=== PATIENT | female | born 1950 | race American Indian/Alaskan Native ===

== ENCOUNTER 2020-09-13 09:57 | Outpatient (REF) | payer MEDICARE, SELFPAY ==
[2020-09-13 10:50] LABS: MANUAL DIFF FLAG NO
[2020-09-13 10:55] LABS: Basophils Percent Auto 0.6 % (0-2); Eosinophils Absolute Auto 0.1 X10*3/uL (0.0-0.4); Eosinophils Percent Auto 1.5 % (0-4); Hematocrit 48.1 % (37-47); Hemoglobin 15.1 g/dl (12.0-16.0); Imm Gran Abs Auto 0.03 X10*3/uL (0.00-0.03); Imm Gran Pct Auto 0.4 % (0.0-0.4); Lymphocytes Absolute Auto 1.7 X10*3/uL (1.2-4.9); Lymphocytes Percent Auto 24.1 % (20-40); Mean Corpuscular HGB Conc 31.4 g/dl (31.0-35.0); Mean Corpuscular Hemoglobin 29.7 pg (27.0-33.0); Mean Corpuscular Volume 94.5 fL (80-98); Mean Platelet Volume 11.1 fL (9.4-12.3); Monocytes Absolute Auto 0.8 X10*3/uL (0.1-1.2); Monocytes Percent Auto 10.8 % (2-11); Neutrophils Absolute Auto 4.5 X10*3/uL (2.0-8.3); Neutrophils Percent Auto 62.6 % (45-73); Platelet Count 160 X10*3/uL (160-400); Red Blood Count 5.09 X10*6/uL (4.20-5.50); White Blood Count 7.2 X10*3/uL (4.8-10.8)
[2020-09-13 11:31] LABS: Anion Gap 12 (12-20); Blood Urea Nitrogen 17 mg/dL (9-16); Calcium 8.7 mg/dL (8.4-10.2); Carbon Dioxide 33 mmol/L (22-29); Chloride 102 mmol/L (96-108); Cholesterol 179 mg/dL; Estimated Glomerular Filt Rate > 60; Glucose Fasting 91 mg/dL (60-99); HDL Cholesterol 79 mg/dL; LDL Cholesterol Calculated 78 mg/dl; Potassium 4.2 mmol/l (3.3-5.1); Sodium 143 mmol/L (135-145); Triglycerides 111 mg/dL
== END 2020-09-13 09:58 | disposition home or self-care (01) ==
LOC: HO.LAB 09:57
PROVIDERS: PCP Internal Medicine; Visit Provider Nurse Practitioner Family
DX: E78.00 Pure hypercholesterolemia, unspecified (principal); F41.9 Anxiety disorder, unspecified; I10 Essential (primary) hypertension
CPT/HCPCS: 36415; 80048; 80061; 85025

== ENCOUNTER 2020-12-11 10:06 | Outpatient (REF) | payer MEDICARE, SELFPAY ==
[2020-12-11 11:28] LABS: Alanine Aminotransferase 37 U/L (0-31); Albumin Level 4.1 g/dL (3.5-5.0); Alkaline Phosphatase 126 U/L (39-117); Anion Gap 11 (12-20); Aspartate Amino Transferase 37 U/L (5-31); Bilirubin Total 0.9 mg/dL (0.0-1.0); Blood Urea Nitrogen 32 mg/dL (9-16); Calcium 9.3 mg/dL (8.4-10.2); Carbon Dioxide 29 mmol/L (22-29); Chloride 108 mmol/L (96-108); Cholesterol 209 mg/dL; Estimated Glomerular Filt Rate 51; Glucose Fasting 109 mg/dL (60-99); HDL Cholesterol 80 mg/dL; LDL Cholesterol Calculated 106 mg/dl; Potassium 4.4 mmol/L (3.3-5.1); Sodium 144 mmol/L (135-145); Total Protein 6.9 g/dL (6.5-8.0); Triglycerides 119 mg/dL
[2020-12-15 12:52] LABS: Vitamin D 25-OH, D2 55 ng/mL; Vitamin D 25-OH, D3 10 ng/mL; Vitamin D 25-OH, Total 65 ng/mL (30-100)
== END 2020-12-11 10:07 | disposition home or self-care (01) ==
LOC: HO.LAB 10:06
PROVIDERS: PCP Internal Medicine; Referring Provider Nurse Practitioner Family; Visit Provider Internal Medicine
DX: I10 Essential (primary) hypertension (principal); E55.9 Vitamin D deficiency, unspecified
CPT/HCPCS: 36415; 80053; 80061; 82306

== ENCOUNTER → 2020-12-28 13:28 | Outpatient (BNVA) | payer MEDICARE, SELFPAY | PROVIDERS: PCP Internal Medicine; Visit Provider Surgery | DX: K64.9 Unspecified hemorrhoids (principal); Z79.01 Long term (current) use of anticoagulants | CPT/HCPCS: 46600; 99202 ==

== ENCOUNTER → 2021-01-10 15:07 | Outpatient (BNVA) | payer MEDICARE, SELFPAY | PROVIDERS: PCP Internal Medicine; Visit Provider Urology | DX: N39.46 Mixed incontinence (principal) | CPT/HCPCS: 81002; 99202 ==

== ENCOUNTER → 2021-05-09 13:11 | Outpatient (REF) | payer MEDICARE, SELFPAY ==
--- NOTE | 2021-05-09 13:00 | CA_ITS ---
Transthoracic Echocardiogram Patient (Last, First, Middle): Alexx Monahan, Gender: Female Date of : 1950 Age: 71 Procedure Date: 05/09/2021 Procedure Type: Transthoracic Echocardiogram Location: OP Height: 149.86 cm Weight: 54.43 kg BSA: 1.48 m2 Heart Rate: bpm BP: 118 / 72 mmHg Cat Operator: IZABEL Referring MD: Estevan Gonzales MD It Trainer: Ryan Griffith MD Symptoms: I42.9 CMP Study Quality: Good ECG Rhythm: Sinus Conclusions: - 1. Moderate LV systolic dysfunction with regional wall motion abnormality in LAD territory consistent with prior infarction with impaired relaxation filling pattern 2. Normal cardiac valvular Doppler 3. Normal RV systolic pressure 4. No pericardial effusion Findings Procedure Information Contrast agent, definity, is being given per protocol without apparent complications. Left Ventricle Normal left ventricular cavity size. There is normal left ventricular wall thickness. The left ventricular systolic function is moderate to severely decreased. The visually estimated ejection fraction is between 35-40%. There is evidence of regional wall motion abnormalities. Spectral Doppler is indicative of an impaired relaxation filling pattern. E/E prime ratio is between 8 and 15 consistent with indeterminate filling pressures. Wall Motion Rest Echo Findings The apical anterior and apical inferior segments are hypokinetic. The inferoseptal wall, the apical lateral, apical septum, and mid anteroseptal segments are akinetic. The apex segment is dyskinetic. All other scored wall segments showed normal motion. Right Ventricle Normal right ventricular cavity size and systolic function. There is an ICD wire seen in the right ventricle. Atria Both atria are normal in size. There is no evidence of interatrial shunt. Aortic Valve Normal aortic valve structure and function. There is no aortic valve stenosis. There is no aortic valve regurgitation. Mitral Valve Normal mitral valve structure and function. There is trace mitral valve regurgitation. There is no mitral valve stenosis. Pulmonic Valve The pulmonic valve was not well visualized. Tricuspid Valve Likely normal tricuspid valve structure and function. There is mild tricuspid valve regurgitation. The right ventricular systolic pressure is normal. The right ventricular systolic pressure is 27 mmHg. Normal right atrial pressure. There is no evidence of pulmonary hypertension. Great Vessels All visible segments of the aorta are normal in size. The pulmonary artery was not well visualized. Venous The inferior vena cava is normal in size and collapses greater than 50% with inspiration. Pericardium/Pleural There is no evidence of pericardial effusion. Prior Study Comparison Changes noted compared to prior study dated: 10/12/2019. RV systolic pressure measured on this study is within normal limits Measurements 2D Linear Measurements IVSd: 0.84 0.6-0.9/0.6-1.0 cm LVIDd: 5.23 3.9-5.3/4.2-5.9 cm LVIDd Index: 3.53 2.4-3.2/2.2-3.1 cm/m2 LVIDs: 4.45 2.0-3.6 cm LVPWd: 0.84 0.7-1.1 cm LA Diam: 3.30 2.7-3.8/3.0-4.0 cm LAIDs Index: 2.23 1.5-2.3 cm/m2 LV Mass: 193.61 67-162/88-224 g LV Mass Index: 130.82 43-95/49-115 g/m2 LVOT Diam: 1.70 3.0+(-)1.3 cm 2D Systolic Function EF 4C: 35.00 >55% EF 2C: 34.80 >55% Mitral Valve MV Pk E: 0.69 MV PK A: 1.16 MV Decel Time: 237.00 E/A: 0.60 E'Lateral: 4.03 E'Medial: 4.79 E/E' Med: 14.40 E/E' Lat: 17.20 PHT: 70.00 MVA PHT: 3.14 Decel Sutter: 2.91 Aortic Valve AoV Pk Kb: 1.64 AoV Pk Grad: 11.00 LVOT LVOT Pk Kb: 1.06 LVOT Mn Kb: 0.70 LVOT VTI: 0.22 LVOT Pk Grad: 4.00 LVOT Mn Grad: 2.00 LVOT Diam: 1.70 LVOT Area: 2.27 Diastolic Function MV Pk E: 0.69 MV Pk A: 1.16 E/A: 0.60 E'Medial: 4.79 E/E' Med: 14.40 E' Laterial: 4.03 E/E' Lat: 17.20 Right Ventricle TAPSE (mm): 1.95 Tricuspid Valve TR Pk Kb: 2.47 TR Pk Grad: 24.00 RVSP: 27.00 Great Vessels Aorta Ao Asc: 3.20 2.1-3.4 cm Updated in Other Vendor System with Status of Final Ryan Griffith MD electronically signed on 05/10/2021 9:08:43 AM with status of Final
== END ==
LOC: HO.CARD 13:11
PROVIDERS: Visit Provider Internal Medicine
DX: I42.9 Cardiomyopathy, unspecified (principal)
CPT/HCPCS: 93306; Q9957

== ENCOUNTER → 2021-06-04 13:47 | Outpatient (BNVA) | payer MEDICARE, SELFPAY | PROVIDERS: PCP Internal Medicine; Referring Provider Internal Medicine; Visit Provider Internal Medicine | DX: Z45.02 Encounter for adjustment and management of automatic implantable cardiac defibrillator (principal); I25.10 Atherosclerotic heart disease of native coronary artery without angina pectoris; I48.0 Paroxysmal atrial fibrillation; I25.5 Ischemic cardiomyopathy | CPT/HCPCS: 93005; 99212 ==

== ENCOUNTER → 2021-07-26 14:46 | Outpatient (BNVA) | payer MEDICARE, SELFPAY | PROVIDERS: PCP Internal Medicine | DX: R32 Unspecified urinary incontinence (principal) | CPT/HCPCS: 51798; 99212 ==

== ENCOUNTER 2021-09-05 13:41 | Outpatient (REF) | payer MEDICARE, SELFPAY ==
[2021-09-05 14:49] LABS: Cholesterol 207 mg/dL; HDL Cholesterol 80 mg/dL; LDL Cholesterol Calculated 107 mg/dl; Triglycerides 104 mg/dL
== END 2021-09-05 13:42 | disposition home or self-care (01) ==
LOC: HO.LAB 13:41
PROVIDERS: Nurse Practitioner Family; PCP Internal Medicine; Visit Provider Internal Medicine
DX: E78.00 Pure hypercholesterolemia, unspecified (principal)
CPT/HCPCS: 36415; 80061

== ENCOUNTER 2021-10-01 08:03 | Outpatient (REF) | payer MEDICARE, SELFPAY ==
--- NOTE | 2021-10-01 | PFT_ITS ---
This 71-year-old female tried to do the pulmonary function test, but could not perform any adequate maneuvers. The patient had audible expiratory wheezes on auscultation. If the patient does need to have complete pulmonary function tests, then please educate her and send again after thorough explanation. MD JORDYN Radford/LAILA / [phone]
== END 2021-10-01 08:04 | disposition home or self-care (01) ==
LOC: HO.RESP 08:03
PROVIDERS: PCP Internal Medicine; Visit Provider Nurse Practitioner Family
DX: Z13.89 Encounter for screening for other disorder (principal)

== ENCOUNTER 2021-11-09 13:03 | Outpatient (REF) | payer MEDICARE, SELFPAY ==
[2021-11-09 13:36] LABS: Binax Internal Control QC Valid; Binax Now Covid-19 Ag Negative (Negative)
== END 2021-11-09 13:04 | disposition home or self-care (01) ==
LOC: HO.LAB 13:03
PROVIDERS: Visit Provider Internal Medicine
DX: Z20.822 Contact with and (suspected) exposure to COVID-19 (principal)
CPT/HCPCS: C9803

== ENCOUNTER 2021-11-26 10:24 | Outpatient (REF) | payer MEDICARE, SELFPAY ==
[2021-11-26 11:41] LABS: Alanine Aminotransferase 15 U/L (0-31); Alkaline Phosphatase 99 U/L (39-117); Anion Gap 10 (12-20); Aspartate Amino Transferase 23 U/L (5-31); Bilirubin Total 0.9 mg/dL (0.0-1.0); Blood Urea Nitrogen 15 mg/dL (9-16); Calcium 9.4 mg/dL (8.4-10.2); Carbon Dioxide 32 mmol/L (22-29); Chloride 107 mmol/L (96-108); Cholesterol 188 mg/dL; Estimated Glomerular Filt Rate 55; Glucose Fasting 112 mg/dL (60-99); HDL Cholesterol 76 mg/dL; LDL Cholesterol Calculated 91 mg/dl; Potassium 3.9 mmol/L (3.3-5.1); Sodium 145 mmol/L (135-145); Total Protein 6.7 g/dL (6.5-8.0); Triglycerides 107 mg/dL
[2021-12-01 13:11] LABS: Vitamin D 25-OH, D2 22 ng/mL; Vitamin D 25-OH, D3 22 ng/mL; Vitamin D 25-OH, Total 44 ng/mL (30-100)
== END 2021-11-26 10:25 | disposition home or self-care (01) ==
LOC: HO.LAB 10:24
PROVIDERS: PCP Internal Medicine; Visit Provider Internal Medicine
DX: E78.5 Hyperlipidemia, unspecified (principal); E55.9 Vitamin D deficiency, unspecified; I25.5 Ischemic cardiomyopathy
CPT/HCPCS: 36415; 80053; 80061; 82306

== ENCOUNTER 2021-12-07 14:59 | Outpatient (REF) | payer MEDICARE, SELFPAY ==
[2021-12-07 16:10] LABS: COVID-19 Test Negative (Negative); IDNOW Serial# 16C4AD1C
== END 2021-12-07 15:00 | disposition home or self-care (01) ==
LOC: HO.LAB 14:59
PROVIDERS: PCP Internal Medicine; Visit Provider Internal Medicine
DX: Z20.822 Contact with and (suspected) exposure to COVID-19 (principal)
CPT/HCPCS: 87635; C9803

== ENCOUNTER 2022-03-26 18:56 | Emergency (ER) | payer MEDICARE, SELFPAY ==
--- NOTE | 2022-03-26 | ECG_ITS ---
Test Reason : chest discomfort Blood Pressure : / mmHG Vent. Rate : 075 BPM Atrial Rate : 075 BPM P-R Int : 124 ms QRS Dur : 076 ms QT Int : 372 ms P-R-T Axes : 074 017 078 degrees QTc Int : 415 ms Normal sinus rhythm Possible Left atrial enlargement Low voltage QRS Possible Inferior infarct , age undetermined Cannot rule out Anteroseptal infarct , age undetermined Abnormal ECG No previous ECGs available Referred By: Generic ED Physician Electronically Signed By:ITALIA ROCHA
--- NOTE | ~2022-03-26 | CT_ITS ---
EXAMINATION: CT CHEST WITHOUT CONTRAST CLINICAL INFORMATION: Productive cough with dyspnea COMPARISON: None TECHNIQUE: Multidetector volumetric CT imaging of the chest was done. Axial MIP volume rendering provided. Sagittal and coronal reformatted images were obtained. The study is degraded by marked motion artifact secondary to the patient's inability to follow breathing instructions, especially at the lung bases. This CT examination was performed using dose optimization techniques as appropriate, variously including the following: *Automated exposure control *Adjustment of mA and/or kV according to patient size (this includes techniques or standardized protocols for targeted exams where dose is matched to indication/reason for exam; i.e. extremities or head) *Use of iterative reconstruction technique DLP: 216 mGy-cm FINDINGS: LUNGS: There are some tree-in-bud opacities in the superior segment of the right lower lobe (5:213-233). The lungs are otherwise clear with no evidence of consolidation or worrisome nodules. There is no evidence of CHF. MEDIASTINUM: Heart size is normal. A bipolar left chest wall pacemaker is present. No mediastinal or hilar lymphadenopathy is seen. Coronary artery calcifications are present. PLEURA: There is no pleural effusion. No pleural mass or thickening. AXILLA: No lymphadenopathy. UPPER ABDOMEN: Some mild fullness in the left adrenal gland. The right appears normal. The gallbladder is contracted and contains gallstones. OSSEOUS STRUCTURES: Unremarkable. CT/CT chest wo con IMPRESSION: No acute intrathoracic disease seen. Some minimal tree-in-bud densities seen in the superior segment of the right lower due to inflammation/airway disease. No gross consolidations. Other incidental findings described above. Fleischner guidelines were followed.
--- NOTE | ~2022-03-26 | XR_ITS ---
EXAMINATION: XR CHEST CLINICAL INFORMATION: Dyspnea COMPARISON: None TECHNIQUE: 2 views of the chest were obtained. FINDINGS: Heart size within normal limits. A left chest wall pacemaker is present with one lead in the atria the other in the right ventricle. No acute infiltrates, effusions or lung masses are seen. Pulmonary vasculature is much less prominent on the left than the right . This raises the question of a Westerm[place] sign in the setting of pulmonary emboli. If this is a consideration, CT pulmonary angiography may be useful. Some retrocardiac atelectasis is present. XR/XR chest 2V IMPRESSION: Decreased pulmonary vascularity on the left raising question of compromised flow and a Westermark sign from possible pulmonary emboli. If this is a consideration, CT angiography would be useful.
[2022-03-26 19:11] VITALS: BP 128/95; PULSE 77; RESP 22; TEMP 37.1; O2SAT 96; BMI 23.8
[2022-03-26 19:50] LABS: MANUAL DIFF FLAG NO
[2022-03-26 19:52] LABS: Basophils Percent Auto 0.3 % (0-2); Mean Corpuscular Volume 91.1 fL (80.0-98.0); Mean Platelet Volume 10.6 fL (9.4-12.3); PLT CLUMP 1; SCAN SMEAR FLAG 1
[2022-03-26 19:54] LABS: Eosinophils Absolute Auto 0.1 X10*3/uL (0.0-0.4); Eosinophils Percent Auto 1.7 % (0-4); Hematocrit 41.8 % (37.0-47.0); Hemoglobin 13.6 g/dl (12.0-16.0); Imm Gran Abs Auto 0.01 X10*3/uL (0.00-0.03); Imm Gran Pct Auto 0.1 % (0.0-0.4); Lymphocytes Absolute Auto 1.4 X10*3/uL (1.2-4.9); Lymphocytes Percent Auto 18.6 % (20-40); Mean Corpuscular HGB Conc 32.5 g/dl (31.0-35.0); Mean Corpuscular Hemoglobin 29.6 pg (27.0-33.0); Monocytes Absolute Auto 0.9 X10*3/uL (0.1-1.2); Neutrophils Percent Auto 67.3 % (45-73); Red Blood Count 4.59 X10*6/uL (4.20-5.50); Red Cell Distribution Width 13.3 % (11.0-16.0)
[2022-03-26 19:55] LABS: Platelet Count 117 X10*3/uL (160-400); White Blood Count 7.5 X10*3/uL (4.8-10.8)
[2022-03-26 20:06] LABS: Alanine Aminotransferase 15 U/L (0-31); Albumin Level 3.8 g/dL (3.5-5.0); Alkaline Phosphatase 99 U/L (39-117); Anion Gap 13 (12-20); Aspartate Amino Transferase 24 U/L (5-31); Bilirubin Total 0.9 mg/dL (0.0-1.0); Blood Urea Nitrogen 17 mg/dL (9-16); Calcium 8.8 mg/dL (8.4-10.2); Carbon Dioxide 27 mmol/L (22-29); Chloride 105 mmol/L (96-108); Estimated Glomerular Filt Rate > 60; Glucose Random 126 mg/dL (60-115); Potassium 3.6 mmol/L (3.3-5.1); Sodium 141 mmol/L (135-145); Total Protein 6.5 g/dL (6.5-8.0)
[2022-03-26 20:10] LABS: Troponin-I High Sensitivity 12.8 ng/L (<3.5-17.0)
--- NOTE | 2022-03-26 22:09 | ED_ITS ---
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 Mode of arrival: ambulatory Limitations: no limitations History of Present Illness HPI Narrative: son reports compliant with all medications, no sick contacts, has not missed any of her bel MASSEY elicited complaint: cough (productive sputum, wheezing) Pertinent past history: asthma Onset (ago): day(s) (3) Timing: constant Severity: moderate Exacerbating factors: coughing Relieving factors: rest and bronchodilators Known history of: asthma Associated symptoms: cough, wheezing and sputum production Treatment prior to arrival: bronchodilator Related Data Home Medications Medication Instructions Recorded Confirmed donepezil 10 mg tablet 10 mg PO DAILY 09/04/20 12/05/21 levalbuterol HCl 0.63 mg/3 mL 0.63 mg INHALATION Q8H ml 09/04/20 12/05/21 solution for nebulization (Xopenex) memantine 10 mg tablet 0 mg PO 09/04/20 12/05/21 nitroglycerin 0.3 mg sublingual 0 mg SUBLINGUAL 09/04/20 12/05/21 tablet latanoprost 0.005 % eye drops 1 drp OPHTHALMIC (EYE) BEDTIME 07/26/21 12/05/21 Previous Rx's Medication Instructions Recorded ipratropium bromide 17 2 puff INHALATION TID 30 Days 09/21/20 mcg/actuation HFA aerosol inhaler #12.9 g (Atrovent HFA) sodium chloride 7 % for 4 ml INHALATION BID PRN 30 Days 12/18/20 nebulization #240 ml folic acid 1 mg tablet 1 mg PO DAILY 90 Days #90 tab 08/20/21 diclofenac sodium 1 % topical gel 2 g TOPICAL QID #100 g 09/06/21 (Voltaren Arthritis Pain) cholecalciferol (vitamin D3) 25 25 mcg PO DAILY #30 cap 09/12/21 mcg (1,000 unit) capsule (Vitamin D3) famotidine 20 mg tablet 20 mg PO BID 90 Days #180 tab 09/21/21 losartan 50 mg tablet 50 mg PO DAILY 90 Days #90 tab 09/21/21 apixaban 5 mg tablet 5 mg PO BID 90 Days #180 tab 09/27/21 carvedilol 6.25 mg tablet 6.25 mg PO BID 90 Days #180 tab 09/27/21 paroxetine HCl 20 mg tablet 20 mg PO DAILY 90 Days #90 tab 09/27/21 nebulizer accessories (Adult #1 ea 10/26/21 Aerosol Mask) quetiapine 100 mg tablet 150 mg PO BEDTIME 90 Days #135 tab 12/05/21 atorvastatin 40 mg tablet 40 mg PO BEDTIME 90 Days #90 tab 12/25/21 furosemide 20 mg tablet 20 mg PO BID 90 Days #180 tab 12/25/21 lorazepam 0.5 mg tablet (Ativan) 0.5 mg PO BEDTIME PRN 30 Days #30 12/25/21 tab ipratropium bromide 0.02 % 2.5 ml INHALATION Q6H PRN #150 ml 02/05/22 solution for inhalation alendronate 70 mg tablet 70 mg PO QWEEK 30 Days #5 tab 03/02/22 fluticasone propionate 44 1 puff PO BID #31.8 ea 03/02/22 mcg/actuation HFA aerosol inhaler (Flovent HFA) fluticasone propionate 50 1 spray INTRANASAL DAILY PRN #48 ml 03/02/22 mcg/actuation nasal spray,suspension commode #1 ea 03/26/22 doxycycline hyclate 100 mg capsule 100 mg PO BID 7 Days #14 cap 03/26/22 humidifiers #1 ea 03/26/22 prednisone 20 mg tablet 40 mg PO DAILY 4 Days #8 tab 03/26/22 Allergies Allergy/AdvReac Type Severity Reaction Status Date / Time aspirin Allergy Intermediate rash, Verified 12/05/21 16:15 pruritus penicillin G Allergy Intermediate swelling Verified 12/05/21 16:15 Review of Systems Review of Systems: Constitutional : No Fever, No Chills ENT/Mouth : No sore throat, No Rhinorrhea, No Swallowing Difficulty Eyes: No Eye Pain, No Swelling, No Redness Cardiovascular : No Chest Pain, positive SOB, No Orthopnea, no Edema Respiratory : pos Cough, pos Sputum, pos Wheezing, positive dyspnea Gastrointestinal : No Nausea, No Vomiting, No Diarrhea, No abdominal Pain, No Hematochezia, No Melena Genitourinary : No Dysuria, No Urinary Frequency, No Hematuria Musculoskeletal : No joint pain, No Myalgias Skin : No Skin Lesions, No rash Neuro : No Weakness, No Numbness, No Dizziness, No Headache Psych : No Anxiety/Panic, No Depression Heme/Lymph: No Bruising, No Lymphadenopathy Endocrine : No Polyuria, No Polydipsia All other systems reviewed and are negative [facility] Past Medical History Attestation statement: The following information was validated with the patient. Source: old records reviewed Medical History Anticoagulated Anxiety Asthma Atherosclerotic cardiovascular disease Bleeding hemorrhoids Blurry vision Dementia Depression with anxiety Dyslipidemia GERD (gastroesophageal reflux disease) Hemorrhoids High cholesterol History of MT (myocardial infarction) History of stroke Hypertension Hypovitaminosis D Ischemic cardiomyopathy Osteoporosis PAF (paroxysmal atrial fibrillation) Urinary incontinence Urinary incontinence, mixed Surgical History History of cardiac defibrillator placement History of hysterectomy Family History Family History Father No problems noted. Mother No problems noted. Sister No problems noted. Sister No problems noted. Son No problems noted. Son No problems noted. Daughter No problems noted. Social History Social History Housing: Apartment Alcohol intake: never Patient Tobacco Use Status: Former Tobacco user Tobacco use type: Cigarette e-Cigarette/Vaping Use: Never Used Second Hand Smoke Exposure: No Advance Directives: Yes Advance Directives on File: Yes Advance Directives Date on File: 12/18/20 Current occupational status: retired Physical Exam Vital Signs: Vital Signs: Last Vital Signs Temp 99.5 F 03/26/22 22:47 Pulse 75 03/26/22 22:47 Resp 18 03/26/22 22:47 BP 133/72 03/26/22 22:47 Pulse Ox 94 03/26/22 22:47 BMI result Body Mass Index 23.8 Appearance: Alert. Oriented X3. No acute distress. Eyes: Pupils equal, round and reactive to light. ENT: Pharynx normal. Neck: Normal inspection. Neck supple. CVS: Normal heart rate and rhythm. Pulses normal. Respiratory: No respiratory distress. Breath sounds mild wheezes, minimally coarse cough Abdomen: Soft and non-tender. Skin: Skin warm and dry. Normal skin color. Normal skin turgor. Extremities: No lower extremity edema. No calf ttp Neuro: Oriented X 3 at baseline. No motor deficit. No sensory deficit. Course Course Course Narrative: doubt PE given compliance with eliquis - CT scan for pneumonia ordered. Has no CP. likely bronchitis will place on doxycycline, no hypoxia, feels better, VS stable can be managed at home not toxic, clear lungs no resp distress repeat trop flat, unchanged EKG MDM - SOB/Dyspnea MDM Narrative Medical decision making narrative: 72 yo female hx of ischemic cardiomyopathy, asthma, HLD, GERD, ICD, PAF on eliquis, MT, HTN here with c/o dyspnea, wheezing, productive cough with green sputum - at this time will give neb, PO steroids, obtain COVID and flu swabs, troponin x 2, CXR - compliant with eliquis doubt PE and has no CP. Lab Data Result diagrams: 03/26/22 19:45 03/26/22 19:45 Labs: Lab Results 03/26/22 03/26/22 03/26/22 Range/Units 19:45 19:45 19:45 WBC 7.5 (4.8-10.8) X10*3/uL RBC 4.59 (4.20-5.50) X10*6/uL Hgb 13.6 (12.0-16.0) g/dl Hct 41.8 (37.0-47.0) % MCV 91.1 (80.0-98.0) fL MCH 29.6 (27.0-33.0) pg MCHC 32.5 (31.0-35.0) g/dl RDW 13.3 (11.0-16.0) % Plt Count 117 L (160-400) X10*3/uL MPV 10.6 (9.4-12.3) fL Immature Gran % (Auto) 0.1 (0.0-0.4) % Neut % (Auto) 67.3 (45-73) % Lymph % (Auto) 18.6 L (20-40) % Kinney % (Auto) 12.0 H (2-11) % Eos % (Auto) 1.7 (0-4) % Baso % (Auto) 0.3 (0-2) % Lymph # (Auto) 1.4 (1.2-4.9) X10*3/uL Kinney # (Auto) 0.9 (0.1-1.2) X10*3/uL Eos # (Auto) 0.1 (0.0-0.4) X10*3/uL Baso # (Auto) 0.0 (0.0-0.2) X10*3/uL Abs Immat Gran (auto) 0.01 (0.00-0.03) X10*3/uL Absolute Neuts (auto) 5.0 (2.0-8.3) x10*3/uL Absolute Nucleated RBC 0.000 (0.0-0.012) X10*3/uL Nucleated RBC % (auto) 0.0 (0.0-0.2) /100WBC Sodium 141 (135-145) mmol/L Potassium 3.6 (3.3-5.1) mmol/L Chloride 105 (96-108) mmol/L Carbon Dioxide 27 (22-29) mmol/L Anion Gap 13 (12-20) BUN 17 H (9-16) mg/dL Creatinine 0.89 (0.5-1.4) mg/dL Estim Creat Clear Calc 42.0 Estimated GFR > 60 Random Glucose 126 H (60-115) mg/dL Calcium 8.8 D (8.4-10.2) mg/dL Total Bilirubin 0.9 (0.0-1.0) mg/dL AST 24 (5-31) U/L ALT 15 (0-31) U/L Alkaline Phosphatase 99 (39-117) U/L Troponin I High Sens 12.8 (<3.5-17.0) ng/L Total Protein 6.5 (6.5-8.0) g/dL Albumin 3.8 (3.5-5.0) g/dL COVID-19 ([facility]) (Negative) COVID-19 Clin Com Influenza Type A (KATIE) (Negative) Influenza Type B (KATIE) (Negative) Influenza A & B Note 03/26/22 03/26/22 03/26/22 Range/Units 22:38 22:40 22:40 WBC (4.8-10.8) X10*3/uL RBC (4.20-5.50) X10*6/uL Hgb (12.0-16.0) g/dl Hct (37.0-47.0) % MCV (80.0-98.0) fL MCH (27.0-33.0) pg MCHC (31.0-35.0) g/dl RDW (11.0-16.0) % Plt Count (160-400) X10*3/uL MPV (9.4-12.3) fL Immature Gran % (Auto) (0.0-0.4) % Neut % (Auto) (45-73) % Lymph % (Auto) (20-40) % Kinney % (Auto) (2-11) % Eos % (Auto) (0-4) % Baso % (Auto) (0-2) % Lymph # (Auto) (1.2-4.9) X10*3/uL Kinney # (Auto) (0.1-1.2) X10*3/uL Eos # (Auto) (0.0-0.4) X10*3/uL Baso # (Auto) (0.0-0.2) X10*3/uL Abs Immat Gran (auto) (0.00-0.03) X10*3/uL Absolute Neuts (auto) (2.0-8.3) x10*3/uL Absolute Nucleated RBC (0.0-0.012) X10*3/uL Nucleated RBC % (auto) (0.0-0.2) /100WBC Sodium (135-145) mmol/L Potassium (3.3-5.1) mmol/L Chloride (96-108) mmol/L Carbon Dioxide (22-29) mmol/L Anion Gap (12-20) BUN (9-16) mg/dL Creatinine (0.5-1.4) mg/dL Estim Creat Clear Calc Estimated GFR Random Glucose (60-115) mg/dL Calcium (8.4-10.2) mg/dL Total Bilirubin (0.0-1.0) mg/dL AST (5-31) U/L ALT (0-31) U/L Alkaline Phosphatase (39-117) U/L Troponin I High Sens 13.9 (<3.5-17.0) ng/L Total Protein (6.5-8.0) g/dL Albumin (3.5-5.0) g/dL COVID-19 ([facility]) Negative (Negative) COVID-19 Clin Com See Note Influenza Type A (KATIE) Negative (Negative) Influenza Type B (KATIE) Negative (Negative) Influenza A & B Note See Note ECG Data Attestation: I personally reviewed and interpreted this ECG as follows: ECG interpretation date: 03/26/22 ECG interpretation time: 22:09 Interpretation: Rate: 75 Rhythm: NSR [place]: left Normal P waves. Normal MIKE. Normal QRS complex. ST T wave : no JOYCELYN, inverted aVL, V1-V5 qTC: normal prior studies: t wave inversions old 06/04/2021 The study has been interpreted contemporaneously by me. . Discharge Plan Discharge Clinical Impression: Bronchitis Patient Disposition: Home, Self-Care Instructions: Acute Bronchitis (ED) Additional Instructions: return to ED for any worsening symptoms or concerns continue all medications repeat platelet count in 3 days with your doctor Prescriptions: New doxycycline hyclate 100 mg capsule 100 mg PO BID 7 Days Qty: 14 0RF prednisone 20 mg tablet 40 mg PO DAILY 4 Days Qty: 8 0RF No Action folic acid 1 mg tablet 1 mg PO DAILY 90 Days Qty: 90 3RF cholecalciferol (vitamin D3) [Vitamin D3] 25 mcg (1,000 unit) capsule 25 mcg PO DAILY Qty: 30 11RF famotidine 20 mg tablet 20 mg PO BID 90 Days Qty: 180 3RF losartan 50 mg tablet 50 mg PO DAILY 90 Days Qty: 90 3RF paroxetine HCl 20 mg tablet 20 mg PO DAILY 90 Days Qty: 90 3RF carvedilol 6.25 mg tablet 6.25 mg PO BID 90 Days Qty: 180 3RF apixaban 5 mg tablet 5 mg PO BID 90 Days Qty: 180 3RF (DME) Adult Aerosol Mask Misc See Rx Instructions .Route Qty: 1 0RF Rx Instructions: As directed atorvastatin 40 mg tablet 40 mg PO BEDTIME 90 Days Qty: 90 3RF furosemide 20 mg tablet 20 mg PO BID 90 Days Qty: 180 2RF lorazepam [Ativan] 0.5 mg tablet 0.5 mg PO BEDTIME PRN (Reason: Severe anxiety) 30 Days Qty: 30 0RF ipratropium bromide 0.02 % solution 2.5 ml inhalation Q6H PRN (Reason: shortness of breath or wheezing) Qty: 150 0RF alendronate 70 mg tablet 70 mg PO QWEEK 30 Days Qty: 5 6RF fluticasone propionate 50 mcg/actuation spray,suspension 1 spray intranasal DAILY PRN (Reason: for allergies) Qty: 48 2RF Flovent HFA 44 mcg/actuation HFA aerosol inhaler 1 puff PO BID Qty: 31.8 2RF (DME) humidifiers Misc See Rx Instructions .Route Qty: 1 0RF Rx Instructions: As directed (DME) commode Kit See Rx Instructions .Route Qty: 1 0RF Rx Instructions: As directed Atrovent HFA 17 mcg/actuation HFA aerosol inhaler 2 puff inhalation TID 30 Days Qty: 12.9 6RF memantine 10 mg tablet 0 mg PO 0RF donepezil 10 mg tablet 10 mg PO DAILY 0RF nitroglycerin 0.3 mg tablet, sublingual 0 mg sublingual 0RF levalbuterol HCl [Xopenex] 0.63 mg/3 mL solution for nebulization 0.63 mg inhalation Q8H 0RF sodium chloride 7 % solution for nebulization 4 ml inhalation BID PRN (Reason: bronchospasm) 30 Days Qty: 240 6RF diclofenac sodium [Voltaren Arthritis Pain] 1 % gel 2 g topical QID Qty: 100 0RF Rx Instructions: apply to single elbow, wrist or hand; for hand includes palm/fingers/back of hand quetiapine 100 mg tablet 150 mg PO BEDTIME 90 Days Qty: 135 2RF latanoprost 0.005 % drops 1 drp ophthalmic (eye) BEDTIME 0RF Referrals: Ana Maria Winston MD [Primary Care Provider] - 2 days (if not better) Print Language: Slovak
[2022-03-26] MEDS: Ipratropium Bromide 0.5 MG/2.5 ML SOLUTION 0.25 MG INHALE (22:32)
[2022-03-26 22:39] VITALS: PULSE 77; RESP 18; O2SAT 96
[2022-03-26 22:47] VITALS: BP 133/72; PULSE 75; RESP 18; TEMP 37.5; O2SAT 94
[2022-03-26] MEDS: predniSONE 20 MG TABLET 40 MG PO (22:50)
[2022-03-26 23:02] LABS: IDNOW Serial# 55D5AD1C; Influenza A Negative (Negative); Influenza B2 Negative (Negative)
[2022-03-26 23:14] LABS: Troponin-I High Sensitivity 13.9 ng/L (<3.5-17.0)
[2022-03-26 23:17] LABS: COVID-19 Test Negative (Negative)
[2022-03-26 23:19] VITALS: PULSE 75; RESP 18; O2SAT 94
== END 2022-03-26 23:34 | disposition home or self-care (01) ==
PROVIDERS: Emergency Provider Emergency Medicine; PCP Internal Medicine
DX: J40 Bronchitis, not specified as acute or chronic (principal); Z20.822 Contact with and (suspected) exposure to COVID-19; R06.02 Shortness of breath; E78.5 Hyperlipidemia, unspecified; I10 Essential (primary) hypertension; I48.0 Paroxysmal atrial fibrillation; Z79.01 Long term (current) use of anticoagulants
CPT/HCPCS: 36415; 71046; 71250; 80053; 84484; 85025; 87502; 87635; 93005; 94640; 99284

== ENCOUNTER 2022-04-01 09:16 | Outpatient (REF) | payer OTHER, SELFPAY ==
[2022-04-01 09:37] LABS: MANUAL DIFF FLAG NO
[2022-04-01 10:13] LABS: Basophils Absolute Auto 0.1 X10*3/uL (0.0-0.2); Basophils Percent Auto 0.4 % (0-2); Eosinophils Percent Auto 0.3 % (0-4); Hematocrit 45.7 % (37.0-47.0); Hemoglobin 14.8 g/dl (12.0-16.0); Imm Gran Abs Auto 0.22 X10*3/uL (0.00-0.03); Lymphocytes Percent Auto 17.7 % (20-40); Mean Corpuscular HGB Conc 32.4 g/dl (31.0-35.0); Mean Corpuscular Volume 92.7 fL (80.0-98.0); Monocytes Absolute Auto 0.5 X10*3/uL (0.1-1.2); Monocytes Percent Auto 4.9 % (2-11); NRBC Pct Auto 0.2 /100WBC (0.0-0.2); Neutrophils Absolute Auto 8.3 x10*3/uL (2.0-8.3); Neutrophils Percent Auto 74.7 % (45-73); Platelet Count 184 X10*3/uL (160-400); Red Blood Count 4.93 X10*6/uL (4.20-5.50); White Blood Count 11.1 X10*3/uL (4.8-10.8)
[2022-04-01 10:44] LABS: Alanine Aminotransferase 19 U/L (0-31); Albumin Level 3.8 g/dL (3.5-5.0); Alkaline Phosphatase 98 U/L (39-117); Anion Gap 14 (12-20); Aspartate Amino Transferase 20 U/L (5-31); Bilirubin Total 0.8 mg/dL (0.0-1.0); Blood Urea Nitrogen 21 mg/dL (9-16); Calcium 9.7 mg/dL (8.4-10.2); Carbon Dioxide 26 mmol/L (22-29); Chloride 103 mmol/L (96-108); Estimated Glomerular Filt Rate 58; Glucose Fasting 182 mg/dL (60-99); Potassium 3.3 mmol/L (3.3-5.1); Sodium 140 mmol/L (135-145); Total Protein 6.4 g/dL (6.5-8.0)
== END 2022-04-01 09:17 | disposition home or self-care (01) ==
LOC: HO.LAB 09:16
PROVIDERS: PCP Internal Medicine; Visit Provider Internal Medicine
DX: I48.0 Paroxysmal atrial fibrillation (principal)
CPT/HCPCS: 36415; 80053; 85025

== ENCOUNTER 2022-04-25 12:31 | Outpatient (REF) | payer OTHER, SELFPAY ==
[2022-04-25 12:44] LABS: MANUAL DIFF FLAG NO
[2022-04-25 13:23] LABS: Basophils Percent Auto 0.4 % (0-2); Eosinophils Absolute Auto 0.2 X10*3/uL (0.0-0.4); Eosinophils Percent Auto 2.8 % (0-4); Hemoglobin 14.4 g/dl (12.0-16.0); Imm Gran Abs Auto 0.02 X10*3/uL (0.00-0.03); Imm Gran Pct Auto 0.4 % (0.0-0.4); Lymphocytes Absolute Auto 1.4 X10*3/uL (1.2-4.9); Lymphocytes Percent Auto 25.4 % (20-40); Mean Corpuscular Hemoglobin 29.4 pg (27.0-33.0); Mean Platelet Volume 10.7 fL (9.4-12.3); Monocytes Absolute Auto 0.5 X10*3/uL (0.1-1.2); Monocytes Percent Auto 9.6 % (2-11); Neutrophils Absolute Auto 3.3 x10*3/uL (2.0-8.3); Neutrophils Percent Auto 61.4 % (45-73); Platelet Count 123 X10*3/uL (160-400); Red Blood Count 4.89 X10*6/uL (4.20-5.50); Red Cell Distribution Width 13.8 % (11.0-16.0); White Blood Count 5.4 X10*3/uL (4.8-10.8)
[2022-04-25 13:38] LABS: Cholesterol 205 mg/dL; HDL Cholesterol 80 mg/dL; LDL Cholesterol Calculated 107 mg/dl; Triglycerides 90 mg/dL
== END 2022-04-25 12:32 | disposition home or self-care (01) ==
LOC: HO.LAB 12:31
PROVIDERS: PCP Internal Medicine; Visit Provider Internal Medicine
DX: I48.0 Paroxysmal atrial fibrillation (principal); D64.9 Anemia, unspecified; E78.5 Hyperlipidemia, unspecified
CPT/HCPCS: 36415; 80061; 85025

== ENCOUNTER → 2022-04-29 16:04 | Outpatient (REF) | payer OTHER, SELFPAY ==
--- NOTE | 2022-04-29 16:08 | CA_ITS ---
Transthoracic Echocardiogram Patient (Last, First, Middle): Alexx Monahan, Gender: Female Date of : 1950 Age: 72 Procedure Date: 04/29/2022 Procedure Type: Transthoracic Echocardiogram Location: OP Height: 149.86 cm Weight: 54.43 kg BSA: 1.48 m2 Heart Rate: bpm BP: 100 / 72 mmHg Supervisory Cbp Officer: CP/TO Referring MD: Melvi Escobedo NP-Alpa Surfacer: Ryan Griffith MD Symptoms: I25.5 - Ischemic cardiomyopathy Study Quality: Fair/contrast Conclusions: - 1. Moderate LV systolic dysfunction with LVEF of 35-40% with grade 1 diastolic dysfunction with regional wall motion abnormality in LAD territory consistent with prior infarction and overall findings consistent with ischemic cardiomyopathy 2. Normal cardiac valvular Doppler 3. No gross pericardial effusion Findings Procedure Information Contrast agent, definity, is being given per protocol without apparent complications. Left Ventricle Normal left ventricular cavity size. There is normal left ventricular wall thickness. The left ventricular systolic function is moderately decreased. The visually estimated ejection fraction is between 35-40%. Spectral Doppler is indicative of an impaired relaxation filling pattern. E/E prime ratio is <8, consistent with normal filling pressures. Wall Motion Rest Echo Findings The basal anterior, mid anterior, and basal anteroseptal segments are hypokinetic. The apical anterior, apical inferior, apical lateral, apical septum, mid inferoseptal, and mid anteroseptal segments are akinetic. The apex segment is dyskinetic. All other scored wall segments showed normal motion. Right Ventricle Normal right ventricular cavity size and systolic function. There is an ICD wire seen in the right ventricle. Atria Both atria are normal in size. Interatrial shunt cannot be excluded. Aortic Valve There is mild calcification of the aortic valve. There is no aortic valve stenosis. There is no aortic valve regurgitation. Mitral Valve There is mild anterior and posterior mitral leaflet thickening. There is mild mitral valve regurgitation. There is no mitral valve stenosis. Pulmonic Valve The pulmonic valve was not well visualized. Tricuspid Valve Likely normal tricuspid valve structure and function. There is mild tricuspid valve regurgitation. The right ventricular systolic pressure is normal. The right ventricular systolic pressure is 30 mmHg. Normal right atrial pressure. There is no evidence of pulmonary hypertension. Great Vessels All visible segments of the aorta are normal in size. The pulmonary artery was not well visualized. Venous The inferior vena cava is normal in size and collapses greater than 50% with inspiration. Pericardium/Pleural There is no evidence of pericardial effusion. Prior Study Comparison No significant change compared to prior study dated: 05/09/2021. Measurements 2D Linear Measurements IVSd: 1.39 0.6-0.9/0.6-1.0 cm LVIDd: 4.41 3.9-5.3/4.2-5.9 cm LVIDd Index: 2.98 2.4-3.2/2.2-3.1 cm/m2 LVIDs: 3.22 2.0-3.6 cm LVPWd: 1.06 0.7-1.1 cm LA Diam: 3.20 2.7-3.8/3.0-4.0 cm LAIDs Index: 2.16 1.5-2.3 cm/m2 LV Mass: 246.55 67-162/88-224 g LV Mass Index: 166.58 43-95/49-115 g/m2 LVOT Diam: 2.00 3.0+(-)1.3 cm 2D Systolic Function EF 4C: 51.40 >55% EF 2C: 37.80 >55% Mitral Valve MV Pk E: 0.57 MV PK A: 1.08 MV Decel Time: 240.00 E/A: 0.50 E'Lateral: 3.70 E'Medial: 5.87 E/E' Med: 9.70 E/E' Lat: 15.40 PHT: 70.00 MVA PHT: 3.14 Decel [place]: 2.37 Aortic Valve AoV Pk Kb: 1.54 AoV Mn Kb: 0.98 AoV VTI: 0.32 AoV Pk Grad: 9.00 Aov Mn Grad: 5.00 CLARISSA Cont.VTI: 2.04 LVOT LVOT Pk Kb: 1.04 LVOT Mn Kb: 0.64 LVOT VTI: 0.21 LVOT Pk Grad: 4.00 LVOT Mn Grad: 2.00 LVOT Diam: 2.00 LVOT Area: 3.14 Diastolic Function MV Pk E: 0.57 MV Pk A: 1.08 E/A: 0.50 E'Medial: 5.87 E/E' Med: 9.70 E' Laterial: 3.70 E/E' Lat: 15.40 Right Ventricle TAPSE (mm): 17.70 TVS' Kb: 10.90 Tricuspid Valve TR Pk Kb: 2.58 TR Pk Grad: 27.00 RA Press: 3.00 RVSP: 30.00 Great Vessels Aorta Sinus of Valsalva: 3.66 2.0-3.[address] [place]: 2.72 1.7-3.4 cm Ao Asc: 3.00 2.1-3.4 cm Updated in Other Vendor System with Status of Final Ryan Griffith MD electronically signed on 05/01/2022 9:32:07 AM with status of Final
== END ==
LOC: HO.CARD 16:04
PROVIDERS: Visit Provider Nurse Practitioner Family
DX: I25.5 Ischemic cardiomyopathy (principal); I25.10 Atherosclerotic heart disease of native coronary artery without angina pectoris
CPT/HCPCS: 93306; Q9957

== ENCOUNTER 2022-05-15 14:26 | Outpatient (REF) | payer OTHER, SELFPAY ==
[2022-05-15 15:06] LABS: COVID-19 Test Negative (Negative); IDNOW Serial# 55D5AD1C
== END 2022-05-15 14:27 | disposition home or self-care (01) ==
LOC: HO.LAB 14:26
PROVIDERS: Visit Provider Internal Medicine
DX: Z20.822 Contact with and (suspected) exposure to COVID-19 (principal)
CPT/HCPCS: 87635; C9803

== ENCOUNTER 2022-05-27 15:43 | Outpatient (REF) | payer OTHER, SELFPAY ==
[2022-05-27 17:14] LABS: COVID-19 Test Negative (Negative); IDNOW Serial# 9DB6401D
== END 2022-05-27 15:44 | disposition home or self-care (01) ==
LOC: HO.LAB 15:43
PROVIDERS: Visit Provider Internal Medicine
DX: Z20.822 Contact with and (suspected) exposure to COVID-19 (principal)
CPT/HCPCS: 87635; C9803

== ENCOUNTER → 2022-06-03 12:39 | Outpatient (BNVA) | payer OTHER, SELFPAY | PROVIDERS: PCP Internal Medicine; Referring Provider Internal Medicine; Visit Provider Internal Medicine | DX: I25.5 Ischemic cardiomyopathy (principal); I25.10 Atherosclerotic heart disease of native coronary artery without angina pectoris; I48.0 Paroxysmal atrial fibrillation; I25.2 Old myocardial infarction; Z79.899 Other long term (current) drug therapy; Z79.01 Long term (current) use of anticoagulants | CPT/HCPCS: 99212 ==

== ENCOUNTER 2022-08-27 11:49 | Outpatient (REF) | payer OTHER, SELFPAY ==
[2022-08-27 12:44] LABS: Alanine Aminotransferase 20 U/L (0-31); Albumin Level 4.2 g/dL (3.5-5.0); Alkaline Phosphatase 103 U/L (39-117); Anion Gap 16 (12-20); Aspartate Amino Transferase 30 U/L (5-31); Bilirubin Total 2.5 mg/dL (0.0-1.0); Blood Urea Nitrogen 21 mg/dL (9-16); Calcium 9.3 mg/dL (8.4-10.2); Carbon Dioxide 24 mmol/L (22-29); Chloride 105 mmol/L (96-108); Cholesterol 191 mg/dL; Estimated Glomerular Filt Rate > 60; Glucose Fasting 137 mg/dL (60-99); HDL Cholesterol 78 mg/dL; LDL Cholesterol Calculated 99 mg/dl; Sodium 141 mmol/L (135-145); Total Protein 6.9 g/dL (6.5-8.0); Triglycerides 71 mg/dL
== END 2022-08-27 11:50 | disposition home or self-care (01) ==
LOC: HO.LAB 11:49
PROVIDERS: PCP Internal Medicine; Visit Provider Internal Medicine
DX: E78.5 Hyperlipidemia, unspecified (principal)
CPT/HCPCS: 36415; 80053; 80061

== ENCOUNTER 2022-09-25 15:10 | Outpatient (REF) | payer OTHER, SELFPAY ==
--- NOTE | ~2022-09-25 | XR_ITS ---
EXAMINATION: XR CHEST CLINICAL INFORMATION: Bronchitis. COMPARISON: Chest radiograph 03/26/2022. TECHNIQUE: 2 views of the chest were obtained. FINDINGS: Left-sided pacer/AICD with leads projecting over the right atrium and right ventricle. Stable appearance of the cardiomediastinal silhouette. Atherosclerotic disease of the thoracic aorta. No focal airspace opacities, pleural effusions or pneumothorax. No acute osseous abnormalities. The included portions of the upper abdomen are within normal limits. XR/XR chest 2V IMPRESSION: No acute cardiopulmonary findings.
== END 2022-09-25 15:11 | disposition home or self-care (01) ==
LOC: HO.XRAY 15:10
PROVIDERS: PCP Internal Medicine; Visit Provider Internal Medicine
DX: J40 Bronchitis, not specified as acute or chronic (principal); J45.40 Moderate persistent asthma, uncomplicated; I25.5 Ischemic cardiomyopathy; Z87.891 Personal history of nicotine dependence; Z79.899 Other long term (current) drug therapy; Z95.810 Presence of automatic (implantable) cardiac defibrillator
CPT/HCPCS: 71046; 99202

== ENCOUNTER 2022-09-26 10:59 | Outpatient (REF) | payer OTHER, SELFPAY ==
--- NOTE | ~2022-09-26 | MM_ITS ---
EXAMINATION: MM SCREENING DIGITAL BREAST TOMOSYNTHESIS, BILATERAL CLINICAL INFORMATION: Screening. Asymptomatic. The lifetime risk of breast cancer based on the Tyrer-Cuzick Model is 2%. COMPARISON: Mammography: 09/29/2019. TECHNIQUE: Digital breast tomosynthesis is performed in both the craniocaudal and mediolateral oblique views along with computer-aided detection (CAD). Synthesized 2D images are generated from the tomosynthesis. FINDINGS: The breasts are heterogeneously dense, which may obscure small masses (ACR BI-RADS breast composition Category c). There are multiple new bilateral densities present. Spot compression view of the density about the medial aspect of the breast measuring 6 x 4 mm in size, approximately 6.5 cm from the nipple, which has somewhat irregular margins is recommended. Bilateral breast ultrasound in all quadrants recommended for initial documentation of solid lesions versus cysts. MM/MM tomosynthesis screening BI IMPRESSION: Multiple bilateral densities for further evaluation as described. ASSESSMENT: BI-RADS 0: Incomplete - Need additional imaging evaluation. RECOMMENDATION: 1. Additional views of the bilateral breasts. 2. Targeted ultrasound if warranted after review of the additional views. 3. Radiology department staff will contact the patient for additional imaging. This patient's information was entered into a reminder system with a target due date for their next mammogram.
== END 2022-09-26 11:00 | disposition home or self-care (01) ==
LOC: HO.MAMMO 10:59
PROVIDERS: PCP Internal Medicine; Visit Provider Internal Medicine
DX: Z12.31 Encounter for screening mammogram for malignant neoplasm of breast (principal)
CPT/HCPCS: 77063; 77067

== ENCOUNTER 2022-10-16 14:21 | Outpatient (REF) | payer OTHER, SELFPAY ==
--- NOTE | ~2022-10-16 | MM_ITS ---
EXAMINATION: MM DIAGNOSTIC DIGITAL BREAST TOMOSYNTHESIS, RIGHT UL BREAST LIMITED, BILATERAL CLINICAL INFORMATION: Bilateral breast densities with one about the medial aspect with question irregular margins. COMPARISON: Mammography: 09/26/2022 and studies dating back to 09/29/2019. TECHNIQUE: Digital breast tomosynthesis is performed. 2D images are generated from the tomosynthesis. The following views are obtained: Spot compression mediolateral oblique and craniocaudal views of the right breast. Bilateral breast ultrasound. FINDINGS: The breasts are heterogeneously dense, which may obscure small masses (ACR BI-RADS breast composition Category c). Spot compression views about the medial aspect of the right breast demonstrates a questionable density with irregular margins to apparently represent 2 adjacent circumscribed densities. Bilateral breast ultrasounds demonstrate numerous bilateral scattered simple and mildly complex cysts with no suspicious solid mass identified and no region of abnormal distal sound shadowing being appreciated. Results are discussed with the patient at time of visit. MM/MM tomosynthesis added views R IMPRESSION: Bilateral breast densities correspond to numerous simple and mildly complex cysts. ASSESSMENT: BI-RADS 2: Benign. RECOMMENDATION: Routine annual mammography screening due in 12 months. This patient's information was entered into a reminder system with a target due date for their next mammogram.
== END 2022-10-16 14:22 | disposition home or self-care (01) ==
LOC: HO.MAMMO 14:21
PROVIDERS: PCP Internal Medicine; Visit Provider Internal Medicine
DX: R92.2 Inconclusive mammogram (principal)
CPT/HCPCS: 76642; 77061; 77065

== ENCOUNTER 2022-10-17 14:07 | Outpatient (REF) | payer OTHER, SELFPAY ==
--- NOTE | 2022-10-17 15:14 | PFT_ITS ---
72 years old. The patient was referred for pulmonary function tests. The test is not completed because patient was not able to perform any adequate maneuvers. It should be noted that even previously on 10/01/2021, patient was not able to perform any adequate maneuvers for PFT. Virgilio De Oliveira MD MSB/ANGÉLICAL / [id number]
== END 2022-10-17 14:08 | disposition home or self-care (01) ==
LOC: HO.RESP 14:07
PROVIDERS: PCP Internal Medicine; Visit Provider Internal Medicine
DX: Z13.89 Encounter for screening for other disorder (principal)

== ENCOUNTER → 2022-10-24 15:07 | Outpatient (BNVA) | payer OTHER, SELFPAY | PROVIDERS: PCP Internal Medicine; Visit Provider Urology | DX: R32 Unspecified urinary incontinence (principal); F03.90 Unspecified dementia, unspecified severity, without behavioral disturbance, psychotic disturbance, mood disturbance, and anxiety; I69.354 Hemiplegia and hemiparesis following cerebral infarction affecting left non-dominant side | CPT/HCPCS: 51798; 99212 ==

== ENCOUNTER 2022-10-28 18:55 | Outpatient (REF) | payer OTHER, SELFPAY ==
[2022-10-28 19:44] LABS: Influenza A PCR NEGATIVE (Negative); Influenza B PCR NEGATIVE (Negative); Resp Syncy Virus RNA Qual PCR NEGATIVE (Negative); SARS COV2 PCR INHOUSE NEGATIVE (Negative)
== END 2022-10-28 18:56 | disposition home or self-care (01) ==
LOC: HO.LNP 18:55
PROVIDERS: Visit Provider Internal Medicine
DX: R43.9 Unspecified disturbances of smell and taste (principal); Z20.822 Contact with and (suspected) exposure to COVID-19
CPT/HCPCS: 0241U

== ENCOUNTER → 2022-11-20 15:13 | Outpatient (BNVA) | payer OTHER, SELFPAY | PROVIDERS: PCP Internal Medicine; Visit Provider Internal Medicine | DX: J45.40 Moderate persistent asthma, uncomplicated (principal); Z87.891 Personal history of nicotine dependence | CPT/HCPCS: 99212 ==

== ENCOUNTER → 2022-12-11 14:01 | Outpatient (BNVA) | payer OTHER, SELFPAY | PROVIDERS: PCP Internal Medicine; Referring Provider Internal Medicine; Visit Provider Internal Medicine | DX: I25.5 Ischemic cardiomyopathy (principal); I25.10 Atherosclerotic heart disease of native coronary artery without angina pectoris; I48.0 Paroxysmal atrial fibrillation; I25.2 Old myocardial infarction; Z86.74 Personal history of sudden cardiac arrest; Z79.01 Long term (current) use of anticoagulants | CPT/HCPCS: 99212 ==

== ENCOUNTER → 2023-01-22 14:41 | Outpatient (BNVA) | payer OTHER, SELFPAY | PROVIDERS: PCP Internal Medicine; Visit Provider Internal Medicine | DX: J45.40 Moderate persistent asthma, uncomplicated (principal); Z87.891 Personal history of nicotine dependence | CPT/HCPCS: 99212 ==

== ENCOUNTER → 2023-02-20 15:11 | Outpatient (BNVA) | payer OTHER, SELFPAY | PROVIDERS: PCP Internal Medicine; Visit Provider Urology | DX: R32 Unspecified urinary incontinence (principal); G30.9 Alzheimer's disease, unspecified; F02.80 Dementia in other diseases classified elsewhere, unspecified severity, without behavioral disturbance, psychotic disturbance, mood disturbance, and anxiety | CPT/HCPCS: 51798; 99212 ==

== ENCOUNTER 2023-04-23 11:25 | Outpatient (REF) | payer OTHER, SELFPAY | END 2023-04-23 11:26 | disposition home or self-care (01) | LOC: HO.LAB 11:25 | PROVIDERS: PCP Internal Medicine; Visit Provider Internal Medicine | DX: E53.8 Deficiency of other specified B group vitamins (principal); E55.9 Vitamin D deficiency, unspecified; E78.5 Hyperlipidemia, unspecified; F03.90 Unspecified dementia, unspecified severity, without behavioral disturbance, psychotic disturbance, mood disturbance, and anxiety; E11.40 Type 2 diabetes mellitus with diabetic neuropathy, unspecified; D64.9 Anemia, unspecified | CPT/HCPCS: 36415; 80053; 80061; 82043; 82306; 82607; 82746; 83036; 83540; 85025 ==

== ENCOUNTER 2023-04-28 15:40 | Outpatient (AMB) | payer OTHER, SELFPAY ==
[2023-04-28 15:46] VITALS: BP 114/80; BMI 22.6
--- NOTE | 2023-04-28 15:46 | MHC.PC.OV ---
Vital Signs 04/28/23 15:46 Height 4 ft 11 in Weight 112 lb BMI 22.6 BP 114/80 Blood Pressure Location Lt brachial Position Sitting Intake Visit Reasons: dm Intake Note: Patient here for a follow up DM, physical exam request, c/o trouble eating and taking medications Permit Technician Required: No Accompanied by: Son Allergies aspirin Allergy (Intermediate, Verified 04/28/23 15:57) rash, pruritus penicillin G Allergy (Intermediate, Verified 04/28/23 15:57) swelling Medication List - Last Reconciled 04/28/23 by Ana Maria Sneed MD alendronate 70 mg PO QWEEK 30 days apixaban 5 mg PO BID 90 days atorvastatin 40 mg PO BEDTIME 90 days carvedilol 6.25 mg PO BID 90 days cholecalciferol (vitamin D3) (Vitamin D3) 25 mcg PO DAILY commode As directed diclofenac sodium 1% (Voltaren Arthritis Pain) 2 grams topical QID donepezil 10 mg PO DAILY famotidine 20 mg PO BID 90 days fluticasone propion-salmeterol 115-21 mcg/actuation (Advair HFA) 2 puffs PO Q12H fluticasone propionate 44 mcg/actuation (Flovent HFA) 1 puff PO BID fluticasone propionate 50 mcg/actuation 1 spray intranasal DAILY PRN folic acid 1 mg PO DAILY 90 days furosemide 20 mg PO BID 90 days haloperidol 5 mg PO BID humidifiers As directed ipratropium bromide 2.5 mL inhalation Q6H PRN latanoprost 0.005% 1 drp ophthalmic (eye) BEDTIME levalbuterol HCl (Xopenex) 0.63 mg inhalation Q8H levalbuterol tartrate 45 mcg/actuation 2 puffs inhalation Q4-6H PRN 30 days MDD Patient has h/o cardiac diseas lorazepam 1 mg PO BEDTIME PRN losartan 50 mg PO DAILY 90 days ndnnfsxs-gaz-abnb-FA-lutein 8 mg iron-400 mcg-300 mcg (Multivitamin Women 50 Plus) 1 tab PO DAILY 90 days nebulizer accessories (Adult Aerosol Mask) As directed nitroglycerin 0 mg sublingual paroxetine HCl 20 mg PO DAILY 90 days quetiapine 200 mg PO BEDTIME Shower Chair As directed sodium chloride 7% 4 mL inhalation BID PRN 30 days Tobacco use date assessed: 12/31/22 Fall risk assessment: No Falls in past year Last assessed Fall Risk: 04/28/23 Dental Screening Dental Screen Date: 04/28/23 Did you have a dental visit in the last 12 months?: Yes Did you have a dental problem in the last 6 months where you did not have access to dental care?: No Was dental information given to patient?: Patient has dentist HPI HPI Comments History of Present Illness Details This is a 73-year-old female with diabetes mellitus type 2, dementia and paroxysmal atrial fibrillation that comes accompanied by son which is the substitute bus driver for her physical exam. A1c within goal. She is not oriented to time, person or place. Atrial fibrillation stable. On chronic anticoagulation and denies any active bleeding. Her dementia is progressively worsened and needs assistance in basic activities of daily living such as toileting, bathing, mobility transfer from bed to chair and feeding. No chest pain or shortness of breath. Last mammogram was less than a year old. Had a fit test recently which was negative. [facility] Medical History (Updated 04/28/23 @ 20:21 by Ana Maria Sneed MD) Anticoagulated Anxiety Asthma Atherosclerotic cardiovascular disease Bleeding hemorrhoids Blurry vision Dementia Depression with anxiety Dyslipidemia GERD (gastroesophageal reflux disease) Hemorrhoids High cholesterol History of [place] (myocardial infarction) History of stroke Hypertension Hypovitaminosis D Ischemic cardiomyopathy Osteoporosis PAF (paroxysmal atrial fibrillation) Urinary incontinence Urinary incontinence, mixed Surgical History History of cardiac defibrillator placement History of hysterectomy Family History (Updated 04/28/23 @ 16:07 by Ana Maria Sneed MD) Father No problems noted. Mother Cerebrovascular accident Sister No problems noted. Sister No problems noted. Son No problems noted. Son No problems noted. Daughter No problems noted. Social History Housing: Apartment Alcohol intake: never Patient Tobacco Use Status: Former Tobacco user Tobacco use type: Cigarette e-Cigarette/Vaping Use: Never Used Second Hand Smoke Exposure: No Advance Directives Date on File: 12/18/20 service: No Current occupational status: retired Cognitive needs: No Hearing needs: No Vision needs: No Questionnaire Thrive Questionnaire Date Thrive assessed: 12/31/22 JUAN PABLO-7 AMB Questionnaire JUAN PABLO-7 Date JUAN PABLO - 7 assessed: 12/31/22 Source: Developed by Drs. Anthony Davis, Megan Davis, Flakito Orlando and colleagues, with an educational chris from [employer]. Review of Systems Const All systems reviewed & are unremarkable except as noted in HPI and below Eyes Reports no additional complaints, Denies change in vision and Denies other visual disturbances Card Denies chest pain at rest, Denies chest pain with activity, Denies edema, Denies irregular heart rhythm, Denies claudication, Denies dyspnea, Denies dyspnea on exertion, Denies orthopnea, Denies paroxysmal nocturnal dyspnea and Denies slow heart rate Resp Denies cough, Denies dyspnea and Denies dyspnea on exertion GI Denies abdominal pain, Denies change in bowel habits, Denies excessive flatus, Denies nausea and Denies vomiting Denies urinary incontinence, Denies urinary hesitancy and Denies urinary urgency Musc Denies abnormal gait, Denies atrophy, Denies deformity and Denies limited range of motion Skin/Breast Denies bleeding lesions, Denies changing lesions and Denies rash Neuro Denies abnormal gait and Denies lack of coordination Physical exam (Primary Care) Vital Signs: Last Vital Signs BP 114/80 04/28/23 15:46 BMI result Body Mass Index 22.6 Tobacco/Smoking Status: Tobacco use Status Tobacco use date assessed 12/31/22 04/28/23 15:47 Patient Tobacco Use Status Former Tobacco user 04/28/23 15:47 Tobacco use type Cigarette 04/28/23 15:47 e-Cigarette/Vaping Use Never Used 04/28/23 15:47 Thrive Assessment: Date of Thrive Assessment Date Thrive assessed 12/31/22 04/28/23 15:47 [facility] Head: Yes normal to inspection, Yes normocephalic and Yes atraumatic Ears: external ears normal Eyes General: appearance normal, both eyes and all related structures Eyelids: Yes eyelids normal Conjunctivae: conjunctivae normal Neck Neck: Yes normal visual inspection and Yes supple Resp Effort & Inspection: normal respiratory effort Auscultation: clear to auscultation bilaterally Cardio Jugular venous distension: no JVD Rate: regular rate Rhythm: regular rhythm Heart sounds: S1 normal heart sound present and S2 normal heart sound present GI Inspection: Yes normal to inspection Palpation (GI): Soft to palpation and nontender Auscultation: normal bowel sounds Skin General skin exam: no rashes or lesions noted Neuro General: no focal motor deficits Extrem General: Yes full ROM Assessment and Plan Assessment & Plan (1) Physical exam: Code(s): Z00.00 - Encounter for general adult medical examination without abnormal findings Plan: Repeat in a year (2) Diabetes mellitus: Code(s): E11.9 - Type 2 diabetes mellitus without complications Plan: Continue diet. A1c goal is equal or less than 7%. (3) Dementia: Code(s): F03.90 - Unspecified dementia, unspecified severity, without behavioral disturbance, psychotic disturbance, mood disturbance, and anxiety Plan: Continue donepezil. Follow-up with Neurology. (4) PAF (paroxysmal atrial fibrillation): Code(s): I48.0 - Paroxysmal atrial fibrillation Plan: Continue Eliquis. Orders: Orders XR DEXA axial skeleton Today N95.9 - Unspecified menopausal and perimenopausal disorder Comprehensive [place]. Panel Fast 4 Months E11.9 - Type 2 diabetes mellitus without complications Lipid Panel 4 Months E78.5 - Hyperlipidemia, unspecified Vitamin D 25-OH Total 4 Months E55.9 - Vitamin D deficiency, unspecified Microalbumin, Random (w Creat) 4 Months E11.9 - Type 2 diabetes mellitus without complications T Spot TB Today Z11.1 - Encounter for screening for respiratory tuberculosis Medications: Changed From donepezil 10 mg PO DAILY To donepezil 10 mg PO DAILY 90 days 90 tabs 0RF Refilled ewyacsqc-kzo-otyr-FA-lutein 8 mg iron-400 mcg-300 mcg (Multivitamin Women 50 Plus) 1 tab PO DAILY 90 days 90 tabs 3RF Coding Level of Care Code Est Pt Prev Care >65y(23043) Diagnoses Physical exam Z00.00 Diabetes mellitus E11.9 Dementia F03.90 PAF (paroxysmal atrial fibrillation) I48.0 Time Spent (min) 35
== END 2023-04-28 16:24 | disposition home or self-care (01) ==
PROVIDERS: PCP Internal Medicine; Visit Provider Internal Medicine
DX: Z00.00 Encounter for general adult medical examination without abnormal findings (principal); E11.9 Type 2 diabetes mellitus without complications; F03.90 Unspecified dementia, unspecified severity, without behavioral disturbance, psychotic disturbance, mood disturbance, and anxiety; I48.0 Paroxysmal atrial fibrillation
CPT/HCPCS: 99397

== ENCOUNTER → 2023-05-26 23:59 | Outpatient (BNV) | payer OTHER, SELFPAY ==
--- NOTE | 2023-05-26 15:51 | MHC.OFFVIS ---
Intake Intake Visit Reasons: Remote ICD Check- [employer] Allergies aspirin Allergy (Intermediate, Verified 04/28/23 15:57) rash, pruritus penicillin G Allergy (Intermediate, Verified 04/28/23 15:57) swelling PFSH Medical History Anticoagulated Anxiety Asthma Atherosclerotic cardiovascular disease Bleeding hemorrhoids Blurry vision Dementia Depression with anxiety Dyslipidemia GERD (gastroesophageal reflux disease) Hemorrhoids High cholesterol History of [place] (myocardial infarction) History of stroke Hypertension Hypovitaminosis D Ischemic cardiomyopathy Osteoporosis PAF (paroxysmal atrial fibrillation) Urinary incontinence Urinary incontinence, mixed Surgical History History of cardiac defibrillator placement History of hysterectomy Family History (Updated 04/28/23 @ 16:07 by Ana Maria Sneed MD) Father No problems noted. Mother Cerebrovascular accident Sister No problems noted. Sister No problems noted. Son No problems noted. Son No problems noted. Daughter No problems noted. Social History Housing: Apartment Alcohol intake: never Patient Tobacco Use Status: Former Tobacco user Tobacco use type: Cigarette e-Cigarette/Vaping Use: Never Used Second Hand Smoke Exposure: No Advance Directives Date on File: 12/18/20 service: No Current occupational status: retired Cognitive needs: No Hearing needs: No Vision needs: No Office Procedures Cardiac Device Check Cardiac Device Check Details: Date of service 05/26/2023; Battery life >3 years; normal lead parameters; no treated VT/VF; ; normal ICD function. [id number] Cardiac Interrogation, implant defibrillator w/interim Procedure code (CPT) selection complete Assessment & Plan Assessment & Plan (1) Ischemic cardiomyopathy: Code(s): I25.5 - Ischemic cardiomyopathy Coding Level of Care Code Procedure Only Diagnoses Ischemic cardiomyopathy I25.5 CPT Codes Cardiac Device Check - Cardiac Device 13: [id number] Cardiac Interrogation, implant defibrillator w/interim ([id number])
== END ==
PROVIDERS: PCP Internal Medicine; Visit Provider Internal Medicine
DX: I25.5 Ischemic cardiomyopathy (principal)
CPT/HCPCS: 93295

== ENCOUNTER 2023-05-30 09:46 | Outpatient (REF) | payer OTHER, SELFPAY ==
[2023-05-30 11:08] LABS: Alanine Aminotransferase 40 U/L (0-31); Alkaline Phosphatase 111 U/L (39-117); Anion Gap 13 (12-20); Aspartate Amino Transferase 40 U/L (5-31); Bilirubin Total 0.9 mg/dL (0.0-1.0); Blood Urea Nitrogen 15 mg/dL (9-16); Calcium 9.7 mg/dL (8.4-10.2); Carbon Dioxide 30 mmol/L (22-29); Chloride 105 mmol/L (96-108); Cholesterol 187 mg/dL; Estimated Glomerular Filt Rate 51; Glucose Fasting 130 mg/dL (60-99); HDL Cholesterol 66 mg/dL; LDL Cholesterol Calculated 104 mg/dl; Potassium 3.6 mmol/L (3.3-5.1); Sodium 144 mmol/L (135-145); Total Protein 6.9 g/dL (6.5-8.0); Triglycerides 89 mg/dL
[2023-06-02 16:34] LABS: TS Negative Control Passed; TS Panel A 0; TS Panel B 2; TS Positive Control Passed; TSpotTB Negative (Negative)
== END 2023-05-30 09:47 | disposition home or self-care (01) ==
LOC: HO.LAB 09:46
PROVIDERS: PCP Internal Medicine; Visit Provider Internal Medicine
DX: Z11.1 Encounter for screening for respiratory tuberculosis (principal); R73.02 Impaired glucose tolerance (oral); E78.5 Hyperlipidemia, unspecified
CPT/HCPCS: 36415; 80053; 80061; 86481

== ENCOUNTER 2023-06-11 14:07 | Outpatient (AMB) | payer OTHER, SELFPAY ==
[2023-06-11 14:11] VITALS: BP 126/74; PULSE 75; O2SAT 95; BMI 22.9
--- NOTE | 2023-06-11 14:11 | A.OFFVIS_ITS ---
Intake Vital Signs 06/11/23 14:11 Height 4 ft 11 in Weight 113 lb 8.609 oz BMI 22.9 BP 126/74 Blood Pressure Location Rt brachial Position Sitting Pulse 75 Pulse Source Pulse Oximeter Pulse Oximetry (%) 95 Oxygen Delivery Method Room Air Intake Visit Reasons: asthma Intake Note: Pt reports being diagnosed with diabetes a few days ago, started metformin. They are concerned about her weight because when she came here from [place] she weighed 79 lbs. Allergies aspirin Allergy (Intermediate, Verified 06/11/23 14:20) rash, pruritus penicillin G Allergy (Intermediate, Verified 06/11/23 14:20) swelling Medication List - Last Reconciled 06/11/23 by Virgilio De Oliveira MD alendronate 70 mg PO QWEEK 30 days apixaban 5 mg PO BID 90 days atorvastatin 40 mg PO BEDTIME 90 days carvedilol 6.25 mg PO BID 90 days cholecalciferol (vitamin D3) (Vitamin D3) 25 mcg PO DAILY commode As directed diclofenac sodium 1% (Voltaren Arthritis Pain) 2 grams topical QID donepezil 10 mg PO DAILY 90 days famotidine 20 mg PO BID 90 days fluticasone propion-salmeterol 115-21 mcg/actuation (Advair HFA) 2 puffs PO Q12H fluticasone propionate 44 mcg/actuation (Flovent HFA) 1 puff PO BID fluticasone propionate 50 mcg/actuation 1 spray intranasal DAILY PRN folic acid 1 mg PO DAILY 90 days furosemide 20 mg PO BID 90 days humidifiers As directed ipratropium bromide 2.5 mL inhalation Q6H PRN latanoprost 0.005% 1 drp ophthalmic (eye) BEDTIME levalbuterol HCl (Xopenex) 0.63 mg inhalation Q8H levalbuterol tartrate 45 mcg/actuation 2 puffs inhalation Q4-6H PRN 30 days MDD Patient has h/o cardiac diseas lorazepam 1 mg PO BEDTIME PRN losartan 50 mg PO DAILY 90 days metformin 500 mg PO BID 30 days qcbgquki-igt-qsyv-FA-vit K-lut 8 mg iron-400 mcg-50 mcg (Multivitamin Women 50 Plus) 1 tab PO DAILY 90 days multivitamin 1 tab PO DAILY 90 days nebulizer accessories (Adult Aerosol Mask) As directed nitroglycerin 0 mg sublingual paroxetine HCl 20 mg PO DAILY 90 days quetiapine 200 mg PO BEDTIME Shower Chair As directed sodium chloride 7% 4 mL inhalation BID PRN 30 days Do you need a note to return to daycare/school/sports/work: No HPI asthma HPI Details 73 YEARS OLD FEMALE IS HERE AFTER 4 MONTHS FOR FOLLOW-UP FOR HER BRONCHIAL ASTHMA. HER SON WHO DOES SPEAK [place] IS HER MACHINE PACKAGING TECHNICIAN AND IS HERE WITH HER TODAY. THE PATIENT HAS DEMENTIA AND DOES NEED SUPERVISION FOR THE MEDICATIONS. BREATHING BIRCH HAS REMAINED VERY STABLE WITHOUT ANY ACUTE EXACERBATIONS. TOOK SEVERAL MINUTES WERE US TO CLARIFY THE MEDICL REGIMEN FOR HER BREATHING. HER SON STATES THAT SHE USES ADVAIR HFA 115-14 2 PUFFS B.I.D. REGULARLY. SHE HAS NEBULIZER AT HOME AND USES IPRATROPIUM SOLUTION IN THAT ONLY NEEDED. FOR OUTDOORS SHE HAS PROAIR ON HAND BUT THE SMOKING PIPE DRILLER AND THREADER HAS TOLD HER NOT TO USE ALBUTEROL, SHE NEEDS TO HAVE LEVALBUTEROL HFA ON HAND FOR P.R.N. USE. [facility] Medical History Anticoagulated Anxiety Asthma Atherosclerotic cardiovascular disease Bleeding hemorrhoids Blurry vision Dementia Depression with anxiety Dyslipidemia GERD (gastroesophageal reflux disease) Hemorrhoids High cholesterol History of [place] (myocardial infarction) History of stroke Hypertension Hypovitaminosis D Ischemic cardiomyopathy Osteoporosis PAF (paroxysmal atrial fibrillation) Urinary incontinence Urinary incontinence, mixed Surgical History History of cardiac defibrillator placement History of hysterectomy Family History Father No problems noted. Mother Cerebrovascular accident Sister No problems noted. Sister No problems noted. Son No problems noted. Son No problems noted. Daughter No problems noted. Social History Housing: Apartment Alcohol intake: never Patient Tobacco Use Status: Former Tobacco user Tobacco use type: Cigarette e-Cigarette/Vaping Use: Never Used Second Hand Smoke Exposure: No Advance Directives Date on File: 12/18/20 service: No Current occupational status: retired Cognitive needs: No Hearing needs: No Vision needs: No Review of Systems Const All systems reviewed & are unremarkable except as noted in HPI and below Eyes Reports no additional complaints ENT Reports no additional complaints Card Denies chest pain, Denies irregular heart rhythm and Denies leg edema Resp Reports as per HPI GI Reports no additional complaints Reports no additional complaints Musc Reports no additional complaints Skin/Breast Reports system reviewed and no additional complaints, except as documented Neuro Reports no additional complaints Psych Reports no additional complaints Endo Reports no additional complaints Physical Exam Const General: comfortable, no acute distress, alert and awake Orientation/consciousness: patient oriented x3 HEENT Head: Yes normal to inspection General nose exam: No nasal polyps present and No nasal discharge present Face and sinus: Yes sinuses nontender Mouth: oropharynx normal Throat: Yes posterior oropharynx normal Eyes General: appearance normal, both eyes and all related structures Neck Neck: Yes normal visual inspection, Yes no lymphadenopathy, Yes trachea midline and Yes no JVD Thyroid: Thyroid normal Chest Chest palpation & inspection: normal inspection of the chest, normal palpation of entire chest wall and no tenderness Resp Other: Percussion note is resonant, breath sounds are distant on both sides with prolonged expiratory phase. A FEW EXPIRATORY WHEEZES ARE HEARD OVER THE LOWER PARTS OF THE CHEST. Cardio Palpation: normal PMI and other (Pacemaker and defibrillator in place in left pectoral area) Rate: regular rate Rhythm: regular rhythm Heart sounds: no gallops and no murmurs GI Palpation (GI): Soft to palpation, nontender, No hepatosplenomegaly present and no masses Auscultation: normal bowel sounds Back/Spine/Pelvis Thoracic/Lumbar Spine: thoracic and lumbar spine normal to inspection Skin General skin exam: no rashes or lesions noted Neuro General: patient oriented x3 and no focal motor deficits Cranial nerves: Yes CN's II-XII intact bilaterally Extrem General: Yes normal to inspection, Yes no clubbing, cyanosis or edema and Yes no calf tenderness Psych Appearance: grossly normal and well kempt Speech and movement: Normal speech and movement present Attitude: cooperative Assessment & Plan Assessment & Plan (1) Former smoker: Comment: Patient is a former smoker, about 1 pack a day, quit in 2007 after she had the heart attack. She may have some degree of COPD. * SHE WAS NOT ABLE TO PERFORM ADEQUATE MANEUVERS FOR PULMONARY FUNCTION TEST. Code(s): Z87.891 - Personal history of nicotine dependence (2) Mild persistent asthma: Comment: Currently it is well controlled with the use of : Advair HFA 115-14 2 puffs b.i.d., she does have the spacer device which is helpful. Ipratropium inhalation solution 1 while in the nebulizer Q 6 hours p.r.n.. She is supposed to use. It only sparingly Because of PAF . She is supposed to avoid using albuterol. So she is supposed to use levalbuterol 2 puffs Q 4-6 hours only p.r.n. when outdoors. Code(s): J45.30 - Mild persistent asthma, uncomplicated (3) Dementia: Comment: She is very pleasant but forgetful. Is good that her son takes care of her and looks over the meds administration. Code(s): F03.90 - Unspecified dementia, unspecified severity, without behavioral disturbance, psychotic disturbance, mood disturbance, and anxiety (4) PAF (paroxysmal atrial fibrillation): Comment: Patient does have paroxysmal atrial fibrillation, currently controlled, .patient follows with cardiology service Code(s): I48.0 - Paroxysmal atrial fibrillation Coding Level of Care Code Est Pt Level 3 (88386) Diagnoses Former smoker Z87.891 Mild persistent asthma J45.30 Dementia F03.90 PAF (paroxysmal atrial fibrillation) I48.0
== END 2023-06-11 14:28 | disposition home or self-care (01) ==
PROVIDERS: PCP Internal Medicine; Visit Provider Internal Medicine
DX: Z87.891 Personal history of nicotine dependence (principal); J45.30 Mild persistent asthma, uncomplicated; F03.90 Unspecified dementia, unspecified severity, without behavioral disturbance, psychotic disturbance, mood disturbance, and anxiety; I48.0 Paroxysmal atrial fibrillation
CPT/HCPCS: 99213

== ENCOUNTER → 2023-06-11 14:07 | Outpatient (BNVA) | payer OTHER, SELFPAY | PROVIDERS: Visit Provider Internal Medicine | DX: J45.30 Mild persistent asthma, uncomplicated (principal); I48.0 Paroxysmal atrial fibrillation; F03.90 Unspecified dementia, unspecified severity, without behavioral disturbance, psychotic disturbance, mood disturbance, and anxiety; Z87.891 Personal history of nicotine dependence | CPT/HCPCS: 99212 ==

== ENCOUNTER 2023-06-25 13:49 | Outpatient (AMB) | payer OTHER, SELFPAY ==
--- NOTE | 2023-06-25 13:54 | A.OFFVIS_ITS ---
Intake Vital Signs 06/25/23 13:55 Height 4 ft 11 in Weight 106 lb 4.205 oz BMI 21.5 BP 90/70 Blood Pressure Location Lt brachial Position Sitting Pulse 87 Intake Visit Reasons: 6 mth f/up Intake Note: 6 month follow up Fitting Room Checker Required: Yes Fitting Room Checker Language: Onion Farmer Name: Dulce [id number] Accompanied by: Son Allergies aspirin Allergy (Intermediate, Verified 06/25/23 14:05) rash, pruritus penicillin G Allergy (Intermediate, Verified 06/25/23 14:05) swelling Medication List - Last Reconciled 06/25/23 by Estevan Gonzales MD alendronate 70 mg PO QWEEK apixaban 5 mg PO BID 90 days atorvastatin 40 mg PO BEDTIME 90 days carvedilol 6.25 mg PO BID 90 days cholecalciferol (vitamin D3) (Vitamin D3) 25 mcg PO DAILY commode As directed diclofenac sodium 1% (Voltaren Arthritis Pain) 2 grams topical QID donepezil 10 mg PO DAILY 90 days famotidine 20 mg PO BID 90 days fluticasone propion-salmeterol 115-21 mcg/actuation (Advair HFA) 2 puffs PO Q12H fluticasone propionate 44 mcg/actuation (Flovent HFA) 1 puff PO BID fluticasone propionate 50 mcg/actuation 1 spray intranasal DAILY PRN folic acid 1 mg PO DAILY 90 days furosemide 20 mg PO BID 90 days humidifiers As directed ipratropium bromide 2.5 mL inhalation Q6H PRN latanoprost 0.005% 1 drp ophthalmic (eye) BEDTIME levalbuterol HCl (Xopenex) 0.63 mg inhalation Q8H levalbuterol tartrate 45 mcg/actuation 2 puffs inhalation Q4-6H PRN 30 days MDD Patient has h/o cardiac diseas lorazepam 1 mg PO BEDTIME PRN losartan 50 mg PO DAILY 90 days metformin 500 mg PO BID 30 days suwbhexe-ite-gbtr-FA-vit K-lut 8 mg iron-400 mcg-50 mcg (Multivitamin Women 50 Plus) 1 tab PO DAILY 90 days multivitamin 1 tab PO DAILY 90 days nebulizer accessories (Adult Aerosol Mask) As directed nitroglycerin 0 mg sublingual paroxetine HCl 20 mg PO DAILY 90 days quetiapine 200 mg PO BEDTIME Shower Chair As directed sodium chloride 7% 4 mL inhalation BID PRN 30 days HPI HPI Comments History of Present Illness Details Alexx returns for follow-up. To recall, in 2007, she had a STEMI when she had witnessed cardiac arrest at home. Then resuscitated. Underwent catheterization and found to have single- vessel disease of LAD. She had a completely occluded mid LAD. Other arteries patent. LAD was then stented. Then spent several years in [place]. She had an ICD placed in [place]. Otherwise, she is on reasonable therapy for cardiomyopathy. She is also on Eliquis for atrial fibrillation. Overall, she is doing good. No specific complaints. No angina or shortness of breath or in fact anything cardiac sounding. [facility] Medical History Anticoagulated Anxiety Asthma Atherosclerotic cardiovascular disease Bleeding hemorrhoids Blurry vision Dementia Depression with anxiety Dyslipidemia GERD (gastroesophageal reflux disease) Hemorrhoids High cholesterol History of [place] (myocardial infarction) History of stroke Hypertension Hypovitaminosis D Ischemic cardiomyopathy Osteoporosis PAF (paroxysmal atrial fibrillation) Urinary incontinence Urinary incontinence, mixed Surgical History History of cardiac defibrillator placement History of hysterectomy Family History Father No problems noted. Mother Cerebrovascular accident Sister No problems noted. Sister No problems noted. Son No problems noted. Son No problems noted. Daughter No problems noted. Social History Housing: Apartment Alcohol intake: never Patient Tobacco Use Status: Former Tobacco user Tobacco use type: Cigarette e-Cigarette/Vaping Use: Never Used Second Hand Smoke Exposure: No Advance Directives Date on File: 12/18/20 service: No Current occupational status: retired Cognitive needs: No Hearing needs: No Vision needs: No Review of Systems Const Denies weakness Eyes Reports as per HPI and Reports no additional complaints ENT Denies dizziness Card Denies chest pain, Denies chest pain with activity, Denies syncope, Denies rapid heart rate, Denies pedal edema, Denies edema, Denies leg edema, Denies lightheadedness, Denies palpitations, Denies dyspnea, Denies dyspnea on exertion and Denies orthopnea Resp Denies cough, Denies dyspnea and Denies dyspnea on exertion GI Denies hematochezia and Denies change in stool character Reports no additional complaints and Reports as per HPI Musc Denies abnormal gait, Denies muscle cramps, Denies muscle weakness, Denies numbness, Denies radiating pain into limb and Denies tingling Skin/Breast Reports system reviewed and no additional complaints, except as documented and Reports as per HPI Neuro Denies abnormal gait, Denies dizziness, Denies syncope, Denies numbness, Denies tingling and Denies weakness Psych Reports no additional complaints and Reports as per HPI Endo Denies palpitations Physical Exam Vital Signs: Last Vital Signs Pulse 87 06/25/23 13:55 BP 90/70 06/25/23 13:55 BMI result Body Mass Index 21.5 Const General: comfortable and no acute distress Orientation/consciousness: patient oriented x3 HEENT Other: Unremarkable Head: Yes normal to inspection Neck Neck: Yes normal visual inspection Chest Chest palpation & inspection: normal inspection of the chest Resp Auscultation: clear to auscultation bilaterally Cardio Palpation: normal PMI Heart sounds: S1 normal heart sound present, S2 normal heart sound present, no gallops, no murmurs and no rubs GI Palpation (GI): Soft to palpation Back/Spine/Pelvis Other: unremarkable Skin General skin exam: no rashes or lesions noted Neuro General: patient oriented x3 Extrem General: Yes normal to inspection Psych Mental Status: mental status grossly normal Office Procedures EKG Details: EKG with sinus rhythm at 87/Min; old anteroseptal infarct but otherwise unremarkable. [id number], Complete Assessment & Plan Assessment & Plan (1) Ischemic cardiomyopathy: Code(s): I25.5 - Ischemic cardiomyopathy Plan: Echocardiogram in 2021 with LVEF of 35-40% with LAD territory infarction. Clinically, no heart failure symptoms or signs. Continue current meds including Coreg, losartan Lasix. Stable renal function. (2) Atherosclerotic cardiovascular disease: Code(s): I25.10 - Atherosclerotic heart disease of [place] coronary artery without angina pectoris Plan: Based on last cardiac catheterization in 2007, she had single-vessel disease and LAD with completely occluded mid section; status post stenting. Continue statins but can increase the dose his LDL is still on the higher side. Most recently 104 mg/dL. (3) PAF (paroxysmal atrial fibrillation): Comment: Patient does have paroxysmal atrial fibrillation, currently controlled, .patient follows with cardiology service Code(s): I48.0 - Paroxysmal atrial fibrillation Plan: Continue Eliquis. No recent issues. Plan Discussed with son who came for appointment. Discussed using tester semiconductor packages. Medications: New atorvastatin 80 mg PO QPM 90 tabs 3RF nitroglycerin do not exceed 3 doses per episode 0.4 mg sublingual Q5M PRN 30 tabs 5RF chest pain R07.2 - Precordial pain Changed From alendronate 70 mg PO QWEEK 30 days 5 tabs 6RF M81.0 - Age-related osteoporosis without current pathological fracture To alendronate 70 mg PO QWEEK M81.0 - Age-related osteoporosis without current pathological fracture Discontinued atorvastatin Discontinued Reason: Doctor's Order 40 mg PO BEDTIME 90 days 90 tabs 3RF Coding Level of Care Code Est Pt Level 4 (11489) Diagnoses Ischemic cardiomyopathy I25.5 Atherosclerotic cardiovascular disease I25.10 PAF (paroxysmal atrial fibrillation) I48.0 CPT Codes EKG - CPT: 06730-[id number], Complete ([id number])
[2023-06-25 13:55] VITALS: BP 90/70; PULSE 87; BMI 21.5
== END 2023-06-25 14:18 | disposition home or self-care (01) ==
PROVIDERS: PCP Internal Medicine; Referring Provider Internal Medicine; Visit Provider Internal Medicine
DX: I25.5 Ischemic cardiomyopathy (principal); I25.10 Atherosclerotic heart disease of native coronary artery without angina pectoris; I48.0 Paroxysmal atrial fibrillation
CPT/HCPCS: 93010; 99214

== ENCOUNTER → 2023-06-25 13:49 | Outpatient (BNVA) | payer OTHER, SELFPAY | PROVIDERS: PCP Internal Medicine; Referring Provider Internal Medicine; Visit Provider Internal Medicine | DX: I25.5 Ischemic cardiomyopathy (principal); I25.10 Atherosclerotic heart disease of native coronary artery without angina pectoris; I48.0 Paroxysmal atrial fibrillation | CPT/HCPCS: 93005; 99212 ==

== ENCOUNTER 2023-07-22 16:32 | Emergency (ER) | payer OTHER, SELFPAY ==
--- NOTE | ~2023-07-22 | XR_ITS ---
EXAMINATION: XR CHEST CLINICAL INFORMATION: Cough COMPARISON: Frontal view 09/25/22 TECHNIQUE: Frontal view of the chest was obtained. FINDINGS: Minimal rotation to left. There is a power generator in the left chest with leads projecting in the region of the right atrium and right ventricle. I suspect a left coronary stent. The cardiac size is within normal limits. There is no large hilar mass. There is no edema No focal pneumonia. No pleural fluid or pneumothorax. XR/XR chest 1V IMPRESSION: No focal pneumonia. No edema.
[2023-07-22 17:04] VITALS: BP 120/77; PULSE 98; RESP 16; TEMP 36.8; O2SAT 96; BMI 25.7
--- NOTE | 2023-07-22 17:06 | ED.GENADULT ---
HPI - General Adult General Chief complaint: General Medical Stated complaint: Cough/Not eating Time Seen by Provider: 07/23/23 02:53 Source: family Mode of arrival: ambulatory Limitations: no limitations History of Present Illness HPI narrative: Patient comes to the emergency room accompanied by her son. According to the patient's son, for about 2 weeks, patient has been refusing medication. Refusing to eat, occasionally does accept ensure. Patient have a have any episodes of vomiting. Patient tries to encourage fluids. The patient's son reports that approximately a month ago, patient's medication was changed per Neurology, now on Haldol, and since then, patient has not been herself. Patient. Given her Haldol and now he is giving her Ativan 0.25 mg p.r.n. anxiety and it is working better for the patient. However, family concerned that the patient is refusing to eat. Patient has history of dementia, unable to have a coherent conversation. Patient states she feels well. Related Data Home Medications Medication Instructions Recorded Confirmed levalbuterol HCl 0.63 mg/3 mL 0.63 mg inhalation Q8H 09/04/20 06/25/23 solution for nebulization (Xopenex) latanoprost 0.005 % eye drops 1 drp ophthalmic (eye) BEDTIME 07/26/21 06/25/23 quetiapine 100 mg tablet 200 mg PO BEDTIME 05/01/22 06/25/23 lorazepam 1 mg tablet 1 mg PO BEDTIME PRN 10/24/22 06/25/23 alendronate 70 mg tablet 70 mg PO QWEEK 06/25/23 06/25/23 Previous Rx's Medication Instructions Recorded sodium chloride 7 % for 4 ml inhalation BID PRN 12/18/20 nebulization bronchospasm 30 days #240 mL nebulizer accessories (Adult #1 ea 10/26/21 Aerosol Mask) ipratropium bromide 0.02 % 2.5 ml inhalation Q6H PRN 02/05/22 solution for inhalation shortness of breath or wheezing #150 mL fluticasone propionate 44 1 puff PO BID #31.8 ea 03/02/22 mcg/actuation HFA aerosol inhaler (Flovent HFA) commode #1 ea 03/26/22 humidifiers #1 ea 03/26/22 folic acid 1 mg tablet 1 mg PO DAILY 90 days #90 tabs 08/27/22 Shower Chair #1 ea 09/02/22 cholecalciferol (vitamin D3) 25 25 mcg PO DAILY #30 caps 09/14/22 mcg (1,000 unit) capsule (Vitamin D3) famotidine 20 mg tablet 20 mg PO BID 90 days #180 tabs 09/14/22 levalbuterol tartrate 45 2 puff inhalation Q4-6H PRN 09/25/22 mcg/actuation aerosol inhaler shortness of breath 30 days #15 grams carvedilol 6.25 mg tablet 6.25 mg PO BID 90 days #180 tabs 10/10/22 furosemide 20 mg tablet 20 mg PO BID 90 days #180 tabs 10/10/22 paroxetine HCl 20 mg tablet 20 mg PO DAILY 90 days #90 tabs 10/10/22 apixaban 5 mg tablet 5 mg PO BID 90 days #180 tabs 11/21/22 fluticasone propionate 50 1 spray intranasal DAILY PRN for 03/21/23 mcg/actuation nasal allergies #48 mL spray,suspension fluticasone propionate 115 2 puff PO Q12H #12 ea 04/23/23 mcg-salmeterol 21 mcg/actuation HFA inhaler (Advair HFA) [id number]-[id number]-[id number] 8 mg-folic 400 1 tab PO DAILY 90 days #90 tabs 04/28/23 mcg-K 50 mcg-lutein 300 mcg tablet (Multivitamin Women 50 Plus) multivitamin 1 tab PO DAILY 90 days #90 tabs 05/03/23 donepezil 10 mg tablet 10 mg PO DAILY 90 days #90 tabs 06/04/23 losartan 50 mg tablet 50 mg PO DAILY 90 days #90 tabs 06/04/23 atorvastatin 80 mg tablet 80 mg PO QPM #90 tabs 06/25/23 diclofenac sodium 1 % topical gel 2 g topical QID #100 grams 06/25/23 (Voltaren Arthritis Pain) nitroglycerin 0.4 mg sublingual 0.4 mg sublingual Q5M PRN chest 06/25/23 tablet pain #30 tabs metformin 500 mg tablet 500 mg PO BID 30 days #60 tabs 07/19/23 cefpodoxime 100 mg/5 mL oral 100 mg (5 mL) PO BID 7 days #70 mL 07/23/23 suspension Allergies Allergy/AdvReac Type Severity Reaction Status Date / Time aspirin Allergy Intermediate rash, Verified 07/22/23 17:04 pruritus penicillin G Allergy Intermediate swelling Verified 07/22/23 17:04 Review of Systems Review of Systems: Yes Unobtainable due to mental condition [facility] Past Medical History Medical History GERD (gastroesophageal reflux disease) Dyslipidemia Urinary incontinence PAF (paroxysmal atrial fibrillation) Atherosclerotic cardiovascular disease Depression with anxiety Anticoagulated Bleeding hemorrhoids Blurry vision Hemorrhoids Ischemic cardiomyopathy Urinary incontinence, mixed Osteoporosis Dementia History of stroke History of [place] (myocardial infarction) Hypovitaminosis D Asthma Anxiety High cholesterol Hypertension Surgical History History of cardiac defibrillator placement History of hysterectomy Family History Family History Father No problems noted. Mother Cerebrovascular accident Sister No problems noted. Sister No problems noted. Son No problems noted. Son No problems noted. Daughter No problems noted. Social History Social History Housing: Apartment Alcohol intake: never Patient Tobacco Use Status: Former Tobacco user Tobacco use type: Cigarette e-Cigarette/Vaping Use: Never Used Second Hand Smoke Exposure: No Advance Directives: Yes Advance Directives on File: Yes Advance Directives Date on File: 12/18/20 service: No Current occupational status: retired Cognitive needs: No Hearing needs: No Vision needs: No Physical Exam ED Vital Signs: Vital Signs - 24 hr 07/22/23 17:04 07/22/23 22:31 07/23/23 01:59 Temperature 98.3 F 97.9 F 98.2 F Pulse Rate 98 80 87 Respiratory Rate 16 18 16 Blood Pressure 120/77 118/77 114/69 Pulse Oximetry 96 95 96 Oxygen Delivery Method Room Air Room Air Room Air BMI result Body Mass Index 25.7 Const Other: Appearance: Alert. No acute distress Eyes: Within normal limits, normal pupils ENT: Pharynx normal. Neck: Normal inspection. Neck supple. No lymph nodes noted. No crepitus CVS: Normal heart rate and rhythm. Pulses normal. Normal S1 and S2 Respiratory: No respiratory distress. Breath sounds normal. No Wheezing. No rales Abdomen: Soft and nontender. No rigidity. No distention. Skin: Skin warm and dry. Normal skin color. Normal skin turgor. Extremities: No lower extremity edema. No Lacerations. No Rash Neuro: Oriented X 3. No motor deficit. No sensory deficit. Moving all extremities. No slurred speech. CN 2 through 12 grossly intact Psych: calm, cooperative, normal affect Course Course Course Narrative: This is an RME: Additional HPI, ROS, PE not included below will be deferred to primary provider. 73-year-old female presents with poor p.o. intake x2 weeks, nausea, not taking medications, here with family who has been giving her Ensure. Also associated weakness, fatigue and malaise. No chest pain, shortness of breath, abdominal pain, fevers chills. SOn reports cough X 2 weeks productive. Medications Administered Discontinued Medications Generic Name Dose Route Start Last Admin Trade Name Freq PRN Reason Stop Dose Admin Ceftriaxone Sodium 1 gm/ 0 gm 07/23/23 03:08 07/23/23 03:42 Lidocaine HCl 2.1 ml IM 07/23/23 03:09 1 kit ONCE ONE Administration Medical Decision Making Medical Decision Making [facility] Narrative: Patient has a mild UTI. My interpretation of labs: Normal white blood cell count, no flank pain, normal blood pressure, sepsis not suspected. -patient does not do well with tablets, patient given the 1st dose of IM ceftriaxone in the ED. Differential Diagnosis Differential Diagnoses: The differential diagnosis associated with the presentation includes (UTI, dementia, the condition) Lab Data [facility] Lab Attestation statement: I reviewed the patient's lab results. 07/22/23 19:37 07/22/23 19:37 Labs: Lab Results 07/22/23 07/22/23 07/23/23 Range/Units 19:37 22:39 02:08 WBC 9.9 (4.8-10.8) X10*3/uL RBC 4.67 (4.20-5.50) X10*6/uL Hgb 14.0 (12.0-16.0) g/dl Hct 41.2 (37.0-47.0) % MCV 88.2 (80.0-98.0) fL MCH 30.0 (27.0-33.0) pg MCHC 34.0 (31.0-35.0) g/dl RDW 12.8 (11.0-16.0) % Plt Count 157 L (160-400) X10*3/uL MPV 10.1 (9.4-12.3) fL Immature Gran % (Auto) 0.3 (0.0-0.4) % Neut % (Auto) 72.6 (45-73) % Lymph % (Auto) 15.8 L (20-40) % Leon % (Auto) 10.2 (2-11) % Eos % (Auto) 0.7 (0-4) % Baso % (Auto) 0.4 (0-2) % Lymph # (Auto) 1.6 (1.2-4.9) X10*3/uL Leon # (Auto) 1.0 (0.1-1.2) X10*3/uL Eos # (Auto) 0.1 (0.0-0.4) X10*3/uL Baso # (Auto) 0.0 (0.0-0.2) X10*3/uL Abs Immat Gran (auto) 0.03 (0.00-0.03) X10*3/uL Absolute Neuts (auto) 7.2 (2.0-8.3) x10*3/uL Absolute Nucleated RBC 0.000 (0.0-0.012) X10*3/uL Nucleated RBC % (auto) 0.0 (0.0-0.2) /100WBC Sodium 143 (135-145) mmol/L Potassium 3.2 L (3.3-5.1) mmol/L Chloride 103 (96-108) mmol/L Carbon Dioxide 28 (22-29) mmol/L Anion Gap 15 (12-20) BUN 11 (9-16) mg/dL Creatinine 0.99 (0.5-1.4) mg/dL Estim Creat Clear Calc 37.1 Estimated GFR 55 POC Glucose 112 (60-115) mg/dL Random Glucose 97 (60-115) mg/dL Calcium 10.4 H D (8.4-10.2) mg/dL Magnesium 1.8 (1.6-2.6) mg/dL Total Bilirubin 1.0 (0.0-1.0) mg/dL AST 31 (5-31) U/L ALT 21 (0-31) U/L Alkaline Phosphatase 82 (39-117) U/L Total Protein 6.9 (6.5-8.0) g/dL Albumin 4.1 (3.5-5.0) g/dL Lipase 26 (8-78) U/L Urine Color Yellow Urine Appearance Clear Urine pH 5.5 (5.0-9.0) Ur Specific [place] 1.015 (1.005-1.025) Urine Protein Negative (Neg-Trace) mg/dL Urine Glucose (UA) Negative (Negative) mg/dL Urine Ketones Negative (Negative) mg/dL Urine Blood Negative (Negative) Urine Nitrite Negative (Negative) Ur Leukocyte Esterase Small (1+) H (Negative) Urine RBC 0-2 (0-2) /HPF Urine WBC 0-5 (0-5) /HPF Ur Squamous Epith Cells 0-2 (0-2) /HPF Calcium Oxalate Crystal Present Urine Bacteria Trace (None Seen) Hyaline Casts 3-5 (0-2) /LPF COVID-19 ([facility]) Negative (Negative) COVID-19 Clin Com See Note Discharge Plan Discharge Clinical Impression: Acute UTI Patient Disposition: Home, Self-Care Instructions: Urinary Tract Infection in Older Adults (ED) Additional Instructions: Please follow-up with your primary care physician tomorrow. If you have any worsening or new symptoms, please return to the emergency room or call 911 Prescriptions: New cefpodoxime 100 mg/5 mL suspension for reconstitution 100 mg PO BID 7 Days Qty: 70 0RF No Action (DME) Adult Aerosol Mask Misc See Rx Instructions .Route Qty: 1 0RF Rx Instructions: As directed ipratropium bromide 0.02 % solution 2.5 ml inhalation Q6H PRN (Reason: shortness of breath or wheezing) Qty: 150 0RF Flovent HFA 44 mcg/actuation HFA aerosol inhaler 1 puff PO BID Qty: 31.8 2RF (DME) humidifiers Misc See Rx Instructions .Route Qty: 1 0RF Rx Instructions: As directed (DME) commode Kit See Rx Instructions .Route Qty: 1 0RF Rx Instructions: As directed folic acid 1 mg tablet 1 mg PO DAILY 90 Days Qty: 90 3RF famotidine 20 mg tablet 20 mg PO BID 90 Days Qty: 180 3RF cholecalciferol (vitamin D3) [Vitamin D3] 25 mcg (1,000 unit) capsule 25 mcg PO DAILY Qty: 30 11RF carvedilol 6.25 mg tablet 6.25 mg PO BID 90 Days Qty: 180 3RF paroxetine HCl 20 mg tablet 20 mg PO DAILY 90 Days Qty: 90 3RF furosemide 20 mg tablet 20 mg PO BID 90 Days Qty: 180 2RF apixaban 5 mg tablet 5 mg PO BID 90 Days Qty: 180 3RF fluticasone propionate 50 mcg/actuation spray,suspension 1 spray intranasal DAILY PRN (Reason: for allergies) Qty: 48 2RF Advair HFA 115-21 mcg/actuation HFA aerosol inhaler 2 puff PO Q12H Qty: 12 3RF multivitamin Tablet 1 tab PO DAILY 90 Days Qty: 90 3RF losartan 50 mg tablet 50 mg PO DAILY 90 Days Qty: 90 3RF donepezil 10 mg tablet 10 mg PO DAILY 90 Days Qty: 90 0RF diclofenac sodium [Voltaren Arthritis Pain] 1 % gel 2 g topical QID Qty: 100 0RF Rx Instructions: apply to single elbow, wrist or hand; for hand includes palm/fingers/back of hand metformin 500 mg tablet 500 mg PO BID 30 Days Qty: 60 1RF levalbuterol HCl [Xopenex] 0.63 mg/3 mL solution for nebulization 0.63 mg inhalation Q8H sodium chloride 7 % solution for nebulization 4 ml inhalation BID PRN (Reason: bronchospasm) 30 Days Qty: 240 6RF Multivitamin Women 50 Plus 8 mg iron-400 mcg-300 mcg tablet 1 tab PO DAILY 90 Days Qty: 90 3RF quetiapine 100 mg tablet 200 mg PO BEDTIME (DME) Shower Chair Misc See Rx Instructions .Route Qty: 1 0RF Rx Instructions: As directed latanoprost 0.005 % drops 1 drp ophthalmic (eye) BEDTIME lorazepam 1 mg tablet 1 mg PO BEDTIME PRN levalbuterol tartrate 45 mcg/actuation HFA aerosol inhaler 2 puff inhalation Q4-6H MDD Patient has h/o cardiac diseas PRN (Reason: shortness of breath) 30 Days Qty: 15 2RF alendronate 70 mg tablet 70 mg PO QWEEK atorvastatin 80 mg tablet 80 mg PO QPM Qty: 90 3RF nitroglycerin 0.4 mg tablet, sublingual 0.4 mg sublingual Q5M PRN (Reason: chest pain) Qty: 30 5RF Rx Instructions: do not exceed 3 doses per episode
[2023-07-22 19:42] LABS: MANUAL DIFF FLAG NO
[2023-07-22 19:46] LABS: Basophils Percent Auto 0.4 % (0-2); Eosinophils Absolute Auto 0.1 X10*3/uL (0.0-0.4); Eosinophils Percent Auto 0.7 % (0-4); Hematocrit 41.2 % (37.0-47.0); Imm Gran Abs Auto 0.03 X10*3/uL (0.00-0.03); Imm Gran Pct Auto 0.3 % (0.0-0.4); Lymphocytes Absolute Auto 1.6 X10*3/uL (1.2-4.9); Lymphocytes Percent Auto 15.8 % (20-40); Mean Corpuscular Volume 88.2 fL (80.0-98.0); Mean Platelet Volume 10.1 fL (9.4-12.3); Monocytes Percent Auto 10.2 % (2-11); Neutrophils Absolute Auto 7.2 x10*3/uL (2.0-8.3); Neutrophils Percent Auto 72.6 % (45-73); Platelet Count 157 X10*3/uL (160-400); Red Blood Count 4.67 X10*6/uL (4.20-5.50); Red Cell Distribution Width 12.8 % (11.0-16.0); White Blood Count 9.9 X10*3/uL (4.8-10.8)
[2023-07-22 19:57] LABS: COVID-19 Test Negative (Negative); IDNOW Serial# 08D9AD1C
[2023-07-22 20:03] LABS: Alanine Aminotransferase 21 U/L (0-31); Albumin Level 4.1 g/dL (3.5-5.0); Alkaline Phosphatase 82 U/L (39-117); Anion Gap 15 (12-20); Aspartate Amino Transferase 31 U/L (5-31); Blood Urea Nitrogen 11 mg/dL (9-16); Calcium 10.4 mg/dL (8.4-10.2); Carbon Dioxide 28 mmol/L (22-29); Chloride 103 mmol/L (96-108); Creatinine Clr Calc Pharmacy 37.1; Estimated Glomerular Filt Rate 55; Glucose Random 97 mg/dL (60-115); Lipase 26 U/L (8-78); Magnesium 1.8 mg/dL (1.6-2.6); Potassium 3.2 mmol/L (3.3-5.1); Sodium 143 mmol/L (135-145); Total Protein 6.9 g/dL (6.5-8.0)
[2023-07-22 22:31] VITALS: BP 118/77; PULSE 80; RESP 18; TEMP 36.6; O2SAT 95
[2023-07-22 23:03] LABS: Appearance Urine Clear; Color Urine Yellow; Glucose Urine UA Negative (Negative); Leukocyte Esterase Urine Small (1+) (Negative); Nitrite Urine Negative (Negative); PH 5.5 (5.0-9.0); Specific Gravity - Urine 1.015 (1.005-1.025); UMIC TRIGGER UACC YES; Urine Blood Negative (Negative); Urine Ketones Negative (Negative); Urine Protein Negative (Neg-Trace)
[2023-07-22 23:28] LABS: Bacteria Urine Trace (None Seen); Calcium Oxalate Crystals Urine Present; RBC Urine 0-2 /HPF (0-2); Squamous Epithelial Cell Urine 0-2 /HPF (0-2); UACC Culture Trigger YES; WBC Urine 0-5 /HPF (0-5)
[2023-07-23 01:59] VITALS: BP 114/69; PULSE 87; RESP 16; TEMP 36.8; O2SAT 96
[2023-07-23 02:12] LABS: Glucose, Whole Blood 112 mg/dL (60-115)
[2023-07-23] MEDS: cefTRIAXone sodium 1 GM, Lidocaine HCl 1 % MPF 2.1 ML IM (03:42)
[2023-07-23 04:20] VITALS: BP 115/73; PULSE 83; RESP 16; O2SAT 95
--- NOTE | 2023-07-23 04:48 | PC.NURSE ---
reviewed discharge instructions with pt. pt verbalized understanding, no sign distress. Notified JAC Toledo.
--- NOTE | 2023-07-23 05:48 | PC.NURSE ---
Reviewed discharge instruction with pt. pt verbalized understanding.no sign of distress. Notified JAC Toledo.
== END 2023-07-23 06:02 | disposition home or self-care (01) ==
PROVIDERS: Physician Assistant; Emergency Provider Emergency Medicine; PCP Internal Medicine
DX: N39.0 Urinary tract infection, site not specified (principal); R05.9 Cough, unspecified; R11.2 Nausea with vomiting, unspecified; Z20.822 Contact with and (suspected) exposure to COVID-19; Z20.828 Contact with and (suspected) exposure to other viral communicable diseases; Z79.899 Other long term (current) drug therapy; Z87.891 Personal history of nicotine dependence
CPT/HCPCS: 36415; 71045; 80053; 81001; 81003; 82947; 83690; 83735; 85025; 87086; 87635; 96372; 99283; 99284; J0696

== ENCOUNTER 2023-07-30 14:13 | Outpatient (AMB) | payer OTHER, SELFPAY ==
--- NOTE | 2023-07-30 14:18 | MHC.PC.OV ---
Vital Signs 07/30/23 14:19 Height 4 ft 10.46 in Weight 103 lb 9.876 oz BMI 21.3 BP 126/80 Blood Pressure Location Lt brachial Position Sitting Pulse 87 Pulse Source Pulse Oximeter Pulse Oximetry (%) 97 Oxygen Delivery Method Room Air Intake Visit Reasons[place] [facility] [place]ough/ [place] Eating[place] Interior Design Assistant Required: No Accompanied by: Self / Same As Patient Allergies aspirin Allergy (Intermediate, Verified 07/30/23 14:34) rash, pruritus penicillin G Allergy (Intermediate, Verified 07/30/23 14:34) swelling Medication List - Last Reconciled 07/30/23 by Ana Maria Sneed MD alendronate 70 mg PO QWEEK apixaban 5 mg PO BID 90 days atorvastatin 80 mg PO QPM carvedilol 6.25 mg PO BID 90 days cefpodoxime 100 mg (5 mL) PO BID 7 days cholecalciferol (vitamin D3) (Vitamin D3) 25 mcg PO DAILY commode As directed diclofenac sodium 1% (Voltaren Arthritis Pain) 2 grams topical QID donepezil 10 mg PO DAILY 90 days famotidine 20 mg PO BID 90 days fluticasone propion-salmeterol 115-21 mcg/actuation (Advair HFA) 2 puffs PO Q12H fluticasone propionate 44 mcg/actuation (Flovent HFA) 1 puff PO BID fluticasone propionate 50 mcg/actuation 1 spray intranasal DAILY PRN folic acid 1 mg PO DAILY 90 days furosemide 20 mg PO BID 90 days humidifiers As directed ipratropium bromide 2.5 mL inhalation Q6H PRN latanoprost 0.005% 1 drp ophthalmic (eye) BEDTIME levalbuterol HCl (Xopenex) 0.63 mg inhalation Q8H levalbuterol tartrate 45 mcg/actuation 2 puffs inhalation Q4-6H PRN 30 days MDD Patient has h/o cardiac diseas lorazepam 1 mg PO BEDTIME PRN losartan 50 mg PO DAILY 90 days metformin 500 mg PO BID 30 days [id number] K-lut 8 mg iron-400 mcg-50 mcg (Multivitamin Women 50 Plus) 1 tab PO DAILY 90 days multivitamin 1 tab PO DAILY 90 days nebulizer accessories (Adult Aerosol Mask) As directed nitroglycerin 0.4 mg sublingual Q5M PRN paroxetine HCl 20 mg PO DAILY 90 days quetiapine 200 mg PO BEDTIME Shower Chair As directed sodium chloride 7% 4 mL inhalation BID PRN 30 days Tobacco use date assessed: 12/31/22 HPI HPI Comments History of Present Illness Details This is a 73-year-old female with dementia, paroxysmal atrial fibrillation, dyslipidemia and diabetes mellitus type 2 that comes accompanied today by son which is the banding machine operator for hospital discharge follow-up due to UTI and anorexia. Anorexia started about few weeks ago has been more prominent past few days. She only eats Ensure and has lost 22 lb in less than 2 weeks. No abdominal pain, nausea or vomiting. She is also not taking her pills. At ER she had blood work which was not significant for any abnormality explaining this matter. Had an x-ray which was negative due to her coughing. Urinalysis showed a UTI and she was placed on oral antibiotics. Her dementia has progressed and she is awake and alert but not oriented to time, person or place. On donepezil. On chronic anticoagulation for atrial fibrillation but has declined all her pills for about a week. LDL not on goal. A1c within goal. Distribution Sales Representative was advised to crush the pills and mix it with food. I order TSH to rule out a thyroid issue. [facility] Medical History (Updated 07/30/23 @ 15:47 by Ana Maria Sneed MD) GERD (gastroesophageal reflux disease) Dyslipidemia Urinary incontinence PAF (paroxysmal atrial fibrillation) Atherosclerotic cardiovascular disease Depression with anxiety Anticoagulated Bleeding hemorrhoids Blurry vision Hemorrhoids Ischemic cardiomyopathy Urinary incontinence, mixed Osteoporosis Dementia History of stroke History of [place] (myocardial infarction) Hypovitaminosis D Asthma Anxiety High cholesterol Hypertension Surgical History History of cardiac defibrillator placement History of hysterectomy Family History Father No problems noted. Mother Cerebrovascular accident Sister No problems noted. Sister No problems noted. Son No problems noted. Son No problems noted. Daughter No problems noted. Social History Housing: Apartment Alcohol intake: never Patient Tobacco Use Status: Former Tobacco user Tobacco use type: Cigarette e-Cigarette/Vaping Use: Never Used Second Hand Smoke Exposure: No Advance Directives Date on File: 12/18/20 service: No Current occupational status: retired Cognitive needs: No Hearing needs: No Vision needs: No Questionnaire Thrive Questionnaire Date Thrive assessed: 12/31/22 JUAN PABLO-7 AMB Questionnaire JUAN PABLO-7 Date JUAN PABLO - 7 assessed: 12/31/22 Source: Developed by Drs. Anthony Davis, Megan Davis, Flakito Orlando and colleagues, with an educational chris from [employer]. Review of Systems Const All systems reviewed & are unremarkable except as noted in HPI and below Eyes Reports no additional complaints, Denies change in vision and Denies other visual disturbances Card Denies chest pain at rest, Denies chest pain with activity, Denies edema, Denies irregular heart rhythm, Denies claudication, Denies dyspnea, Denies dyspnea on exertion, Denies orthopnea, Denies paroxysmal nocturnal dyspnea and Denies slow heart rate Resp Denies cough, Denies dyspnea and Denies dyspnea on exertion GI Denies abdominal pain, Denies change in bowel habits, Denies excessive flatus, Denies nausea and Denies vomiting Denies urinary incontinence, Denies urinary hesitancy and Denies urinary urgency Musc Denies abnormal gait, Denies atrophy, Denies deformity and Denies limited range of motion Skin/Breast Denies bleeding lesions, Denies changing lesions and Denies rash Neuro Denies abnormal gait, Denies lack of coordination and Reports memory loss Psych Reports memory loss Physical exam (Primary Care) Vital Signs: Last Vital Signs Pulse 87 07/30/23 14:19 BP 126/80 07/30/23 14:19 Pulse Ox 97 07/30/23 14:19 Oxygen Delivery Method Room Air 07/30/23 14:19 BMI result Body Mass Index 21.3 Tobacco/Smoking Status: Tobacco use Status Tobacco use date assessed 12/31/22 07/30/23 14:25 Patient Tobacco Use Status Former Tobacco user 07/30/23 14:25 Tobacco use type Cigarette 07/30/23 14:25 e-Cigarette/Vaping Use Never Used 07/30/23 14:25 Thrive Assessment: Date of Thrive Assessment Date Thrive assessed 12/31/22 07/30/23 14:25 Eyes General: appearance normal, both eyes and all related structures Eyelids: Yes eyelids normal Conjunctivae: conjunctivae normal Neck Neck: Yes normal visual inspection and Yes supple Resp Effort & Inspection: normal respiratory effort Auscultation: clear to auscultation bilaterally Cardio Jugular venous distension: no JVD Rate: regular rate Rhythm: regular rhythm Heart sounds: S1 normal heart sound present and S2 normal heart sound present Extrem General: Yes full ROM Office Procedures Flu Questionnaire Does the patient have a severe egg allergy?: No Results AMB Hemoglobin A1c AMB Hemoglobin A1c 6.3 % Last Edit by YASH Duff on 07/30/23 14:31 Immunizations flu vacc [id number] 6mos up(PF) 60 mcg(15 mcgx4)/0.5 mL IM syringe Performing Provider: Ana Maria Sneed MD [facility] Documented (not given) by: YASH Duff on 07/30/23 15:10 Reason Not Given: Not Given Results Reviewed Results Reviewed: Laboratory Last Values Hgb A1c (Clinic) 6.3 % (4.0-6.0) H 07/30/23 14:17 Assessment and Plan Assessment & Plan (1) Hospital discharge follow-up: Code(s): Z09 - Encounter for follow-up examination after completed treatment for conditions other than malignant neoplasm Plan: Discharge date 07/23/2023 due to anorexia and was found to have a UTI. Continue antibiotics. Still has anorexia. (2) UTI (urinary tract infection): Code(s): N39.0 - Urinary tract infection, site not specified Plan: Continue antibiotics. (3) Dementia: Comment: She is very pleasant but forgetful. Is good that her son takes care of her and looks over the meds administration. Code(s): F03.90 - Unspecified dementia, unspecified severity, without behavioral disturbance, psychotic disturbance, mood disturbance, and anxiety Plan: Continue donepezil. Follow-up with Neurology. (4) Diabetes mellitus: Code(s): E11.9 - Type 2 diabetes mellitus without complications Plan: Continue metformin. A1c goal is equal or less than 7%. (5) Dyslipidemia: Code(s): E78.5 - Hyperlipidemia, unspecified Plan: Continue statins. LDL goal is less than 70. (6) PAF (paroxysmal atrial fibrillation): Comment: Patient does have paroxysmal atrial fibrillation, currently controlled, .patient follows with cardiology service Code(s): I48.0 - Paroxysmal atrial fibrillation Plan: Continue Eliquis. Follow-up with Cardiology. Orders: Orders AMB Hemoglobin A1c Today E11.9 - Type 2 diabetes mellitus without complications Vitamin B12 and Folate Today E53.8 - Deficiency of other specified B group vitamins Vitamin D 25-OH Total Today E55.9 - Vitamin D deficiency, unspecified Thyroid Stimulating Hormone Today R63.4 - Abnormal weight loss Influenza [id number] Immunization Today Z23 - Encounter for immunization Medications: New blood-glucose meter (FreeStyle Lite Meter kit) As directed 1 ea 0RF E11.9 - Type 2 diabetes mellitus without complications blood sugar diagnostic (FreeStyle Lite Strips) Use 1 test strip once a day 50 ea 3RF E11.9 - Type 2 diabetes mellitus without complications lancets (FreeStyle Lancets) Use 1 lancet once a day 100 ea 1RF E11.9 - Type 2 diabetes mellitus without complications food supplemt, lactose-reduced (Ensure oral liquid) 1 ea PO .three times a day 25 days 5,688 mL 6RF food supplemt, lactose-reduced (Ensure oral liquid) 1 ea PO .three times a day 25 days 5,688 mL 6RF Changed From quetiapine 200 mg PO BEDTIME To quetiapine 200 mg (2 x 100 mg) PO BEDTIME 90 days 180 tabs 1RF Refilled carvedilol 6.25 mg PO BID 90 days 180 tabs 3RF furosemide 20 mg PO BID 90 days 180 tabs 2RF Coding Level of Care Code TCM Mod MDM <= 7 Days Diagnoses Hospital discharge follow-up Z09 UTI (urinary tract infection) N39.0 Dementia F03.90 Diabetes mellitus E11.9 Dyslipidemia E78.5 PAF (paroxysmal atrial fibrillation) I48.0 Time Spent (min) 26
[2023-07-30 14:19] VITALS: BP 126/80; PULSE 87; O2SAT 97; BMI 21.3
== END 2023-07-30 15:04 | disposition home or self-care (01) ==
PROVIDERS: PCP Internal Medicine; Visit Provider Internal Medicine
DX: Z09 Encounter for follow-up examination after completed treatment for conditions other than malignant neoplasm (principal); F03.90 Unspecified dementia, unspecified severity, without behavioral disturbance, psychotic disturbance, mood disturbance, and anxiety; E11.9 Type 2 diabetes mellitus without complications; I48.0 Paroxysmal atrial fibrillation; N39.0 Urinary tract infection, site not specified; E78.5 Hyperlipidemia, unspecified
CPT/HCPCS: 83036; 99214

== ENCOUNTER 2023-08-25 15:25 | Outpatient (REF) | payer OTHER, SELFPAY ==
[2023-08-25 17:34] LABS: Thyroid Stimulating Hormone 1.02 uIU/mL (0.32-4.0)
[2023-08-25 17:47] LABS: Folate > 20.0 ng/mL (> or = 4.0); Vitamin B12 464 pg/mL (200-900)
[2023-08-25 18:09] LABS: Creatinine Urine 258.08 mg/dL; Microalbum/Creatinine Ratio Ur 16.2 ug/mg cr (<30)
== END 2023-08-25 15:26 | disposition home or self-care (01) ==
LOC: HO.LAB 15:25
PROVIDERS: PCP Internal Medicine; Visit Provider Internal Medicine
DX: E11.9 Type 2 diabetes mellitus without complications (principal); R63.4 Abnormal weight loss; E53.8 Deficiency of other specified B group vitamins; E55.9 Vitamin D deficiency, unspecified
CPT/HCPCS: 36415; 82043; 82306; 82570; 82607; 82746; 84443

== ENCOUNTER → 2023-08-25 23:59 | Outpatient (BNV) | payer OTHER, SELFPAY ==
--- NOTE | 2023-08-25 12:26 | MHC.OFFVIS ---
Intake Intake Visit Reasons: Remote ICD Check- Freever Allergies aspirin Allergy (Intermediate, Verified 07/30/23 14:34) rash, pruritus penicillin G Allergy (Intermediate, Verified 07/30/23 14:34) swelling PFSH Medical History GERD (gastroesophageal reflux disease) Dyslipidemia Urinary incontinence PAF (paroxysmal atrial fibrillation) Atherosclerotic cardiovascular disease Depression with anxiety Anticoagulated Bleeding hemorrhoids Blurry vision Hemorrhoids Ischemic cardiomyopathy Urinary incontinence, mixed Osteoporosis Dementia History of stroke History of [place] (myocardial infarction) Hypovitaminosis D Asthma Anxiety High cholesterol Hypertension Surgical History History of cardiac defibrillator placement History of hysterectomy Family History Father No problems noted. Mother Cerebrovascular accident Sister No problems noted. Sister No problems noted. Son No problems noted. Son No problems noted. Daughter No problems noted. Social History Housing: Apartment Alcohol intake: never Patient Tobacco Use Status: Former Tobacco user Tobacco use type: Cigarette e-Cigarette/Vaping Use: Never Used Second Hand Smoke Exposure: No Advance Directives Date on File: 12/18/20 service: No Current occupational status: retired Cognitive needs: No Hearing needs: No Vision needs: No Office Procedures Cardiac Device Check Cardiac Device Check Details: Date of service 08/25/2023; Battery life 3 years; normal lead parameters; no treated VT/VF; ; normal ICD function. [id number] Cardiac Interrogation, implant defibrillator w/interim Procedure code (CPT) selection complete Assessment & Plan Assessment & Plan (1) Ischemic cardiomyopathy: Code(s): I25.5 - Ischemic cardiomyopathy Coding Level of Care Code Procedure Only Diagnoses Ischemic cardiomyopathy I25.5 CPT Codes Cardiac Device Check - Cardiac Device 13: [id number] Cardiac Interrogation, implant defibrillator w/interim ([id number])
== END ==
PROVIDERS: PCP Internal Medicine; Visit Provider Internal Medicine
DX: I25.5 Ischemic cardiomyopathy (principal); Z95.810 Presence of automatic (implantable) cardiac defibrillator
CPT/HCPCS: 93295

== ENCOUNTER 2023-08-26 13:34 | Outpatient (REF) | payer OTHER, SELFPAY ==
--- NOTE | ~2023-08-26 | US_ITS ---
EXAMINATION: US RETROPERITONEAL COMPLETE (RENAL) CLINICAL INFORMATION: Unspecified urinary incontinence. COMPARISON: None available. TECHNIQUE: Real-time imaging of the kidneys and bladder. FINDINGS: RIGHT KIDNEY: 9.1 x 4.1 x 5.3 cm (SAG x AP x TRV). The kidney is normal in size and contour. Echogenic kidney. Renal cortical thickness is normal. No calculi or focal parenchymal lesions. No hydronephrosis. LEFT KIDNEY: 10.3 x 5.3 x 5.3 cm (SAG x AP x TRV). The kidney is normal in size and contour. Echogenic kidney. Renal cortical thickness is normal. No calculi or focal parenchymal lesions. No hydronephrosis. BLADDER: Bladder is decompressed. US/US retroperitoneal comp IMPRESSION: Echogenic kidneys suggesting chronic medical renal disease.
== END 2023-08-26 13:35 | disposition home or self-care (01) ==
LOC: HO.US 13:34
PROVIDERS: PCP Internal Medicine; Visit Provider Urology
DX: R32 Unspecified urinary incontinence (principal)
CPT/HCPCS: 76770

== ENCOUNTER 2023-09-01 14:12 | Outpatient (AMB) | payer OTHER, SELFPAY ==
--- NOTE | 2023-09-01 14:15 | MHC.PC.OV ---
Vital Signs 09/01/23 14:21 Height 4 ft 10.46 in Weight 104 lb BMI 21.4 BP 110/70 Blood Pressure Location Lt brachial Position Sitting Intake Visit Reasons: 4 mon f/u Intake Note: Patient here for a 4 month follow up Nut Grinder Required: No Accompanied by: Son Allergies aspirin Allergy (Intermediate, Verified 09/01/23 15:32) rash, pruritus penicillin G Allergy (Intermediate, Verified 09/01/23 15:32) swelling Medication List - Last Reconciled 09/01/23 by Ana Maria Sneed MD alendronate 70 mg PO QWEEK apixaban 5 mg PO BID 90 days atorvastatin 80 mg PO QPM blood sugar diagnostic ([employer] Ultra Test strips) check once daily blood-glucose meter ([employer] Ultra2 Meter) check once daily carvedilol 6.25 mg PO BID 90 days cefpodoxime 100 mg (5 mL) PO BID 7 days cholecalciferol (vitamin D3) (Vitamin D3) 25 mcg PO DAILY commode As directed diclofenac sodium 1% (Voltaren Arthritis Pain) 2 grams topical QID donepezil 10 mg PO DAILY 90 days famotidine 20 mg PO BID 90 days fluticasone propion-salmeterol 115-21 mcg/actuation (Advair HFA) 2 puffs PO Q12H fluticasone propionate 44 mcg/actuation (Flovent HFA) 1 puff PO BID fluticasone propionate 50 mcg/actuation 1 spray intranasal DAILY PRN folic acid 1 mg PO DAILY 90 days food supplemt, lactose-reduced (Ensure oral liquid) 1 ea PO .three times a day 25 days furosemide 20 mg PO BID 90 days humidifiers As directed ipratropium bromide 2.5 mL inhalation Q6H PRN lancets ([employer] UltraSoft 2 Lancet) check once per day latanoprost 0.005% 1 drp ophthalmic (eye) BEDTIME levalbuterol HCl (Xopenex) 0.63 mg inhalation Q8H levalbuterol tartrate 45 mcg/actuation 2 puffs inhalation Q4-6H PRN 30 days MDD Patient has h/o cardiac diseas lorazepam 1 mg PO BEDTIME PRN losartan 50 mg PO DAILY 90 days metformin 500 mg PO BID 30 days yamrurri-bro-tlam-FA-vit K-lut 8 mg iron-400 mcg-50 mcg (Multivitamin Women 50 Plus) 1 tab PO DAILY 90 days multivitamin 1 tab PO DAILY 90 days nebulizer accessories (Adult Aerosol Mask) As directed nitroglycerin 0.4 mg sublingual Q5M PRN paroxetine HCl 20 mg PO DAILY 90 days quetiapine 200 mg (2 x 100 mg) PO BEDTIME 90 days Shower Chair As directed sodium chloride 7% 4 mL inhalation BID PRN 30 days Tobacco use date assessed: 12/31/22 HPI HPI Comments History of Present Illness Details This is a 73-year-old female with diabetes mellitus type 2, GERD, dementia and paroxysmal atrial fibrillation that comes today accompanied by son which is centrifugal chiller technician for follow-up on her conditions. A1c within goal. GERD is present because she has not been taking her Pepcid. She has dementia and she is beginning to stop taking her medications. Pepcid will be changed to liquid form. On anticoagulation for atrial fibrillation and Eliquis will be changed to Lovenox due to patient having a hard time taking oral medications. Dementia has progressed and she has stop eating and taking some of the meds. No chest pain or shortness of breath. [facility], [facility] Medical History GERD (gastroesophageal reflux disease) Dyslipidemia Urinary incontinence PAF (paroxysmal atrial fibrillation) Atherosclerotic cardiovascular disease Depression with anxiety Anticoagulated Bleeding hemorrhoids Blurry vision Hemorrhoids Ischemic cardiomyopathy Urinary incontinence, mixed Osteoporosis Dementia History of stroke History of [place] (myocardial infarction) Hypovitaminosis D Asthma Anxiety High cholesterol Hypertension Surgical History History of cardiac defibrillator placement History of hysterectomy Family History Father No problems noted. Mother Cerebrovascular accident Sister No problems noted. Sister No problems noted. Son No problems noted. Son No problems noted. Daughter No problems noted. Social History Housing: Apartment Alcohol intake: never Patient Tobacco Use Status: Former Tobacco user Tobacco use type: Cigarette e-Cigarette/Vaping Use: Never Used Second Hand Smoke Exposure: No Advance Directives Date on File: 12/18/20 service: No Current occupational status: retired Cognitive needs: No Hearing needs: No Vision needs: No Questionnaire Thrive Questionnaire Date Thrive assessed: 12/31/22 JUAN PABLO-7 AMB Questionnaire JUAN PABLO-7 Date JUAN PABLO - 7 assessed: 12/31/22 Source: Developed by Drs. Anthony Davis, Megan Davis, Flakito Orlando and colleagues, with an educational chris from [employer]. Review of Systems Const All systems reviewed & are unremarkable except as noted in HPI and below Eyes Reports no additional complaints, Denies change in vision and Denies other visual disturbances Card Denies chest pain at rest, Denies chest pain with activity, Denies edema, Denies irregular heart rhythm, Denies claudication, Denies dyspnea, Denies dyspnea on exertion, Denies orthopnea, Denies paroxysmal nocturnal dyspnea and Denies slow heart rate Resp Denies cough, Denies dyspnea and Denies dyspnea on exertion GI Denies abdominal pain, Denies change in bowel habits, Denies excessive flatus, Denies nausea and Denies vomiting Denies urinary incontinence, Denies urinary hesitancy and Denies urinary urgency Musc Denies abnormal gait, Denies atrophy, Denies deformity and Denies limited range of motion Skin/Breast Denies bleeding lesions, Denies changing lesions and Denies rash Neuro Denies abnormal gait and Denies lack of coordination Physical exam (Primary Care) Vital Signs: Last Vital Signs BP 110/70 09/01/23 14:21 BMI result Body Mass Index 21.4 Tobacco/Smoking Status: Tobacco use Status Tobacco use date assessed 12/31/22 09/01/23 14:15 Patient Tobacco Use Status Former Tobacco user 09/01/23 14:15 Tobacco use type Cigarette 09/01/23 14:15 e-Cigarette/Vaping Use Never Used 09/01/23 14:15 Thrive Assessment: Date of Thrive Assessment Date Thrive assessed 12/31/22 09/01/23 14:15 Eyes General: appearance normal, both eyes and all related structures Eyelids: Yes eyelids normal Conjunctivae: conjunctivae normal Neck Neck: Yes normal visual inspection and Yes supple Resp Effort & Inspection: normal respiratory effort Auscultation: clear to auscultation bilaterally Cardio Jugular venous distension: no JVD Rate: regular rate Rhythm: regular rhythm Heart sounds: S1 normal heart sound present and S2 normal heart sound present Extrem General: Yes full ROM Results AMB Urinalysis, Automated UA Leukoctes 0 William/uL Last Edit by Dahlia Lorenzana on 09/01/23 15:32 UA Nitrite Negative Last Edit by Dahlia Lorenzana on 09/01/23 15:32 UA Urobilinogen 0.2 mg/dL Last Edit by Dahlia Lorenzana on 09/01/23 15:32 UA Protein 15 mg/dL Last Edit by Dahlia Lorenzana on 09/01/23 15:32 UA pH 6.0 Last Edit by Dahlia Lorenzana on 09/01/23 15:32 UA Blood 0 Octaviano/uL Last Edit by Dahlia Lorenzana on 09/01/23 15:32 UA Specific [place] 1.015 Last Edit by aDhlia Lorenzana on 09/01/23 15:32 UA Ketone Negative Last Edit by Dahlia Lorenzana on 09/01/23 15:32 UA Bilirubin 0 mg/dL Last Edit by aDhlia Lorenzana on 09/01/23 15:32 UA Glucose 0 mg/dL Last Edit by Dahlia Lorenzana on 09/01/23 15:32 Assessment and Plan Assessment & Plan (1) Diabetes mellitus: Code(s): E11.9 - Type 2 diabetes mellitus without complications Plan: Continue metformin. A1c goal is equal or less than 7%. (2) Dementia: Comment: She is very pleasant but forgetful. Is good that her son takes care of her and looks over the meds administration. Code(s): F03.90 - Unspecified dementia, unspecified severity, without behavioral disturbance, psychotic disturbance, mood disturbance, and anxiety Plan: Continue donepezil. (3) GERD (gastroesophageal reflux disease): Code(s): K21.9 - Gastro-esophageal reflux disease without esophagitis Plan: Change Pepcid to liquid form. (4) PAF (paroxysmal atrial fibrillation): Comment: Patient does have paroxysmal atrial fibrillation, currently controlled, .patient follows with cardiology service Code(s): I48.0 - Paroxysmal atrial fibrillation Plan: Change Eliquis to Lovenox. Orders: Orders XR DEXA axial skeleton Today N95.9 - Unspecified menopausal and perimenopausal disorder Medications: New enoxaparin (Lovenox) 40 mg (0.4 mL) subcut DAILY 12 mL 1RF 30 days I48.0 - Paroxysmal atrial fibrillation famotidine 20 mg (2.5 mL) PO BEDTIME PRN 50 mL 5RF heartburn 30 days Discontinued cefpodoxime Discontinued Reason: Patient Completed Course 100 mg (5 mL) PO BID 7 days 70 mL 0RF famotidine Discontinued Reason: Patient Completed Course 20 mg PO BID 90 days 180 tabs 3RF Coding Level of Care Code Est Pt Level 4 (38669) Diagnoses Diabetes mellitus E11.9 Dementia F03.90 GERD (gastroesophageal reflux disease) K21.9 PAF (paroxysmal atrial fibrillation) I48.0 Time Spent (min) 23
[2023-09-01 14:21] VITALS: BP 110/70; BMI 21.4
== END 2023-09-01 14:47 | disposition home or self-care (01) ==
PROVIDERS: PCP Internal Medicine; Visit Provider Internal Medicine
DX: E11.9 Type 2 diabetes mellitus without complications (principal); F03.90 Unspecified dementia, unspecified severity, without behavioral disturbance, psychotic disturbance, mood disturbance, and anxiety; K21.9 Gastro-esophageal reflux disease without esophagitis; I48.0 Paroxysmal atrial fibrillation
CPT/HCPCS: 99214

== ENCOUNTER 2023-09-01 14:56 | Outpatient (AMB) | payer OTHER, SELFPAY ==
--- NOTE | 2023-09-01 15:10 | MHC.OFFVIS ---
Intake Intake Visit Reasons: OAB- 6m follow up/US Intake Note: Patient presents for follow up urinary incontinence/ultrasound (imaging 08/26/23) Urology Medications: none Blood thinners: apixaban, lovenox PVR: 5ml's [employer] Certified Internetwork Expert Required: Yes [employer] Certified Internetwork Expert Name: [id number] Accompanied by: Child Allergies aspirin Allergy (Intermediate, Verified 09/01/23 15:59) rash, pruritus penicillin G Allergy (Intermediate, Verified 09/01/23 15:59) swelling Medication List - Last Reconciled 09/01/23 by JENSEN Waddell- apixaban 5 mg PO BID 90 days atorvastatin 80 mg PO QPM blood sugar diagnostic ([employer] Ultra Test strips) check once daily blood-glucose meter ([employer] Ultra2 Meter) check once daily carvedilol 6.25 mg PO BID 90 days cholecalciferol (vitamin D3) (Vitamin D3) 25 mcg PO DAILY commode As directed diclofenac sodium 1% (Voltaren Arthritis Pain) 2 grams topical QID donepezil 10 mg PO DAILY 90 days enoxaparin (Lovenox) 40 mg (0.4 mL) subcut DAILY 30 days famotidine 20 mg (2.5 mL) PO BEDTIME PRN 30 days fluticasone propion-salmeterol 115-21 mcg/actuation (Advair HFA) 2 puffs PO Q12H fluticasone propionate 44 mcg/actuation (Flovent HFA) 1 puff PO BID fluticasone propionate 50 mcg/actuation 1 spray intranasal DAILY PRN folic acid 1 mg PO DAILY 90 days food supplemt, lactose-reduced (Ensure oral liquid) 1 ea PO .three times a day 25 days furosemide 20 mg PO BID 90 days humidifiers As directed ipratropium bromide 2.5 mL inhalation Q6H PRN lancets ([employer] UltraSoft 2 Lancet) check once per day latanoprost 0.005% 1 drp ophthalmic (eye) BEDTIME levalbuterol HCl (Xopenex) 0.63 mg inhalation Q8H levalbuterol tartrate 45 mcg/actuation 2 puffs inhalation Q4-6H PRN 30 days MDD Patient has h/o cardiac diseas lorazepam 1 mg PO BEDTIME PRN losartan 50 mg PO DAILY 90 days metformin 500 mg PO BID 30 days ryxxzqcz-aqh-cvif-FA-vit K-lut 8 mg iron-400 mcg-50 mcg (Multivitamin Women 50 Plus) 1 tab PO DAILY 90 days multivitamin 1 tab PO DAILY 90 days nebulizer accessories (Adult Aerosol Mask) As directed nitroglycerin 0.4 mg sublingual Q5M PRN paroxetine HCl 20 mg PO DAILY 90 days quetiapine 200 mg (2 x 100 mg) PO BEDTIME 90 days Shower Chair As directed sodium chloride 7% 4 mL inhalation BID PRN 30 days HPI HPI Comments History of Present Illness Details Alexx is a pleasantly confused 73-year-old Hebrew-speaking female patient of Dr. Alba who was accompanied by her son/caregiver (Dimitri) at today's office visit. She has a past medical history of advanced dementia, diabetes mellitus type 2, GERD, paroxysmal atrial fibrillation, myocardial infarction with an implanted defibrillator, CVA, osteoporosis, and cardiomyopathy. She presents to the office today for follow-up of her urinary incontinence. Of note, patient was seen by Dr. Maciel approximately 6 months ago at which time recommendations were made for scheduled toileting and retroperitoneal ultrasound for further assessment evaluation. These results reviewed with the patient and her son today. Bilateral kidneys with no calculi, lesions, and or hydronephrosis. The bladder was decompressed. In discussion with the patient's caregiver/son today he reports having follow-up with her PCP Dr. Ayala at which time recommendations were made for medications to be given via liquid and or subcutaneous as patient he has not been wanting to take oral medications. He continues to report noting stress incontinence/mixed incontinence in his mother. Discussed given advanced dementia she is not a good candidate for p.o. medical therapy to correct overactive bladder/incontinence symptoms. Discussed pelvic floor therapy however patient with difficulty focusing and this would not be ideal. In office urinalysis results reviewed with the patient and her son today. PVR 0 mL. PFSH Medical History GERD (gastroesophageal reflux disease) Dyslipidemia Urinary incontinence PAF (paroxysmal atrial fibrillation) Atherosclerotic cardiovascular disease Depression with anxiety Anticoagulated Bleeding hemorrhoids Blurry vision Hemorrhoids Ischemic cardiomyopathy Urinary incontinence, mixed Osteoporosis Dementia History of stroke History of [place] (myocardial infarction) Hypovitaminosis D Asthma Anxiety High cholesterol Hypertension Surgical History History of cardiac defibrillator placement History of hysterectomy Family History Father No problems noted. Mother Cerebrovascular accident Sister No problems noted. Sister No problems noted. Son No problems noted. Son No problems noted. Daughter No problems noted. Social History Housing: Apartment Alcohol intake: never Patient Tobacco Use Status: Former Tobacco user Tobacco use type: Cigarette e-Cigarette/Vaping Use: Never Used Second Hand Smoke Exposure: No Advance Directives Date on File: 12/18/20 service: No Current occupational status: retired Cognitive needs: No Hearing needs: No Vision needs: No Review of Systems Const Reports as per HPI Eyes Reports no additional complaints ENT Reports no additional complaints Card Reports as per HPI Resp Reports no additional complaints GI Reports as per HPI Reports as per HPI Musc Reports as per HPI Neuro Reports as per HPI Psych Reports as per HPI Endo Reports as per HPI Joshua/Lymph Reports as per HPI Aller/Immun Reports no additional complaints Physical Exam Const General: cooperative, healthy appearing, comfortable, no acute distress, well developed, alert and awake Nutritional Appearance: thin Orientation/consciousness: oriented to person Limitations: no limitations HEENT Head: Yes normal to inspection, Yes normocephalic and Yes atraumatic Ears: hearing grossly normal bilaterally Eyes General: appearance normal, both eyes and all related structures Neck Neck: Yes normal visual inspection and Yes trachea midline Chest Chest palpation & inspection: normal inspection of the chest Resp Effort & Inspection: normal respiratory effort and able to speak in complete sentences Cardio Rate: regular rate GI Inspection: Yes normal to inspection General: Yes no CVA tenderness Back/Spine/Pelvis Back: no CVA tenderness Skin General skin exam: no rashes or lesions noted Neuro General: oriented to person Extrem General: Yes normal to inspection Psych Appearance: grossly normal and well kempt Mental Status: other (pleasantly confused) Speech and movement: Normal speech and movement present and Clear speech present Affect: normal affect Attitude: cooperative and Avoids eye contact (attititude/behavior) Thought process: Other thought process findings present (at times answers questions inappropriately ) Insight: Limited insight present (Psych) Judgement: Limited judgement present (Psych) Office Procedures Post Void Residual Post Residual Void Post Void Residual (PVR): 5 [id number] Void Residual by ultrasound Results AMB Urinalysis, Automated UA Leukoctes 0 William/uL Last Edit by Dahlia Lorenzana on 09/01/23 15:32 UA Nitrite Negative Last Edit by Dahlia Lorenzana on 09/01/23 15:32 UA Urobilinogen 0.2 mg/dL Last Edit by Dahlia Lorenzana on 09/01/23 15:32 UA Protein 15 mg/dL Last Edit by Dahlia Lorenzana on 09/01/23 15:32 UA pH 6.0 Last Edit by Dahlia Lorenzana on 09/01/23 15:32 UA Blood 0 Octaviano/uL Last Edit by Dahlia Lorenzana on 09/01/23 15:32 UA Specific [place] 1.015 Last Edit by Dahlia Lorenzana on 09/01/23 15:32 UA Ketone Negative Last Edit by Dahlia Lorenzana on 09/01/23 15:32 UA Bilirubin 0 mg/dL Last Edit by Dahlia Lorenzana on 09/01/23 15:32 UA Glucose 0 mg/dL Last Edit by [employer] Lorenzana on 09/01/23 15:32 Results Reviewed Results Reviewed: Laboratory Last Values Urine pH (Auto) 6.0 09/01/23 15:31 Specific [place] (Auto) 1.015 09/01/23 15:31 Urine Protein (Auto) 15 mg/dL 09/01/23 15:31 Glucose (UA)(Auto) 0 mg/dL 09/01/23 15:31 Urine Ketones (Auto) Negative 09/01/23 15:31 Urine Blood (Auto) 0 Octaviano/uL 09/01/23 15:31 Urine Nitrite (Auto) Negative 09/01/23 15:31 Urine Bilirubin (Auto) 0 mg/dL 09/01/23 15:31 Urine Urobilinogen (Auto) 0.2 mg/dL 09/01/23 15:31 Leukocyte Esterase (Auto) 0 William/uL 09/01/23 15:31 Date of Service: 08/26/23 EXAMINATION: US RETROPERITONEAL COMPLETE (RENAL) FINDINGS: RIGHT KIDNEY: 9.1 x 4.1 x 5.3 cm (SAG x AP x TRV). The kidney is normal in size and contour. Echogenic kidney. Renal cortical thickness is normal. No calculi or focal parenchymal lesions. No hydronephrosis. LEFT KIDNEY: 10.3 x 5.3 x 5.3 cm (SAG x AP x TRV). The kidney is normal in size and contour. Echogenic kidney. Renal cortical thickness is normal. No calculi or focal parenchymal lesions. No hydronephrosis. BLADDER: Bladder is decompressed. IMPRESSION: Echogenic kidneys suggesting chronic medical renal disease. Assessment & Plan Assessment & Plan (1) Urinary incontinence: Code(s): R32 - Unspecified urinary incontinence (2) Urinary incontinence, mixed: Code(s): N39.46 - Mixed incontinence Plan In office urinalysis results reviewed with the patient and her son today; as noted above. PVR 0 mL. Recent retroperitoneal ultrasound results reviewed with the patient today and her son; as noted above Continue with prompt voiding Continue with scheduled toileting Discussed bladder triggers/irritants. Follow-up in 3-6 months with PVR; if not sooner with any issues, concerns, and or questions. Orders: Orders AMB Post Void Residual by ultrasound Today N39.0 - Urinary tract infection, site not specified AMB Urinalysis Automated Today Z13.9 - Encounter for screening, unspecified Medications: Discontinued folic acid Discontinued Reason: Patient no longer taking 1 mg PO DAILY 90 days 90 tabs 3RF paroxetine HCl Discontinued Reason: Patient Refused 20 mg PO DAILY 90 days 90 tabs 3RF losartan Discontinued Reason: Patient Refused 50 mg PO DAILY 90 days 90 tabs 3RF donepezil Discontinued Reason: Patient Refused 10 mg PO DAILY 90 days 90 tabs 0RF cholecalciferol (vitamin D3) (Vitamin D3) Discontinued Reason: Patient Refused 25 mcg PO DAILY 30 caps 11RF multivitamin Discontinued Reason: Patient Refused 1 tab PO DAILY 90 days 90 tabs 3RF metformin Discontinued Reason: Patient Refused 500 mg PO BID 30 days 60 tabs 1RF quetiapine Discontinued Reason: Patient Refused 200 mg (2 x 100 mg) PO BEDTIME 90 days 180 tabs 1RF carvedilol Discontinued Reason: Patient Refused 6.25 mg PO BID 90 days 180 tabs 3RF furosemide Discontinued Reason: Patient Refused 20 mg PO BID 90 days 180 tabs 2RF Patient Instructions: The patient had an opportunity to ask questions regarding the treatment plan. All questions were answered. Physical exam, labs, and imaging were discussed and reviewed in detail. As well as risks, benefits, and discussion of treatment choices. No major barriers to understanding were identified. The patient expressed understanding and agreement with the above treatment plan. The patient was made aware they should contact our office by phone for worsening of their current condition, the appearance of new symptoms, or with any questions or concerns. Compliance is encouraged with any medications and follow up testing that is ordered. It is a privilege to be allowed the opportunity to participate in? your urological care.? Again, if you have any questions or concerns If you have any questions or concerns please do not hesitate to contact me. The office is [phone]. This note is constructed using voice recognition software. While every effort has been made to ensure accuracy watch and clock maker and repairer errors may have been included. Yours sincerely, LUCIA Waddell Coding Level of Care Code Est Pt Level 3 (58763) Diagnoses Urinary incontinence R32 Urinary incontinence, mixed N39.46 CPT Codes Post Residual Void - PVR CPT Code: 80891-[id number] Void Residual by ultrasound ([id number])
== END 2023-09-01 16:00 | disposition home or self-care (01) ==
PROVIDERS: Visit Provider Nurse Practitioner Family
DX: N39.46 Mixed incontinence (principal); Z13.9 Encounter for screening, unspecified
CPT/HCPCS: 99213

== ENCOUNTER → 2023-09-01 14:56 | Outpatient (BNVA) | payer OTHER, SELFPAY | PROVIDERS: Visit Provider Nurse Practitioner Family | DX: N39.46 Mixed incontinence (principal) | CPT/HCPCS: 51798; 81003; 99212 ==

== ENCOUNTER 2023-09-23 15:12 | Outpatient (AMB) | payer OTHER, SELFPAY ==
--- NOTE | 2023-09-23 15:16 | AM.OFFVISNUR ---
Intake Intake Visit Reasons: Flu shot Allergies aspirin Allergy (Intermediate, Verified 09/01/23 15:59) rash, pruritus penicillin G Allergy (Intermediate, Verified 09/01/23 15:59) swelling Office Procedures Flu Questionnaire Does the patient have a severe egg allergy?: No Does the patient have severe life threatening allergies?: No Does the patient have a fever or illness today?: No Has the patient ever had Guillain-Hatton Syndrome?: No Has the patient ever had any past reaction to a flu shot?: No Immunizations flu vacc [id number] 6mos up(PF) 60 mcg(15 mcgx4)/0.5 mL IM syringe Performing Provider: Ana Maria Sneed MD Performing Location: [facility] Administered by: Bonny Tran CMA on 09/23/23 15:16 Dose Route Admin Location Dispensed Lot Number Expiration Date NDC Mail Order Clerk 0.5 mL IM Right Deltoid 0.5 mL [id number] 04/18/24 52001-448-16 [employer] VIS Given Date VIS Provided VIS Publication Date 09/23/23 Single Vaccine 21 Eligibility Eligibility Date Funding Source Not VFC Eligible 09/23/23 Private Coding Assessment & Plan Assessment & Plan Orders: Orders Influenza [id number] Immunization Today Z23 - Encounter for immunization
== END 2023-09-23 15:17 | disposition home or self-care (01) ==
LOC: HO.HMGH 15:12
PROVIDERS: PCP Internal Medicine; Visit Provider Internal Medicine
DX: Z23 Encounter for immunization (principal)
CPT/HCPCS: 90471; 90686

== ENCOUNTER 2023-10-17 12:18 | Outpatient (REF) | payer OTHER, SELFPAY ==
--- NOTE | ~2023-10-17 | MM_ITS ---
EXAMINATION: MM SCREENING DIGITAL BREAST TOMOSYNTHESIS, BILATERAL CLINICAL INFORMATION: Screening. Asymptomatic. COMPARISON: Mammography: 10/16/2022, 09/26/2022 and studies dating back to 09/29/2019. Bilateral ultrasound 10/16/2022. (Multiple cysts bilaterally) TECHNIQUE: Digital breast tomosynthesis is performed in both the craniocaudal and mediolateral oblique views along with computer-aided detection (CAD). Synthesized 2D images are generated from the tomosynthesis. FINDINGS: The breasts are heterogeneously dense, which may obscure small masses (ACR BI-RADS breast composition Category c). Mild limitation of the left breast exposure due to pacemaker device. Once again, there are abundant bilateral dystrophic appearing scattered calcifications throughout both breasts without suspicious or aggressive change. There are several rounded and ovoid masses bilaterally consistent with the known cysts seen on prior ultrasound. Benign biopsy clip noted upper right breast with adjacent dystrophic calcification. Vascular calcifications are evident. Otherwise, no suspicious masses, grouped pleomorphic/suspicious calcifications, or areas of architectural distortion in either breast evident to suggest malignancy. No skin or axillary changes within the confines of pacemaker device. MM/MM tomosynthesis screening BI IMPRESSION: No mammographic evidence of malignancy in either breast. Stable examination without interval change. Benign oval masses bilaterally are consistent with known cysts on ultrasound. These are waxing and waning. Benign scattered dystrophic calcifications without aggressive changes. ASSESSMENT: BI-RADS BI-RADS 2 - Benign Findings RECOMMENDATION: Routine annual mammography screening. 1 year F/U This examination should not preclude the clinical evaluation of a suspicious palpable abnormality. This patient's information was entered into a reminder system with a target due date for their next mammogram.
--- NOTE | ~2023-10-17 | MM_ITS ---
EXAMINATION: BONE DENSITOMETRY CLINICAL INDICATION: Unspecified menopausal and perimenopausal disorder. COMPARISON: This is the patient's baseline examination. TECHNIQUE: Using a [employer] DXA System (software version: 13.1) manufactured by [employer], dual-energy x-ray absorptiometry was performed of the lumbar spine and left hip. The images are of good technical quality. Summary results are attached. FINDINGS: LEFT FEMUR, NECK: BMD 0.767 g/cm2, Z-score 0.4, T-score -1.9, osteopenia. LEFT FEMUR, TOTAL: BMD 0.714 g/cm2, Z-score -0.2, T-score -2.3, osteopenia. AP SPINE L1-L3 (excluding L4): The data of L1-L4 has been changed to exclude the L4 vertebral body, because degenerative sclerosis at this level may cause overestimation of lumbar spine density. BMD 0.852 g/cm2, Z-score -0.3, T-score -2.6, osteoporosis. IDENTIFIED RISK FACTORS: Early menopause, secondary osteoporosis, hysterectomy, bilateral oophorectomy, dementia, history of fracture (adult), low body weight, low calcium intake, thiazide. HISTORY OF FRACTURE: Other. MEDICATIONS: Calcium supplements or multivitamin, vitamin D, bisphosphonate. MM/XR DEXA axial skeleton IMPRESSION: 1. DIAGNOSIS: Osteoporosis based on the lowest T-score value of -2.6 in the lumbar spine applying World Health Organization criteria. 2. 10-YEAR FRACTURE RISK PREDICTION, FRAX: According to the guidelines, FRAX calculation should only be performed on patients in the osteopenia bone density category. Therefore, FRAX was not performed on this patient. 3. Treatment Recommendations: NOF guidelines recommend consideration for treatment in postmenopausal women and men age 50 and older presenting with the following: -A hip or vertebral (clinical or morphometric) fracture. -T-score less than or equal to -2.5 at the femoral neck or spine after appropriate evaluation to exclude secondary causes. -Low bone mass at the hip or spine and a 10-year fracture probability by FRAX of greater than or equal to 3% for hip fracture or greater than or equal to 20% for major osteoporotic fracture based on the [place] adapted WHO algorithm. 4. Other Recommendations: All treatment decisions require clinical judgment and consideration of individual patient factors, including patient preferences, comorbidities, previous drug use, risk factors not captured in the FRAX model (e.g. frailty, falls, vitamin D deficiency, increased bone turnover, interval significant decline in bone density) and possible under or overestimation of fracture risk by FRAX. Additional medical evaluation for secondary cause of low bone mineral density may be appropriate. FUTURE SCAN RECOMMENDATION: People with diagnosed cases of osteoporosis or at high risk for fracture should have regular bone mineral density tests. For patients eligible for Medicare, routine testing is allowed once every 2 years. The testing frequency can be increased to one year for patients who have rapidly progressing disease, those who are receiving or discontinuing medical therapy to restore bone mass, or have additional risk factors.
== END 2023-10-17 12:19 | disposition home or self-care (01) ==
LOC: HO.MAMMO 12:18
PROVIDERS: PCP Internal Medicine; Visit Provider Internal Medicine
DX: Z12.31 Encounter for screening mammogram for malignant neoplasm of breast (principal); Z13.820 Encounter for screening for osteoporosis; Z78.0 Asymptomatic menopausal state
CPT/HCPCS: 77063; 77067; 77080

== ENCOUNTER → 2023-10-17 13:00 | Outpatient (BNV) | payer OTHER, SELFPAY | PROVIDERS: PCP Internal Medicine; Visit Provider Radiology Diagnostic Radiology | DX: Z12.31 Encounter for screening mammogram for malignant neoplasm of breast (principal) | CPT/HCPCS: 77063; 77067 ==

== ENCOUNTER → 2023-11-24 23:59 | Outpatient (BNV) | payer OTHER, SELFPAY ==
--- NOTE | 2023-11-24 19:02 | MHC.OFFVIS ---
Intake Intake Visit Reasons: Remote ICD Check- [employer] Allergies aspirin Allergy (Intermediate, Verified 09/01/23 15:59) rash, pruritus penicillin G Allergy (Intermediate, Verified 09/01/23 15:59) swelling PFSH Medical History GERD (gastroesophageal reflux disease) Dyslipidemia Urinary incontinence PAF (paroxysmal atrial fibrillation) Atherosclerotic cardiovascular disease Depression with anxiety Anticoagulated Bleeding hemorrhoids Blurry vision Hemorrhoids Ischemic cardiomyopathy Urinary incontinence, mixed Osteoporosis Dementia History of stroke History of [place] (myocardial infarction) Hypovitaminosis D Asthma Anxiety High cholesterol Hypertension Surgical History History of cardiac defibrillator placement History of hysterectomy Family History Father No problems noted. Mother Cerebrovascular accident Sister No problems noted. Sister No problems noted. Son No problems noted. Son No problems noted. Daughter No problems noted. Social History Housing: Apartment Alcohol intake: never Patient Tobacco Use Status: Former Tobacco user Tobacco use type: Cigarette e-Cigarette/Vaping Use: Never Used Second Hand Smoke Exposure: No Advance Directives Date on File: 12/18/20 service: No Current occupational status: retired Cognitive needs: No Hearing needs: No Vision needs: No Office Procedures Cardiac Device Check Cardiac Device Check Details: Date of service- 11/24/2023 ; Battery life 3 years; normal lead parameters; AP 26%; FREIGHT BRAKEMAN 0%; brief NSVT episodes. Overall normal device function. [id number] Cardiac Device Interrogation, pacemaker Procedure code (CPT) selection complete Assessment & Plan Assessment & Plan (1) PAF (paroxysmal atrial fibrillation): Comment: Patient does have paroxysmal atrial fibrillation, currently controlled, .patient follows with cardiology service Code(s): I48.0 - Paroxysmal atrial fibrillation Plan x Coding Level of Care Code Procedure Only Diagnoses PAF (paroxysmal atrial fibrillation) I48.0 CPT Codes Cardiac Device Check - Cardiac Device 12: [id number] Cardiac Device Interrogation, pacemaker ([id number])
== END ==
PROVIDERS: PCP Internal Medicine; Visit Provider Internal Medicine
DX: I48.0 Paroxysmal atrial fibrillation (principal); Z95.0 Presence of cardiac pacemaker
CPT/HCPCS: 93294

== ENCOUNTER 2023-12-05 08:56 | Outpatient (AMB) | payer OTHER, SELFPAY ==
[2023-12-05 09:00] VITALS: BP 110/68; PULSE 59; O2SAT 99; BMI 20.2
--- NOTE | 2023-12-05 09:00 | A.OFFPC_ITS ---
Vital Signs 12/05/23 09:00 Height 4 ft 10.46 in Weight 98 lb 2 oz BMI 20.2 BP 110/68 Blood Pressure Location Lt brachial Position Sitting Pulse 59 Pulse Source Pulse Oximeter Pulse Oximetry (%) 99 Oxygen Delivery Method Room Air Intake Visit Reasons: pre-op cataract surgery scheduled on 12/19/23 Manager Physical Required: Yes Emergency Room Nurse: Present Accompanied by: Son Allergies aspirin Allergy (Intermediate, Verified 12/05/23 09:00) rash, pruritus penicillin G Allergy (Intermediate, Verified 12/05/23 09:00) swelling Medication List - Last Reconciled 12/08/23 by Marquez Johnson MD apixaban 5 mg PO BID 90 days atorvastatin 80 mg PO QPM blood sugar diagnostic ([facility] Ultra Test strips) check once daily blood-glucose meter ([facility] Ultra2 Meter) check once daily cholecalciferol (vitamin D3) 50 mcg PO DAILY 90 days commode As directed diclofenac sodium 1% (Voltaren Arthritis Pain) 2 grams topical QID donepezil 10 mg PO BEDTIME 90 days enoxaparin (Lovenox) 40 mg (0.4 mL) subcut DAILY 30 days famotidine 20 mg (2.5 mL) PO BEDTIME PRN 30 days fluticasone propion-salmeterol 115-21 mcg/actuation (Advair HFA) 2 puffs PO Q12H fluticasone propionate 44 mcg/actuation (Flovent HFA) 1 puff PO BID fluticasone propionate 50 mcg/actuation 1 spray intranasal DAILY PRN food supplemt, lactose-reduced (Ensure oral liquid) 1 ea PO .three times a day 25 days humidifiers As directed ipratropium bromide 2.5 mL inhalation Q6H PRN lancets ([facility] UltraSoft 2 Lancet) check once per day latanoprost 0.005% 1 drp ophthalmic (eye) BEDTIME levalbuterol HCl (Xopenex) 0.63 mg inhalation Q8H levalbuterol tartrate 45 mcg/actuation 2 puffs inhalation Q4-6H PRN 30 days MDD Patient has h/o cardiac diseas lorazepam 1 mg PO BEDTIME PRN [id number]-[id number]-FA-vit K-lut 8 mg iron-400 mcg-50 mcg (Multivitamin Women 50 Plus) 1 tab PO DAILY 90 days nebulizer accessories (Adult Aerosol Mask) As directed nitroglycerin 0.4 mg sublingual Q5M PRN Shower Chair As directed sodium chloride 7% 4 mL inhalation BID PRN 30 days Tobacco use date assessed: 12/05/23 Fall risk assessment: No Falls in past year Last assessed Fall Risk: 12/05/23 Dental Screening Dental Screen Date: 12/05/23 Did you have a dental visit in the last 12 months?: Yes Did you have a dental problem in the last 6 months where you did not have access to dental care?: No Was dental information given to patient?: Patient has dentist HPI pre-op cataract surgery scheduled on 12/19/23 HPI Details having bilat cataract repairs; has diet controlled DM atrial fib and hyperlipidemia [facility] Medical History GERD (gastroesophageal reflux disease) Dyslipidemia Urinary incontinence PAF (paroxysmal atrial fibrillation) Atherosclerotic cardiovascular disease Depression with anxiety Anticoagulated Bleeding hemorrhoids Blurry vision Hemorrhoids Ischemic cardiomyopathy Urinary incontinence, mixed Osteoporosis Dementia History of stroke History of [place] (myocardial infarction) Hypovitaminosis D Asthma Anxiety High cholesterol Hypertension Surgical History History of cardiac defibrillator placement History of hysterectomy Family History Father No problems noted. Mother Cerebrovascular accident Sister No problems noted. Sister No problems noted. Son No problems noted. Son No problems noted. Daughter No problems noted. Social History Housing: Apartment Alcohol intake: never Patient Tobacco Use Status: Former Tobacco user Tobacco use type: Cigarette e-Cigarette/Vaping Use: Never Used Second Hand Smoke Exposure: No Advance Directives Date on File: 12/18/20 service: No Current occupational status: retired Cognitive needs: No Hearing needs: No Vision needs: No Questionnaire PHQ-9 Over the last 2 weeks, how often have you been bothered by any of the following problems? 1. Little interest or pleasure in doing things: not at all 2. Feeling down, depressed, or hopeless: not at all 3. Trouble falling or staying asleep, or sleeping too much: not at all 4. Feeling tired or having little energy: not at all 5. Poor appetite or overeating: not at all 6. Feeling bad about yourself - or that you are a failure or have let yourself or your family down: not at all 7. Trouble concentrating on things, such as reading the newspaper or watching television: not at all 8. Moving or speaking so slowly that other people could have noticed. Or the opposite - being so fidgety or restless that you have been moving around a lot more than usual: not at all 9. Thoughts that you would be better off or of hurting yourself in some way: not at all Total score: 0 Depression Screening Interpretation: Negative Depression Screening Done: Yes 14756 - PHQ-9 Billing: Yes Source: Developed by Drs. Anthony Davis, Megan Davis, Flakito Orlando and colleagues, with an educational chris from [employer]. Thrive Questionnaire Date Thrive assessed: 12/05/23 I am a: Patient What is your living situation today?: I have a steady place to live Within the past 12 months, did the food you bought not last and you didn't have the money to get more?: Never true Within the past 12 months, did you worry whether your food would run out before you got money to buy more?: Never true Do you have trouble paying for medicines?: No Do you have trouble getting transportation to medical appointments?: No Do you have trouble paying your heating and electricity bill?: No Do you have trouble taking care of your child, family member or friend?: No Do you have trouble with day-to-day activities such as bathing, preparing meals, shopping, managing finances, etc.?: No Are you currently unemployed and looking for a job?: No Are you interested in more education?: No Please select the resources that you would like help with: None THRIVE Score: 0 AUDIT C Alcohol Use Questionnaire (AUDIT-C) 1. How often do you have a drink containing alcohol?: Never Total Score: 0 JUAN PABLO-7 AMB Questionnaire JUAN PABLO-7 Date JUAN PABLO - 7 assessed: 12/05/23 Feeling nervous, anxious, or on edge: 0 = Not at all Not being able to stop or control worryin = Not at all Worrying too much about different things: 0 = Not at all Trouble relaxin = Not at all Being so restless that it is hard to sit still: 0 = Not at all Becoming easily annoyed or irritable: 0 = Not at all Feeling afraid as if something awful might happen: 0 = Not at all Total JUAN PABLO-7 score (0-4 normal; 5-9 mild; 10-14 moderate; 15-21 severe): 0 Source: Developed by Drs. Anthony Davis, Megan Davis, Flakito Orlando and colleagues, with an educational chris from [employer]. Review of Systems Const Denies chills, Denies fatigue, Denies headache(s) and Denies weight loss Eyes Denies change in vision, Denies diplopia and Denies eye pain ENT Denies vertigo, Denies dizziness, Denies headache(s) and Denies nasal discharge Card Denies chest pain, Denies rapid heart rate and Denies dyspnea on exertion Resp Denies chest congestion, Denies cough, Denies pain with cough and Denies dyspnea on exertion GI Denies abdominal pain, Denies hematochezia and Denies change in bowel habits Musc Denies myalgias, Denies arthralgias and Denies joint swelling Skin/Breast Denies lesions and Denies unusual bruising Neuro Denies vertigo, Denies dizziness, Denies headache(s) and Denies focal weakness Endo Denies fatigue Physical exam (Primary Care) Vital Signs: Last Vital Signs Pulse 59 12/05/23 09:00 BP 110/68 12/05/23 09:00 Pulse Ox 99 12/05/23 09:00 Oxygen Delivery Method Room Air 12/05/23 09:00 BMI result Body Mass Index 20.2 Tobacco/Smoking Status: Tobacco use Status Tobacco use date assessed 12/05/23 12/05/23 09:09 Patient Tobacco Use Status Former Tobacco user 12/05/23 09:09 Tobacco use type Cigarette 12/05/23 09:09 e-Cigarette/Vaping Use Never Used 12/05/23 09:09 PHQ-9: PHQ-9 Score PHQ-9: Total score 0 12/05/23 09:10 Depression Screening Interpretation: Negative Thrive Assessment: Date of Thrive Assessment Date Thrive assessed 12/05/23 12/05/23 09:09 Const General: cooperative, healthy appearing and no acute distress Orientation/consciousness: oriented to person, oriented to place and oriented to time HENMT Head: Yes normal to inspection, Yes normocephalic and Yes atraumatic Mouth: Normal oral and palatal mucosa present and tongue normal Throat: Yes posterior oropharynx normal and Yes uvula midline Eyes General: appearance normal, both eyes and all related structures Neck Neck: Yes normal visual inspection, Yes full ROM and Yes no lymphadenopathy Thyroid: Thyroid normal Carotids: normal carotid upstroke Chest Chest palpation & inspection: normal inspection of the chest Resp Effort & Inspection: normal respiratory effort and able to speak in complete sentences Auscultation: clear to auscultation bilaterally Cardio Jugular venous distension: no JVD Palpation: normal PMI Rate: regular rate Rhythm: regular rhythm Heart sounds: S1 normal heart sound present and S2 normal heart sound present GI Inspection: Yes normal to inspection Palpation (GI): Soft to palpation and No hepatosplenomegaly present Auscultation: normal bowel sounds General: Yes no CVA tenderness Back/Spine/Pelvis Back: no CVA tenderness Skin General skin exam: no rashes or lesions noted Neuro General: oriented to person, oriented to place and oriented to time Extrem General: Yes normal to inspection and Yes full ROM Assessment and Plan Assessment & Plan (1) Preop exam for internal medicine: Code(s): Z01.818 - Encounter for other preprocedural examination Plan: low risk of cardiovascular complications; cleared for surgery; would stop Eliquis 1 week before procedure (2) Diabetes mellitus: Code(s): E11.9 - Type 2 diabetes mellitus without complications Plan: stable off meds (3) Dyslipidemia: Code(s): E78.5 - Hyperlipidemia, unspecified Plan: stable (4) PAF (paroxysmal atrial fibrillation): Code(s): I48.0 - Paroxysmal atrial fibrillation Plan: stable Coding Level of Care Code Tele Est Pt Level 4 (21086) Diagnoses Preop exam for internal medicine Z01.818 Diabetes mellitus E11.9 Dyslipidemia E78.5 PAF (paroxysmal atrial fibrillation) I48.0
== END 2023-12-05 09:19 | disposition home or self-care (01) ==
PROVIDERS: PCP Internal Medicine; Visit Provider Internal Medicine
DX: E11.69 Type 2 diabetes mellitus with other specified complication (principal); I48.0 Paroxysmal atrial fibrillation; E78.5 Hyperlipidemia, unspecified; Z01.818 Encounter for other preprocedural examination
CPT/HCPCS: 99214

== ENCOUNTER 2023-12-17 14:16 | Outpatient (AMB) | payer OTHER, SELFPAY ==
[2023-12-17 14:19] VITALS: BP 102/60; PULSE 70; O2SAT 96; BMI 20.2
--- NOTE | 2023-12-17 14:19 | MHC.OFFVIS ---
Intake Vital Signs 12/17/23 14:19 Height 4 ft 10.46 in Weight 98 lb BMI 20.2 BP 102/60 Blood Pressure Location Lt brachial Position Sitting Pulse 70 Pulse Source Pulse Oximeter Pulse Oximetry (%) 96 Oxygen Delivery Method Room Air Intake Visit Reasons: asthma Intake Note: pt is here for follow up and is with her son and states there is some wheezing occurring. Account Manager Trainee Required: No Allergies aspirin Allergy (Intermediate, Verified 12/17/23 14:40) rash, pruritus penicillin G Allergy (Intermediate, Verified 12/17/23 14:40) swelling Medication List - Last Reconciled 12/17/23 by Virgilio De Oliveira MD apixaban 5 mg PO BID 90 days atorvastatin 80 mg PO QPM blood sugar diagnostic (PacerPro Ultra Test strips) check once daily blood-glucose meter ([employer]uch Ultra2 Meter) check once daily cholecalciferol (vitamin D3) 50 mcg PO DAILY 90 days commode As directed diclofenac sodium 1% (Voltaren Arthritis Pain) 2 grams topical QID donepezil 10 mg PO BEDTIME 90 days enoxaparin (Lovenox) 40 mg (0.4 mL) subcut DAILY 30 days famotidine 20 mg (2.5 mL) PO BEDTIME PRN 30 days fluticasone propion-salmeterol 115-21 mcg/actuation (Advair HFA) 2 puffs PO Q12H fluticasone propionate 50 mcg/actuation 1 spray intranasal DAILY PRN food supplemt, lactose-reduced (Ensure oral liquid) 1 ea PO .three times a day 25 days humidifiers As directed ipratropium bromide 2.5 mL inhalation Q6H PRN lancets ([employer]Touch UltraSoft 2 Lancet) check once per day latanoprost 0.005% 1 drp ophthalmic (eye) BEDTIME levalbuterol HCl (Xopenex) 0.63 mg inhalation Q8H levalbuterol tartrate 45 mcg/actuation 2 puffs inhalation Q4-6H PRN 30 days MDD Patient has h/o cardiac diseas lorazepam 1 mg PO BEDTIME PRN vnshcicn-[id number]-FA-vit K-lut 8 mg iron-400 mcg-50 mcg (Multivitamin Women 50 Plus) 1 tab PO DAILY 90 days nebulizer accessories (Adult Aerosol Mask) As directed nitroglycerin 0.4 mg sublingual Q5M PRN Shower Chair As directed sodium chloride 7% 4 mL inhalation BID PRN 30 days Do you need a note to return to daycare/school/sports/work: No HPI asthma HPI Details 73 YEARS OLD FEMALE, INDONESIAN-SPEAKING, , VERY QUIET, HAS ADVANCED DEMENTIA. SHE IS HERE FOR FOLLOW-UP FOR HER COPD. SHE CLAIMS THAT SHE IS DOING OKAY. HOWEVER ACCORDING TO HER SON SHE DOES HAVE INTERMITTENT COUGH AND SOME WHEEZING. , HE IS THE REMOTE SENSING SPECIALIST AND GIVES HER MEDICATIONS . UNDER SUPERVISION SHE USES ADVAIR HFA 2 PUFFS B.I.D. WITH THE HELP OF HIS SPACER. ALSO HAS BEEN USING IPRATROPIUM SOLUTION IN THE NEBULIZER Q 4-6 HOURS BUT ONLY P.R.N.. SHE HAS HAD NO RESPIRATORY INFECTION OR. EXACERBATION IN THE LAST 6 MONTHS [facility] Medical History GERD (gastroesophageal reflux disease) Dyslipidemia Urinary incontinence PAF (paroxysmal atrial fibrillation) Atherosclerotic cardiovascular disease Depression with anxiety Anticoagulated Bleeding hemorrhoids Blurry vision Hemorrhoids Ischemic cardiomyopathy Urinary incontinence, mixed Osteoporosis Dementia History of stroke History of IA (myocardial infarction) Hypovitaminosis D Asthma Anxiety High cholesterol Hypertension Surgical History History of cardiac defibrillator placement History of hysterectomy Family History Father No problems noted. Mother Cerebrovascular accident Sister No problems noted. Sister No problems noted. Son No problems noted. Son No problems noted. Daughter No problems noted. Social History Housing: Apartment Alcohol intake: never Patient Tobacco Use Status: Former Tobacco user Tobacco use type: Cigarette e-Cigarette/Vaping Use: Never Used Second Hand Smoke Exposure: No Advance Directives Date on File: 12/18/20 service: No Current occupational status: retired Cognitive needs: No Hearing needs: No Vision needs: No Review of Systems Const All systems reviewed & are unremarkable except as noted in HPI and below Eyes Reports no additional complaints ENT Reports no additional complaints Card Denies chest pain, Denies irregular heart rhythm and Denies leg edema Resp Reports as per HPI GI Reports no additional complaints Reports no additional complaints Musc Reports no additional complaints Skin/Breast Reports system reviewed and no additional complaints, except as documented Neuro Reports no additional complaints Psych Reports no additional complaints Endo Reports no additional complaints Physical Exam Vital Signs: Last Vital Signs Pulse 70 12/17/23 14:19 BP 102/60 12/17/23 14:19 Pulse Ox 96 12/17/23 14:19 Oxygen Delivery Method Room Air 12/17/23 14:19 BMI result Body Mass Index 20.2 Const General: comfortable, no acute distress, alert and awake Orientation/consciousness: patient oriented x3 HEENT Head: Yes normal to inspection General nose exam: No nasal polyps present and No nasal discharge present Face and sinus: Yes sinuses nontender Mouth: oropharynx normal Throat: Yes posterior oropharynx normal Eyes General: appearance normal, both eyes and all related structures Neck Neck: Yes normal visual inspection, Yes no lymphadenopathy, Yes trachea midline and Yes no JVD Thyroid: Thyroid normal Chest Chest palpation & inspection: normal inspection of the chest, normal palpation of entire chest wall and no tenderness Resp Other: Percussion note is resonant, breath sounds are distant on both sides with prolonged expiratory phase. NO WHEEZES RHONCHI OR CREPITATIONS ARE HEARD TODAY. Cardio Palpation: normal PMI and other (Pacemaker and defibrillator in place in left pectoral area) Rate: regular rate Rhythm: regular rhythm Heart sounds: no gallops and no murmurs GI Palpation (GI): Soft to palpation, nontender, No hepatosplenomegaly present and no masses Auscultation: normal bowel sounds Back/Spine/Pelvis Thoracic/Lumbar Spine: thoracic and lumbar spine normal to inspection Skin General skin exam: no rashes or lesions noted Neuro General: patient oriented x3 and no focal motor deficits Cranial nerves: Yes CN's II-XII intact bilaterally Extrem General: Yes normal to inspection, Yes no clubbing, cyanosis or edema and Yes no calf tenderness Psych Appearance: grossly normal and well kempt Speech and movement: Normal speech and movement present Attitude: cooperative Assessment & Plan Assessment & Plan (1) Former smoker: Comment: Patient is a former smoker, about 1 pack a day, quit in 2007 after she had the heart attack. She may have some degree of COPD. * SHE WAS NOT ABLE TO PERFORM ADEQUATE MANEUVERS FOR PULMONARY FUNCTION TEST. Code(s): Z87.891 - Personal history of nicotine dependence Plan: SEE UNDER ASTHMA . (2) Mild persistent asthma: Comment: Currently it is well controlled with the use of her meds .administered by her son who is her REMOTE SENSING SPECIALIST : Code(s): J45.30 - Mild persistent asthma, uncomplicated Plan: [place] : Advair HFA 115-14 2 puffs b.i.d., she does have the spacer device which is helpful. Ipratropium inhalation solution 1 while in the nebulizer Q 6 hours p.r.n.. She is supposed to use. It only sparingly Because of PAF . She is supposed to avoid using albuterol. So she is supposed to use levalbuterol 2 puffs Q 4-6 hours only p.r.n. when outdoors. Medications: Changed From fluticasone propion-salmeterol 115-21 mcg/actuation (Advair HFA) 2 puffs PO Q12H 12 ea 3RF To fluticasone propion-salmeterol 115-21 mcg/actuation (Advair HFA) 2 puffs PO Q12H 12 grams 5RF copd 30 days From ipratropium bromide 2.5 mL inhalation Q6H PRN 150 mL 0RF shortness of breath or wheezing J45.40 - Moderate persistent asthma, uncomplicated To ipratropium bromide 2.5 mL inhalation Q6H PRN 150 mL 5RF shortness of breath or wheezing 30 days J45.40 - Moderate persistent asthma, uncomplicated Coding Level of Care Code Est Pt Level 3 (66734) Diagnoses Former smoker Z87.891 Mild persistent asthma J45.30
== END 2023-12-17 14:40 | disposition home or self-care (01) ==
PROVIDERS: PCP Internal Medicine; Visit Provider Internal Medicine
DX: Z87.891 Personal history of nicotine dependence (principal); J45.30 Mild persistent asthma, uncomplicated
CPT/HCPCS: 99213

== ENCOUNTER → 2023-12-17 14:16 | Outpatient (BNVA) | payer OTHER, SELFPAY | PROVIDERS: PCP Internal Medicine; Visit Provider Internal Medicine | DX: R32 Unspecified urinary incontinence (principal); N39.46 Mixed incontinence; J45.30 Mild persistent asthma, uncomplicated; Z87.891 Personal history of nicotine dependence | CPT/HCPCS: 51798; 99212 ==

== ENCOUNTER 2023-12-17 14:51 | Outpatient (AMB) | payer OTHER, SELFPAY ==
--- NOTE | 2023-12-17 15:16 | A.OFFVIS_ITS ---
Intake Intake Visit Reasons: 3m follow up Intake Note: Patient presents today for follow up urinary incontinence Urology Medications: none Blood thinners: Apixaban PVR: 0ml's Radiology Aide Required: Yes Radiology Aide Name: JOSIANE KUO Accompanied by: Unknown Allergies aspirin Allergy (Intermediate, Verified 12/17/23 15:54) rash, pruritus penicillin G Allergy (Intermediate, Verified 12/17/23 15:54) swelling Medication List - Last Reconciled 12/17/23 by LUCIA Waddell apixaban 5 mg PO BID 90 days atorvastatin 80 mg PO QPM blood sugar diagnostic ([employer] Ultra Test strips) check once daily blood-glucose meter (besomebody.uch Ultra2 Meter) check once daily cholecalciferol (vitamin D3) 50 mcg PO DAILY 90 days commode As directed diclofenac sodium 1% (Voltaren Arthritis Pain) 2 grams topical QID donepezil 10 mg PO BEDTIME 90 days enoxaparin (Lovenox) 40 mg (0.4 mL) subcut DAILY 30 days famotidine 20 mg (2.5 mL) PO BEDTIME PRN 30 days fluticasone propion-salmeterol 115-21 mcg/actuation (Advair HFA) 2 puffs PO Q12H 30 days fluticasone propionate 50 mcg/actuation 1 spray intranasal DAILY PRN food supplemt, lactose-reduced (Ensure oral liquid) 1 ea PO .three times a day 25 days humidifiers As directed ipratropium bromide 2.5 mL inhalation Q6H PRN 30 days lancets ([employer]Touch UltraSoft 2 Lancet) check once per day latanoprost 0.005% 1 drp ophthalmic (eye) BEDTIME levalbuterol HCl (Xopenex) 0.63 mg inhalation Q8H levalbuterol tartrate 45 mcg/actuation 2 puffs inhalation Q4-6H PRN 30 days MDD Patient has h/o cardiac diseas lorazepam 1 mg PO BEDTIME PRN qpbcrncx-zpm-kjty-FA-vit K-lut 8 mg iron-400 mcg-50 mcg (Multivitamin Women 50 Plus) 1 tab PO DAILY 90 days nebulizer accessories (Adult Aerosol Mask) As directed nitroglycerin 0.4 mg sublingual Q5M PRN Shower Chair As directed sodium chloride 7% 4 mL inhalation BID PRN 30 days HPI HPI Comments History of Present Illness Details Alexx is a pleasantly confused 73-year-old Somali-speaking female patient of Dr. Ayala who was accompanied by her son/caregiver (Dimitri) at today's office visit. She has a past medical history of advanced dementia, diabetes mellitus type 2, GERD, paroxysmal atrial fibrillation, myocardial infarction with an implanted defibrillator, CVA, osteoporosis, and cardiomyopathy. She presents to the office today for follow-up of her urinary incontinence. In discussion with patient's caregiver today as patient is a poor historian he reports baseline incontinence. He continues with scheduled toileting as recommended. He denies noting any bothersome urinary issues while taking care of the patient. Previous workup has included a retroperitoneal ultrasound noting bilateral kidneys with no calculi, lesions, and or hydronephrosis. The bladder was decompressed. Patient continues with difficulty in compliance with medications. He reports that although many medications have been switched to liquid she continues to refuse medications. Unable to obtain urine analysis today however PVR 0 mL. Discussed given advanced dementia she is not a good candidate for p.o. medical therapy to correct overactive bladder/incontinence symptoms. [facility] Medical History GERD (gastroesophageal reflux disease) Dyslipidemia Urinary incontinence PAF (paroxysmal atrial fibrillation) Atherosclerotic cardiovascular disease Depression with anxiety Anticoagulated Bleeding hemorrhoids Blurry vision Hemorrhoids Ischemic cardiomyopathy Urinary incontinence, mixed Osteoporosis Dementia History of stroke History of [place] (myocardial infarction) Hypovitaminosis D Asthma Anxiety High cholesterol Hypertension Surgical History History of cardiac defibrillator placement History of hysterectomy Family History Father No problems noted. Mother Cerebrovascular accident Sister No problems noted. Sister No problems noted. Son No problems noted. Son No problems noted. Daughter No problems noted. Social History Housing: Apartment Alcohol intake: never Patient Tobacco Use Status: Former Tobacco user Tobacco use type: Cigarette e-Cigarette/Vaping Use: Never Used Second Hand Smoke Exposure: No Advance Directives Date on File: 12/18/20 service: No Current occupational status: retired Cognitive needs: No Hearing needs: No Vision needs: No Review of Systems Const Reports as per [facility] Eyes Reports no additional complaints ENT Reports no additional complaints Card Reports as per [facility] Resp Reports no additional complaints GI Reports as per [facility] Reports as per [facility] Musc Reports as per [facility] Neuro Reports as per [facility] Psych Reports as per [facility] Endo Reports as per [facility] Joshua/Lymph Reports as per [facility] Aller/Immun Reports no additional complaints Physical Exam Const General: cooperative, healthy appearing, comfortable, no acute distress, well developed, alert and awake Nutritional Appearance: thin Orientation/consciousness: oriented to person Limitations: no limitations HEENT Head: Yes normal to inspection, Yes normocephalic and Yes atraumatic Ears: hearing grossly normal bilaterally Eyes General: appearance normal, both eyes and all related structures Neck Neck: Yes normal visual inspection and Yes trachea midline Chest Chest palpation & inspection: normal inspection of the chest Resp Effort & Inspection: normal respiratory effort and able to speak in complete sentences Cardio Rate: regular rate GI Inspection: Yes normal to inspection General: Yes no CVA tenderness Back/Spine/Pelvis Back: no CVA tenderness Skin General skin exam: no rashes or lesions noted Neuro General: oriented to person Extrem General: Yes normal to inspection Psych Appearance: grossly normal and well kempt Mental Status: other (pleasantly confused) Speech and movement: Normal speech and movement present and Clear speech present Affect: normal affect Attitude: cooperative and Avoids eye contact (attititude/behavior) Thought process: Other thought process findings present (at times answers questions inappropriately ) Insight: Limited insight present (Psych) Judgement: Limited judgement present (Psych) Office Procedures Post Void Residual Post Residual Void Post Void Residual (PVR): 0 [id number] Void Residual by ultrasound Assessment & Plan Assessment & Plan (1) Urinary incontinence: Code(s): R32 - Unspecified urinary incontinence (2) Urinary incontinence, mixed: Code(s): N39.46 - Mixed incontinence Plan Unable to obtain urine for urinalysis; however PVR 0 mL. Will continue with scheduled toileting. Continue with prompt voiding Discussed bladder triggers/irritants. Prescription provided for incontinent pads; will send to [facility] as requested. Follow-up in 6 months with PVR; if not sooner with any issues, concerns, and or questions. Orders: Orders AMB Urinalysis Automated Today Z13.9 - Encounter for screening, unspecified AMB Post Void Residual by ultrasound Today N39.0 - Urinary tract infection, site not specified Patient Instructions: The patient had an opportunity to ask questions regarding the treatment plan. All questions were answered. Physical exam, labs, and imaging were discussed and reviewed in detail. As well as risks, benefits, and discussion of treatment choices. No major barriers to understanding were identified. The patient expressed understanding and agreement with the above treatment plan. The patient was made aware they should contact our office by phone for worsening of their current condition, the appearance of new symptoms, or with any questions or concerns. Compliance is encouraged with any medications and follow up testing that is ordered. It is a privilege to be allowed the opportunity to participate in? your urological care.? Again, if you have any questions or concerns If you have any questions or concerns please do not hesitate to contact me. The office is [phone]. This note is constructed using voice recognition software. While every effort has been made to ensure accuracy nba player errors may have been included. Yours sincerely, LUCIA Waddell Coding Level of Care Code Est Pt Level 3 (32557) Diagnoses Urinary incontinence R32 Urinary incontinence, mixed N39.46 CPT Codes Post Residual Void - PVR CPT Code: [id number] Void Residual by ultrasound ([id number])
== END 2023-12-17 15:56 | disposition home or self-care (01) ==
PROVIDERS: PCP Internal Medicine; Visit Provider Nurse Practitioner Family
DX: N39.46 Mixed incontinence (principal)
CPT/HCPCS: 99213

== ENCOUNTER 2023-12-25 10:54 | Outpatient (REF) | payer OTHER, SELFPAY ==
[2023-12-25 12:43] LABS: Alanine Aminotransferase 30 U/L (0-31); Alkaline Phosphatase 91 U/L (39-117); Anion Gap 13 (12-20); Aspartate Amino Transferase 33 U/L (5-31); Bilirubin Total 1.1 mg/dL (0.0-1.0); Blood Urea Nitrogen 18 mg/dL (9-16); Calcium 9.8 mg/dL (8.4-10.2); Carbon Dioxide 33 mmol/L (22-29); Chloride 102 mmol/L (96-108); Cholesterol 226 mg/dL (<200); Estimated Glomerular Filt Rate 42; Glucose Fasting 105 mg/dL (60-99); HDL Cholesterol 74 mg/dL (>40); LDL Cholesterol Calculated 132 mg/dL (<100); Potassium 3.3 mmol/L (3.3-5.1); Sodium 145 mmol/L (135-145); Total Protein 6.7 g/dL (6.5-8.0); Triglycerides 100 mg/dL (<150)
== END 2023-12-25 10:55 | disposition home or self-care (01) ==
LOC: HO.LAB 10:54
PROVIDERS: PCP Internal Medicine; Visit Provider Internal Medicine
DX: E78.5 Hyperlipidemia, unspecified (principal); E11.9 Type 2 diabetes mellitus without complications
CPT/HCPCS: 36415; 80053; 80061

== ENCOUNTER 2023-12-30 13:50 | Outpatient (AMB) | payer OTHER, SELFPAY ==
--- NOTE | 2023-12-30 13:53 | MHC.PC.OV ---
Vital Signs 12/30/23 13:54 Height 4 ft 10.46 in Weight 98 lb BMI 20.2 BP 108/70 Blood Pressure Location Lt brachial Position Sitting Pulse 69 Pulse Source Pulse Oximeter Pulse Oximetry (%) 97 Oxygen Delivery Method Room Air Intake Visit Reasons: dm Filling Winder Required: No Accompanied by: Self / Same As Patient Allergies aspirin Allergy (Intermediate, Verified 12/30/23 14:09) rash, pruritus penicillin G Allergy (Intermediate, Verified 12/30/23 14:09) swelling Medication List - Last Reconciled 12/30/23 by Ana Maria Sneed MD apixaban 5 mg PO BID 90 days atorvastatin 80 mg PO QPM blood sugar diagnostic (Plan A Drink Ultra Test strips) check once daily blood-glucose meter (Plan A Drink Ultra2 Meter) check once daily cholecalciferol (vitamin D3) 50 mcg PO DAILY 90 days commode As directed diaper,brief,adult,disposable (Select Disposable Briefs) As directed diclofenac sodium 1% (Voltaren Arthritis Pain) 2 grams topical QID donepezil 10 mg PO BEDTIME 90 days enoxaparin (Lovenox) 40 mg (0.4 mL) subcut DAILY 30 days famotidine 20 mg (2.5 mL) PO BEDTIME PRN 30 days fluticasone propion-salmeterol 115-21 mcg/actuation (Advair HFA) 2 puffs PO Q12H 30 days fluticasone propionate 50 mcg/actuation 1 spray intranasal DAILY PRN food supplemt, lactose-reduced (Ensure oral liquid) 1 ea PO .three times a day 25 days humidifiers As directed ipratropium bromide 2.5 mL inhalation Q6H PRN 30 days lancets (VMIX Mediauch UltraSoft 2 Lancet) check once per day latanoprost 0.005% 1 drp ophthalmic (eye) BEDTIME levalbuterol HCl (Xopenex) 0.63 mg inhalation Q8H levalbuterol tartrate 45 mcg/actuation 2 puffs inhalation Q4-6H PRN 30 days MDD Patient has h/o cardiac diseas lorazepam 1 mg PO BEDTIME PRN ojnegjow-qxe-iqkn-FA-vit K-lut 8 mg iron-400 mcg-50 mcg (Multivitamin Women 50 Plus) 1 tab PO DAILY 90 days nebulizer accessories (Adult Aerosol Mask) As directed nitroglycerin 0.4 mg sublingual Q5M PRN nut.tx.gluc.intol,lac-free,soy (Glucerna oral liquid) 1 ea PO .three times a day 30 days Shower Chair As directed sodium chloride 7% 4 mL inhalation BID PRN 30 days Tobacco use date assessed: 12/05/23 Fall risk assessment: No Falls in past year Last assessed Fall Risk: 12/30/23 Dental Screening Dental Screen Date: 12/30/23 Did you have a dental visit in the last 12 months?: No Did you have a dental problem in the last 6 months where you did not have access to dental care?: No Was dental information given to patient?: No HPI HPI Comments History of Present Illness Details This is a 73-year-old female with diabetes mellitus type 2, dementia, malnutrition, severe osteoporosis, paroxysmal atrial fibrillation and dyslipidemia that comes accompanied by son Dimitri which is her toll collector supervisor for follow-up on her conditions. Her A1cs within goal. She refused to eat and has lost over 20 lb in a 3 month interval. She is not taking her oral medications. She is not oriented to time, person or place. She looks very unstable when walking like if she is forgetting to walk. She does have a follow-up with neurology regarding her dementia next week. Her BMI is 20 but she looks cachectic. Had bone density 2022 showing severe osteoporosis but alendronate was discontinued because she was not taking her pills. I will refer her to Rheumatology to probably consider either Prolia or zoledronic acid which are not oral medications. On chronic anticoagulation for atrial fibrillation which as we said she does not take her pills on a daily basis. Has follow-up with Cardiology soon. Her cholesterol has Incruse because she has not been taking her statin. She has difficulty walking and complains of right hip pain when touched and has not fall. [facility] Medical History GERD (gastroesophageal reflux disease) Dyslipidemia Urinary incontinence PAF (paroxysmal atrial fibrillation) Atherosclerotic cardiovascular disease Depression with anxiety Anticoagulated Bleeding hemorrhoids Blurry vision Hemorrhoids Ischemic cardiomyopathy Urinary incontinence, mixed Osteoporosis Dementia History of stroke History of NV (myocardial infarction) Hypovitaminosis D Asthma Anxiety High cholesterol Hypertension Surgical History History of cardiac defibrillator placement History of hysterectomy Family History Father No problems noted. Mother Cerebrovascular accident Sister No problems noted. Sister No problems noted. Son No problems noted. Son No problems noted. Daughter No problems noted. Social History Housing: Apartment Alcohol intake: never Patient Tobacco Use Status: Former Tobacco user Tobacco use type: Cigarette e-Cigarette/Vaping Use: Never Used Second Hand Smoke Exposure: No Advance Directives Date on File: 12/18/20 service: No Current occupational status: retired Cognitive needs: No Hearing needs: No Vision needs: No Questionnaire PHQ-9 Over the last 2 weeks, how often have you been bothered by any of the following problems? 1. Little interest or pleasure in doing things: not at all 2. Feeling down, depressed, or hopeless: not at all 3. Trouble falling or staying asleep, or sleeping too much: not at all 4. Feeling tired or having little energy: not at all 5. Poor appetite or overeating: not at all 6. Feeling bad about yourself - or that you are a failure or have let yourself or your family down: not at all 7. Trouble concentrating on things, such as reading the newspaper or watching television: not at all 8. Moving or speaking so slowly that other people could have noticed. Or the opposite - being so fidgety or restless that you have been moving around a lot more than usual: not at all 9. Thoughts that you would be better off or of hurting yourself in some way: not at all Total score: 0 Depression Screening Interpretation: Negative Depression Screening Done: Yes 80226 - PHQ-9 Billing: Yes Source: Developed by Drs. Anthony Davis, Megan Davis, Flakito Orlando and colleagues, with an educational chris from [employer]. Thrive Questionnaire Date Thrive assessed: 12/05/23 AUDIT C Alcohol Use Questionnaire (AUDIT-C) 1. How often do you have a drink containing alcohol?: Never Total Score: 0 JUAN PABLO-7 AMB Questionnaire JUAN PABLO-7 Date JUAN PABLO - 7 assessed: 12/05/23 Source: Developed by Drs. Anthony Dvais, Megan Davis, Flakito Orlando and colleagues, with an educational chris from [employer]. Review of Systems Const All systems reviewed & are unremarkable except as noted in HPI and below Eyes Reports no additional complaints, Denies change in vision and Denies other visual disturbances Card Denies chest pain at rest, Denies chest pain with activity, Denies edema, Denies irregular heart rhythm, Denies claudication, Denies dyspnea, Denies dyspnea on exertion, Denies orthopnea, Denies paroxysmal nocturnal dyspnea and Denies slow heart rate Resp Denies cough, Denies dyspnea and Denies dyspnea on exertion GI Denies abdominal pain, Denies change in bowel habits, Denies excessive flatus, Denies nausea and Denies vomiting Denies urinary incontinence, Denies urinary hesitancy and Denies urinary urgency Musc Denies abnormal gait, Denies atrophy, Denies deformity and Denies limited range of motion Skin/Breast Denies bleeding lesions, Denies changing lesions and Denies rash Neuro Denies abnormal gait and Denies lack of coordination Physical exam (Primary Care) Vital Signs: Last Vital Signs Pulse 69 12/30/23 13:54 BP 108/70 12/30/23 13:54 Pulse Ox 97 12/30/23 13:54 Oxygen Delivery Method Room Air 12/30/23 13:54 BMI result Body Mass Index 20.2 Tobacco/Smoking Status: Tobacco use Status Tobacco use date assessed 12/05/23 12/30/23 13:55 Patient Tobacco Use Status Former Tobacco user 12/30/23 13:55 Tobacco use type Cigarette 12/30/23 13:55 e-Cigarette/Vaping Use Never Used 12/30/23 13:55 PHQ-9: PHQ-9 Score PHQ-9: Total score 0 12/30/23 14:10 Depression Screening Interpretation: Negative Thrive Assessment: Date of Thrive Assessment Date Thrive assessed 12/05/23 12/30/23 13:55 Eyes General: appearance normal, both eyes and all related structures Eyelids: Yes eyelids normal Conjunctivae: conjunctivae normal Neck Neck: Yes normal visual inspection and Yes supple Resp Effort & Inspection: normal respiratory effort Auscultation: clear to auscultation bilaterally Cardio Jugular venous distension: no JVD Rate: regular rate Rhythm: regular rhythm Heart sounds: S1 normal heart sound present and S2 normal heart sound present GI Inspection: Yes normal to inspection Palpation (GI): Soft to palpation and nontender Auscultation: normal bowel sounds Neuro Gait exam (Neuro): Wide-based gait present Results AMB Hemoglobin A1c AMB Hemoglobin A1c 6.0 % Last Edit by JAMES Wong on 12/30/23 14:11 Results Reviewed Results Reviewed: Laboratory Last Values Hgb A1c (Clinic) 6.0 % (4.0-6.0) 12/30/23 13:55 Assessment and Plan Assessment & Plan (1) Dementia: Comment: She is very pleasant but forgetful. Is good that her son takes care of her and looks over the meds administration. Code(s): F03.90 - Unspecified dementia, unspecified severity, without behavioral disturbance, psychotic disturbance, mood disturbance, and anxiety Plan: Follow-up with neurology. (2) Diabetes mellitus: Code(s): E11.9 - Type 2 diabetes mellitus without complications Plan: A1c within goal. (3) Malnutrition: Code(s): E46 - Unspecified protein-calorie malnutrition Plan: Start Glucerna 3 times a day. (4) Dyslipidemia: Code(s): E78.5 - Hyperlipidemia, unspecified Plan: Continue statins. LDL goal should be less than 70. (5) PAF (paroxysmal atrial fibrillation): Code(s): I48.0 - Paroxysmal atrial fibrillation Plan: Continue Eliquis. (6) Osteoporosis: Code(s): M81.0 - Age-related osteoporosis without current pathological fracture Qualifiers: Osteoporosis type: age-related Presence of current pathological fracture: without current pathological fracture Qualified Code(s): M81.0 - Age-related osteoporosis without current pathological fracture Plan: Referred to rheumatology for possible Prolia or zolendronic acid if will benefit her. Orders: Orders AMB Hemoglobin A1c Today Z13.9 - Encounter for screening, unspecified Referrals Rheumatology Referral M81.0 - Age-related osteoporosis without current pathological fracture Medications: New [wheelchair] As directed 1 ea 0RF E46 - Unspecified protein-calorie malnutrition, F03.90 - Unspecified dementia, unspecified severity, without behavioral disturbance, psychotic disturbance, mood disturbance, and anxiety, M81.0 - Age-related osteoporosis without current pathological fracture Refilled enoxaparin (Lovenox) 40 mg (0.4 mL) subcut DAILY 30 days 12 mL 6RF I48.0 - Paroxysmal atrial fibrillation nut.tx.gluc.intol,lac-free,soy (Glucerna oral liquid) 1 ea PO .three times a day 30 days 237 mL 11RF E11.9 - Type 2 diabetes mellitus without complications, E46 - Unspecified protein-calorie malnutrition, F03.90 - Unspecified dementia, unspecified severity, without behavioral disturbance, psychotic disturbance, mood disturbance, and anxiety Discontinued apixaban Discontinued Reason: Patient Completed Course 5 mg PO BID 90 days 180 tabs 3RF Coding Level of Care Code Est Pt Level 4 (38391) Diagnoses Dementia F03.90 Diabetes mellitus E11.9 Malnutrition E46 Dyslipidemia E78.5 PAF (paroxysmal atrial fibrillation) I48.0 Age-related osteoporosis without current pathological fracture M81.0 Osteoporosis type: age-related Presence of current pathological fracture: without current pathological fracture Time Spent (min) 28
[2023-12-30 13:54] VITALS: BP 108/70; PULSE 69; O2SAT 97; BMI 20.2
== END 2023-12-30 14:32 | disposition home or self-care (01) ==
PROVIDERS: PCP Internal Medicine; Visit Provider Internal Medicine
DX: E11.69 Type 2 diabetes mellitus with other specified complication (principal); F03.90 Unspecified dementia, unspecified severity, without behavioral disturbance, psychotic disturbance, mood disturbance, and anxiety; E46 Unspecified protein-calorie malnutrition; I48.0 Paroxysmal atrial fibrillation; E78.5 Hyperlipidemia, unspecified; M81.0 Age-related osteoporosis without current pathological fracture
CPT/HCPCS: 83036; 99214

== ENCOUNTER 2024-01-01 16:15 | Emergency (ER) | payer OTHER, SELFPAY ==
--- NOTE | ~2024-01-01 | XR_ITS ---
EXAMINATION: XR HAND, LEFT CLINICAL INFORMATION: Left hand middle finger pain. COMPARISON: None available. TECHNIQUE: PA, lateral, and oblique views of the left hand. FINDINGS: No fracture or subluxation. Mild multifocal degenerative osteoarthritis. No osseous erosions. No significant soft tissue abnormality. XR/XR hand LT min 3V IMPRESSION: 1. No acute fracture or malalignment. 2. Mild multifocal degenerative osteoarthritis.
[2024-01-01 16:31] VITALS: BP 118/69; PULSE 68; RESP 18; TEMP 36.6; O2SAT 98; BMI 21.0
--- NOTE | 2024-01-01 16:31 | ED.GENADULT ---
HPI - General Adult General Chief complaint: Wound/Laceration Stated complaint: slammed finger in car door Time Seen by Provider: 01/01/24 17:19 Source: patient and family (Son) Mode of arrival: ambulatory Limitations: other (Dementia) History of Present Illness HPI narrative: 73-year-old female history of dementia, hypertension, GERD, AFib, depression and anxiety, ischemic cardiomyopathy, anxiety, presenting with complaints of left middle finger pain status post jamming her finger in a car door. Son reports she has been able to move it it is just bruised. Patient denies numbness and tingling. Patient states she is fine. History and review of systems limited from patient as she does have dementia. No other injuries sustained. Related Data Home Medications Medication Instructions Recorded Confirmed levalbuterol HCl 0.63 mg/3 mL 0.63 mg inhalation Q8H 09/04/20 12/30/23 solution for nebulization (Xopenex) latanoprost 0.005 % eye drops 1 drp ophthalmic (eye) BEDTIME 07/26/21 12/30/23 lorazepam 1 mg tablet 1 mg PO BEDTIME PRN 10/24/22 12/30/23 Previous Rx's Medication Instructions Recorded sodium chloride 7 % for 4 ml inhalation BID PRN 12/18/20 nebulization bronchospasm 30 days #240 mL nebulizer accessories (Adult #1 ea 10/26/21 Aerosol Mask) commode #1 ea 03/26/22 humidifiers #1 ea 03/26/22 Shower Chair #1 ea 09/02/22 levalbuterol tartrate 45 2 puff inhalation Q4-6H PRN 09/25/22 mcg/actuation aerosol inhaler shortness of breath 30 days #15 grams fluticasone propionate 50 1 spray intranasal DAILY PRN for 03/21/23 mcg/actuation nasal allergies #48 mL spray,suspension jqqwkttj-teyu-rvur 8 mg-folic 400 1 tab PO DAILY 90 days #90 tabs 04/28/23 mcg-K 50 mcg-lutein 300 mcg tablet (Multivitamin Women 50 Plus) atorvastatin 80 mg tablet 80 mg PO QPM #90 tabs 06/25/23 nitroglycerin 0.4 mg sublingual 0.4 mg sublingual Q5M PRN chest 06/25/23 tablet pain #30 tabs blood sugar diagnostic (OneTouch #100 ea 08/18/23 Ultra Test strips) blood-glucose meter (OneTouch #1 ea 08/18/23 Ultra2 Meter) lancets 30 gauge (OneTouch #100 ea 08/18/23 UltraSoft 2 Lancet) diclofenac sodium 1 % topical gel 2 g topical QID #100 grams 09/19/23 (Voltaren Arthritis Pain) famotidine 40 mg/5 mL (8 mg/mL) 20 mg (2.5 mL) PO BEDTIME PRN 09/19/23 oral suspension heartburn 30 days #50 mL food supplemt, lactose-reduced 1 ea PO .three times a day 25 days 10/23/23 (Ensure oral liquid) #5,688 mL donepezil 10 mg tablet 10 mg PO BEDTIME 90 days #90 tabs 11/09/23 cholecalciferol (vitamin D3) 50 50 mcg PO DAILY 90 days #90 caps 11/24/23 mcg (2,000 unit) capsule diaper,brief,adult,disposable #100 ea 12/17/23 (Select Disposable Briefs) fluticasone propionate 115 2 puff PO Q12H copd 30 days #12 12/17/23 mcg-salmeterol 21 mcg/actuation grams HFA inhaler (Advair HFA) ipratropium bromide 0.02 % 2.5 ml inhalation Q6H PRN 12/17/23 solution for inhalation shortness of breath or wheezing 30 days #150 mL enoxaparin 40 mg/0.4 mL 40 mg (0.4 mL) subcut DAILY 30 12/30/23 subcutaneous syringe (Lovenox) days #12 mL nut.tx.gluc.intol,lac-free,soy 1 ea PO .three times a day 30 days 12/30/23 (Glucerna oral liquid) #237 mL wheelchair #1 ea 12/30/23 acetaminophen 325 mg capsule 325 mg PO Q4H PRN pain #30 caps 01/01/24 (Tylenol) Allergies Allergy/AdvReac Type Severity Reaction Status Date / Time aspirin Allergy Intermediate rash, Verified 01/01/24 16:35 pruritus penicillin G Allergy Intermediate swelling Verified 01/01/24 16:35 Review of Systems Review of Systems: Yes all other systems are reviewed and are negative PMFSH Past Medical History Attestation statement: The following information was validated with the patient. Source: old records reviewed and nursing notes reviewed Medical History GERD (gastroesophageal reflux disease) Dyslipidemia Urinary incontinence PAF (paroxysmal atrial fibrillation) Atherosclerotic cardiovascular disease Depression with anxiety Anticoagulated Bleeding hemorrhoids Blurry vision Hemorrhoids Ischemic cardiomyopathy Urinary incontinence, mixed Osteoporosis Dementia History of stroke History of GA (myocardial infarction) Hypovitaminosis D Asthma Anxiety High cholesterol Hypertension Surgical History History of cardiac defibrillator placement History of hysterectomy Family History Family History Father No problems noted. Mother Cerebrovascular accident Sister No problems noted. Sister No problems noted. Son No problems noted. Son No problems noted. Daughter No problems noted. Social History Social History Housing: Apartment Alcohol intake: never Patient Tobacco Use Status: Former Tobacco user Tobacco use type: Cigarette e-Cigarette/Vaping Use: Never Used Second Hand Smoke Exposure: No Advance Directives Date on File: 12/18/20 service: No Current occupational status: retired Cognitive needs: No Hearing needs: No Vision needs: No Physical Exam ED Vital Signs: Vital Signs - 24 hr 01/01/24 16:31 Temperature 98 F Pulse Rate 68 Respiratory Rate 18 Blood Pressure 118/69 Pulse Oximetry 98 Oxygen Delivery Method Room Air BMI result Body Mass Index 21.0 vss Appearance: Alert.? Oriented X3.? No acute distress.? Head: Normocephalic, atraumatic, no step-offs or deformities Eyes: Pupils equal, round and reactive to light.? Neck: Normal inspection.? Neck supple.? CVS: Pulses normal.? Respiratory: No respiratory distress. Skin: Skin warm and dry.? Normal skin color.? Normal skin turgor.? Extremities: No lower extremity edema.? No calf ttp. 5/5 strength to bilateral upper and lower extremities Full rom to all fingers L middle finger fat pad w/ ecchymosis. Normal sensation distally. Cap refil < 2 seconds. Neuro: Oriented X 3.? No motor deficit.? No sensory deficit. CN 2-12 intact Course Course Course Narrative: This is an RME: Additional HPI, ROS, PE not included below will be deferred to primary provider. 73 yo f presnets w/ L middle finger pain sp slamming finger in car door at 3:00 pm today. Limited history and pe due to dementia. Here w/ son. Plan xray Reevaluation(s) Reevaluation #1: X-ray no acute fracture or malalignment. Degenerative osteoarthritis. Educated on ibuprofen and Tylenol use. Educated patient on diagnosis and treatment plan, answered all question, patient verbalizes understanding. At this time patient will be discharged home, advised to return with new or worsening symptoms. Educated on worrisome signs and symptoms and when to return. At this time I feel comfortable discharge home. 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 Normal sensation distally. Cap refil < 2 seconds. Hx and pe concerning for fx vs sprain or strain. No signs of NV compromise or threat to limb. Unlikely arterial or venous occlusion Plan- imaging Differential Diagnosis Differential Diagnoses: The differential diagnosis associated with the presentation includes Hx and pe concerning for fx vs sprain or strain. No signs of NV compromise or threat to limb. Unlikely arterial or venous occlusion Admission/Observation Consideration of admission/observation: Escalation of care including admission/observation considered Independent Interpretation I performed an independent interpretation of an: Plain X-Ray (No acute fractures or malalignment.XR/XR hand LT min 3V IMPRESSION: 1. No acute fracture or malalignment. 2. Mild multifocal degenerative osteoarthritis) Radiology Impression Discussion of test interpretation with radiology: I have reviewed the radiologist's reading. External Record Review External record reviewed: Inpatient record, Office record, Outpatient record, Prior outpatient labs, Prior outpatient radiology, Primary care record and Outside ED record Prescription Management I considered prescription management with: Pain Medication (Tylenol) Chronic Conditions Patient?s care impacted by: Other (Dementia, diabetes, GERD, dyslipidemia) Critical Care Time Critical Care Time Critical Care Time: No Discharge Plan Discharge Clinical Impression: Traumatic ecchymosis of finger, Pain of left middle finger Patient Disposition: Home, Self-Care Instructions: Contusion in Adults (ED), Arthralgia (ED) Additional Instructions: Take your medications as prescribed. If you were prescribed antibiotics today, it is important that you take your medication to their entirety, do not skip any doses, do not finish them early. Follow-up with your primary care provider this week. Return to the emergency department with new or worsening symptoms. Such as fevers, chills, chest pain, shortness of breath, nausea, vomiting, dizziness, headache, vision changes, lethargy In case of emergency call 911 Patient can take Tylenol for pain as needed. Prescriptions: New acetaminophen [Tylenol] 325 mg capsule 325 mg PO Q4H PRN (Reason: pain) Qty: 30 0RF No Action (DME) Adult Aerosol Mask Misc See Rx Instructions .Route Qty: 1 0RF Rx Instructions: As directed (DME) humidifiers Misc See Rx Instructions .Route Qty: 1 0RF Rx Instructions: As directed (DME) commode Kit See Rx Instructions .Route Qty: 1 0RF Rx Instructions: As directed fluticasone propionate 50 mcg/actuation spray,suspension 1 spray intranasal DAILY PRN (Reason: for allergies) Qty: 48 2RF (DME) blood-glucose meter [OneTouch Ultra2 Meter] Misc See Rx Instructions .Route Qty: 1 0RF Rx Instructions: check once daily (DME) OneTouch Ultra Test Strip See Rx Instructions .Route Qty: 100 4RF Rx Instructions: check once daily (DME) lancets [OneTouch UltraSoft 2 Lancet] 30 gauge misc See Rx Instructions .Route Qty: 100 4RF Rx Instructions: check once per day diclofenac sodium [Voltaren Arthritis Pain] 1 % gel 2 g topical QID Qty: 100 1RF Rx Instructions: apply to single elbow, wrist or hand; for hand includes palm/fingers/back of hand famotidine 40 mg/5 mL (8 mg/mL) suspension 20 mg PO BEDTIME PRN (Reason: heartburn) 30 Days Qty: 50 5RF Ensure Liquid 1 ea PO .three times a day 25 Days Qty: 5688 6RF donepezil 10 mg tablet 10 mg PO BEDTIME 90 Days Qty: 90 1RF cholecalciferol (vitamin D3) 50 mcg (2,000 unit) capsule 50 mcg PO DAILY 90 Days Qty: 90 1RF (DME) [facility] See Rx Instructions .ROUTE .MEDSUPPLY Qty: 100 5RF Rx Instructions: As directed levalbuterol HCl [Xopenex] 0.63 mg/3 mL solution for nebulization 0.63 mg inhalation Q8H sodium chloride 7 % solution for nebulization 4 ml inhalation BID PRN (Reason: bronchospasm) 30 Days Qty: 240 6RF Multivitamin Women 50 Plus 8 mg iron-400 mcg-300 mcg tablet 1 tab PO DAILY 90 Days Qty: 90 3RF enoxaparin [Lovenox] 40 mg/0.4 mL syringe 40 mg subcut DAILY 30 Days Qty: 12 6RF Glucerna Liquid 1 ea PO .three times a day 30 Days Qty: 237 11RF (DME) wheelchair See Rx Instructions .Route .MEDSUPPLY Qty: 1 0RF Rx Instructions: As directed (DME) [place] [facility] [place]ructions .Route Qty: 1 0RF Rx Instructions: As directed latanoprost 0.005 % drops 1 drp ophthalmic (eye) BEDTIME lorazepam 1 mg tablet 1 mg PO BEDTIME PRN levalbuterol tartrate 45 mcg/actuation HFA aerosol inhaler 2 puff inhalation Q4-6H MDD Patient has h/o cardiac diseas PRN (Reason: shortness of breath) 30 Days Qty: 15 2RF atorvastatin 80 mg tablet 80 mg PO QPM Qty: 90 3RF nitroglycerin 0.4 mg tablet, sublingual 0.4 mg sublingual Q5M PRN (Reason: chest pain) Qty: 30 5RF Rx Instructions: do not exceed 3 doses per episode fluticasone propion-salmeterol [Advair HFA] 115-21 mcg/actuation HFA aerosol inhaler 2 puff PO Q12H 30 Days Qty: 12 5RF ipratropium bromide 0.02 % solution 2.5 ml inhalation Q6H PRN (Reason: shortness of breath or wheezing) 30 Days Qty: 150 5RF Referrals: Ana Maria Winston MD [Primary Care Provider] - 2 days
[2024-01-01 17:25] VITALS: BP 115/86; PULSE 85; RESP 20; TEMP 35.9; O2SAT 98
== END 2024-01-01 17:26 | disposition home or self-care (01) ==
LOC: HO.ED 17:22
PROVIDERS: Emergency Provider Emergency Medicine; PCP Internal Medicine
DX: S61.213A Laceration without foreign body of left middle finger without damage to nail, initial encounter (principal); S60.00XA Contusion of unspecified finger without damage to nail, initial encounter; M79.642 Pain in left hand; Y29.XXXA Contact with blunt object, undetermined intent, initial encounter; Y93.9 Activity, unspecified; Y92.9 Unspecified place or not applicable; Y99.8 Other external cause status; Z79.899 Other long term (current) drug therapy
CPT/HCPCS: 73130; 99282; 99283

== ENCOUNTER 2024-01-05 12:04 | Outpatient (AMB) | payer OTHER, SELFPAY ==
[2024-01-05 13:21] VITALS: BP 120/78; PULSE 64; BMI 18.3
--- NOTE | 2024-01-05 13:21 | MHC.OFFVIS ---
Intake Vital Signs 01/05/24 13:21 Height 5 ft 2 in Weight 99 lb 13.91 oz BMI 18.3 BP 120/78 Blood Pressure Location Lt brachial Position Sitting Pulse 64 Intake Visit Reasons: 6M w/[employer] Intake Note: 6 month follow up Statistical Financial Analyst Required: Yes Statistical Financial Analyst Language: Assignment Editor Name: [id number] Zachery Accompanied by: Son Allergies aspirin Allergy (Intermediate, Verified 01/05/24 13:22) rash, pruritus penicillin G Allergy (Intermediate, Verified 01/05/24 13:22) swelling Medication List - Last Reconciled 01/05/24 by Estevan Gonzales MD acetaminophen (Tylenol) 325 mg PO Q4H PRN apixaban (Eliquis) 5 mg PO BID atorvastatin 80 mg PO QPM blood sugar diagnostic ([employer] Ultra Test strips) check once daily blood-glucose meter ([employer] Ultra2 Meter) check once daily carvedilol 6.25 mg PO BID cholecalciferol (vitamin D3) 50 mcg PO DAILY 90 days commode As directed diaper,brief,adult,disposable (Select Disposable Briefs) As directed diclofenac sodium 1% (Voltaren Arthritis Pain) 2 grams topical QID donepezil 10 mg PO BEDTIME 90 days enoxaparin (Lovenox) 40 mg (0.4 mL) subcut DAILY 30 days famotidine 20 mg (2.5 mL) PO BEDTIME PRN 30 days fluticasone propion-salmeterol 115-21 mcg/actuation (Advair HFA) 2 puffs PO Q12H 30 days fluticasone propionate 50 mcg/actuation 1 spray intranasal DAILY PRN food supplemt, lactose-reduced (Ensure oral liquid) 1 ea PO .three times a day 25 days humidifiers As directed ipratropium bromide 2.5 mL inhalation Q6H PRN 30 days lancets ([employer] UltraSoft 2 Lancet) check once per day latanoprost 0.005% 1 drp ophthalmic (eye) BEDTIME levalbuterol HCl (Xopenex) 0.63 mg inhalation Q8H levalbuterol tartrate 45 mcg/actuation 2 puffs inhalation Q4-6H PRN 30 days MDD Patient has h/o cardiac diseas lorazepam 1 mg PO BEDTIME PRN [id number]-FA-vit K-lut 8 mg iron-400 mcg-50 mcg (Multivitamin Women 50 Plus) 1 tab PO DAILY 90 days nebulizer accessories (Adult Aerosol Mask) As directed nitroglycerin 0.4 mg sublingual Q5M PRN nut.tx.gluc.intol,lac-free,soy (Glucerna oral liquid) 1 ea PO .three times a day 30 days Shower Chair As directed sodium chloride 7% 4 mL inhalation BID PRN 30 days [wheelchair As directed] HPI HPI Comments History of Present Illness Details Alexx returns for follow-up. To recall, in 2007, she had a STEMI when she had witnessed cardiac arrest at home. Then resuscitated. Underwent catheterization and found to have single-vessel disease of LAD. She had a completely occluded mid LAD. Other arteries patent. LAD was then stented. Then spent several years in [place]. She had an ICD placed in [place]. Otherwise, she is on reasonable therapy for cardiomyopathy. She is also on Eliquis for atrial fibrillation. Son is here for the appointment. He states that his mother has dementia issues/memory problems. Medications or issue and sometimes she does not take him. Specifically statins. [facility] Medical History GERD (gastroesophageal reflux disease) Dyslipidemia Urinary incontinence PAF (paroxysmal atrial fibrillation) Atherosclerotic cardiovascular disease Depression with anxiety Anticoagulated Bleeding hemorrhoids Blurry vision Hemorrhoids Ischemic cardiomyopathy Urinary incontinence, mixed Osteoporosis Dementia History of stroke History of [place] (myocardial infarction) Hypovitaminosis D Asthma Anxiety High cholesterol Hypertension Surgical History History of cardiac defibrillator placement History of hysterectomy Family History Father No problems noted. Mother Cerebrovascular accident Sister No problems noted. Sister No problems noted. Son No problems noted. Son No problems noted. Daughter No problems noted. Social History Housing: Apartment Alcohol intake: never Patient Tobacco Use Status: Former Tobacco user Tobacco use type: Cigarette e-Cigarette/Vaping Use: Never Used Second Hand Smoke Exposure: No Advance Directives Date on File: 12/18/20 service: No Current occupational status: retired Cognitive needs: No Hearing needs: No Vision needs: No Review of Systems Const Denies weakness ENT Denies dizziness Card Denies chest pain, Denies chest pain with activity, Denies syncope, Denies rapid heart rate, Denies pedal edema, Denies edema, Denies leg edema, Denies lightheadedness, Denies palpitations and Denies orthopnea Resp Denies cough GI Denies hematochezia and Denies change in stool character Musc Denies abnormal gait, Denies muscle cramps, Denies muscle weakness, Denies numbness, Denies radiating pain into limb and Denies tingling Neuro Denies abnormal gait, Denies dizziness, Denies syncope, Denies numbness, Denies tingling and Denies weakness Endo Denies palpitations Physical Exam Vital Signs: Last Vital Signs Pulse 64 01/05/24 13:21 BP 120/78 01/05/24 13:21 BMI result Body Mass Index 18.3 Office Procedures Cardiac Device Check Cardiac Device Check Details: ICD interrogated today. Dual-chamber device, programmed DDDR mode. Battery status 2.5 years. Normal lead parameters. Atrial pacing 26%. Ventricular pacing less own%. Non-sustained ventricular episodes. Some of these could also be atrial tachycardia. [id number] Cardiac Device Check, dual lead implantable defibrillator Procedure code (CPT) selection complete Assessment & Plan Assessment & Plan (1) Ischemic cardiomyopathy: Code(s): I25.5 - Ischemic cardiomyopathy Plan: Echocardiogram in 2021 with LVEF of 35-40% with LAD territory infarction. Clinically, no heart failure symptoms or signs. On carvedilol. Was on losartan in the past but not in her list anymore. Due to questionable compliance, not making any medication changes as son says she does not take even the current ones regularly. (2) Atherosclerotic cardiovascular disease: Code(s): I25.10 - Atherosclerotic heart disease of [place] coronary artery without angina pectoris Plan: Based on last cardiac catheterization in 2007, she had single-vessel disease and LAD with completely occluded mid section; status post stenting. She does not take the statins as they are too big. Son states she can not swallow them. If available, can try the liquid version of statins. (3) PAF (paroxysmal atrial fibrillation): Code(s): I48.0 - Paroxysmal atrial fibrillation Plan: Continue Eliquis. No recent issues. Plan Discussed with son who came for appointment. Discussed using programmer developer. Medications: Discontinued atorvastatin Discontinued Reason: Doctor's Order 80 mg PO QPM 90 tabs 3RF Coding Level of Care Code Est Pt Level 4 (89502) Diagnoses Ischemic cardiomyopathy I25.5 Atherosclerotic cardiovascular disease I25.10 PAF (paroxysmal atrial fibrillation) I48.0 CPT Codes Cardiac Device Check - Cardiac Device 5: [id number] Cardiac Device Check, dual lead implantable defibrillator ([id number])
== END 2024-01-05 13:47 | disposition home or self-care (01) ==
PROVIDERS: PCP Internal Medicine; Visit Provider Internal Medicine
DX: I25.5 Ischemic cardiomyopathy (principal); I25.10 Atherosclerotic heart disease of native coronary artery without angina pectoris; I48.0 Paroxysmal atrial fibrillation; Z95.810 Presence of automatic (implantable) cardiac defibrillator
CPT/HCPCS: 93283; 99214

== ENCOUNTER → 2024-01-05 12:05 | Outpatient (BNVA) | payer OTHER, SELFPAY | PROVIDERS: PCP Internal Medicine; Visit Provider Internal Medicine | DX: I25.5 Ischemic cardiomyopathy (principal); I25.10 Atherosclerotic heart disease of native coronary artery without angina pectoris; I48.0 Paroxysmal atrial fibrillation; Z79.01 Long term (current) use of anticoagulants | CPT/HCPCS: 99212 ==

== ENCOUNTER 2024-02-09 15:00 | Outpatient (AMB) | payer OTHER, SELFPAY ==
[2024-02-09 15:11] VITALS: BP 102/64; PULSE 86; O2SAT 97; BMI 17.5
--- NOTE | 2024-02-09 15:11 | A.OFFVIS_ITS ---
Vital Signs 02/09/24 15:11 Height 5 ft 2 in Weight 95 lb 10.89 oz BMI 17.5 BP 102/64 Blood Pressure Location Rt brachial Position Sitting Pulse 86 Pulse Source Pulse Oximeter Pulse Oximetry (%) 97 Oxygen Delivery Method Room Air Intake Visit Reasons: Osteoporosis Intake Note: New pt presents today for Osteoporosis consult, internally referred by pcp Dr Ayala. Patient has dementia and can not take pills. Patient is woth son who states pain in R leg, bl hips and low back. Reports seen ED in [facility] and [facility] [place] Bookmobile Librarian Required: Yes Bookmobile Librarian Language: Ophthalmologist Retina Specialist Name: Chen [id number] Information Interpreted: clinical only Accompanied by: Eulogio Mosley Allergies aspirin Allergy (Intermediate, Verified 02/09/24 15:15) rash, pruritus penicillin G Allergy (Intermediate, Verified 02/09/24 15:15) swelling Medication List - Last Reconciled 02/09/24 by Ty Martínez MD acetaminophen (Tylenol) 325 mg PO Q4H PRN apixaban (Eliquis) 5 mg PO BID atorvastatin 80 mg (2 x 40 mg) PO DAILY 60 days blood sugar diagnostic ([employer] Ultra Test strips) check once daily blood-glucose meter ([employer] Ultra2 Meter) check once daily carvedilol 6.25 mg PO BID cholecalciferol (vitamin D3) 50 mcg PO DAILY 90 days commode As directed diaper,brief,adult,disposable (Select Disposable Briefs) As directed diclofenac sodium 1% (Voltaren Arthritis Pain) 2 grams topical QID donepezil 10 mg PO BEDTIME 90 days enoxaparin (Lovenox) 40 mg (0.4 mL) subcut DAILY 30 days famotidine 20 mg (2.5 mL) PO BEDTIME PRN 30 days fluticasone propion-salmeterol 115-21 mcg/actuation (Advair HFA) 2 puffs PO Q12H 30 days fluticasone propionate 50 mcg/actuation 1 spray intranasal DAILY PRN food supplemt, lactose-reduced (Ensure oral liquid) 1 ea PO .three times a day 25 days humidifiers As directed ipratropium bromide 2.5 mL inhalation Q6H PRN 30 days lancets ([employer] UltraSoft 2 Lancet) check once per day latanoprost 0.005% 1 drp ophthalmic (eye) BEDTIME levalbuterol HCl (Xopenex) 0.63 mg inhalation Q8H levalbuterol tartrate 45 mcg/actuation 2 puffs inhalation Q4-6H PRN 30 days MDD Patient has h/o cardiac diseas lorazepam 1 mg PO BEDTIME PRN losartan 50 mg PO DAILY gajxmjpk-piq-bnyf-FA-vit K-lut 8 mg iron-400 mcg-50 mcg (Multivitamin Women 50 Plus) 1 tab PO DAILY 90 days nebulizer accessories (Adult Aerosol Mask) As directed nitroglycerin 0.4 mg sublingual Q5M PRN nut.tx.gluc.intol,lac-free,soy (Glucerna oral liquid) 1 ea PO .three times a day 30 days quetiapine 200 mg PO BEDTIME 90 days Shower Chair As directed sodium chloride 7% 4 mL inhalation BID PRN 30 days [wheelchair As directed] HPI Comments Details: This is a 73-year-old female who presents for evaluation of osteoporosis. She was diagnosed with osteoporosis last year and started on alendronate by her PCP, patient has significant dementia and does not take pills. Was not taking her alendronate. Her PCP referred her to be evaluated for a parenteral route for osteoporosis medication. Even her Eliquis was recently switched to enoxaparin. Her son accompanies her. Patient does not participate in the interview. He also states that patient does not eat well at all she has lost significant weight over the last 2 years. States that recently she has been having pain in her lower back then her legs. He does not recall any recent falls. States that she had multiple near falls but he is able to catch her. She was found to have old rib fractures on x-rays done in 2007. No other known fractures [facility] Medical History (Updated 02/09/24 @ 15:52 by Ty Martínez MD) GERD (gastroesophageal reflux disease) Dyslipidemia Urinary incontinence PAF (paroxysmal atrial fibrillation) Atherosclerotic cardiovascular disease Depression with anxiety Anticoagulated Bleeding hemorrhoids Blurry vision Hemorrhoids Ischemic cardiomyopathy Urinary incontinence, mixed Osteoporosis Dementia History of stroke History of [place] (myocardial infarction) Hypovitaminosis D Asthma Anxiety High cholesterol Hypertension Surgical History History of cardiac defibrillator placement History of hysterectomy Family History Father No problems noted. Mother Cerebrovascular accident Sister No problems noted. Sister No problems noted. Son No problems noted. Son No problems noted. Daughter No problems noted. Social History Housing: Apartment Alcohol intake: never Patient Tobacco Use Status: Former Tobacco user Tobacco use type: Cigarette e-Cigarette/Vaping Use: Never Used Second Hand Smoke Exposure: No Advance Directives Date on File: 12/18/20 service: No Current occupational status: retired Cognitive needs: No Hearing needs: No Vision needs: No Review of Systems Const Reports fatigue, Reports weakness and Reports weight loss Eyes Reports blurry vision and Reports eye pain Card Reports irregular heart rhythm Resp Reports cough GI Reports heartburn Musc Reports back pain and Reports arthralgias Neuro Reports weakness Psych Reports anxiety and Reports depression Endo Reports fatigue and Reports polydipsia Physical Exam Vital Signs: Last Vital Signs Pulse 86 02/09/24 15:11 BP 102/64 02/09/24 15:11 Pulse Ox 97 02/09/24 15:11 Oxygen Delivery Method Room Air 02/09/24 15:11 BMI result Body Mass Index 17.5 Const General: cooperative, healthy appearing and comfortable Nutritional Appearance: thin Limitations: ambulation with cane Resp Effort & Inspection: normal respiratory effort Skin General skin exam: no rashes or lesions noted Extrem Other: Osteoarthritic changes of both hands right buttock tenderness to palpation Negative straight leg raise test bilaterally Assessment & Plan Assessment & Plan (1) Osteoporosis: Code(s): M81.0 - Age-related osteoporosis without current pathological fracture Category: Medical Qualifiers: Osteoporosis type: age-related Presence of current pathological fracture: without current pathological fracture Qualified Code(s): M81.0 - Age- related osteoporosis without current pathological fracture Plan: This is a 73-year-old female with dementia who presents for evaluation of osteoporosis. She was diagnosed with osteoporosis last year and started on alendronate. Patient has not been taking it as she no longer takes her oral meds due to significant dementia. Even her Eliquis was switched to Lovenox. There is no documented history of osteoporotic fractures. It does not look like there are any plans for a PEG tube. Discussed Reclast infusions versus Prolia. Per son he believes that patient will be able to tolerate an intravenous infusion. Will start prior authorization for Reclast Follow-up in 6 months (2) Chronic lower back pain: Code(s): M54.50 - Low back pain, unspecified; G89.29 - Other chronic pain Category: Medical Qualifiers: Back pain laterality: right Sciatica presence: without sciatica Qualified Code(s): M54.50 - Low back pain, unspecified; G89.29 - Other chronic pain Plan: Try [id number] Salonpas patch Plan I spent 30 minutes reviewing patient's chart, evaluating patient, counseling patient and her son and documenting in the chart
== END 2024-02-09 15:46 | disposition home or self-care (01) ==
LOC: HO.RHE 15:06
PROVIDERS: PCP Internal Medicine; Visit Provider Student in an Organized Health Care Education/Training Program
DX: M81.0 Age-related osteoporosis without current pathological fracture (principal); M54.50 Low back pain, unspecified; G89.29 Other chronic pain
CPT/HCPCS: 99203

== ENCOUNTER → 2024-02-09 15:06 | Outpatient (BNVA) | payer OTHER, SELFPAY | PROVIDERS: PCP Internal Medicine; Visit Provider Student in an Organized Health Care Education/Training Program | DX: M81.0 Age-related osteoporosis without current pathological fracture (principal); M54.50 Low back pain, unspecified | CPT/HCPCS: 99202 ==

== ENCOUNTER 2024-02-17 10:04 | Outpatient (RCR) | payer OTHER, SELFPAY ==
[2024-02-17 10:16] VITALS: BP 104/62; PULSE 78; RESP 20; TEMP 36.6; O2SAT 97
[2024-02-17 10:18] VITALS: BMI 19.0
--- NOTE | 2024-02-17 11:06 | HO.INF ---
11;05AM returned call- bmp ordered- lab called.
--- NOTE | 2024-02-17 11:17 | HO.INF ---
11:18AM- LAB IN BLOOD DRAWN
[2024-02-17 11:45] LABS: Anion Gap 15 (12-20); Blood Urea Nitrogen 18 mg/dL (9-16); Calcium 9.7 mg/dL (8.4-10.2); Carbon Dioxide 26 mmol/L (22-29); Chloride 107 mmol/L (96-108); Creatinine Clr Calc Pharmacy 32.8; Estimated Glomerular Filt Rate 54; Glucose Random 142 mg/dL (60-115); Potassium 3.2 mmol/L (3.3-5.1); Sodium 145 mmol/L (135-145)
[2024-02-17] MEDS: Zoledronic Acid/Mannitol-Water 5 MG/100 ML PGGYBK.BTL IV (11:57)
[2024-02-17] MEDS: 0.9 % Sodium Chloride Flush 10 ML SYRINGE 5 ML IVFLUSH (11:57)
== END 2024-02-17 13:56 | disposition home or self-care (01) ==
LOC: HO.INF 10:04
PROVIDERS: Visit Provider Student in an Organized Health Care Education/Training Program
DX: M81.0 Age-related osteoporosis without current pathological fracture (principal)
CPT/HCPCS: 36415; 80048; 96374; J3489

== ENCOUNTER 2024-04-01 09:41 | Outpatient (AMB) | payer OTHER, SELFPAY ==
[2024-04-01 09:50] VITALS: BP 110/72; BMI 18.6
--- NOTE | 2024-04-01 09:50 | A.OFFPC_ITS ---
Vital Signs 04/01/24 09:50 Height 4 ft 11 in Weight 92 lb 2 oz BMI 18.6 BP 110/72 Blood Pressure Location Lt brachial Position Sitting Intake Visit Reasons: [facility] 02/28 diarrhea, dehyd, low electrolytes Production Grader Required: No Accompanied by: Son Allergies aspirin Allergy (Intermediate, Verified 04/01/24 09:59) rash, pruritus penicillin G Allergy (Intermediate, Verified 04/01/24 09:59) swelling Medication List - Last Reconciled 04/01/24 by Ana Maria Sneed MD acetaminophen (Tylenol) 325 mg PO Q4H PRN apixaban (Eliquis) 5 mg PO BID atorvastatin 80 mg (2 x 40 mg) PO DAILY 60 days blood sugar diagnostic (TRELYS Ultra Test strips) check once daily blood-glucose meter (TRELYS Ultra2 Meter) check once daily carvedilol 6.25 mg PO BID cholecalciferol (vitamin D3) 50 mcg PO DAILY 90 days commode As directed diaper,brief,adult,disposable (Select Disposable Briefs) As directed diclofenac sodium 1% (Voltaren Arthritis Pain) 2 grams topical QID donepezil 10 mg PO BEDTIME 90 days enoxaparin (Lovenox) 40 mg (0.4 mL) subcut DAILY 30 days famotidine 20 mg (2.5 mL) PO BEDTIME PRN 30 days fluticasone propion-salmeterol 115-21 mcg/actuation (Advair HFA) 2 puffs PO Q12H 30 days fluticasone propionate 50 mcg/actuation 1 spray intranasal DAILY PRN food supplemt, lactose-reduced (Ensure oral liquid) 1 ea PO .three times a day 25 days humidifiers As directed ipratropium bromide 2.5 mL inhalation Q6H PRN 30 days lancets (5 Million Shoppersuch UltraSoft 2 Lancet) check once per day latanoprost 0.005% 1 drp ophthalmic (eye) BEDTIME levalbuterol HCl (Xopenex) 0.63 mg inhalation Q8H levalbuterol tartrate 45 mcg/actuation 2 puffs inhalation Q4-6H PRN 30 days MDD Patient has h/o cardiac diseas lorazepam 1 mg PO BEDTIME PRN 30 days losartan 50 mg PO DAILY metformin 500 mg PO BID 90 days kntjmtkb-whf-hhny-FA-vit K-lut 8 mg iron-400 mcg-50 mcg (Multivitamin Women 50 Plus) 1 tab PO DAILY 90 days nebulizer accessories (Adult Aerosol Mask) As directed nitroglycerin 0.4 mg sublingual Q5M PRN nut.tx.gluc.intol,lac-free,soy (Glucerna oral liquid) 1 ea PO .three times a day 30 days quetiapine 200 mg PO BEDTIME 90 days Shower Chair As directed sodium chloride 7% 4 mL inhalation BID PRN 30 days [wheelchair As directed] Tobacco use date assessed: 12/05/23 Fall risk assessment: No Falls in past year Last assessed Fall Risk: 04/01/24 Dental Screening Dental Screen Date: 12/30/23 HPI HPI Comments History of Present Illness Details This is a 74-year-old female with paroxysmal atrial fibrillation, dementia, diabetes mellitus type 2 and malnutrition that comes today accompanied by son Dimitri which is the technical business systems analyst for hospital discharge follow-up with kamille wagoner date 02/27/2024 due to diarrhea. She was hospitalized at [facility] and diarrhea resolved after having lactose-free diet. Electrolytes were abnormal and this will be repeated. Last potassium was 4.7 02/27/2024. She is not eating and this is why I refer her to surgery for evaluation for gastrostomy tube. This is why she has not taking Eliquis and instead I sent Lovenox. Her dementia has progressively worsened and is not oriented to time, person or place. Last A1c was within goal. She will highly benefit from having Glucerna due to her malnutrition and BMI of 18.6. No chest pain or shortness on breath. [facility] Medical History (Updated 04/01/24 @ 10:51 by Ana Maria Sneed MD) GERD (gastroesophageal reflux disease) Dyslipidemia Urinary incontinence PAF (paroxysmal atrial fibrillation) Atherosclerotic cardiovascular disease Depression with anxiety Anticoagulated Bleeding hemorrhoids Blurry vision Hemorrhoids Ischemic cardiomyopathy Urinary incontinence, mixed Osteoporosis Dementia History of stroke History of HI (myocardial infarction) Hypovitaminosis D Asthma Anxiety High cholesterol Hypertension Surgical History History of cardiac defibrillator placement History of hysterectomy Family History Father No problems noted. Mother Cerebrovascular accident Sister No problems noted. Sister No problems noted. Son No problems noted. Son No problems noted. Daughter No problems noted. Social History Housing: Apartment Alcohol intake: never Patient Tobacco Use Status: Former Tobacco user Tobacco use type: Cigarette e-Cigarette/Vaping Use: Never Used Second Hand Smoke Exposure: No Advance Directives Date on File: 12/18/20 service: No Current occupational status: retired Cognitive needs: No Hearing needs: No Vision needs: No Questionnaire Thrive Questionnaire Date Thrive assessed: 12/05/23 Currently or been in a relationship where the following occur: no concerns repo rted THRIVE Score: 0 JUAN PABLO-7 AMB Questionnaire JUAN PABLO-7 Date JUAN PABLO - 7 assessed: 12/05/23 Source: Developed by Drs. Anthony Davis, Megan Davis, Flakito Orlando and colleagues, with an educational chris from [employer]. Review of Systems Const All systems reviewed & are unremarkable except as noted in HPI and below Eyes Reports no additional complaints, Denies change in vision and Denies other vi sual disturbances Card Denies chest pain at rest, Denies chest pain with activity, Denies edema, Denies irregular heart rhythm, Denies claudication, Denies dyspnea, Denies dyspnea on exertion, Denies orthopnea, Denies paroxysmal nocturnal dyspnea and Denies slow heart rate Resp Denies cough, Denies dyspnea and Denies dyspnea on exertion Neuro Reports confusion and Reports memory loss Psych Reports confusion and Reports memory loss Physical exam (Primary Care) Vital Signs: Last Vital Signs BP 110/72 04/01/24 09:50 BMI result Body Mass Index 18.6 BMI Assessment/Plan discussion: Low BMI Low, Plan discussed: lifestyle, increase calorie intake and dietary Tobacco/Smoking Status: Tobacco use Status Tobacco use date assessed 12/05/23 04/01/24 09:54 Patient Tobacco Use Status Former Tobacco user 04/01/24 09:54 Tobacco use type Cigarette 04/01/24 09:54 e-Cigarette/Vaping Use Never Used 04/01/24 09:54 Thrive Assessment: Date of Thrive Assessment Date Thrive assessed 12/05/23 04/01/24 09:54 Currently or been in a relationship where the following occur: no concerns reported Const General: confusion Nutritional Appearance: cachectic and malnourished Orientation/consciousness: confusion Resp Effort & Inspection: normal respiratory effort Auscultation: clear to auscultation bilaterally Cardio Jugular venous distension: no JVD Rate: regular rate Rhythm: regular rhythm Heart sounds: S1 normal heart sound present and S2 normal heart sound present Neuro General: confusion Extrem General: Yes full ROM Assessment and Plan Assessment & Plan (1) Diabetes mellitus: Code(s): E11.9 - Type 2 diabetes mellitus without complications Qualifiers: Diabetes mellitus type: type 2 Diabetes mellitus senior living insulin use: without termite exterminator use Diabetes mellitus complication status: without c omplication Qualified Code(s): E11.9 - Type 2 diabetes mellitus without complications Plan: Continue metformin. A1c goal is equal or less than 7%. (2) Dementia: Comment: She is very pleasant but forgetful. Is good that her son takes care of her and looks over the meds administration. Code(s): F03.90 - Unspecified dementia, unspecified severity, without behavioral disturbance, psychotic disturbance, mood disturbance, and anxiety Qualifiers: Dementia type: Alzheimer's Alzheimer's disease onset: early onset Dementia severity: severe Dementia behavioral or psychological symptom: with mood disturbance Qualified Code(s): G30.0 - Alzheimer's disease with early onset; F02.C3 - Dementia in other diseases classified elsewhere, severe, with mood disturbance Plan: Continue family support. (3) Malnutrition: Code(s): E46 - Unspecified protein-calorie malnutrition Qualifiers: Malnutrition type: protein-calorie malnutrition Protein-calorie malnutrition severity: moderate Qualified Code(s): E44.0 - Moderate protein- calorie malnutrition Plan: Continue Glucerna. Referred to surgery for possible gastrostomy. (4) PAF (paroxysmal atrial fibrillation): Code(s): I48.0 - Paroxysmal atrial fibrillation Plan: Continue Lovenox. The goal is heart rate control. Orders: Orders Microalbumin, Random (w Creat) Today E11.9 - Type 2 diabetes mellitus without complications Complete Blood Count Auto Diff Today D64.9 - Anemia, unspecified Comprehensive [place]. Panel Fast Today E11.9 - Type 2 diabetes mellitus without complications IRON PROFILE Today D64.9 - Anemia, unspecified Vitamin D 25-OH Total Today E55.9 - Vitamin D deficiency, unspecified Lipid Panel Today E78.5 - Hyperlipidemia, unspecified Vitamin B12 and Folate Today E53.8 - Deficiency of other specified B group vitamins Phosphorus Today E46 - Unspecified protein-calorie malnutrition Magnesium Today E46 - Unspecified protein-calorie malnutrition Referrals General Surgery Referral E46 - Unspecified protein-calorie malnutrition Medications: New multivitamin with minerals 10 mL PO DAILY 30 days 237 mL 11RF enoxaparin (Lovenox) 40 mg (0.4 mL) subcut DAILY 30 days 12 mL 6RF I48.0 - Paroxysmal atrial fibrillation Refilled nut.tx.gluc.intol,lac-free,soy (Glucerna oral liquid) 1 ea PO .three times a day 30 days 237 mL 11RF E11.9 - Type 2 diabetes mellitus without complications, E46 - Unspecified protein-calorie malnutrition, F03.90 - Unspecified dementia, unspecified severity, without behavioral disturbance, psychotic disturbance, mood disturbance, and anxiety Coding Level of Care Code Est Pt Level 4 (53763) Complex EM visit Add On G2211 Diagnoses Type 2 diabetes mellitus without complication, without long-term current use of insulin E11.9 Diabetes mellitus type: type 2 Diabetes mellitus termite exterminator insulin use: without termite exterminator use Diabetes mellitus complication status: without complication 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 G30.0; F02.C3 Dementia type: Alzheimer's Alzheimer's disease onset: early onset Dementia severity: severe Dementia behavioral or psychological symptom: with mood disturbance Moderate protein-calorie malnutrition E44.0 Malnutrition type: protein-calorie malnutrition Protein-calorie malnutrition severity: moderate PAF (paroxysmal atrial fibrillation) I48.0
== END 2024-04-01 10:17 | disposition home or self-care (01) ==
PROVIDERS: PCP Internal Medicine; Visit Provider Internal Medicine
DX: E11.9 Type 2 diabetes mellitus without complications (principal); G30.0 Alzheimer's disease with early onset; F02.C3 Dementia in other diseases classified elsewhere, severe, with mood disturbance; E44.0 Moderate protein-calorie malnutrition; I48.0 Paroxysmal atrial fibrillation
CPT/HCPCS: 99214; G2211

== ENCOUNTER 2024-04-27 10:33 | Outpatient (REF) | payer OTHER, SELFPAY ==
[2024-04-27 10:51] LABS: MANUAL DIFF FLAG NO
[2024-04-27 11:14] LABS: Basophils Percent Auto 0.6 % (0-2); Eosinophils Percent Auto 0.6 % (0-4); Hematocrit 43.6 % (37.0-47.0); Hemoglobin 14.3 g/dl (12.0-16.0); Imm Gran Abs Auto 0.02 X10*3/uL (0.00-0.03); Imm Gran Pct Auto 0.3 % (0.0-0.4); Lymphocytes Absolute Auto 1.4 X10*3/uL (1.2-4.9); Lymphocytes Percent Auto 19.7 % (20-40); Mean Corpuscular HGB Conc 32.8 g/dl (31.0-35.0); Mean Corpuscular Hemoglobin 30.2 pg (27.0-33.0); Mean Corpuscular Volume 92.2 fL (80.0-98.0); Mean Platelet Volume 9.8 fL (9.4-12.3); Monocytes Absolute Auto 0.5 X10*3/uL (0.1-1.2); Monocytes Percent Auto 7.1 % (2-11); Neutrophils Absolute Auto 5.1 x10*3/uL (2.0-8.3); Neutrophils Percent Auto 71.7 % (45-73); Platelet Count 222 X10*3/uL (160-400); Red Blood Count 4.73 X10*6/uL (4.20-5.50); Red Cell Distribution Width 13.7 % (11.0-16.0); White Blood Count 7.1 X10*3/uL (4.8-10.8)
[2024-04-27 12:14] LABS: Alanine Aminotransferase 29 U/L (0-31); Albumin Level 4.2 g/dL (3.5-5.0); Alkaline Phosphatase 62 U/L (39-117); Anion Gap 12 (12-20); Aspartate Amino Transferase 32 U/L (5-31); Bilirubin Total 0.4 mg/dL (0.0-1.0); Blood Urea Nitrogen 18 mg/dL (9-16); Calcium 10.1 mg/dL (8.4-10.2); Carbon Dioxide 32 mmol/L (22-29); Chloride 103 mmol/L (96-108); Cholesterol 278 mg/dL (<200); Estimated Glomerular Filt Rate 48; Glucose Fasting 114 mg/dL (60-99); HDL Cholesterol 70 mg/dL (>40); Iron 59 mcg/dL (30-160); LDL Cholesterol Calculated 181 mg/dL (<100); Magnesium 2.3 mg/dL (1.6-2.6); Percent Iron Saturation 26 % (15-50); Phosphorus 3.6 mg/dL (2.7-4.5); Potassium 3.7 mmol/L (3.3-5.1); Sodium 143 mmol/L (135-145); Total Iron Binding Capacity 229 mcg/dL (228-428); Total Protein 7.2 g/dL (6.5-8.0); Triglycerides 139 mg/dL (<150); Unsaturated Iron Binding 170 ug/dL; Vitamin D 25-OH Total 55.8 ng/mL (>30)
[2024-04-27 12:23] LABS: Folate 13.5 ng/mL (> or = 4.0); Vitamin B12 482 pg/mL (200-900)
== END 2024-04-27 10:34 | disposition home or self-care (01) ==
LOC: HO.LAB 10:33
PROVIDERS: PCP Internal Medicine; Visit Provider Internal Medicine
DX: D64.9 Anemia, unspecified (principal); E11.9 Type 2 diabetes mellitus without complications; E78.5 Hyperlipidemia, unspecified; E46 Unspecified protein-calorie malnutrition; E53.8 Deficiency of other specified B group vitamins; E55.9 Vitamin D deficiency, unspecified
CPT/HCPCS: 36415; 80053; 80061; 82306; 82607; 82746; 83540; 83735; 84100; 85025

== ENCOUNTER 2024-04-28 14:43 | Outpatient (AMB) | payer OTHER, SELFPAY ==
--- NOTE | 2024-04-28 14:44 | A.OFFVIS_ITS ---
Vital Signs 04/28/24 15:27 Height 4 ft 11 in Weight 92 lb 6 oz BMI 18.7 Intake Visit Reasons: Evaluation for gastrostomy tube Intake Note: This patient presents for an evaluation for PEG-J tube. Patient son Dimitri reports: reports patient has not been tolerating any oral intake, not tolerating any solid foods or medications. Animal Rehabilitator Required: Yes Animal Rehabilitator Language: Music Education Director Services: Animal Rehabilitator Present Animal Rehabilitator Name: Karen Information Interpreted: non-clinical & clinical Accompanied by: Son Allergies aspirin Allergy (Intermediate, Verified 04/28/24 15:29) rash, pruritus penicillin G Allergy (Intermediate, Verified 04/28/24 15:29) swelling HPI HPI Evaluation for gastrostomy tube: Details: [age] year old female referred for PEG tube placement. She has multiple medical problems including cardiomyopathy, dementia, atrial fibrillation on anticoagulation, and history of AZ, and has had some malnutrition. She apparently has had poor oral intake. The family had considered putting in PEG tube for her so she was referred to me. She appears to have had worsening dementia symptoms for the past 6 months or so. She therefore has been refusing to eat and does not want to take any pills. She does continue to answer simple questions. She had no longer recognizes her son nor other family members. She was admitted to [facility] last April 18 to April 22 because of constipation with rectal bleeding. She was noted to have problems with stercoral ulcers and bleeding hemorrhoids. She had manual disimpaction done in [facility] and had improved significantly. She has had no significant bleeding since then. Her son is her primary caregiver and the healthcare proxy. She says that her overall cognitive abilities have significantly worsened the past few months. [facility] Medical History GERD (gastroesophageal reflux disease) Dyslipidemia Urinary incontinence PAF (paroxysmal atrial fibrillation) Atherosclerotic cardiovascular disease Depression with anxiety Anticoagulated Bleeding hemorrhoids Blurry vision Hemorrhoids Ischemic cardiomyopathy Urinary incontinence, mixed Osteoporosis Dementia History of stroke History of AZ (myocardial infarction) Hypovitaminosis D Asthma Anxiety High cholesterol Hypertension Surgical History History of cardiac defibrillator placement History of hysterectomy Family History Father No problems noted. Mother Cerebrovascular accident Sister No problems noted. Sister No problems noted. Son No problems noted. Son No problems noted. Daughter No problems noted. Social History Housing: Apartment Alcohol intake: never Patient Tobacco Use Status: Former Tobacco user Tobacco use type: Cigarette e-Cigarette/Vaping Use: Never Used Second Hand Smoke Exposure: No Advance Directives Date on File: 12/18/20 service: No Current occupational status: retired Cognitive needs: No Hearing needs: No Vision needs: No Review of Systems Const Denies chills and Denies fever(s) Card Denies chest pain, Denies dyspnea and Denies dyspnea on exertion Resp Denies cough, Denies dyspnea and Denies dyspnea on exertion GI Reports hematochezia, Denies change in bowel habits and Reports constipation Denies hematuria Musc Denies back pain and Denies limited range of motion Neuro Details: Worsening dementia Denies focal weakness and Denies convulsions Psych Denies depression and Denies mood swings Physical Exam Const General: comfortable and no acute distress Neck Neck: Yes no lymphadenopathy Resp Auscultation: clear to auscultation bilaterally Cardio Rhythm: regular rhythm GI Palpation (GI): Soft to palpation, nontender and no guarding Neuro Other: Answers some simple questions does not know the name of her son, does not recognize the date or the place Assessment & Plan Assessment & Plan (1) Malnutrition: Code(s): E46 - Unspecified protein-calorie malnutrition Category: Medical Qualifiers: Malnutrition type: protein-calorie malnutrition Protein-calorie malnutrition severity: moderate Qualified Code(s): E44.0 - Moderate protein- calorie malnutrition Plan: She has multiple medical problems as described above including history of CVA, AZ, cardiomyopathy and atrial fibrillation and has had malnutrition due to poor oral intake for a prolonged period of time. I had a long discussion with the son, Dimitri, who is also her healthcare proxy about the technique of PEG tube placement. I explained to him the risks including but not limited to bleeding, infections, injury to other organs including bowel, tube dislodgement, tube leak, as well as the benefits and alternatives. I made him aware that she has significant perioperative risks due to her multiple medical problems as this procedure was done under anesthesia. He says that at this time, he would like to hold off on this procedure. I told him that he can call the office to discuss this down the line. The patient does seem to have advanced dementia. She no longer recognizes her son although she seems to still communicate with short sentences and answers some simple questions. However, her cognitive capability seemed to have worsened significantly the past 6 months. I spent about 45 minutes with the patient for this visit. Coding Level of Care Code New Pt Level 4 (85549) Diagnoses Moderate protein-calorie malnutrition E44.0 Malnutrition type: protein-calorie malnutrition Protein-calorie malnutrition severity: moderate
[2024-04-28 15:27] VITALS: BMI 18.7
== END 2024-04-28 15:32 | disposition home or self-care (01) ==
PROVIDERS: PCP Internal Medicine; Visit Provider Surgery
DX: E44.0 Moderate protein-calorie malnutrition (principal)
CPT/HCPCS: 99204

== ENCOUNTER → 2024-04-28 14:43 | Outpatient (BNVA) | payer OTHER, SELFPAY | PROVIDERS: PCP Internal Medicine; Visit Provider Surgery | DX: E44.0 Moderate protein-calorie malnutrition (principal); Z93.1 Gastrostomy status | CPT/HCPCS: 99202 ==

== ENCOUNTER 2024-04-29 14:44 | Outpatient (AMB) | payer OTHER, SELFPAY ==
--- NOTE | 2024-04-29 14:54 | A.OFFPC_ITS ---
Vital Signs 04/29/24 15:03 Height 4 ft 11 in Weight 92 lb 6 oz BMI 18.7 BP 110/62 Blood Pressure Location Lt brachial Position Sitting Pulse 61 Pulse Source Pulse Oximeter Pulse Oximetry (%) 98 Oxygen Delivery Method Room Air Intake Visit Reasons: Annual Intake Note: Patient is here today for a physical. Hospital Clerk Required: No Accompanied by: Son Allergies aspirin Allergy (Intermediate, Verified 04/29/24 15:06) rash, pruritus penicillin G Allergy (Intermediate, Verified 04/29/24 15:06) swelling Medication List - Last Reconciled 04/29/24 by Ana Maria Sneed MD acetaminophen (Tylenol) 325 mg PO Q4H PRN apixaban (Eliquis) 5 mg PO BID atorvastatin 80 mg (2 x 40 mg) PO DAILY 60 days blood sugar diagnostic ([employer] Ultra Test strips) check once daily blood-glucose meter ([employer] Ultra2 Meter) check once daily carvedilol 6.25 mg PO BID cholecalciferol (vitamin D3) 50 mcg PO DAILY 90 days commode As directed diaper,brief,adult,disposable (Select Disposable Briefs) As directed diclofenac sodium 1% (Voltaren Arthritis Pain) 2 grams topical QID donepezil 10 mg PO BEDTIME 90 days enoxaparin (Lovenox) 40 mg (0.4 mL) subcut DAILY 30 days enoxaparin (Lovenox) 40 mg (0.4 mL) subcut DAILY 30 days famotidine 20 mg (2.5 mL) PO BEDTIME PRN 30 days fluticasone propion-salmeterol 115-21 mcg/actuation (Advair HFA) 2 puffs PO Q12H 30 days fluticasone propionate 50 mcg/actuation 1 spray intranasal DAILY PRN food supplemt, lactose-reduced (Ensure oral liquid) 1 ea PO .three times a day 25 days humidifiers As directed ipratropium bromide 2.5 mL inhalation Q6H PRN 30 days lancets ([employer] UltraSoft 2 Lancet) check once per day latanoprost 0.005% 1 drp ophthalmic (eye) BEDTIME latex gloves (Latex Gloves, Large) As directed levalbuterol HCl (Xopenex) 0.63 mg inhalation Q8H levalbuterol tartrate 45 mcg/actuation 2 puffs inhalation Q4-6H PRN 30 days MDD Patient has h/o cardiac diseas lorazepam 1 mg PO BEDTIME PRN 30 days losartan 50 mg PO DAILY metformin 500 mg PO BID 90 days [id number]-FA-vit K-lut 8 mg iron-400 mcg-50 mcg (Multivitamin Women 50 Plus) 1 tab PO DAILY 90 days multivitamin with minerals 10 mL PO DAILY 30 days nebulizer accessories (Adult Aerosol Mask) As directed nitroglycerin 0.4 mg sublingual Q5M PRN nut.tx.gluc.intol,lac-free,soy (Glucerna oral liquid) 1 ea PO .three times a day 30 days quetiapine 200 mg PO BEDTIME 90 days Shower Chair As directed sodium chloride 7% 4 mL inhalation BID PRN 30 days [wheelchair As directed] [wipes As directed] Tobacco use date assessed: 12/05/23 Fall risk assessment: No Falls in past year Last assessed Fall Risk: 04/29/24 Dental Screening Dental Screen Date: 12/30/23 HPI HPI Comments History of Present Illness Details This is a 74-year-old female with diabetes mellitus type 2, paroxysmal atrial fibrillation, dementia and malnutrition that comes today accompanied by railways assistant which is her son for physical exam. Ingot Header is the main historian due to her dementia and she follows with Neurology. A1c within goal. She is having trouble swallowing pills and I had to change Eliquis to Lovenox. Atrial fibrillation follow by cardiology. Has malnutrition due to not eating well due to her dementia. Last mammogram was September 2023 and was normal. Last DEXA scan was 2022 showing osteoporosis follow by Rheumatology which place her on Reclast. Will have Cologuard. She has not oriented to person, place or time. [facility] Medical History (Updated 04/30/24 @ 08:54 by Ana Maria Sneed MD) GERD (gastroesophageal reflux disease) Dyslipidemia Urinary incontinence PAF (paroxysmal atrial fibrillation) Atherosclerotic cardiovascular disease Depression with anxiety Anticoagulated Bleeding hemorrhoids Blurry vision Hemorrhoids Ischemic cardiomyopathy Urinary incontinence, mixed Osteoporosis Dementia History of stroke History of [place] (myocardial infarction) Hypovitaminosis D Asthma Anxiety High cholesterol Hypertension Surgical History History of cardiac defibrillator placement History of hysterectomy Family History Father No problems noted. Mother Cerebrovascular accident Sister No problems noted. Sister No problems noted. Son No problems noted. Son No problems noted. Daughter No problems noted. Social History Housing: Apartment Alcohol intake: never Patient Tobacco Use Status: Former Tobacco user Tobacco use type: Cigarette e-Cigarette/Vaping Use: Never Used Second Hand Smoke Exposure: No Advance Directives Date on File: 12/18/20 service: No Current occupational status: retired Cognitive needs: No Hearing needs: No Vision needs: No Questionnaire Thrive Questionnaire Date Thrive assessed: 12/05/23 JUAN PABLO-7 AMB Questionnaire JUAN PABLO-7 Date JUAN PABLO - 7 assessed: 12/05/23 Source: Developed by Drs. Anthony Davis, Megan Davis, Flakito Orlando and colleagues, with an educational chris from [employer]. Review of Systems Const All systems reviewed & are unremarkable except as noted in HPI and below Card Denies chest pain at rest, Denies chest pain with activity, Denies edema, Denies irregular heart rhythm, Denies claudication, Denies dyspnea, Denies dyspnea on exertion, Denies orthopnea, Denies paroxysmal nocturnal dyspnea and Denies slow heart rate Resp Denies cough, Denies dyspnea and Denies dyspnea on exertion GI Denies abdominal pain, Denies change in bowel habits, Denies excessive flatus, Denies nausea and Denies vomiting Denies urinary incontinence, Denies urinary hesitancy and Denies urinary urgency Neuro Reports confusion Psych Reports confusion Physical exam (Primary Care) Vital Signs: Last Vital Signs Pulse 61 04/29/24 15:03 BP 110/62 04/29/24 15:03 Pulse Ox 98 04/29/24 15:03 Oxygen Delivery Method Room Air 04/29/24 15:03 BMI result Body Mass Index 18.7 BMI Assessment/Plan discussion: Low BMI Low, Plan discussed: lifestyle and increase calorie intake Tobacco/Smoking Status: Tobacco use Status Tobacco use date assessed 12/05/23 04/29/24 14:56 Patient Tobacco Use Status Former Tobacco user 04/29/24 14:56 Tobacco use type Cigarette 04/29/24 14:56 e-Cigarette/Vaping Use Never Used 04/29/24 14:56 Thrive Assessment: Date of Thrive Assessment Date Thrive assessed 12/05/23 04/29/24 14:56 Const General: confusion Orientation/consciousness: confusion HENMT Head: Yes normal to inspection, Yes normocephalic and Yes atraumatic Ears: external ears normal Eyes General: appearance normal, both eyes and all related structures Eyelids: Yes eyelids normal Conjunctivae: conjunctivae normal Neck Neck: Yes normal visual inspection and Yes supple Resp Effort & Inspection: normal respiratory effort Auscultation: clear to auscultation bilaterally Cardio Jugular venous distension: no JVD Rate: regular rate Rhythm: regular rhythm Heart sounds: S1 normal heart sound present and S2 normal heart sound present GI Inspection: Yes normal to inspection Palpation (GI): Soft to palpation and nontender Auscultation: normal bowel sounds Skin General skin exam: no rashes or lesions noted Neuro General: no focal motor deficits and confusion Gait exam (Neuro): Normal gait present Extrem General: Yes full ROM Psych Appearance: grossly normal Assessment and Plan Assessment & Plan (1) Physical exam: Code(s): Z00.00 - Encounter for general adult medical examination without abnormal fi ndings Plan: Repeat in a year. (2) Malnutrition: Code(s): E46 - Unspecified protein-calorie malnutrition Qualifiers: Malnutrition type: protein-calorie malnutrition Protein-calorie malnutrition severity: moderate Qualified Code(s): E44.0 - Moderate protein- calorie malnutrition Plan: Will benefit from Glucerna. (3) Diabetes mellitus: Code(s): E11.9 - Type 2 diabetes mellitus without complications Qualifiers: Diabetes mellitus type: type 2 Diabetes mellitus long term care phlebotomist insulin use: without long term care phlebotomist use Diabetes mellitus complication status: without complication Qualified Code(s): E11.9 - Type 2 diabetes mellitus without complications Plan: Continue low-carbohydrate diet. A1c goal is equal or less than 7%. (4) Dementia: Comment: She is very pleasant but forgetful. Is good that her son takes care of her and looks over the meds administration. Code(s): F03.90 - Unspecified dementia, unspecified severity, without behavioral disturbance, psychotic disturbance, mood disturbance, and anxiety Qualifiers: Dementia type: Alzheimer's Alzheimer's disease onset: early onset Dementia severity: severe Dementia behavioral or psychological symptom: with mood disturbance Qualified Code(s): G30.0 - Alzheimer's disease with early onset; F02.C3 - Dementia in other diseases classified elsewhere, severe, with mood disturbance Plan: Continue donepezil. Follow-up with Neurology. (5) PAF (paroxysmal atrial fibrillation): Code(s): I48.0 - Paroxysmal atrial fibrillation Plan: Continue chronic anticoagulation. Follow-up with Cardiology. Orders: Orders AMB Hemoglobin A1c 04/29/24 E11.9 - Type 2 diabetes mellitus without complications Referrals Cologuard Test Z12.11 - Encounter for screening for malignant neoplasm of colon, Z12.12 - Encounter for screening for malignant neoplasm of rectum Medications: New evolocumab (Repatha SureClick) 140 mg subcut Q2W 3 mL 6RF 30 days Refilled lorazepam 1 mg PO BEDTIME PRN 30 tabs 0RF agitation 30 days Coding Level of Care Code Est Pt Prev Care >65y(07688) Diagnoses Physical exam Z00.00 Moderate protein-calorie malnutrition E44.0 Malnutrition type: protein-calorie malnutrition Protein-calorie malnutrition severity: moderate Type 2 diabetes mellitus without complication, without long-term current use of insulin E11.9 Diabetes mellitus type: type 2 Diabetes mellitus snf insulin use: without long term care phlebotomist use Diabetes mellitus complication status: without complication 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
[2024-04-29 15:03] VITALS: BP 110/62; PULSE 61; O2SAT 98; BMI 18.7
== END 2024-04-29 15:23 | disposition home or self-care (01) ==
PROVIDERS: PCP Internal Medicine; Visit Provider Internal Medicine
DX: Z00.00 Encounter for general adult medical examination without abnormal findings (principal); E44.0 Moderate protein-calorie malnutrition; E11.9 Type 2 diabetes mellitus without complications; G30.0 Alzheimer's disease with early onset; F02.C3 Dementia in other diseases classified elsewhere, severe, with mood disturbance; I48.0 Paroxysmal atrial fibrillation
CPT/HCPCS: 99397

== ENCOUNTER → 2024-05-24 23:59 | Outpatient (BNV) | payer OTHER, SELFPAY ==
--- NOTE | 2024-06-14 19:08 | MHC.OFFVIS ---
Intake Visit Reasons: Remote ICD check- [employer] Allergies aspirin Allergy (Intermediate, Verified 06/14/24 12:00) rash, pruritus penicillin G Allergy (Intermediate, Verified 06/14/24 12:00) swelling PFSH Medical History GERD (gastroesophageal reflux disease) Dyslipidemia Urinary incontinence PAF (paroxysmal atrial fibrillation) Atherosclerotic cardiovascular disease Depression with anxiety Anticoagulated Bleeding hemorrhoids Blurry vision Hemorrhoids Ischemic cardiomyopathy Osteoporosis Dementia History of stroke History of [place] (myocardial infarction) Hypovitaminosis D Asthma Anxiety High cholesterol Hypertension Surgical History S/P percutaneous endoscopic gastrostomy (PEG) tube placement (~06/01/24) History of cardiac defibrillator placement History of hysterectomy Family History Father No problems noted. Mother Cerebrovascular accident Sister No problems noted. Sister No problems noted. Son No problems noted. Son No problems noted. Daughter No problems noted. Social History Housing: Apartment Alcohol intake: never Patient Tobacco Use Status: Former Tobacco user Tobacco use type: Cigarette e-Cigarette/Vaping Use: Never Used Second Hand Smoke Exposure: No Advance Directives Date on File: 12/18/20 service: No Current occupational status: retired Cognitive needs: No Hearing needs: No Vision needs: No Office Procedures Cardiac Device Check Cardiac Device Check Details: Date of service 05/24/2024; Battery life 2.5 years; normal lead parameters; no treated VT/VF; ; normal ICD function. [id number] Cardiac Interrogation, implant defibrillator w/interim Procedure code (CPT) selection complete Assessment & Plan Assessment & Plan (1) Ischemic cardiomyopathy: Comment: follows with HCS Code(s): I25.5 - Ischemic cardiomyopathy Category: Medical Plan x Coding Level of Care Code Procedure Only Diagnoses Ischemic cardiomyopathy I25.5 CPT Codes Cardiac Device Check - Cardiac Device 13: [id number] Cardiac Interrogation, implant defibrillator w/interim ([id number])
== END ==
PROVIDERS: PCP Internal Medicine; Visit Provider Internal Medicine
DX: I25.5 Ischemic cardiomyopathy (principal); Z95.810 Presence of automatic (implantable) cardiac defibrillator
CPT/HCPCS: 93295

== ENCOUNTER 2024-06-01 08:47 | Day surgery (SDC) | payer OTHER, SELFPAY ==
[2024-05-26 09:55] VITALS: BMI 18.7
--- NOTE | 2024-05-31 09:42 | HO.ANESPROP2 ---
Documented by User: Yu Adler NP 05/31/24 09:48 HPI - Anesthesia Eval Consult details Narrative: 74yo F for PEG Insert Cardiac optimized. [place] [facility] [place]. Last office visit 12/2023. Lovenox for afib (switched from eliquis by PCP bc pt unable to take pills) ICD in situ Dementia [facility] Active Problems Active Problems: All Active Problems Chronic lower back pain (Acute) Dysphagia (Acute) Malnutrition (Acute) Preop exam for internal medicine (Acute) UTI (urinary tract infection) (Acute) Hospital discharge follow-up (Acute) Weight loss (Acute) Physical exam (Acute) Diabetes mellitus (Acute) Dementia (Acute) Gastroenteritis (Acute) Impaired glucose tolerance (Acute) Bronchitis (Acute) Left hand pain (Acute) Mild persistent asthma (Acute) Former smoker (Acute) Shortness of breath (Acute) Encounter for interrogation of cardiac defibrillator (Acute) Urinary incontinence, mixed (Acute) GERD (gastroesophageal reflux disease) (Acute) Dyslipidemia (Acute) Urinary incontinence (Acute) PAF (paroxysmal atrial fibrillation) (Acute) Atherosclerotic cardiovascular disease (Acute) Depression with anxiety (Acute) Anticoagulated (Acute) Bleeding hemorrhoids (Acute) Blurry vision (Acute) Hemorrhoids (Acute) Ischemic cardiomyopathy (Acute) Osteoporosis (Acute) History of stroke (Acute) History of [place] (myocardial infarction) (Acute) Hypovitaminosis D (Acute) Asthma (Acute) Anxiety (Acute) High cholesterol (Acute) Hypertension (Acute) Past Medical History Medical History GERD (gastroesophageal reflux disease) Dyslipidemia Urinary incontinence PAF (paroxysmal atrial fibrillation) Atherosclerotic cardiovascular disease Depression with anxiety Anticoagulated Bleeding hemorrhoids Blurry vision Hemorrhoids Ischemic cardiomyopathy Osteoporosis Dementia History of stroke History of [place] (myocardial infarction) Hypovitaminosis D Asthma Anxiety High cholesterol Hypertension Family History Family History Father No problems noted. Mother Cerebrovascular accident Sister No problems noted. Sister No problems noted. Son No problems noted. Son No problems noted. Daughter No problems noted. Surgical History Surgical History History of cardiac defibrillator placement History of hysterectomy Social History Social History Housing: Apartment Alcohol intake: never Patient Tobacco Use Status: Former Tobacco user Tobacco use type: Cigarette e-Cigarette/Vaping Use: Never Used Second Hand Smoke Exposure: No Use of substances other than those prescribed or required for medical reasons: No Advance Directives: No Advance Directives Information Provided: Yes Advance Directives on File: Yes Advance Directives Date on File: 12/18/20 Nutrition Risks: Surgical patient >75years service: No Current occupational status: retired Cognitive needs: No Hearing needs: No Vision needs: No Meds Allergies Allergy/AdvReac Type Severity Reaction Status Date / Time aspirin Allergy Intermediate rash, Verified 06/01/24 10:05 pruritus penicillin G Allergy Intermediate swelling Verified 06/01/24 10:05 Home Medications ?Medication ?Instructions ?Recorded ?Confirmed ?Last Taken ?Type levalbuterol HCl 0.63 mg/3 mL 0.63 mg inhalation Q8H 09/04/20 05/26/24 Unknown History solution for nebulization (Xopenex) latanoprost 0.005 % eye drops 1 drp ophthalmic (eye) BEDTIME 07/26/21 05/26/24 Unknown History apixaban 5 mg tablet (Eliquis) 5 mg PO BID 01/05/24 05/26/24 Unknown History carvedilol 6.25 mg tablet 6.25 mg PO BID 01/05/24 05/26/24 Unknown History losartan 50 mg tablet 50 mg PO DAILY 02/09/24 05/26/24 Unknown History Exam Height,Weight and Vital Signs: Height 4 ft 11 in Weight 41.901 kg Pertinent Lab Results Pertinent Lab Results: Laboratory Tests 04/27/24 10:47 WBC 7.1 Hgb 14.3 Hct 43.6 Plt Count 222 D Sodium 143 Potassium 3.7 Chloride 103 Carbon Dioxide 32 H BUN 18 H Creatinine 1.11 Narrative Narrative: Cardiac Device Check 2023 Details: ICD interrogated today. Dual-chamber device, programmed DDDR mode. Battery status 2.5 years. Normal lead parameters. Atrial pacing 26%. Ventricular pacing less own%. Non-sustained ventricular episodes. Some of these could also be atrial tachycardia EKG 2022 sinus rhythm at 87/Min; old anteroseptal infarct but otherwise unremarkable ECHO 2021 Conclusions: - 1. Moderate LV systolic dysfunction with LVEF of 35-40% with grade 1 diastolic dysfunction with regional wall motion abnormality in LAD territory consistent with prior infarction and overall findings consistent with ischemic cardiomyopathy 2. Normal cardiac valvular Doppler 3. No gross pericardial effusion Assessment and Plan Assessment Anesthesia Assessment: Chart Reviewed Documented by User: Andreia Dhillon MD 06/01/24 10:30 [facility] Past Medical History Medical History GERD (gastroesophageal reflux disease) Dyslipidemia Urinary incontinence PAF (paroxysmal atrial fibrillation) Atherosclerotic cardiovascular disease Depression with anxiety Anticoagulated Bleeding hemorrhoids Blurry vision Hemorrhoids Ischemic cardiomyopathy Osteoporosis Dementia History of stroke History of [place] (myocardial infarction) Hypovitaminosis D Asthma Anxiety High cholesterol Hypertension Family History Family History Father No problems noted. Mother Cerebrovascular accident Sister No problems noted. Sister No problems noted. Son No problems noted. Son No problems noted. Daughter No problems noted. Family history of problems with anesthesia: No Surgical History Surgical History History of cardiac defibrillator placement History of hysterectomy History of Problems with Anesthesia: No Social History Social History Housing: Apartment Alcohol intake: never Patient Tobacco Use Status: Former Tobacco user Tobacco use type: Cigarette e-Cigarette/Vaping Use: Never Used Second Hand Smoke Exposure: No Use of substances other than those prescribed or required for medical reasons: No Advance Directives: No Advance Directives Information Provided: Yes Advance Directives on File: Yes Advance Directives Date on File: 12/18/20 Nutrition Risks: Surgical patient >75years service: No Current occupational status: retired Cognitive needs: No Hearing needs: No Vision needs: No Meds Allergies Allergy/AdvReac Type Severity Reaction Status Date / Time aspirin Allergy Intermediate rash, Verified 06/01/24 10:05 pruritus penicillin G Allergy Intermediate swelling Verified 06/01/24 10:05 Home Medications ?Medication ?Instructions ?Recorded ?Confirmed ?Last Taken ?Type levalbuterol HCl 0.63 mg/3 mL 0.63 mg inhalation Q8H 09/04/20 05/26/24 Unknown History solution for nebulization (Xopenex) latanoprost 0.005 % eye drops 1 drp ophthalmic (eye) BEDTIME 07/26/21 05/26/24 Unknown History apixaban 5 mg tablet (Eliquis) 5 mg PO BID 01/05/24 05/26/24 Unknown History carvedilol 6.25 mg tablet 6.25 mg PO BID 01/05/24 05/26/24 Unknown History losartan 50 mg tablet 50 mg PO DAILY 02/09/24 05/26/24 Unknown History Exam Height,Weight and Vital Signs: Height 4 ft 11 in Weight 41.901 kg Vital Signs Temp Pulse Resp BP Pulse Ox O2 Del Method 06/01/24 09:45 97.9 F 69 16 130/78 98 Room Air Airway Mallampati Class: Patient Non-Cooperative TM Dist: >3cm Loose/Missing/Broken Teeth: Yes (Many missing teeth) Heart: RRR Lungs: CTAB Assessment and Plan Assessment Anesthesia Assessment: Anesthesia Plan Discussed and Chart Reviewed Final Anesthetic Review Family History of Problems with Anesthesia: No History of Problems with Anesthesia: No NPO: Yes ASA Class: III and Emergency Final Preanesthetic Review: No Changes in Pt Med Stat, Meds/Allgs Chart Reviewed, Consent Obtained/Reviewed and Anes Risks/Benef Reviewed Patient Risk: Intermediate Procedure Risk: Low Assessment/Block/Sedation in SS: Assess/Block/Sedation-SS Anesthetic Plan Anesthetic Plan: GA and TIVA Disposition: Standard PACU
[2024-06-01] VITALS (13 sets, daily range): BP systolic 108–153; BP diastolic 66–96; PULSE 60–69; RESP 14–19; TEMP 36.4–36.9; O2SAT 97–100
[2024-06-01] MEDS: Midazolam HCl/PF 2 MG/2 ML VIAL 0.5 MG IVPUSH (09:50)
[2024-06-01] MEDS: Lactated Ringers 1,000 ML 50 ML IVCONT (10:02)
--- NOTE | 2024-06-01 10:21 | MHC.SHP ---
Pre-Procedural Eval Section A - 24 Hr Update-Section A only Date of Service: 06/01/24 Section B - Complete if H&P > 30 days Chief Complaint: Moderate protein-calorie malnutrition Details of Present Illness: Has longstanding dementia, dysphagia chronic with poor oral intake; son wants to proceed with PEG tube placement Relevant Family History (Specify if Yes): No Relevant Social History: None Present Medications: see Short Stay Collaborative assessment Medical History: Significant History (Advanced dementia, dysphagia, malnutrition, GERD, paroxysmal atrial fibrillation) Allergies: Allergies Allergy/AdvReac Type Severity Reaction Status Date / Time aspirin Allergy Intermediate rash, Verified 06/01/24 10:05 pruritus penicillin G Allergy Intermediate swelling Verified 06/01/24 10:05 Review of Systems Sugical H&P ROS: Negative: Constitution, Cardiovascular, Respiratory, Neurological, Psychiatric, Hem-Onc, Allergic/Immunologic, Gastrointestinal, Genitourinary, Musculoskeletal, Integumentary, Endocrine and Eyes/Ears/Nose/Throat Exam Surgical H&P Exam: Normal: HEENT, Normal: Heart, Normal: Lungs, Normal: Extremities, Normal: Abdomen, Normal: Skin and Normal: Neurological Plan Diagnosis/Plan: Unchanged I have reviewed the history and physical and performed a pertinent physical examination on my patient. No changes have occurred unless specified. Time Spent With Patient Time: Total time managing care of this patient today ____ minutes.
[2024-06-01 10:34] LABS: Glucose, Whole Blood 102 mg/dL (60-115)
--- NOTE | 2024-06-01 11:10 | P.OP_ITS ---
Operative Note Operative Note Date of Service: 06/01/24 Narrative: Preop diagnosis: Advanced dementia, with dysphagia Postop diagnosis: The same Procedure: Peg tube placement Surgeon: Mu Larkin MD graduate assistant athletic trainer: HARMEET Garnica The patient is a 74-year-old female with note of dementia, dysphagia with poor oral intake. The son Dimitri had wanted proceed with a PEG tube placement. He understood the technique of the planned procedure as was the risks, benefits, an d alternatives The patient was brought to the operating room. She was placed in a bit of reclining position under monitored anesthesia care on the stretcher. A surgical time-out was done. The patient received cefazolin 2 g IV preoperatively A bite block was in position. I inserted the scope through the bite block into the oropharynx. The vocal cords were visualized. The esophageal slit was seen posterior to this. The esophageal slit was intubated. The scope was advanced with the entire length of the esophagus into the stomach. The stomach was insufflated. Transillumination was seen in the left upper quadrant. Indentation of the anterior stomach wall was easily seen as well with pressure on the abdominal wall on this area using a finger. This area was prepped and draped. Lidocaine 1% was used for local anesthesia. A short stab incision was made on the skin. A large bore needle was inserted and this was passed all the way into the stomach lumen. This was easily seen with the endoscope. A plastic cannula with the needle was left in place. The guidewire was inserted through the cannula. The guidewire was grasped with a snare. The entire guidewire was pulled out past the oral cavity and was onto the PEG tube. The PEG tube was pulled back into the stomach using the guidewire until inner bolster felt snug on the back wall I reinserted the scope to examine the stomach. There was no bleeding. The inner bolster was seen to be in good position. The scope was then withdrawn completely External bolster was also placed to make this snug on the skin The procedure was then completed The patient tolerated the procedure well. There were no immediate complications. There was no blood loss. The patient was then transferred to the recovery room with stable vital signs.
[2024-06-01] MEDS: fentaNYL citrate/PF 100 MCG/2 ML VIAL 12.5 MCG IVPUSH ×2 (11:44→11:51)
== END 2024-06-01 12:53 | disposition home or self-care (01) ==
PROVIDERS: PCP Internal Medicine; Visit Provider Surgery
PROC: 0DH63UZ Insertion of Feeding Device into Stomach, Percutaneous Approach (ICD-10-PCS; CPT 43246; principal; 2024-06-01 10:30)
DX: E44.0 Moderate protein-calorie malnutrition (principal); Z68.1 Body mass index [BMI] 19.9 or less, adult; F03.90 Unspecified dementia, unspecified severity, without behavioral disturbance, psychotic disturbance, mood disturbance, and anxiety; R13.10 Dysphagia, unspecified; K21.9 Gastro-esophageal reflux disease without esophagitis; I25.5 Ischemic cardiomyopathy; I25.10 Atherosclerotic heart disease of native coronary artery without angina pectoris; I10 Essential (primary) hypertension; M81.0 Age-related osteoporosis without current pathological fracture; E78.00 Pure hypercholesterolemia, unspecified; J45.909 Unspecified asthma, uncomplicated; I25.2 Old myocardial infarction; I48.0 Paroxysmal atrial fibrillation; Z86.73 Personal history of transient ischemic attack (TIA), and cerebral infarction without residual deficits; Z79.01 Long term (current) use of anticoagulants; Z79.51 Long term (current) use of inhaled steroids; Z79.899 Other long term (current) drug therapy; Z88.0 Allergy status to penicillin; Z88.6 Allergy status to analgesic agent; Z87.891 Personal history of nicotine dependence
CPT/HCPCS: 43246; 82947; J0690; J2250; J2704; J3010

== ENCOUNTER → 2024-06-01 08:47 | Outpatient (BNV) | payer OTHER, SELFPAY | PROVIDERS: PCP Internal Medicine; Visit Provider Surgery | DX: E44.0 Moderate protein-calorie malnutrition (principal) | CPT/HCPCS: 43246 ==

== ENCOUNTER 2024-06-14 11:50 | Outpatient (AMB) | payer OTHER, SELFPAY ==
--- NOTE | 2024-06-14 11:59 | MHC.OFFVIS ---
Intake Visit Reasons: S/P PET-tube placement Intake Note: This patient presents for post-op status post PEG-tube placement. Pt's son c/o; reports no complaints. [employer] Sizer [employer] Sorter Required: Yes Diamond Sizer And Sorter Language: Customer Service Operator Services: Diamond Sizer And Sorter Present Diamond Sizer And Sorter Name: Karen Information Interpreted: non-clinical & clinical [employer] Delivery Driver: New [employer] Delivery Driver Present Accompanied by: Son Allergies aspirin Allergy (Intermediate, Verified 06/14/24 12:00) rash, pruritus penicillin G Allergy (Intermediate, Verified 06/14/24 12:00) swelling HPI HPI S/P PET-tube placement: Details: She underwent PEG tube placement last 06/01/2024. According to the son, she is doing well at home. He has been having her meds via the PEG tube and the patient actually seems to have better appetite now. [facility] Medical History GERD (gastroesophageal reflux disease) Dyslipidemia Urinary incontinence PAF (paroxysmal atrial fibrillation) Atherosclerotic cardiovascular disease Depression with anxiety Anticoagulated Bleeding hemorrhoids Blurry vision Hemorrhoids Ischemic cardiomyopathy Osteoporosis Dementia History of stroke History of [place] (myocardial infarction) Hypovitaminosis D Asthma Anxiety High cholesterol Hypertension Surgical History S/P percutaneous endoscopic gastrostomy (PEG) tube placement (~06/01/24) History of cardiac defibrillator placement History of hysterectomy Family History Father No problems noted. Mother Cerebrovascular accident Sister No problems noted. Sister No problems noted. Son No problems noted. Son No problems noted. Daughter No problems noted. Social History Housing: Apartment Alcohol intake: never Patient Tobacco Use Status: Former Tobacco user Tobacco use type: Cigarette e-Cigarette/Vaping Use: Never Used Second Hand Smoke Exposure: No Advance Directives Date on File: 12/18/20 service: No Current occupational status: retired Cognitive needs: No Hearing needs: No Vision needs: No Review of Systems Const Unobtainable due to mental status Denies chills and Denies fever(s) Physical Exam Const Other: Ambulating, has obvious dementia General: comfortable and no acute distress Resp Effort & Inspection: normal respiratory effort GI Other: Peg tube in place, no evidence of any surgical site infection Palpation (GI): Soft to palpation, not firm, nontender and no guarding Assessment & Plan Assessment & Plan (1) Dysphagia: Code(s): R13.10 - Dysphagia, unspecified Category: Medical Plan: Status post PEG placement. She is doing very well. She actually has improved significantly according to the son because he is able to give her her medications now via the PEG tube If she needs nutritional supplementation, the PEG tube can be used already The site appears to be clean. She can follow up on a p.r.n. basis. Coding Level of Care Code Global (87155) Diagnoses Dysphagia R13.10
--- NOTE | 2024-06-14 11:59 | MHC.OFFVIS ---
Intake Visit Reasons: S/P PET-tube placement Allergies aspirin Allergy (Intermediate, Verified 06/14/24 12:00) rash, pruritus penicillin G Allergy (Intermediate, Verified 06/14/24 12:00) swelling HPI HPI S/P PET-tube placement: Details: She underwent PEG tube placement last 06/01/2024. According to the son, she is doing well at home. He has been having her meds via the PEG tube and the patient actually seems to have better appetite now. [facility] Medical History GERD (gastroesophageal reflux disease) Dyslipidemia Urinary incontinence PAF (paroxysmal atrial fibrillation) Atherosclerotic cardiovascular disease Depression with anxiety Anticoagulated Bleeding hemorrhoids Blurry vision Hemorrhoids Ischemic cardiomyopathy Osteoporosis Dementia History of stroke History of [place] (myocardial infarction) Hypovitaminosis D Asthma Anxiety High cholesterol Hypertension Surgical History (Updated 06/10/24 @ 11:47 by Shawnee Juarez Cornelius) S/P percutaneous endoscopic gastrostomy (PEG) tube placement (~06/01/24) History of cardiac defibrillator placement History of hysterectomy Family History Father No problems noted. Mother Cerebrovascular accident Sister No problems noted. Sister No problems noted. Son No problems noted. Son No problems noted. Daughter No problems noted. Social History Housing: Apartment Alcohol intake: never Patient Tobacco Use Status: Former Tobacco user Tobacco use type: Cigarette e-Cigarette/Vaping Use: Never Used Second Hand Smoke Exposure: No Advance Directives Date on File: 12/18/20 service: No Current occupational status: retired Cognitive needs: No Hearing needs: No Vision needs: No Review of Systems Const Unobtainable due to mental status Denies chills and Denies fever(s) Physical Exam Const Other: Ambulating slowly General: comfortable and no acute distress Resp Effort & Inspection: normal respiratory effort GI Other: Peg tube in place, no evidence of infection Palpation (GI): Soft to palpation, not firm, nontender and no guarding Assessment & Plan Assessment & Plan (1) Dysphagia: Code(s): R13.10 - Dysphagia, unspecified Category: Medical Plan: Status post PEG placement. She is doing very well. She actually has improved significantly according to the son because he is able to give her her medications now via the PEG tube If she needs nutritional supplementation, the PEG tube can be used already The site appears to be clean. She can follow up on a p.r.n. basis. Coding Level of Care Code Global (14306) Diagnoses Dysphagia R13.10
== END 2024-06-14 11:59 | disposition home or self-care (01) ==
PROVIDERS: PCP Internal Medicine; Visit Provider Surgery
DX: R13.10 Dysphagia, unspecified (principal)
CPT/HCPCS: 99212

== ENCOUNTER → 2024-06-14 11:50 | Outpatient (BNVA) | payer OTHER, SELFPAY | PROVIDERS: PCP Internal Medicine; Visit Provider Surgery | DX: R13.10 Dysphagia, unspecified (principal); Z93.1 Gastrostomy status | CPT/HCPCS: 99212 ==

== ENCOUNTER 2024-06-16 14:10 | Outpatient (AMB) | payer OTHER, SELFPAY ==
[2024-06-16 14:33] VITALS: BP 102/60; PULSE 69; O2SAT 95; BMI 18.2
--- NOTE | 2024-06-16 14:33 | MHC.OFFVIS ---
Vital Signs 06/16/24 14:33 Height 4 ft 11 in Weight 90 lb BMI 18.2 BP 102/60 Blood Pressure Location Lt brachial Position Sitting Pulse 69 Pulse Source Pulse Oximeter Pulse Oximetry (%) 95 Oxygen Delivery Method Room Air Intake Visit Reasons: asthma Intake Note: pt is here for follow up and states she does a treatment in am, and her son takes care of her due to dementia, and she is well today. Allergies aspirin Allergy (Intermediate, Verified 06/16/24 14:44) rash, pruritus penicillin G Allergy (Intermediate, Verified 06/16/24 14:44) swelling Medication List - Last Reconciled 06/16/24 by Virgilio De Oliveira MD acetaminophen (Tylenol) 325 mg PO Q4H PRN apixaban (Eliquis) 5 mg PO BID atorvastatin 80 mg (2 x 40 mg) PO DAILY 60 days blood sugar diagnostic ([employer] Ultra Test strips) check once daily blood-glucose meter ([employer] Ultra2 Meter) check once daily carvedilol 6.25 mg PO BID cholecalciferol (vitamin D3) 50 mcg PO DAILY 90 days commode As directed diaper,brief,adult,disposable (Select Disposable Briefs) As directed diclofenac sodium 1% (Voltaren Arthritis Pain) 2 grams topical QID donepezil 10 mg PO BEDTIME 90 days enoxaparin (Lovenox) 40 mg (0.4 mL) subcut DAILY 30 days enoxaparin (Lovenox) 40 mg (0.4 mL) subcut DAILY 30 days evolocumab (Repatha SureClick) 140 mg subcut Q2W 30 days famotidine 20 mg (2.5 mL) PO BEDTIME PRN 30 days fluticasone propion-salmeterol 115-21 mcg/actuation (Advair HFA) 2 puffs PO Q12H 30 days fluticasone propionate 50 mcg/actuation 1 spray intranasal DAILY PRN food supplemt, lactose-reduced (Ensure oral liquid) 1 ea PO .three times a day 25 days humidifiers As directed ipratropium bromide 2.5 mL inhalation Q6H PRN 30 days lancets ([employer] UltraSoft 2 Lancet) check once per day latanoprost 0.005% 1 drp ophthalmic (eye) BEDTIME latex gloves (Latex Gloves, Large) As directed levalbuterol HCl (Xopenex) 0.63 mg inhalation Q8H levalbuterol tartrate 45 mcg/actuation 2 puffs inhalation Q4-6H PRN 30 days MDD Patient has h/o cardiac diseas lorazepam 1 mg PO BEDTIME PRN 30 days losartan 50 mg PO DAILY metformin 500 mg PO BID 90 days nebulizer accessories (Adult Aerosol Mask) As directed nitroglycerin 0.4 mg sublingual Q5M PRN nut.tx.gluc.intol,lac-free,soy (Glucerna oral liquid) 1 ea PO .three times a day 30 days quetiapine 200 mg PO BEDTIME 90 days Shower Chair As directed sodium chloride 7% 4 mL inhalation BID PRN 30 days tramadol 50 mg PO Q6H PRN [wheelchair As directed] [wipes As directed] Do you need a note to return to daycare/school/sports/work: No HPI HPI asthma: Details: 73 YEARS OLD FEMALE, CONGOLESE-SPEAKING, , VERY QUIET, HAS ADVANCED DEMENTIA.SHE IS HERE FOR FOLLOW-UP . She is mostly quiet and the information is provided by her son who is her MIDDLE SCHOOL GUIDANCE COUNSELOR. she does not offer any complaints at this time and claims that her breathing. is good she is using levalbuterol solution in the nebulizer twice a day. and also uses levalbuterol inhaler 2 puffs Q 6 hours only p.r.n. she has had no acute respiratory infection or acute exacerbation in the last 6 months. [facility] Medical History GERD (gastroesophageal reflux disease) Dyslipidemia Urinary incontinence PAF (paroxysmal atrial fibrillation) Atherosclerotic cardiovascular disease Depression with anxiety Anticoagulated Bleeding hemorrhoids Blurry vision Hemorrhoids Ischemic cardiomyopathy Osteoporosis Dementia History of stroke History of [place] (myocardial infarction) Hypovitaminosis D Asthma Anxiety High cholesterol Hypertension Surgical History S/P percutaneous endoscopic gastrostomy (PEG) tube placement (~06/01/24) History of cardiac defibrillator placement History of hysterectomy Family History Father No problems noted. Mother Cerebrovascular accident Sister No problems noted. Sister No problems noted. Son No problems noted. Son No problems noted. Daughter No problems noted. Social History Housing: Apartment Alcohol intake: never Patient Tobacco Use Status: Former Tobacco user Tobacco use type: Cigarette e-Cigarette/Vaping Use: Never Used Second Hand Smoke Exposure: No Advance Directives Date on File: 12/18/20 service: No Current occupational status: retired Cognitive needs: No Hearing needs: No Vision needs: No Review of Systems Const All systems reviewed & are unremarkable except as noted in HPI and below Eyes Reports no additional complaints ENT Reports no additional complaints Card Denies chest pain, Denies irregular heart rhythm and Denies leg edema Resp Reports as per HPI GI Reports no additional complaints Reports no additional complaints Musc Reports no additional complaints Skin/Breast Reports system reviewed and no additional complaints, except as documented Neuro Reports no additional complaints Psych Reports no additional complaints Endo Reports no additional complaints Physical Exam Vital Signs: Last Vital Signs Pulse 69 06/16/24 14:33 BP 102/60 06/16/24 14:33 Pulse Ox 95 06/16/24 14:33 Oxygen Delivery Method Room Air 06/16/24 14:33 BMI result Body Mass Index 18.2 Const General: comfortable, no acute distress, alert and awake Orientation/consciousness: patient oriented x3 HEENT Head: Yes normal to inspection General nose exam: No nasal polyps present and No nasal discharge present Face and sinus: Yes sinuses nontender Mouth: oropharynx normal Throat: Yes posterior oropharynx normal Eyes General: appearance normal, both eyes and all related structures Neck Neck: Yes normal visual inspection, Yes no lymphadenopathy, Yes trachea midline and Yes no JVD Thyroid: Thyroid normal Chest Chest palpation & inspection: normal inspection of the chest, normal palpation of entire chest wall and no tenderness Resp Other: Percussion note is resonant, breath sounds are distant on both sides with prolonged expiratory phase. NO WHEEZES RHONCHI OR CREPITATIONS ARE HEARD TODAY. Cardio Palpation: normal PMI and other (Pacemaker and defibrillator in place in left pectoral area) Rate: regular rate Rhythm: regular rhythm Heart sounds: no gallops and no murmurs GI Inspection: Yes other ( gastrostomy tube in place.) Palpation (GI): Soft to palpation, nontender, No hepatosplenomegaly present and no masses Auscultation: normal bowel sounds Back/Spine/Pelvis Thoracic/Lumbar Spine: thoracic and lumbar spine normal to inspection Skin General skin exam: no rashes or lesions noted Neuro General: patient oriented x3 and no focal motor deficits Cranial nerves: Yes CN's II-XII intact bilaterally Extrem General: Yes normal to inspection, Yes no clubbing, cyanosis or edema and Yes no calf tenderness Psych Appearance: grossly normal and well kempt Speech and movement: Normal speech and movement present Attitude: cooperative Assessment & Plan Assessment & Plan (1) Former smoker: Comment: Patient is a former smoker, about 1 pack a day, quit in 2007 after she had the heart attack. She may have some degree of COPD. * SHE WAS NOT ABLE TO PERFORM ADEQUATE MANEUVERS FOR PULMONARY FUNCTION TEST. Code(s): Z87.891 - Personal history of nicotine dependence Category: Social Hx Plan: She is not smoking at this time, no further action needed. (2) Asthma: Comment: Patient does have history of mild intermittent bronchial asthma. She is doing better on her current medication, her son is able to supervise and make sure she can use Advair HFA with a spacing device properly. Code(s): J45.909 - Unspecified asthma, uncomplicated Category: Medical Qualifiers: Asthma severity: moderate Asthma persistence: persistent Asthma complication type: uncomplicated Qualified Code(s): J45.40 - Moderate persistent asthma, uncomplicated Plan: [place] : Stay on Advair Diskus changed to ADVAIR HFA 115-21 2 puffs bid ,, with a spacer ( given from the office ) explained to the patient,s son . Atrovent solution in the Nebulizer q 6 hrs only PRN ., not to exceed 4 times a day . levalbuterol -45 1 or 2 puffs Q 6 hours p.r.n. when outdoors. Coding Level of Care Code Est Pt Level 3 (55095) Diagnoses Former smoker Z87.891 Moderate persistent asthma without complication J45.40 Asthma severity: moderate Asthma persistence: persistent Asthma complication type: uncomplicated
== END 2024-06-16 14:44 | disposition home or self-care (01) ==
PROVIDERS: PCP Internal Medicine; Visit Provider Internal Medicine
DX: Z87.891 Personal history of nicotine dependence (principal); J45.40 Moderate persistent asthma, uncomplicated
CPT/HCPCS: 99213

== ENCOUNTER → 2024-06-16 14:10 | Outpatient (BNVA) | payer OTHER, SELFPAY | PROVIDERS: PCP Internal Medicine; Visit Provider Internal Medicine | DX: N39.46 Mixed incontinence (principal); J45.40 Moderate persistent asthma, uncomplicated; Z87.891 Personal history of nicotine dependence | CPT/HCPCS: 81003; 99212 ==

== ENCOUNTER 2024-06-16 14:50 | Outpatient (AMB) | payer OTHER, SELFPAY ==
--- NOTE | 2024-06-16 14:55 | A.OFFVIS_ITS ---
Intake Visit Reasons: 6m/PVR Intake Note: Patient presents today for follow up urinary incontinence Urology Medications: none Blood thinners: Apixaban PVR: Patient declined Thermal Cutting Machine Operator Required: Yes Thermal Cutting Machine Operator Name: [id number] Accompanied by: Unknown Allergies aspirin Allergy (Intermediate, Verified 06/16/24 15:28) rash, pruritus penicillin G Allergy (Intermediate, Verified 06/16/24 15:28) swelling Medication List - Last Reconciled 06/16/24 by JENSEN Waddell-BERNARD acetaminophen (Tylenol) 325 mg PO Q4H PRN apixaban (Eliquis) 5 mg PO BID atorvastatin 80 mg (2 x 40 mg) PO DAILY 60 days blood sugar diagnostic ([employer] Ultra Test strips) check once daily blood-glucose meter ([employer] Ultra2 Meter) check once daily carvedilol 6.25 mg PO BID cholecalciferol (vitamin D3) 50 mcg PO DAILY 90 days commode As directed diaper,brief,adult,disposable (Select Disposable Briefs) As directed diclofenac sodium 1% (Voltaren Arthritis Pain) 2 grams topical QID donepezil 10 mg PO BEDTIME 90 days enoxaparin (Lovenox) 40 mg (0.4 mL) subcut DAILY 30 days enoxaparin (Lovenox) 40 mg (0.4 mL) subcut DAILY 30 days evolocumab (Repatha SureClick) 140 mg subcut Q2W 30 days famotidine 20 mg (2.5 mL) PO BEDTIME PRN 30 days fluticasone propion-salmeterol 115-21 mcg/actuation (Advair HFA) 2 puffs PO Q12H 30 days fluticasone propionate 50 mcg/actuation 1 spray intranasal DAILY PRN food supplemt, lactose-reduced (Ensure oral liquid) 1 ea PO .three times a day 25 days humidifiers As directed ipratropium bromide 2.5 mL inhalation Q6H PRN 30 days lancets ([employer] UltraSoft 2 Lancet) check once per day latanoprost 0.005% 1 drp ophthalmic (eye) BEDTIME latex gloves (Latex Gloves, Large) As directed levalbuterol HCl (Xopenex) 0.63 mg inhalation Q8H levalbuterol tartrate 45 mcg/actuation 2 puffs inhalation Q4-6H PRN 30 days MDD Patient has h/o cardiac diseas lorazepam 1 mg PO BEDTIME PRN 30 days losartan 50 mg PO DAILY metformin 500 mg PO BID 90 days nebulizer accessories (Adult Aerosol Mask) As directed nitroglycerin 0.4 mg sublingual Q5M PRN nut.tx.gluc.intol,lac-free,soy (Glucerna oral liquid) 1 ea PO .three times a day 30 days quetiapine 200 mg PO BEDTIME 90 days Shower Chair As directed sodium chloride 7% 4 mL inhalation BID PRN 30 days tramadol 50 mg PO Q6H PRN [wheelchair As directed] [wipes As directed] HPI Comments Details: Alexx is a pleasantly confused 74-year-old Persian-speaking female patient of Dr. Ayala who was accompanied by her son/caregiver (Dimitri) at today's office visit. She has a past medical history of advanced dementia, diabetes mellitus type 2, GERD, paroxysmal atrial fibrillation, myocardial infarction with an implanted defibrillator, CVA, osteoporosis, and cardiomyopathy. She presents to the office today for follow-up of her urinary incontinence. In discussion with patient's caregiver today as patient is a poor historian he reports baseline incontinence. He continues with scheduled toileting as recommended. He discusses patient with new G-tube and feels this has been helpful as he has been able to administer medications this way. He feels this has increased her appetite. He reports feeling scheduled/timed voiding has been helpful however she does at times continue with incontinent episodes. Previous workup has included a retroperitoneal ultrasound noting bilateral kidneys with no calculi, lesions, and or hydronephrosis. The bladder was decompressed. In office urinalysis results reviewed with the patient and patient's son today. He denies patient to have hematuria, foul-smelling urine, chills, and or fever. He otherwise offers no other issues or concerns at this time. [facility] Medical History GERD (gastroesophageal reflux disease) Dyslipidemia Urinary incontinence PAF (paroxysmal atrial fibrillation) Atherosclerotic cardiovascular disease Depression with anxiety Anticoagulated Bleeding hemorrhoids Blurry vision Hemorrhoids Ischemic cardiomyopathy Osteoporosis Dementia History of stroke History of AL (myocardial infarction) Hypovitaminosis D Asthma Anxiety High cholesterol Hypertension Surgical History S/P percutaneous endoscopic gastrostomy (PEG) tube placement (~06/01/24) History of cardiac defibrillator placement History of hysterectomy Family History Father No problems noted. Mother Cerebrovascular accident Sister No problems noted. Sister No problems noted. Son No problems noted. Son No problems noted. Daughter No problems noted. Social History Housing: Apartment Alcohol intake: never Patient Tobacco Use Status: Former Tobacco user Tobacco use type: Cigarette e-Cigarette/Vaping Use: Never Used Second Hand Smoke Exposure: No Advance Directives Date on File: 12/18/20 service: No Current occupational status: retired Cognitive needs: No Hearing needs: No Vision needs: No Review of Systems Const Unobtainable due to mental condition Physical Exam Const General: cooperative, healthy appearing, comfortable, no acute distress, well developed, alert and awake Nutritional Appearance: thin Orientation/consciousness: oriented to person Limitations: no limitations HEENT Head: Yes normal to inspection, Yes normocephalic and Yes atraumatic Ears: hearing grossly normal bilaterally Eyes General: appearance normal, both eyes and all related structures Neck Neck: Yes normal visual inspection and Yes trachea midline Chest Chest palpation & inspection: normal inspection of the chest Resp Effort & Inspection: normal respiratory effort and able to speak in complete sentences Cardio Rate: regular rate GI Other: Abdominal binder present Inspection: Yes normal to inspection General: Yes no CVA tenderness Back/Spine/Pelvis Back: no CVA tenderness Skin General skin exam: no rashes or lesions noted Neuro General: oriented to person Extrem General: Yes normal to inspection Psych Appearance: grossly normal and well kempt Mental Status: other (pleasantly confused) Speech and movement: Normal speech and movement present and Clear speech present Affect: normal affect Attitude: cooperative and Avoids eye contact (attititude/behavior) Thought process: Other thought process findings present (at times answers questions inappropriately ) Insight: Limited insight present (Psych) Judgement: Limited judgement present (Psych) Results AMB Urinalysis, Automated UA Leukoctes 0 William/uL Last Edit by Dahlia Lorenzana on 06/16/24 15:44 UA Nitrite Last Edit by Dahlia Lorenzana on 06/16/24 15:44 UA Urobilinogen 0.2 mg/dL Last Edit by Chadwickyce Salomón on 06/16/24 15:44 UA Protein 0 mg/dL Last Edit by Dahlia Lorenzana on 06/16/24 15:44 UA pH 6.0 Last Edit by Dahlia Lorenzana on 06/16/24 15:44 UA Blood 0 Octaviano/uL Last Edit by Chadwickyce Salomón on 06/16/24 15:44 UA Specific [place] 1.015 Last Edit by Jordanae Salomón on 06/16/24 15:44 UA Ketone Last Edit by Dahlia Lorenzana on 06/16/24 15:44 UA Bilirubin 0 mg/dL Last Edit by Jordanae Salomón on 06/16/24 15:44 UA Glucose 0 mg/dL Last Edit by Dahlia Lorenzana on 06/16/24 15:44 Results Reviewed Results Reviewed: Laboratory Last Values Urine pH (Auto) 6.0 06/16/24 15:40 Specific [place] (Auto) 1.015 06/16/24 15:40 Urine Protein (Auto) 0 mg/dL 06/16/24 15:40 Glucose (UA)(Auto) 0 mg/dL 06/16/24 15:40 Urine Blood (Auto) 0 Octaviano/uL 06/16/24 15:40 Urine Bilirubin (Auto) 0 mg/dL 06/16/24 15:40 Urine Urobilinogen (Auto) 0.2 mg/dL 06/16/24 15:40 Leukocyte Esterase (Auto) 0 William/uL 06/16/24 15:40 Assessment & Plan Assessment & Plan (1) Urinary incontinence: Code(s): R32 - Unspecified urinary incontinence Category: Medical (2) Urinary incontinence, mixed: Code(s): N39.46 - Mixed incontinence Category: Medical Plan In office urinalysis results reviewed with the patient and son today; as noted above Will continue with scheduled toileting. Continue with prompt voiding Discussed bladder triggers/irritants. Prescription provided for incontinent pads; will send to [facility] as requested. Follow-up in 1 year with PVR; if not sooner with any issues, concerns, and or questions. Orders: Orders AMB Urinalysis Automated Today Z13.9 - Encounter for screening, unspecified Patient Instructions: The patient had an opportunity to ask questions regarding the treatment plan. All questions were answered. Physical exam, labs, and imaging were discussed and reviewed in detail. As well as risks, benefits, and discussion of treatment choices. No major barriers to understanding were identified. The patient expressed understanding and agreement with the above treatment plan. The patient was made aware they should contact our office by phone for worsening of their current condition, the appearance of new symptoms, or with any questions or concerns. Compliance is encouraged with any medications and follow up testing that is ordered. It is a privilege to be allowed the opportunity to participate in? your urological care.? Again, if you have any questions or concerns If you have any questions or concerns please do not hesitate to contact me. The office is [phone]. This note is constructed using voice recognition software. While every effort has been made to ensure accuracy painter railroad car errors may have been included. Yours sincerely, LUCIA Waddell Coding Level of Care Code Est Pt Level 3 (50437) Complex EM visit Add On G2211 Diagnoses Urinary incontinence R32 Urinary incontinence, mixed N39.46
== END 2024-06-16 15:25 | disposition home or self-care (01) ==
PROVIDERS: PCP Internal Medicine; Visit Provider Nurse Practitioner Family
DX: R32 Unspecified urinary incontinence (principal); N39.46 Mixed incontinence; Z13.9 Encounter for screening, unspecified
CPT/HCPCS: 99213; G2211

== ENCOUNTER 2024-06-21 03:59 | Emergency (ER) | payer OTHER, SELFPAY ==
--- NOTE | ~2024-06-21 | XR_ITS ---
EXAMINATION: XR ABDOMEN KUB CLINICAL INDICATION: G-tube placement. COMPARISON: None available. TECHNIQUE: AP view of the abdomen. FINDINGS: The bowel gas pattern is normal with no evidence of ileus or obstruction. Contrast outlines the stomach and proximal duodenum. No unusual soft tissue calcifications are noted. The bones are unremarkable. XR/XR KUB IMPRESSION: 1. Nonobstructive bowel gas pattern. 2. Contrast outlines the stomach and proximal duodenum indicating adequate G-tube placement. Electronically signed by: Reymundo Berumen MD 06/21/2024 05:29 AM EDT RP
[2024-06-21 04:06] VITALS: BP 100/64; BP 116/74; PULSE 70; PULSE 72; RESP 16; TEMP 36.6; O2SAT 94; O2SAT 99; BMI 19.1
--- NOTE | 2024-06-21 04:45 | ED_ITS ---
HPI - General Adult General Chief complaint: General Medical Stated complaint: GTUBE COMPLICATIONS Time Seen by Provider: 06/21/24 04:45 Source: family Mode of arrival: wheelchair Limitations: no limitations History of Present Illness ED Provider: torsten VALLE narrative: Patient's history of dementia tenderness but G-tube placement 05/25 patient's pull of the G-tube around 03:00 tonight no active bleeding Related Data Home Medications ?Medication ?Instructions ?Recorded ?Confirmed levalbuterol HCl 0.63 mg/3 mL 0.63 mg inhalation Q8H 09/04/20 06/16/24 solution for nebulization (Xopenex) latanoprost 0.005 % eye drops 1 drp ophthalmic (eye) BEDTIME 07/26/21 06/16/24 apixaban 5 mg tablet (Eliquis) 5 mg PO BID 01/05/24 06/16/24 carvedilol 6.25 mg tablet 6.25 mg PO BID 01/05/24 06/16/24 losartan 50 mg tablet 50 mg PO DAILY 02/09/24 06/16/24 Previous Rx's ?Medication ?Instructions ?Recorded sodium chloride 7 % for 4 ml inhalation BID PRN 12/18/20 nebulization bronchospasm 30 days #240 mL nebulizer accessories (Adult #1 ea 10/26/21 Aerosol Mask) commode #1 ea 03/26/22 humidifiers #1 ea 03/26/22 Shower Chair #1 ea 09/02/22 levalbuterol tartrate 45 2 puff inhalation Q4-6H PRN 09/25/22 mcg/actuation aerosol inhaler shortness of breath 30 days #15 grams fluticasone propionate 50 1 spray intranasal DAILY PRN for 03/21/23 mcg/actuation nasal allergies #48 mL spray,suspension nitroglycerin 0.4 mg sublingual 0.4 mg sublingual Q5M PRN chest 06/25/23 tablet pain #30 tabs blood-glucose meter (OneTouch #1 ea 08/18/23 Ultra2 Meter) lancets 30 gauge (OneTouch #100 ea 08/18/23 UltraSoft 2 Lancet) famotidine 40 mg/5 mL (8 mg/mL) 20 mg (2.5 mL) PO BEDTIME PRN 09/19/23 oral suspension heartburn 30 days #50 mL donepezil 10 mg tablet 10 mg PO BEDTIME 90 days #90 tabs 11/09/23 fluticasone propionate 115 2 puff PO Q12H copd 30 days #12 12/17/23 mcg-salmeterol 21 mcg/actuation grams HFA inhaler (Advair HFA) ipratropium bromide 0.02 % 2.5 ml inhalation Q6H PRN 12/17/23 solution for inhalation shortness of breath or wheezing 30 days #150 mL enoxaparin 40 mg/0.4 mL 40 mg (0.4 mL) subcut DAILY 30 12/30/23 subcutaneous syringe (Lovenox) days #12 mL wheelchair #1 ea 12/30/23 acetaminophen 325 mg capsule 325 mg PO Q4H PRN pain #30 caps 01/01/24 (Tylenol) quetiapine 200 mg tablet 200 mg PO BEDTIME 90 days #90 tabs 01/26/24 atorvastatin 40 mg tablet 80 mg (2 x 40 mg) PO DAILY 60 days 03/18/24 #120 tabs cholecalciferol (vitamin D3) 50 50 mcg PO DAILY 90 days #90 caps 03/18/24 mcg (2,000 unit) capsule metformin 500 mg tablet 500 mg PO BID 90 days #180 tabs 03/19/24 enoxaparin 40 mg/0.4 mL 40 mg (0.4 mL) subcut DAILY 30 04/01/24 subcutaneous syringe (Lovenox) days #12 mL nut.tx.gluc.intol,lac-free,soy 1 ea PO .three times a day 30 days 04/01/24 (Glucerna oral liquid) #237 mL diclofenac sodium 1 % topical gel 2 g topical QID #100 grams 04/13/24 (Voltaren Arthritis Pain) diaper,brief,adult,disposable #100 ea 04/26/24 (Select Disposable Briefs) latex gloves (Latex Gloves, Large) #200 ea 04/26/24 wipes #400 ea 04/26/24 evolocumab 140 mg/mL subcutaneous 140 mg subcut Q2W 30 days #3 mL 04/29/24 pen injector (Repatha SureClick) blood sugar diagnostic (OneTouch #100 ea 05/08/24 Ultra Test strips) tramadol 50 mg tablet 50 mg PO Q6H PRN pain #20 tabs 06/01/24 lorazepam 1 mg tablet 1 mg PO BEDTIME PRN agitation 30 06/12/24 days #30 tabs food supplemt, lactose-reduced 1 ea PO .three times a day 25 days 06/14/24 (Ensure oral liquid) #5,688 mL colatrep #4 ea 06/19/24 neomycin-bacitracn Zn-polymyx 3.5 1 appl topical DAILY 30 days #84.9 06/19/24 mg-400 unit-5,000 unit/gram top grams oint (Neosporin ([id number])) Allergies Allergy/AdvReac Type Severity Reaction Status Date / Time aspirin Allergy Intermediate rash, Verified 06/21/24 04:08 pruritus penicillin G Allergy Intermediate swelling Verified 06/21/24 04:08 Review of Systems Review of Systems: Yes all other systems are reviewed and are negative [facility] Past Medical History Medical History GERD (gastroesophageal reflux disease) Dyslipidemia Urinary incontinence PAF (paroxysmal atrial fibrillation) Atherosclerotic cardiovascular disease Depression with anxiety Anticoagulated Bleeding hemorrhoids Blurry vision Hemorrhoids Ischemic cardiomyopathy Osteoporosis Dementia History of stroke History of AR (myocardial infarction) Hypovitaminosis D Asthma Anxiety High cholesterol Hypertension Surgical History S/P percutaneous endoscopic gastrostomy (PEG) tube placement (~06/01/24) History of cardiac defibrillator placement History of hysterectomy Family History Family History Father No problems noted. Mother Cerebrovascular accident Sister No problems noted. Sister No problems noted. Son No problems noted. Son No problems noted. Daughter No problems noted. Social History Social History Housing: Apartment Alcohol intake: former Patient Tobacco Use Status: Former Tobacco user Tobacco use type: Cigarette Smoked in Last 30 Days: No e-Cigarette/Vaping Use: Never Used Second Hand Smoke Exposure: No Use of substances other than those prescribed or required for medical reasons: No Advance Directives: Yes Advance Directives on File: Yes Advance Directives Date on File: 12/18/20 Do you have a plan to hurt others: No Plan service: No Current occupational status: retired Cognitive needs: No Hearing needs: No Vision needs: No Physical Exam ED Vital Signs: Vital Signs - 24 hr 06/21/24 04:06 Temperature 97.9 F Pulse Rate 70 Respiratory Rate 16 Blood Pressure 116/74 Pulse Oximetry 94 Oxygen Delivery Method Room Air BMI result Body Mass Index 19.1 Appearance: Alert. With significant dementia ENT: Pharynx normal. Oral Mucosa moist Neck: Normal inspection. Neck supple. CVS: Normal heart rate and rhythm. Pulses normal. Respiratory: No respiratory distress. Equal air entry bilateral, Abdomen: Soft and nontender. Bowel sounds are present, no mass palpable, G-tube opening still present Skin: Skin warm and dry. Normal skin color. Normal skin turgor. Extremities: No lower extremity edema. No calf tenderness Neuro: Demented moving all 4 extremities Medications Administered Discontinued Medications Generic Name Dose Route Start Last Admin Trade Name Freq PRN Reason Stop Dose Admin Diatrizoate Meglum/Diatrizoate Sod 30 ml 06/21/24 05:20 06/21/24 05:20 Diatrizoate Meglumine, Sodium 30 Ml Solution PO 06/21/24 05:21 30 ml ONCE ONE Administration Procedures Feeding Tube Replacement Type of Tube: gastrostomy Insertion Site Prior to Procedure: clean Tube Used for Reinsertion: Bard and other Austrian Tube Size (F): 22 Balloon size (mL): 10 Verification of Placement: KUB and gastrografin injection Patient Tolerated Procedure: well Medical Decision Making Medical Decision Making MDM Narrative: Feeding tube was replaced by 22 Austrian KUB shows the presence of Gastrografin in interestingly Radiology Impression Discussion of test interpretation with radiology: I have reviewed the radiologist's reading. Radiologist Impression: [address] [address] XRay Report Signed Patient: Alexx Cutler MR#: [id number] : 1950 Acct:[id number] Age/Sex: 74 / F ADM Date: 06/21/24 Loc: HO.ED Attending Dr: Ordering Physician: Tomer Carballo MD Date of Service: 06/21/24 Procedure(s): XR KUB Accession Number(s): [id number] cc: Physician,Unknown ; Tomer Carballo MD~ EXAMINATION: XR ABDOMEN KUB CLINICAL INDICATION: G-tube placement. COMPARISON: None available. TECHNIQUE: AP view of the abdomen. FINDINGS: The bowel gas pattern is normal with no evidence of ileus or obstruction. Contrast outlines the stomach and proximal duodenum. No unusual soft tissue calcifications are noted. The bones are unremarkable. XR/XR KUB IMPRESSION: 1. Nonobstructive bowel gas pattern. 2. Contrast outlines the stomach and proximal duodenum indicating adequate G-tube placement. Discharge Plan Discharge Clinical Impression: Status post insertion of percutaneous endoscopic gastrostomy (PEG) tube Patient Disposition: Home, Self-Care Instructions: How to Use and Care for Your PEG Tube (ED) Additional Instructions: Local care as advised Prescriptions: No Action (DME) Adult Aerosol Mask Misc See Rx Instructions .Route Qty: 1 0RF Rx Instructions: As directed (DME) humidifiers Misc See Rx Instructions .Route Qty: 1 0RF Rx Instructions: As directed (DME) commode Kit See Rx Instructions .Route Qty: 1 0RF Rx Instructions: As directed fluticasone propionate 50 mcg/actuation spray,suspension 1 spray intranasal DAILY PRN (Reason: for allergies) Qty: 48 2RF (DME) blood-glucose meter [OneTouch Ultra2 Meter] Misc See Rx Instructions .Route Qty: 1 0RF Rx Instructions: check once daily (DME) lancets [OneTouch UltraSoft 2 Lancet] 30 gauge misc See Rx Instructions .Route Qty: 100 4RF Rx Instructions: check once per day famotidine 40 mg/5 mL (8 mg/mL) suspension 20 mg PO BEDTIME PRN (Reason: heartburn) 30 Days Qty: 50 5RF donepezil 10 mg tablet 10 mg PO BEDTIME 90 Days Qty: 90 1RF quetiapine 200 mg tablet 200 mg PO BEDTIME 90 Days Qty: 90 1RF atorvastatin 40 mg tablet 80 mg PO DAILY 60 Days Qty: 120 3RF Rx Instructions: Take 2 tabs to equal 80 mg daily. cholecalciferol (vitamin D3) 50 mcg (2,000 unit) capsule 50 mcg PO DAILY 90 Days Qty: 90 3RF metformin 500 mg tablet 500 mg PO BID 90 Days Qty: 180 1RF diclofenac sodium [Voltaren Arthritis Pain] 1 % gel 2 g topical QID Qty: 100 1RF Rx Instructions: apply to single elbow, wrist or hand; for hand includes palm/fingers/back of hand (DME) latex gloves [Latex Gloves, Large] Misc See Rx Instructions .Route Qty: 200 11RF Rx Instructions: As directed (DME) Select Disposable Briefs Misc See Rx Instructions .ROUTE .MEDSUPPLY Qty: 100 5RF Rx Instructions: As directed (DME) wipes See Rx Instructions .Route .MEDSUPPLY Qty: 400 11RF Rx Instructions: As directed (DME) OneTouch Ultra Test Strip See Rx Instructions .Route Qty: 100 4RF Rx Instructions: check once daily lorazepam 1 mg tablet 1 mg PO BEDTIME PRN (Reason: agitation) 30 Days Qty: 30 0RF Ensure Liquid 1 ea PO .three times a day 25 Days Qty: 5688 6RF (DME) colatrep See Rx Instructions .Route .MEDSUPPLY Qty: 4 0RF Rx Instructions: As directed Neosporin ([id number]) 3.5mg-400 unit- 5,000 unit/gram ointment 1 appl topical DAILY 30 Days Qty: 84.9 11RF tramadol 50 mg tablet 50 mg PO Q6H PRN (Reason: pain) Qty: 20 0RF acetaminophen [Tylenol] 325 mg capsule 325 mg PO Q4H PRN (Reason: pain) Qty: 30 0RF levalbuterol HCl [Xopenex] 0.63 mg/3 mL solution for nebulization 0.63 mg inhalation Q8H sodium chloride 7 % solution for nebulization 4 ml inhalation BID PRN (Reason: bronchospasm) 30 Days Qty: 240 6RF Repatha SureClick 140 mg/mL pen injector 140 mg subcut Q2W 30 Days Qty: 3 6RF enoxaparin [Lovenox] 40 mg/0.4 mL syringe 40 mg subcut DAILY 30 Days Qty: 12 6RF (DME) wheelchair See Rx Instructions .Route .MEDSUPPLY Qty: 1 0RF Rx Instructions: As directed (DME) Shower Chair Misc See Rx Instructions .Route Qty: 1 0RF Rx Instructions: As directed enoxaparin [Lovenox] 40 mg/0.4 mL syringe 40 mg subcut DAILY 30 Days Qty: 12 6RF Glucerna Liquid 1 ea PO .three times a day 30 Days Qty: 237 11RF latanoprost 0.005 % drops 1 drp ophthalmic (eye) BEDTIME levalbuterol tartrate 45 mcg/actuation HFA aerosol inhaler 2 puff inhalation Q4-6H MDD Patient has h/o cardiac diseas PRN (Reason: shortness of breath) 30 Days Qty: 15 2RF nitroglycerin 0.4 mg tablet, sublingual 0.4 mg sublingual Q5M PRN (Reason: chest pain) Qty: 30 5RF Rx Instructions: do not exceed 3 doses per episode fluticasone propion-salmeterol [Advair HFA] 115-21 mcg/actuation HFA aerosol inhaler 2 puff PO Q12H 30 Days Qty: 12 5RF ipratropium bromide 0.02 % solution 2.5 ml inhalation Q6H PRN (Reason: shortness of breath or wheezing) 30 Days Qty: 150 5RF carvedilol 6.25 mg tablet 6.25 mg PO BID Eliquis 5 mg tablet 5 mg PO BID losartan 50 mg tablet 50 mg PO DAILY Print Language: Syrian
[2024-06-21] MEDS: Diatrizoate Meglumine, Sodium 30 ML SOLUTION PO (05:20)
[2024-06-21 06:34] VITALS: BP 112/69; PULSE 73; RESP 14; TEMP 36.4; O2SAT 96
== END 2024-06-21 06:35 | disposition home or self-care (01) ==
PROVIDERS: Emergency Provider Internal Medicine
DX: Z43.1 Encounter for attention to gastrostomy (principal); F03.90 Unspecified dementia, unspecified severity, without behavioral disturbance, psychotic disturbance, mood disturbance, and anxiety; K21.9 Gastro-esophageal reflux disease without esophagitis; I10 Essential (primary) hypertension; Z79.899 Other long term (current) drug therapy
CPT/HCPCS: 43762; 74018; 99283; 99284

== ENCOUNTER 2024-07-02 12:23 | Outpatient (AMB) | payer OTHER, SELFPAY ==
[2024-07-02 12:30] VITALS: BP 90/60; PULSE 82; O2SAT 98; BMI 18.6
--- NOTE | 2024-07-02 12:30 | A.OFFPC_ITS ---
Vital Signs 07/02/24 12:30 Height 4 ft 11 in Weight 92 lb BMI 18.6 BP 90/60 Blood Pressure Location Lt brachial Position Sitting Pulse 82 Pulse Source Pulse Oximeter Pulse Oximetry (%) 98 Oxygen Delivery Method Room Air Intake Visit Reasons: [facility] [place] G-[place] complications Director Of Nuclear Medicine Required: Yes Director Of Nuclear Medicine Language: Luxembourgish Accompanied by: Son Allergies aspirin Allergy (Intermediate, Verified 07/02/24 12:38) rash, pruritus penicillin G Allergy (Intermediate, Verified 07/02/24 12:38) swelling Tobacco use date assessed: 12/05/23 Dental Screening Dental Screen Date: 12/30/23 HPI HPI Comments 2 History of Present Illness Details 74 y/o female patient who [facility] for ED follow up. Pt has Dementia and currently accompanied by her Son. Pt was admitted at [facility] on 06/21/24 after she pulled out her G-tube. She was able to have the G-tube replaced in the ED and discharged home the same day. Son reports that patient does endorse some pain around the G-tube. [facility] Medical History GERD (gastroesophageal reflux disease) Dyslipidemia Urinary incontinence PAF (paroxysmal atrial fibrillation) Atherosclerotic cardiovascular disease Depression with anxiety Anticoagulated Bleeding hemorrhoids Blurry vision Hemorrhoids Ischemic cardiomyopathy Osteoporosis Dementia History of stroke History of [place] (myocardial infarction) Hypovitaminosis D Asthma Anxiety High cholesterol Hypertension Surgical History S/P percutaneous endoscopic gastrostomy (PEG) tube placement (~06/01/24) History of cardiac defibrillator placement History of hysterectomy Family History Father No problems noted. Mother Cerebrovascular accident Sister No problems noted. Sister No problems noted. Son No problems noted. Son No problems noted. Daughter No problems noted. Social History Housing: Apartment Alcohol intake: former Patient Tobacco Use Status: Former Tobacco user Tobacco use type: Cigarette e-Cigarette/Vaping Use: Never Used Second Hand Smoke Exposure: No Advance Directives Date on File: 12/18/20 service: No Current occupational status: retired Cognitive needs: No Hearing needs: No Vision needs: No Questionnaire Thrive Questionnaire Date Thrive assessed: 12/05/23 JUAN PABLO-7 AMB Questionnaire JUAN PABLO-7 Date JUAN PABLO - 7 assessed: 12/05/23 Source: Developed by Drs. Anthony Davis, Megan Davis, Flakito Orlando and colleagues, with an educational chris from [employer]. Review of Systems Const All systems reviewed & are unremarkable except as noted in HPI and below Physical exam (Primary Care) Vital Signs: Last Vital Signs Pulse 82 07/02/24 12:30 BP 90/60 07/02/24 12:30 Pulse Ox 98 07/02/24 12:30 Oxygen Delivery Method Room Air 07/02/24 12:30 BMI result Body Mass Index 18.6 Tobacco/Smoking Status: Tobacco use Status Tobacco use date assessed 12/05/23 07/02/24 12:33 Patient Tobacco Use Status Former Tobacco user 07/02/24 12:33 Tobacco use type Cigarette 07/02/24 12:33 e-Cigarette/Vaping Use Never Used 07/02/24 12:33 Thrive Assessment: Date of Thrive Assessment Date Thrive assessed 12/05/23 07/02/24 12:33 Const General: cooperative and no acute distress Cardio Heart sounds: S1 normal heart sound present and S2 normal heart sound present GI Other: Mild tenderness around the G-tube. Area clean and dry no signs of infection. Palpation (GI): Tenderness to palpation present (GI) other and No hepatosplenomegaly present Auscultation: normal bowel sounds Skin General skin exam: no rashes or lesions noted Neuro General: gait normal and moves all extremities Assessment and Plan Assessment & Plan (1) Status post insertion of percutaneous endoscopic gastrostomy (PEG) tube: Code(s): Z93.1 - Gastrostomy status Plan: Acetaminophen for pain relief F/U with PCP PRN or as scheduled. Coding Level of Care Code Est Pt Level 4 (33371) Diagnoses Status post insertion of percutaneous endoscopic gastrostomy (PEG) tube Z93.1 Time Spent (min) 20
== END 2024-07-02 13:01 | disposition home or self-care (01) ==
PROVIDERS: Visit Provider Nurse Practitioner Family
DX: Z93.1 Gastrostomy status (principal)
CPT/HCPCS: 99214

== ENCOUNTER 2024-07-06 13:17 | Outpatient (AMB) | payer OTHER, SELFPAY ==
--- NOTE | 2024-07-06 13:30 | A.OFFVIS_ITS ---
Vital Signs 07/06/24 13:32 Height 4 ft 11 in Weight 92 lb BMI 18.6 BP 100/58 L Blood Pressure Location Lt brachial Position Sitting Pulse 80 Pulse Source Pulse Oximeter Intake Visit Reasons: 6 mth f/up HS Ecdis N Navigation Operator Required: Yes Ecdis N Navigation Operator Name: [id number] Allergies aspirin Allergy (Intermediate, Verified 07/02/24 12:38) rash, pruritus penicillin G Allergy (Intermediate, Verified 07/02/24 12:38) swelling Medication List - Last Reconciled 07/06/24 by Gege Arvizu NP [abdominal pads As directed] acetaminophen (Tylenol) 325 mg PO Q4H PRN apixaban (Eliquis) 5 mg PO BID atorvastatin 80 mg (2 x 40 mg) PO DAILY 60 days blood sugar diagnostic (t-Art Ultra Test strips) check once daily blood-glucose meter (t-Art Ultra2 Meter) check once daily carvedilol 6.25 mg PO BID cholecalciferol (vitamin D3) 50 mcg PO DAILY 90 days [colatrep As directed] commode As directed diaper,brief,adult,disposable (Select Disposable Briefs) As directed diclofenac sodium 1% (Voltaren Arthritis Pain) 2 grams topical QID donepezil 10 mg PO BEDTIME 90 days enoxaparin (Lovenox) 40 mg (0.4 mL) subcut DAILY 30 days evolocumab (Repatha SureClick) 140 mg subcut Q2W 30 days famotidine 20 mg (2.5 mL) PO BEDTIME PRN 30 days fluticasone propion-salmeterol 115-21 mcg/actuation (Advair HFA) 2 puffs PO Q12H 30 days fluticasone propionate 50 mcg/actuation 1 spray intranasal DAILY PRN food supplemt, lactose-reduced (Ensure oral liquid) 1 ea PO .three times a day 25 days humidifiers As directed ipratropium bromide 2.5 mL inhalation Q6H PRN 30 days lancets (t-Art UltraSoft 2 Lancet) check once per day latanoprost 0.005% 1 drp ophthalmic (eye) BEDTIME latex gloves (Latex Gloves, Large) As directed levalbuterol HCl (Xopenex) 0.63 mg inhalation Q8H levalbuterol tartrate 45 mcg/actuation 2 puffs inhalation Q4-6H PRN 30 days MDD Patient has h/o cardiac diseas lorazepam 1 mg PO BEDTIME PRN 30 days losartan 50 mg PO DAILY 90 days metformin 500 mg PO BID 90 days nebulizer accessories (Adult Aerosol Mask) As directed tnnkbagj-jkdodhiydOn-jyeovqnpG 3.5mg-400 unit- 5,000 unit/gram (Neosporin (xuy-qxg-xjuwd)) 1 appl topical DAILY 30 days nitroglycerin 0.4 mg sublingual Q5M PRN nut.tx.gluc.intol,lac-free,soy (Glucerna oral liquid) 1 ea PO .three times a day 30 days [paper taoe 2 inch As directed] quetiapine 200 mg PO BEDTIME 90 days [regular gauze 4x4 As directed] Shower Chair As directed sodium chloride 7% 4 mL inhalation BID PRN 30 days [sterile gauze 4x4 12 boxes As directed] tramadol 50 mg PO Q6H PRN [wheelchair As directed] [wipes As directed] HPI Comments Details: 74-year-old female presents today with her son for a follow-up. Patient has a history of dementia, PAF, CAD, Ichemic Cardiomyopathy, hypertensive, ICD placement, and recent G-Tube placement. She presents with her son who is doing most of the communication. Certfied Interepter used. Patients son reports patient has not reported or showed signs of any chest pains or shortness of breath. She has not had any signs of bleeding. Medication compliance has increased due to medications being given via g-tube. She has not resumed her lip itor but has been using Repatha every 2 weeks. Blood pressures reported mostly low 100s. [facility] Medical History GERD (gastroesophageal reflux disease) Dyslipidemia Urinary incontinence PAF (paroxysmal atrial fibrillation) Atherosclerotic cardiovascular disease Depression with anxiety Anticoagulated Bleeding hemorrhoids Blurry vision Hemorrhoids Ischemic cardiomyopathy Osteoporosis Dementia History of stroke History of [place] (myocardial infarction) Hypovitaminosis D Asthma Anxiety High cholesterol Hypertension Surgical History (Updated 07/07/24 @ 08:20 by Gege Arvizu NP) S/P percutaneous endoscopic gastrostomy (PEG) tube placement (~06/01/24) History of cardiac defibrillator placement History of hysterectomy Family History Father No problems noted. Mother Cerebrovascular accident Sister No problems noted. Sister No problems noted. Son No problems noted. Son No problems noted. Daughter No problems noted. Social History Housing: Apartment Alcohol intake: former Patient Tobacco Use Status: Former Tobacco user Tobacco use type: Cigarette e-Cigarette/Vaping Use: Never Used Second Hand Smoke Exposure: No Advance Directives Date on File: 12/18/20 service: No Current occupational status: retired Cognitive needs: No Hearing needs: No Vision needs: No Review of Systems Const Denies weakness ENT Denies dizziness Card Denies chest pain, Denies chest pain with activity, Denies syncope, Denies rapid heart rate, Denies pedal edema, Denies edema, Denies leg edema, Denies lightheadedness, Denies palpitations, Denies dyspnea, Denies dyspnea on exertion and Denies orthopnea Resp Denies cough, Denies dyspnea and Denies dyspnea on exertion GI Denies hematochezia and Denies change in stool character Musc Denies abnormal gait, Denies muscle cramps, Denies muscle weakness, Denies numbness, Denies radiating pain into limb and Denies tingling Neuro Denies abnormal gait, Denies dizziness, Denies syncope, Denies numbness, Denies tingling and Denies weakness Endo Denies palpitations Physical Exam Vital Signs: Last Vital Signs Pulse 80 07/06/24 13:32 BP 100/58 L 07/06/24 13:32 BMI result Body Mass Index 18.6 Assessment & Plan Assessment & Plan (1) Atherosclerotic cardiovascular disease: Code(s): I25.10 - Atherosclerotic heart disease of [place] coronary artery without angina pectoris Category: Medical (2) High cholesterol: Code(s): E78.00 - Pure hypercholesterolemia, unspecified Category: Medical (3) Ischemic cardiomyopathy: Comment: follows with [facility] Code(s): I25.5 - Ischemic cardiomyopathy Category: Medical (4) History of cardiac defibrillator placement: Comment: 2007 Code(s): Z95.810 - Presence of automatic (implantable) cardiac defibrillator Category: Medical (5) PAF (paroxysmal atrial fibrillation): Code(s): I48.0 - Paroxysmal atrial fibrillation Category: Medical (6) Hypertension: Code(s): I10 - Essential (primary) hypertension Category: Medical Qualifiers: Hypertension type: unspecified Qualified Code(s): I10 - Essential (primary) hypertension Plan Echocardiogram in 2021 with LVEF of 35-40% with LAD territory infarction. Clinically, no heart failure symptoms or signs. No reports of palpitations. On carvedilol, repatha, eliquis. Blood pressures overall controlled at home. Last LDL was 181. Only using repatha. Son asks if patient should use atorvastatin too now that she has the gastic tube. Informed to wait till labs. Blood pressures overall controlled at home. Has ICD without any concerns. On remote montoring. Orders: Orders Lipid Panel 07/06/24 I25.10 - Atherosclerotic heart disease of [place] coronary artery without angina pectoris Basic Metabolic Panel 07/06/24 I25.10 - Atherosclerotic heart disease of [place] coronary artery without angina pectoris Coding Level of Care Code Est Pt Level 4 (61809) Diagnoses Atherosclerotic cardiovascular disease I25.10 High cholesterol E78.00 Ischemic cardiomyopathy I25.5 History of cardiac defibrillator placement Z95.810 PAF (paroxysmal atrial fibrillation) I48.0 Hypertension, unspecified type I10 Hypertension type: unspecified
[2024-07-06 13:32] VITALS: BP 100/58; PULSE 80; BMI 18.6
== END 2024-07-06 14:08 | disposition home or self-care (01) ==
PROVIDERS: PCP Internal Medicine; Visit Provider Nurse Practitioner
DX: I25.10 Atherosclerotic heart disease of native coronary artery without angina pectoris (principal); E78.00 Pure hypercholesterolemia, unspecified; I25.5 Ischemic cardiomyopathy; Z95.810 Presence of automatic (implantable) cardiac defibrillator; I48.0 Paroxysmal atrial fibrillation; I10 Essential (primary) hypertension
CPT/HCPCS: 99214

== ENCOUNTER → 2024-07-06 13:17 | Outpatient (BNVA) | payer OTHER, SELFPAY | PROVIDERS: PCP Internal Medicine; Visit Provider Nurse Practitioner | DX: I48.0 Paroxysmal atrial fibrillation (principal); I25.10 Atherosclerotic heart disease of native coronary artery without angina pectoris; I10 Essential (primary) hypertension; I25.5 Ischemic cardiomyopathy; E78.00 Pure hypercholesterolemia, unspecified; Z95.810 Presence of automatic (implantable) cardiac defibrillator | CPT/HCPCS: 99212 ==

== ENCOUNTER 2024-08-10 13:54 | Outpatient (AMB) | payer OTHER, SELFPAY ==
--- NOTE | 2024-08-10 13:58 | A.OFFVIS_ITS ---
Vital Signs 08/10/24 14:01 Height 4 ft 11 in Weight 95 lb 7.362 oz BMI 19.3 BP 98/60 Blood Pressure Location Lt brachial Position Sitting Pulse 79 Pulse Source Pulse Oximeter Pulse Oximetry (%) 99 Oxygen Delivery Method Room Air Intake Visit Reasons: Osteoporosis Intake Note: Patient presents for Osteoporosis. Sealer Dry Cell Required: Yes Sealer Dry Cell Language: Complaint Evaluation Supervisor Services: Sealer Dry Cell Present Sealer Dry Cell Name: [id number] Information Interpreted: non-clinical & clinical Wastewater Project Manager: Wastewater Project Manager Present Accompanied by: Son Allergies aspirin Allergy (Intermediate, Verified 08/10/24 14:02) rash, pruritus penicillin G Allergy (Intermediate, Verified 08/10/24 14:02) swelling Medication List - Last Reconciled 08/10/24 by Ty Martínez MD [abdominal pads As directed] acetaminophen (Children's Tylenol) 320 mg (10 mL) feeding tube Q6H PRN apixaban (Eliquis) 5 mg PO BID atorvastatin 80 mg (2 x 40 mg) PO DAILY 60 days blood sugar diagnostic (Ban[employer]! Ultra Test strips) check once daily blood-glucose meter (Banter! Ultra2 Meter) check once daily carvedilol 6.25 mg PO BID cholecalciferol (vitamin D3) 50 mcg PO DAILY 90 days [colatrep As directed] commode As directed diaper,brief,adult,disposable (Select Disposable Briefs) As directed diclofenac sodium 1% (Voltaren Arthritis Pain) 2 grams topical QID donepezil 10 mg PO BEDTIME 90 days enoxaparin (Lovenox) 40 mg (0.4 mL) subcut DAILY 30 days evolocumab (Repatha SureClick) 140 mg subcut Q2W 30 days famotidine 20 mg (2.5 mL) PO BEDTIME PRN 30 days fluticasone propion-salmeterol 115-21 mcg/actuation (Advair HFA) 2 puffs PO Q12H 30 days fluticasone propionate 50 mcg/actuation 1 spray intranasal DAILY PRN food supplemt, lactose-reduced (Ensure oral liquid) 1 ea PO .three times a day 25 days humidifiers As directed ipratropium bromide 2.5 mL inhalation Q6H PRN 30 days lancets ([employer] CorporationTouch UltraSoft 2 Lancet) check once per day latanoprost 0.005% 1 drp ophthalmic (eye) BEDTIME latex gloves (Latex Gloves, Large) As directed levalbuterol HCl (Xopenex) 0.63 mg inhalation Q8H levalbuterol tartrate 45 mcg/actuation 2 puffs inhalation Q4-6H PRN 30 days MDD Patient has h/o cardiac diseas lorazepam 1 mg PO BEDTIME PRN 30 days losartan 50 mg PO DAILY 90 days metformin 500 mg PO BID 90 days nebulizer accessories (Adult Aerosol Mask) As directed mudwikjk-dhhlshnzsKw-ryderjxkX 3.5mg-400 unit- 5,000 unit/gram (Neosporin (egw-zah-dskji)) 1 appl topical DAILY 30 days nitroglycerin 0.4 mg sublingual Q5M PRN nut.tx.gluc.intol,lac-free,soy (Glucerna oral liquid) 1 ea PO .three times a day 30 days [paper taoe 2 inch As directed] quetiapine 200 mg PO BEDTIME 90 days [regular gauze 4x4 As directed] Shower Chair As directed sodium chloride 7% 4 mL inhalation BID PRN 30 days [sterile gauze 4x4 As directed] tramadol 50 mg PO Q6H PRN [wheelchair As directed] [wipes As directed] HPI Comments Details: 74-year-old female with severe dementia and osteoporosis returns for follow-up with her son. She received the infusion on 02/17/2024. Infusion was uneventful. Per son after the infusion patient was walking straight. After 3 months she was starting to have more joint pains. He was told that the infusion may be wearing off. Initial history: This is a 73 year-old female who presents for evaluation of osteoporosis. She was diagnosed with osteoporosis last year and started on alendronate by her PCP, patient has significant dementia and does not take pills. Was not taking her alendronate. Her PCP referred her to be evaluated for a parenteral route for osteoporosis medication. Even her Eliquis was recently switched to enoxaparin. Her son accompanies her. Patient does not participate in the interview. He also states that patient does not eat well at all she has lost significant weight over the last 2 years. States that recently she has been having pain in her lower back then her legs. He does not recall any recent falls. States that she had multiple near falls but he is able to catch her. She was found to have old rib fractures on x-rays done in 2007. No other known fractures [facility] Medical History GERD (gastroesophageal reflux disease) Dyslipidemia Urinary incontinence PAF (paroxysmal atrial fibrillation) Atherosclerotic cardiovascular disease Depression with anxiety Anticoagulated Bleeding hemorrhoids Blurry vision Hemorrhoids Ischemic cardiomyopathy Osteoporosis Dementia History of stroke History of [place] (myocardial infarction) Hypovitaminosis D Asthma Anxiety High cholesterol Hypertension Surgical History S/P percutaneous endoscopic gastrostomy (PEG) tube placement (~06/01/24) History of cardiac defibrillator placement History of hysterectomy Family History Father No problems noted. Mother Cerebrovascular accident Sister No problems noted. Sister No problems noted. Son No problems noted. Son No problems noted. Daughter No problems noted. Social History Housing: Apartment Alcohol intake: former Patient Tobacco Use Status: Former Tobacco user Tobacco use type: Cigarette e-Cigarette/Vaping Use: Never Used Second Hand Smoke Exposure: No Advance Directives Date on File: 12/18/20 service: No Current occupational status: retired Cognitive needs: No Hearing needs: No Vision needs: No Review of Systems Musc Reports arthralgias Physical Exam Vital Signs: Last Vital Signs Pulse 79 08/10/24 14:01 BP 98/60 08/10/24 14:01 Pulse Ox 99 08/10/24 14:01 Oxygen Delivery Method Room Air 08/10/24 14:01 BMI result Body Mass Index 19.3 Const General: cooperative, healthy appearing and comfortable Nutritional Appearance: thin Limitations: ambulation with cane Resp Effort & Inspection: normal respiratory effort Skin General skin exam: no rashes or lesions noted Extrem Other: Osteoarthritic changes of both hands No swollen joints Normal gait Assessment & Plan Assessment & Plan (1) Osteoporosis: Code(s): M81.0 - Age-related osteoporosis without current pathological fracture Category: Medical Qualifiers: Osteoporosis type: age-related Presence of current pathological fracture: without current pathological fracture Qualified Code(s): M81.0 - Age- related osteoporosis without current pathological fracture Plan: This is a 74-year-old female with dementia who presents for evaluation of osteoporosis. She was diagnosed with osteoporosis last year and started on alendronate. Patient has not been taking it as she no longer takes her oral meds due to significant dementia. Per last visit, there was no plan to do a PEG tube. We decided on Reclast. Patient received Reclast infusion 02/17/2024. Infusion was uneventful. Discussed with patient's son that Reclast generally does not improve or worsen joint pains. Patient now has a PEG tube. Vitamin-D level is at target. I think we should continue with Reclast infusions. A total of 3 doses. Plan to repeat Reclast infusion 2024 Follow-up in 6 months (2) Chronic lower back pain: Code(s): M54.50 - Low back pain, unspecified; G89.29 - Other chronic pain Category: Medical Qualifiers: Back pain laterality: right Sciatica presence: without sciatica Qualified Code(s): M54.50 - Low back pain, unspecified; G89.29 - Other chronic pain Plan: Patient was on Tylenol capsules q.4 to 6 hours for pain. Patient's son would like to substitute it with liquid form. I prescribed the liquid form of Tylenol. Plan I spent 24 minutes reviewing patient's chart, evaluating patient, counseling patient and her son and documenting in the chart Medications: New acetaminophen (Children's Tylenol) 320 mg (10 mL) feeding tube Q6H PRN 360 mL 1RF fever or pain Discontinued acetaminophen (Tylenol) Discontinued Reason: Doctor's Order 325 mg PO Q4H PRN 30 caps 0RF pain Coding Level of Care Code Est Pt Level 4 (83577) Diagnoses Age-related osteoporosis without current pathological fracture M81.0 Osteoporosis type: age-related Presence of current pathological fracture: without current pathological fracture Chronic right-sided low back pain without sciatica M54.50; G89.29 Back pain laterality: right Sciatica presence: without sciatica
[2024-08-10 14:01] VITALS: BP 98/60; PULSE 79; O2SAT 99; BMI 19.3
== END 2024-08-10 14:24 | disposition home or self-care (01) ==
PROVIDERS: PCP Internal Medicine; Visit Provider Student in an Organized Health Care Education/Training Program
DX: M81.0 Age-related osteoporosis without current pathological fracture (principal); M54.50 Low back pain, unspecified; G89.29 Other chronic pain
CPT/HCPCS: 99214

== ENCOUNTER → 2024-08-10 13:54 | Outpatient (BNVA) | payer OTHER, SELFPAY | PROVIDERS: PCP Internal Medicine; Visit Provider Student in an Organized Health Care Education/Training Program | DX: M81.0 Age-related osteoporosis without current pathological fracture (principal); F03.90 Unspecified dementia, unspecified severity, without behavioral disturbance, psychotic disturbance, mood disturbance, and anxiety; M54.50 Low back pain, unspecified; G89.29 Other chronic pain; Z93.1 Gastrostomy status | CPT/HCPCS: 99212 ==

== ENCOUNTER → 2024-08-23 23:59 | Outpatient (BNV) | payer OTHER, SELFPAY ==
--- NOTE | 2024-08-29 10:02 | MHC.OFFVIS ---
Intake Visit Reasons: Remote ICD check- [employer] Allergies aspirin Allergy (Intermediate, Verified 08/10/24 14:02) rash, pruritus penicillin G Allergy (Intermediate, Verified 08/10/24 14:02) swelling PFSH Medical History GERD (gastroesophageal reflux disease) Dyslipidemia Urinary incontinence PAF (paroxysmal atrial fibrillation) Atherosclerotic cardiovascular disease Depression with anxiety Anticoagulated Bleeding hemorrhoids Blurry vision Hemorrhoids Ischemic cardiomyopathy Osteoporosis Dementia History of stroke History of [place] (myocardial infarction) Hypovitaminosis D Asthma Anxiety High cholesterol Hypertension Surgical History S/P percutaneous endoscopic gastrostomy (PEG) tube placement (~06/01/24) History of cardiac defibrillator placement History of hysterectomy Family History Father No problems noted. Mother Cerebrovascular accident Sister No problems noted. Sister No problems noted. Son No problems noted. Son No problems noted. Daughter No problems noted. Social History Housing: Apartment Alcohol intake: former Patient Tobacco Use Status: Former Tobacco user Tobacco use type: Cigarette e-Cigarette/Vaping Use: Never Used Second Hand Smoke Exposure: No Advance Directives Date on File: 12/18/20 service: No Current occupational status: retired Cognitive needs: No Hearing needs: No Vision needs: No Office Procedures Cardiac Device Check Cardiac Device Check Details: Date of service 08/23/2024; Battery life 2.5years; normal lead parameters; no treated VT/VF; normal ICD function. [id number] Cardiac Interrogation, implant defibrillator w/interim Procedure code (CPT) selection complete Assessment & Plan Assessment & Plan (1) ICD (implantable cardioverter-defibrillator) in place: Code(s): Z95.810 - Presence of automatic (implantable) cardiac defibrillator Category: Medical (2) Ischemic cardiomyopathy: Comment: follows with [facility] Code(s): I25.5 - Ischemic cardiomyopathy Category: Medical Plan x Coding Level of Care Code Procedure Only Diagnoses ICD (implantable cardioverter-defibrillator) in place Z95.810 Ischemic cardiomyopathy I25.5 CPT Codes Cardiac Device Check - Cardiac Device 13: [id number] Cardiac Interrogation, implant defibrillator w/interim ([id number])
== END ==
PROVIDERS: PCP Internal Medicine; Visit Provider Internal Medicine
DX: I25.5 Ischemic cardiomyopathy (principal); Z95.810 Presence of automatic (implantable) cardiac defibrillator
CPT/HCPCS: 93295

== ENCOUNTER 2024-09-06 11:41 | Outpatient (REF) | payer OTHER, SELFPAY ==
[2024-09-06 12:46] LABS: Anion Gap 13 (12-20); Blood Urea Nitrogen 16 mg/dL (9-16); Calcium 9.9 mg/dL (8.4-10.2); Carbon Dioxide 24 mmol/L (22-29); Chloride 108 mmol/L (96-108); Cholesterol 177 mg/dL (<200); Estimated Glomerular Filt Rate 54; Glucose Random 126 mg/dL (60-115); HDL Cholesterol 70 mg/dL (>40); LDL Cholesterol Calculated 83 mg/dL (<100); Potassium 4.1 mmol/L (3.3-5.1); Sodium 141 mmol/L (135-145); Triglycerides 124 mg/dL (<150)
== END 2024-09-06 11:42 | disposition home or self-care (01) ==
LOC: HO.LAB 11:41
PROVIDERS: Nurse Practitioner; PCP Internal Medicine; Visit Provider Internal Medicine
DX: E11.9 Type 2 diabetes mellitus without complications (principal); G30.0 Alzheimer's disease with early onset; F02.C3 Dementia in other diseases classified elsewhere, severe, with mood disturbance; K21.9 Gastro-esophageal reflux disease without esophagitis; I10 Essential (primary) hypertension; E78.00 Pure hypercholesterolemia, unspecified; I25.10 Atherosclerotic heart disease of native coronary artery without angina pectoris; Z79.899 Other long term (current) drug therapy
CPT/HCPCS: 36415; 80048; 80061; 83036; 96127; 99212

== ENCOUNTER 2024-09-06 13:10 | Outpatient (AMB) | payer OTHER, SELFPAY ==
--- NOTE | 2024-09-06 13:40 | A.OFFPC_ITS ---
Vital Signs 09/06/24 13:48 Height 4 ft 11 in Weight 96 lb 12.527 oz BMI 19.5 BP 110/72 Blood Pressure Location Lt brachial Position Sitting Intake Visit Reasons: dm Intake Note: Patient here for a follow DM Departure Clerk Required: No Accompanied by: Son Allergies aspirin Allergy (Intermediate, Verified 09/06/24 14:17) rash, pruritus penicillin G Allergy (Intermediate, Verified 09/06/24 14:17) swelling Medication List - Last Reconciled 09/06/24 by Ana Maria Sneed MD [abdominal pads As directed] acetaminophen (Children's Tylenol) 320 mg (10 mL) feeding tube Q6H PRN apixaban (Eliquis) 5 mg PO BID atorvastatin 80 mg (2 x 40 mg) PO DAILY 60 days blood sugar diagnostic ([employer] Ultra Test strips) check once daily blood-glucose meter ([employer] Ultra2 Meter) check once daily carvedilol 6.25 mg PO BID cholecalciferol (vitamin D3) 50 mcg PO DAILY 90 days [cleansing wipes Use 1 wipe once a day] [colatrep As directed] commode As directed diaper,brief,adult,disposable (Select Disposable Briefs) As directed diclofenac sodium 1% (Voltaren Arthritis Pain) 2 grams topical QID donepezil 10 mg PO BEDTIME 90 days enoxaparin (Lovenox) 40 mg (0.4 mL) subcut DAILY 30 days evolocumab (Repatha SureClick) 140 mg subcut Q2W 30 days famotidine 20 mg (2.5 mL) PO BEDTIME PRN 30 days fluticasone propion-salmeterol 115-21 mcg/actuation (Advair HFA) 2 puffs PO Q12H 30 days fluticasone propionate 50 mcg/actuation 1 spray intranasal DAILY PRN food supplemt, lactose-reduced (Ensure oral liquid) 1 ea PO .three times a day 25 days gauze bandage (Band-Aid Gauze Pads) Use 1 gauze once a day gauze bandage (Band-Aid Gauze Pads) Use 1 gauze once a day humidifiers As directed ipratropium bromide 2.5 mL inhalation Q6H PRN 30 days [irrigation tray As directed] lancets ([employer] UltraSoft 2 Lancet) check once per day latanoprost 0.005% 1 drp ophthalmic (eye) BEDTIME latex gloves (Latex Gloves, Large) As directed levalbuterol HCl (Xopenex) 0.63 mg inhalation Q8H levalbuterol tartrate 45 mcg/actuation 2 puffs inhalation Q4-6H PRN 30 days MDD Patient has h/o cardiac diseas lorazepam 1 mg PO BEDTIME PRN 30 days losartan 50 mg PO DAILY 90 days metformin 500 mg PO BID 90 days nebulizer accessories (Adult Aerosol Mask) As directed tjtoldba-cahczznfvAf-xstxyhpyI 3.5mg-400 unit- 5,000 unit/gram (Neosporin (inn-osv-uibte)) 1 appl topical DAILY 30 days nitroglycerin 0.4 mg sublingual Q5M PRN nut.tx.gluc.intol,lac-free,soy (Glucerna oral liquid) 1 ea PO .three times a day 30 days [paper taoe 2 inch As directed] quetiapine 200 mg PO BEDTIME 90 days [regular gauze 4x4 As directed] Shower Chair As directed sodium chloride 7% 4 mL inhalation BID PRN 30 days [sterile gauze 2x2 As directed] syringe, ENFit, non-sterile (Piston Syringe with ENFit) Use 1 syringe once a day tramadol 50 mg PO Q6H PRN [wheelchair As directed] [wipes As directed] Tobacco use date assessed: 12/05/23 Fall risk assessment: No Falls in past year Last assessed Fall Risk: 09/06/24 Dental Screening Dental Screen Date: 12/30/23 Did you have a dental visit in the last 12 months?: No Did you have a dental problem in the last 6 months where you did not have access to dental care?: No Was dental information given to patient?: Patient has dentist HPI HPI Comments History of Present Illness Details The patient is a 74-year-old female presenting for the evaluation and management of her chronic conditions accompanied by otm consultant which is her son, with particular focus on her current medication regimen. The patient has been previously diagnosed with hyperlipidemia, dementia, and hypertension. She reports allergies to aspirin, which causes a rash, and penicillin, which causes swelling. Currently, she is prescribed atorvastatin 80 mg for cholesterol management, with LDL noted to be 83 mg/dL, targeting a goal of 70 mg/dL. The patient has been on carvedilol for hypertension and donepezil for dementia. She experienced a fall, which was a novel event for her. For gastric issues, she takes famotidine. Recent changes to her regimen include starting an injectable medication for hyperlipidemia but was advised to stop this given the concurrent use of endogenous atorvastatin when her LDL was previously observed. She uses losartan and metformin for hypertension and diabetes management, respectively. Seroquel (quetiapine) is being used, with a current dose of 100 mg; however, it was noted that risperidone had adverse effects leading to discontinuation. The patient's renal function is considered stable, and no current smoking habits were reported. [facility] Medical History GERD (gastroesophageal reflux disease) Dyslipidemia Urinary incontinence PAF (paroxysmal atrial fibrillation) Atherosclerotic cardiovascular disease Depression with anxiety Anticoagulated Bleeding hemorrhoids Blurry vision Hemorrhoids Ischemic cardiomyopathy Osteoporosis Dementia History of stroke History of [place] (myocardial infarction) Hypovitaminosis D Asthma Anxiety High cholesterol Hypertension Surgical History S/P percutaneous endoscopic gastrostomy (PEG) tube placement (~06/01/24) History of cardiac defibrillator placement History of hysterectomy Family History Father No problems noted. Mother Cerebrovascular accident Sister No problems noted. Sister No problems noted. Son No problems noted. Son No problems noted. Daughter No problems noted. Social History Housing: Apartment Alcohol intake: former Patient Tobacco Use Status: Former Tobacco user Tobacco use type: Cigarette e-Cigarette/Vaping Use: Never Used Second Hand Smoke Exposure: No Advance Directives Date on File: 12/18/20 service: No Current occupational status: retired Cognitive needs: No Hearing needs: No Vision needs: No Questionnaire PHQ-9 Over the last 2 weeks, how often have you been bothered by any of the following problems? 1. Little interest or pleasure in doing things: not at all 2. Feeling down, depressed, or hopeless: not at all 3. Trouble falling or staying asleep, or sleeping too much: not at all 4. Feeling tired or having little energy: not at all 5. Poor appetite or overeating: not at all 6. Feeling bad about yourself - or that you are a failure or have let yourself or your family down: not at all 7. Trouble concentrating on things, such as reading the newspaper or watching television: not at all 8. Moving or speaking so slowly that other people could have noticed. Or the opposite - being so fidgety or restless that you have been moving around a lot more than usual: not at all 9. Thoughts that you would be better off or of hurting yourself in some way: not at all Total score: 0 Depression Screening Interpretation: Negative Depression Screening Done: Yes 66924 - PHQ-9 Billing: Yes Source: Developed by Drs. Anthony Davis, Megan Davis, Flakito Orlando and colleagues, with an educational chris from [employer]. Thrive Questionnaire Date Thrive assessed: 09/06/24 I am a: Patient What is your living situation today?: I have a steady place to live Within the past 12 months, did the food you bought not last and you didn't have the money to get more?: Never true Within the past 12 months, did you worry whether your food would run out before you got money to buy more?: Never true Do you have trouble paying for medicines?: No Do you have trouble getting transportation to medical appointments?: No Do you have trouble paying your heating and electricity bill?: No Do you have trouble taking care of your child, family member or friend?: No Do you have trouble with day-to-day activities such as bathing, preparing meals, shopping, managing finances, etc.?: No Are you currently unemployed and looking for a job?: No Are you interested in more education?: No Please select the resources that you would like help with: None Currently or been in a relationship where the following occur: No concerns reported THRIVE Score: 0 AUDIT C Alcohol Use Questionnaire (AUDIT-C) 1. How often do you have a drink containing alcohol?: Never Total Score: 0 Score Reviewed/Action Taken: No JUAN PABLO-7 AMB Questionnaire JUAN PABLO-7 Date JUAN PABLO - 7 assessed: 09/06/24 Feeling nervous, anxious, or on edge: 0 = Not at all Not being able to stop or control worryin = Not at all Worrying too much about different things: 0 = Not at all Trouble relaxin = Not at all Being so restless that it is hard to sit still: 0 = Not at all Becoming easily annoyed or irritable: 0 = Not at all Feeling afraid as if something awful might happen: 0 = Not at all Total JUAN PABLO-7 score (0-4 normal; 5-9 mild; 10-14 moderate; 15-21 severe): 0 Source: Developed by Drs. Anthony Davis, Megan Davis, Flakito Orlando and colleagues, with an educational chris from [employer]. JUAN PABLO-7 Assessment Billing JUAN PABLO-7 Assessment Tool: JUAN PABLO-7 Assessment 39650 Review of Systems Const All systems reviewed & are unremarkable except as noted in HPI and below Card Denies chest pain at rest, Denies chest pain with activity, Denies edema, Denies irregular heart rhythm, Denies claudication, Denies dyspnea, Denies dyspnea on exertion, Denies orthopnea, Denies paroxysmal nocturnal dyspnea and Denies slow heart rate Resp Denies cough, Denies dyspnea and Denies dyspnea on exertion Neuro Reports confusion and Reports memory loss Psych Reports confusion and Reports memory loss Physical exam (Primary Care) Vital Signs: Last Vital Signs BP 110/72 09/06/24 13:48 BMI result Body Mass Index 19.5 BMI Assessment/Plan discussion: Low BMI Low, Plan discussed: lifestyle, increase calorie intake and dietary Tobacco/Smoking Status: Tobacco use Status Tobacco use date assessed 12/05/23 09/06/24 13:44 Patient Tobacco Use Status Former Tobacco user 09/06/24 13:44 Tobacco use type Cigarette 09/06/24 13:44 e-Cigarette/Vaping Use Never Used 09/06/24 13:44 PHQ-9: PHQ-9 Score PHQ-9: Total score 0 09/06/24 16:52 Depression Screening Interpretation: Negative Thrive Assessment: Date of Thrive Assessment Date Thrive assessed 09/06/24 09/06/24 13:44 Currently or been in a relationship where the following occur: No concerns reported Const General: confusion Orientation/consciousness: confusion Resp Effort & Inspection: normal respiratory effort Auscultation: clear to auscultation bilaterally Cardio Jugular venous distension: no JVD Rate: regular rate Rhythm: regular rhythm Heart sounds: S1 normal heart sound present and S2 normal heart sound present Neuro General: confusion Extrem General: Yes full ROM Results AMB Hemoglobin A1c AMB Hemoglobin A1c 5.6 % Last Edit by YASH Duff on 09/06/24 14:1 1 Results Reviewed Results Reviewed: Laboratory Last Values Hgb A1c (Clinic) 5.6 % (4.0-6.0) 09/06/24 13:40 Coding Level of Care Code Est Pt Level 4 (43389) Complex EM visit Add On G2211 Diagnoses Type 2 diabetes mellitus without complication, without long-term current use of insulin E11.9 Diabetes mellitus type: type 2 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: without regional intermodal 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 driver use Diabetes mellitus complication status: without complication 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 G30.0; F02.C3 Dementia type: Alzheimer's Alzheimer's disease onset: early onset Dementia severity: severe Dementia behavioral or psychological symptom: with mood disturbance GERD (gastroesophageal reflux disease) K21.9 Hypertension, unspecified type I10 Hypertension type: unspecified High cholesterol E78.00 Additional Codes JUAN PABLO-7 Assessment Billing - JUAN PABLO-7 Assessment Tool: JUAN PABLO-7 Assessment 24194 ([id number]) PHQ-9 - 48993 - PHQ-9 Billing: Yes ([id number]) Time Spent (min) 23 Assessment & Plan Assessment & Plan (1) Diabetes mellitus: Code(s): E11.9 - Type 2 diabetes mellitus without complications Category: Medical Qualifiers: Diabetes mellitus type: type 2 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 Is good that her son takes care of her and looks over the meds administration. Code(s): F03.90 - Unspecified dementia, unspecified severity, without behavioral disturbance, psychotic disturbance, mood disturbance, and anxiety Category: Medical Qualifiers: Dementia type: Alzheimer's Alzheimer's disease onset: early onset D ementia severity: severe Dementia behavioral or psychological symptom: with mood disturbance Qualified Code(s): G30.0 - Alzheimer's disease with early onset; F02.C3 - Dementia in other diseases classified elsewhere, severe, with mood disturbance (3) GERD (gastroesophageal reflux disease): Code(s): K21.9 - Gastro-esophageal reflux disease without esophagitis Category: Medical (4) Hypertension: Code(s): I10 - Essential (primary) hypertension Category: Medical Qualifiers: Hypertension type: unspecified Qualified Code(s): I10 - Essential (primary) hypertension (5) High cholesterol: Code(s): E78.00 - Pure hypercholesterolemia, unspecified Category: Medical Plan - Allergic reactions to aspirin and penicillin: Avoid these medications, and ensure all healthcare providers are aware of these allergies. - Dementia: Continue with donepezil for cognitive symptoms. Evaluate the need for further psychiatric medication adjustments. - Hyperlipidemia: Continue atorvastatin, reassess injectable hyperlipidemia treatment, and monitor LDL levels. - Hypertension: Continue current medication regimen including losartan and carbidilol. - Stomach acid issues: Continue famotidine and monitor symptoms. Patient was informed and verbally consented to the use of an ambient scribe for clinic note documentation during this visit. I discussed with the patient and her family the current status of her allergies, specifically to aspirin and penicillin, and emphasized avoiding these medications to prevent adverse reactions. The management of her dementia with donepezil was reviewed, and past adverse reactions to risperidone were noted for her psychiatric care. I also reviewed her hyperlipidemia management with atorvastatin and discussed prioritizing oral therapy over injectable treatment until goals are achieved. Hypertension control with her current regimen was considered stable, and I confirmed the ongoing use of losartan and carbidilol. An approach for managing gastrointestinal symptoms was discussed with the continued use of famotidine. I highlighted the importance of monitoring her renal function and overall health given her age and multi-morbidity. Orders: Orders AMB Hemoglobin A1c Today E11.9 - Type 2 diabetes mellitus without complications Medications: New quetiapine 50 mg PO DAILY 30 days 30 tabs 3RF Patient Instructions: - Avoid aspirin and penicillin to prevent allergic reactions. - Continue taking atorvastatin, carbidilol, losartan, and metformin as prescribed. - Monitor blood pressure and blood sugar levels as instructed. - Use famotidine for stomach acid symptoms and report any changes. - Follow new medication guidelines and report any adverse effects or symptoms. - Schedule a follow-up for further assessment and management of her conditions.
[2024-09-06 13:48] VITALS: BP 110/72; BMI 19.5
== END 2024-09-06 14:30 | disposition home or self-care (01) ==
PROVIDERS: PCP Internal Medicine; Visit Provider Internal Medicine
DX: E11.9 Type 2 diabetes mellitus without complications (principal); G30.0 Alzheimer's disease with early onset; F02.C3 Dementia in other diseases classified elsewhere, severe, with mood disturbance; K21.9 Gastro-esophageal reflux disease without esophagitis; I10 Essential (primary) hypertension; E78.00 Pure hypercholesterolemia, unspecified

== ENCOUNTER → 2024-10-19 13:15 | Outpatient (BNV) | payer OTHER, SELFPAY | PROVIDERS: PCP Internal Medicine; Visit Provider Internal Medicine | DX: Z12.31 Encounter for screening mammogram for malignant neoplasm of breast (principal) | CPT/HCPCS: 77063; 77067 ==

== ENCOUNTER 2024-10-19 13:17 | Outpatient (REF) | payer OTHER, SELFPAY | END 2024-10-19 13:18 | disposition home or self-care (01) | LOC: HO.MAMMO 13:17 | PROVIDERS: PCP Internal Medicine; Visit Provider Internal Medicine | DX: Z12.31 Encounter for screening mammogram for malignant neoplasm of breast (principal) | CPT/HCPCS: 77063; 77067 ==

== ENCOUNTER → 2024-11-22 23:59 | Outpatient (BNV) | payer OTHER, SELFPAY ==
--- NOTE | 2024-11-30 15:42 | A.OFFVIS_ITS ---
Intake Visit Reasons: Remote ICD check- [employer] Allergies aspirin Allergy (Intermediate, Verified 09/06/24 14:17) rash, pruritus penicillin G Allergy (Intermediate, Verified 09/06/24 14:17) swelling PFSH Medical History GERD (gastroesophageal reflux disease) Dyslipidemia Urinary incontinence PAF (paroxysmal atrial fibrillation) Atherosclerotic cardiovascular disease Depression with anxiety Anticoagulated Bleeding hemorrhoids Blurry vision Hemorrhoids Ischemic cardiomyopathy Osteoporosis Dementia History of stroke History of [place] (myocardial infarction) Hypovitaminosis D Asthma Anxiety High cholesterol Hypertension Surgical History S/P percutaneous endoscopic gastrostomy (PEG) tube placement (~06/01/24) History of cardiac defibrillator placement History of hysterectomy Family History Father No problems noted. Mother Cerebrovascular accident Sister No problems noted. Sister No problems noted. Son No problems noted. Son No problems noted. Daughter No problems noted. Social History Housing: Apartment Alcohol intake: former Patient Tobacco Use Status: Former Tobacco user Tobacco use type: Cigarette e-Cigarette/Vaping Use: Never Used Second Hand Smoke Exposure: No Advance Directives Date on File: 12/18/20 service: No Current occupational status: retired Cognitive needs: No Hearing needs: No Vision needs: No Office Procedures Cardiac Device Check Cardiac Device Check Details: Date of service 11/22/2024; Battery life 2 years; normal lead parameters; no treated VT/VF; normal ICD function. [id number] Cardiac Interrogation, implant defibrillator w/interim Procedure code (CPT) selection complete Assessment & Plan Assessment & Plan (1) ICD (implantable cardioverter-defibrillator) in place: Code(s): Z95.810 - Presence of automatic (implantable) cardiac defibrillator Category: Medical (2) Ischemic cardiomyopathy: Comment: follows with [facility] Code(s): I25.5 - Ischemic cardiomyopathy Category: Medical Plan x Coding Level of Care Code Procedure Only Diagnoses ICD (implantable cardioverter-defibrillator) in place Z95.810 Ischemic cardiomyopathy I25.5 CPT Codes Cardiac Device Check - Cardiac Device 13: [id number] Cardiac Interrogation, implant defibrillator w/interim ([id number])
== END ==
PROVIDERS: PCP Internal Medicine; Visit Provider Internal Medicine
DX: I25.5 Ischemic cardiomyopathy (principal); Z95.810 Presence of automatic (implantable) cardiac defibrillator
CPT/HCPCS: 93295

== ENCOUNTER 2024-12-16 14:05 | Outpatient (AMB) | payer OTHER, SELFPAY ==
--- NOTE | 2024-12-16 14:10 | MHC.OFFVIS ---
Vital Signs 12/16/24 14:14 Height 4 ft 11 in Weight 97 lb BMI 19.6 BP 102/62 Blood Pressure Location Lt brachial Position Sitting Pulse 68 Pulse Source Pulse Oximeter Pulse Oximetry (%) 98 Oxygen Delivery Method Room Air Intake Visit Reasons: Asthma Intake Note: pt is here for follow up , she does have some wheeze, using nebulizer Tow Bar Driver Required: No Allergies aspirin Allergy (Intermediate, Verified 12/16/24 14:29) rash, pruritus penicillin G Allergy (Intermediate, Verified 12/16/24 14:29) swelling Medication List - Last Reconciled 12/16/24 by Virgilio De Oliveira MD [abdominal pads As directed] acetaminophen (Children's Tylenol) 320 mg (10 mL) feeding tube Q6H PRN apixaban (Eliquis) 5 mg PO BID 90 days atorvastatin 80 mg PO BEDTIME blood sugar diagnostic ([employer] Ultra Test strips) check once daily blood-glucose meter (Anal[employer] Discovery Ultra2 Meter) check once daily carvedilol 6.25 mg PO BID cholecalciferol (vitamin D3) 50 mcg PO DAILY 90 days [cleansing wipes Use 1 wipe once a day] [colatrep As directed] commode As directed diaper,brief,adult,disposable (Select Disposable Briefs) As directed diclofenac sodium 1% (Voltaren Arthritis Pain) 2 grams topical QID donepezil 10 mg PO BEDTIME 90 days enoxaparin (Lovenox) 40 mg (0.4 mL) subcut DAILY 30 days evolocumab (Repatha SureClick) 140 mg subcut Q2W 30 days famotidine 20 mg (2.5 mL) PO BEDTIME PRN 30 days fluticasone propion-salmeterol 115-21 mcg/actuation (Advair HFA) 2 puffs PO Q12H 30 days fluticasone propionate 50 mcg/actuation 1 spray intranasal DAILY PRN food supplemt, lactose-reduced (Ensure oral liquid) 1 ea PO .three times a day 25 days furosemide 20 mg PO DAILY PRN 90 days gauze bandage (Band-Aid Gauze Pads) Use 1 gauze once a day gauze bandage (Band-Aid Gauze Pads) Use 1 gauze once a day humidifiers As directed ipratropium bromide 2.5 mL inhalation Q6H PRN 30 days [irrigation tray As directed] lancets (OneTouch UltraSoft 2 Lancet) check once per day latanoprost 0.005% 1 drp ophthalmic (eye) BEDTIME latex gloves (Latex Gloves, Large) As directed levalbuterol HCl (Xopenex) 0.63 mg inhalation Q8H levalbuterol tartrate 45 mcg/actuation 2 puffs inhalation Q4-6H PRN 30 days MDD Patient has h/o cardiac diseas lorazepam 1 mg PO BEDTIME PRN 30 days losartan 50 mg PO DAILY 90 days metformin 500 mg PO BID 90 days nebulizer accessories (Adult Aerosol Mask) As directed [id number]-pgiachmrpMb-lofvukhjU 3.5mg-400 unit- 5,000 unit/gram (Neosporin (phq-uan-olyhv)) 1 appl topical DAILY 30 days nitroglycerin 0.4 mg sublingual Q5M PRN nut.tx.gluc.intol,lac-free,soy (Glucerna oral liquid) 1 ea PO .three times a day 30 days [paper taoe 2 inch As directed] quetiapine 200 mg PO BEDTIME 90 days quetiapine 50 mg PO DAILY 30 days [regular gauze 4x4 As directed] Shower Chair As directed sodium chloride 7% 4 mL inhalation BID PRN 30 days [sterile gauze 2x2 As directed] syringe, ENFit, non-sterile (Piston Syringe with ENFit) Use 1 syringe once a day tramadol 50 mg PO Q6H PRN [wheelchair As directed] [wipes As directed] Do you need a note to return to daycare/school/sports/work: No HPI HPI Asthma: Details: THIS 74 YEARS OLD FEMALE IS HERE FOR ROUTINE FOLLOW-UP AFTER 6 MONTHS. HE IS BEING TREATED FOR POSSIBLE MILD ASTHMA/COPD, . USES ADVAIR HFA 115-212 PUFFS B.I.D.. HER SON WHO IS HER BEAM RACKER GIVES HER MEDICATIONS. FAR LEVALBUTEROL SOLUTION IN THE NEBULIZER OR BY THE [facility], SHE IS NOT USING THAT NOW, BECAUSE IT CAUSES TACHYCARDIA. THE SON HAS HER USE THE NEBULIZER WITH NORMAL SALINE 3 TO 4 TIMES A DAY FOR BOUTS OF COUGH OR WHEEZING. SHE ALSO USES FLONASE FOR RUNNY NOSE BUT DOES NOT USE IT ALL THE TIMES, PATIENT HAS ADVANCED DEMENTIA SHE SITTING QUIET AND DOES NOT DO MUCH CONVERSATION. [facility] Medical History GERD (gastroesophageal reflux disease) Dyslipidemia Urinary incontinence PAF (paroxysmal atrial fibrillation) Atherosclerotic cardiovascular disease Depression with anxiety Anticoagulated Bleeding hemorrhoids Blurry vision Hemorrhoids Ischemic cardiomyopathy Osteoporosis Dementia History of stroke History of [place] (myocardial infarction) Hypovitaminosis D Asthma Anxiety High cholesterol Hypertension Surgical History S/P percutaneous endoscopic gastrostomy (PEG) tube placement (~06/01/24) History of cardiac defibrillator placement History of hysterectomy Family History Father No problems noted. Mother Cerebrovascular accident Sister No problems noted. Sister No problems noted. Son No problems noted. Son No problems noted. Daughter No problems noted. Social History Housing: Apartment Alcohol intake: former Patient Tobacco Use Status: Former Tobacco user Tobacco use type: Cigarette e-Cigarette/Vaping Use: Never Used Second Hand Smoke Exposure: No Advance Directives Date on File: 12/18/20 service: No Current occupational status: retired Cognitive needs: No Hearing needs: No Vision needs: No Review of Systems Const All systems reviewed & are unremarkable except as noted in HPI and below Eyes Reports no additional complaints ENT Reports no additional complaints Card Denies chest pain, Denies irregular heart rhythm and Denies leg edema Resp Reports as per HPI GI Reports no additional complaints Reports no additional complaints Musc Reports no additional complaints Skin/Breast Reports system reviewed and no additional complaints, except as documented Neuro Reports no additional complaints Psych Reports no additional complaints Endo Reports no additional complaints Physical Exam Vital Signs: Last Vital Signs Pulse 68 12/16/24 14:14 BP 102/62 12/16/24 14:14 Pulse Ox 98 12/16/24 14:14 Oxygen Delivery Method Room Air 12/16/24 14:14 BMI result Body Mass Index 19.6 Const General: comfortable, no acute distress, alert and awake Orientation/consciousness: patient oriented x3 HEENT Head: Yes normal to inspection General nose exam: No nasal polyps present and No nasal discharge present Face and sinus: Yes sinuses nontender Mouth: oropharynx normal Throat: Yes posterior oropharynx normal Eyes General: appearance normal, both eyes and all related structures Neck Neck: Yes normal visual inspection, Yes no lymphadenopathy, Yes trachea midline and Yes no JVD Thyroid: Thyroid normal Chest Chest palpation & inspection: normal inspection of the chest, normal palpation of entire chest wall and no tenderness Resp Other: Percussion note is resonant, breath sounds are distant on both sides with prolonged expiratory phase. NO WHEEZES RHONCHI OR CREPITATIONS ARE HEARD TODAY. Cardio Palpation: normal PMI and other (Pacemaker and defibrillator in place in left pectoral area) Rate: regular rate Rhythm: regular rhythm Heart sounds: no gallops and no murmurs GI Inspection: Yes other ( gastrostomy tube in place.) Palpation (GI): Soft to palpation, nontender, No hepatosplenomegaly present and no masses Auscultation: normal bowel sounds Back/Spine/Pelvis Thoracic/Lumbar Spine: thoracic and lumbar spine normal to inspection Skin General skin exam: no rashes or lesions noted Neuro General: patient oriented x3 and no focal motor deficits Cranial nerves: Yes CN's II-XII intact bilaterally Extrem General: Yes normal to inspection, Yes no clubbing, cyanosis or edema and Yes no calf tenderness Psych Appearance: grossly normal and well kempt Speech and movement: Normal speech and movement present Attitude: cooperative Assessment & Plan Assessment & Plan (1) Former smoker: Comment: Patient is a former smoker, about 1 pack a day, quit in 2007 after she had the heart attack. She may have some degree of COPD. * SHE WAS NOT ABLE TO PERFORM ADEQUATE MANEUVERS FOR PULMONARY FUNCTION TEST. Code(s): Z87.891 - Personal history of nicotine dependence Category: Social Hx Plan: UNDER BRONCHIAL ASTHMA (2) Mild persistent asthma: Comment: SHE HAS SYMPTOMS OF INTERMITTENT BOUTS OF COUGH WITH SOME WHEEZING. CLINICALLY FELT TO HAVE MILD INTERMITTENT BRONCHIAL ASTHMA/COPD. ACCORDING TO THE SON SHE HE IS DOING WELL LONG SHE USES THE ADVAIR INHALER. Code(s): J45.30 - Mild persistent asthma, uncomplicated Category: Medical Plan: FLUTICASONE-SALMETEROL 115-21 2 PUFFS B.I.D.. NORMAL SALINE IN THE NEBULIZER, TO BE USED Q 6 HOURS WHILE AWAKE ( 3-4 TIMES A DAY ) HER SON WHO IS THE BEAM RACKER AND HER FILM DRYING MACHINE OPERATOR, HELPS HER TO USE THE NEBULIZER WITH NORMAL SALINE WHEN SHE STARTS HAVING BOUTS OF COUGH. HE THINKS IT CLEARS THE COUGH AND MUCUS. SHE USED TO BE ON LEVALBUTEROL SOLUTION BY NEBULIZER BUT THIS HAS BEEN STOPPED. Medications: Changed From sodium chloride 7% 4 mL inhalation BID 30 days PRN 240 mL 6RF bronchospasm To sodium chloride 7% 4 mL inhalation TID-QID 30 days PRN 240 mL 6RF bronchospasm Coding Level of Care Code Est Pt Level 3 (69505) Diagnoses Former smoker Z87.891 Mild persistent asthma J45.30
[2024-12-16 14:14] VITALS: BP 102/62; PULSE 68; O2SAT 98; BMI 19.6
--- OUTSIDE RECORDS SUMMARY | 2024-12-16 17:04 | XMS_ITS | Clinical Summary ---
Author Organization [employer] [facility] ity Address [address] [place] [address] Care Team Providers Care Freight Tallier Name Role Phone Unavailable Primary Care Provider Unavailabl e Social History Tobacco Use Types Packs/Day Years Used Date Smoking Tobacco: Never Assessed Comments Unknown Sex and Gender Information Value Date Recorded Sex Assigned at Not on file Legal Sex Female 5:07 AM EST Gender Identity Not on file Sexual Orientation Not on file Plan of Treatment Health Maintenance Due Date Last Done Comments DTaP,Tdap,and Td Vaccines (1 - Tdap) 02/20/1968 Pneumococcal Vaccine: 50+ Ye ars (1 of 1 - PCV) 1999 Zoster Vaccines (1 of 2) 1999 Colorectal Cancer Screening: Colonoscopy 09/22/2022 Depression Screening 09/22/2022 Falls Risk Assessment 09/22/2022 Hepatitis C Screening 09/22/2022 Osteoporosis Screening (Bone Density Screening) 09/22/2022 Social Influencers of Health Screening 09/22/2022 RSV Immunization Patients 60 + Years Old (1 - 1-dose 75+ series) 02/20/2024 COVID-19 Vaccine ( - 2023-2 5 season) 2024 Influenza Vaccine (#1) 2024 HIB Vaccines Aged Out No longer eligi ble based on patient's age to complete this topic HPV Vaccines Aged Out No longer eligi ble based on patient's age to complete this topic Hepatitis A Vaccines Aged Out No long er eligible based on patient's age to complete this topic Hepatitis B Vaccines Aged Out No long er eligible based on patient's age to complete this topic IPV Vaccines Aged Out No longer eligi ble based on patient's age to complete this topic MMR Vaccines Aged Out No longer eligi ble based on patient's age to complete this topic Meningococcal ACWY Vaccine Aged Out N o longer eligible based on patient's age to complete this topic Meningococcal B Vacine Aged Out No lo nger eligible based on patient's age to complete this topic RSV Immunization Patients Un marychuy 20 months Aged Out No longer eligible b ased on patient's age to complete this topic Varicella Vaccines Aged Out No longer eligible based on patient's age to complete this topic
== END 2024-12-16 14:30 | disposition home or self-care (01) ==
PROVIDERS: PCP Internal Medicine; Visit Provider Internal Medicine
DX: Z87.891 Personal history of nicotine dependence (principal); J45.30 Mild persistent asthma, uncomplicated
CPT/HCPCS: 99213

== ENCOUNTER → 2024-12-16 14:05 | Outpatient (BNVA) | payer OTHER, SELFPAY | PROVIDERS: PCP Internal Medicine; Visit Provider Internal Medicine | DX: J45.30 Mild persistent asthma, uncomplicated (principal); Z87.891 Personal history of nicotine dependence | CPT/HCPCS: 99212 ==

== ENCOUNTER 2024-12-22 11:14 | Outpatient (AMB) | payer OTHER, SELFPAY ==
[2024-12-22 11:15] VITALS: BMI 19.6
--- NOTE | 2024-12-22 11:15 | A.OFFVIS_ITS ---
Vital Signs 12/22/24 11:15 Height 4 ft 11 in Weight 97 lb BMI 19.6 Intake Visit Reasons: PEG-tube change Intake Note: This patient presents for PEG-tube change. Pt son Dimitri c/o; needs to be changed it is yellow. Patternmaker Sample Required: Yes Patternmaker Sample Language: Motel Manager Services: Patternmaker Sample Present Patternmaker Sample Name: Karen Information Interpreted: non-clinical & clinical Accompanied by: Son(Dimitri) Allergies aspirin Allergy (Intermediate, Verified 12/22/24 11:17) rash, pruritus penicillin G Allergy (Intermediate, Verified 12/22/24 11:17) swelling Medication List - Last Reconciled 12/22/24 by Mu Larkin MD [abdominal pads As directed] acetaminophen (Children's Acetaminophen) 320 mg (10 mL) G-tube Q6H PRN 30 days apixaban (Eliquis) 5 mg PO BID 90 days atorvastatin 80 mg PO BEDTIME blood sugar diagnostic ([employer] Ultra Test strips) check once daily blood-glucose meter ([employer] Ultra2 Meter) check once daily carvedilol 6.25 mg PO BID cholecalciferol (vitamin D3) 50 mcg PO DAILY 90 days [cleansing wipes Use 1 wipe once a day] [colatrep As directed] commode As directed diaper,brief,adult,disposable (Select Disposable Briefs) As directed diclofenac sodium 1% (Voltaren Arthritis Pain) 2 grams topical QID donepezil 10 mg PO BEDTIME 90 days enoxaparin (Lovenox) 40 mg (0.4 mL) subcut DAILY 30 days evolocumab (Repatha SureClick) 140 mg subcut Q2W 30 days famotidine 20 mg (2.5 mL) PO BEDTIME PRN 30 days fluticasone propion-salmeterol 115-21 mcg/actuation (Advair HFA) 2 puffs PO Q12H 30 days fluticasone propionate 50 mcg/actuation 1 spray intranasal DAILY PRN food supplemt, lactose-reduced (Ensure oral liquid) 1 ea PO .three times a day 25 days furosemide 20 mg PO DAILY PRN 90 days gauze bandage (Band-Aid Gauze Pads) Use 1 gauze once a day gauze bandage (Band-Aid Gauze Pads) Use 1 gauze once a day humidifiers As directed ipratropium bromide 2.5 mL inhalation Q6H PRN 30 days [irrigation tray As directed] lancets (OneTouch UltraSoft 2 Lancet) check once per day latanoprost 0.005% 1 drp ophthalmic (eye) BEDTIME latex gloves (Latex Gloves, Large) As directed levalbuterol HCl (Xopenex) 0.63 mg inhalation Q8H levalbuterol tartrate 45 mcg/actuation 2 puffs inhalation Q4-6H PRN 30 days MDD Patient has h/o cardiac diseas lorazepam 1 mg PO BEDTIME PRN 30 days losartan 50 mg PO DAILY 90 days metformin 500 mg PO BID 90 days nebulizer accessories (Adult Aerosol Mask) As directed [id number]-eaaewlveyDx-[id number] 3.5mg-400 unit- 5,000 unit/gram (Neosporin (kmm-xve-getpe)) 1 appl topical DAILY 30 days nitroglycerin 0.4 mg sublingual Q5M PRN nut.tx.gluc.intol,lac-free,soy (Glucerna oral liquid) 1 ea PO .three times a day 30 days [paper taoe 2 inch As directed] quetiapine 200 mg PO BEDTIME 90 days quetiapine 50 mg PO DAILY 30 days [regular gauze 4x4 As directed] Shower Chair As directed sodium chloride 7% 4 mL inhalation TID-QID PRN 30 days [sterile gauze 2x2 As directed] syringe, ENFit, non-sterile (Piston Syringe with ENFit) Use 1 syringe once a day tramadol 50 mg PO Q6H PRN [wheelchair As directed] [wipes As directed] HPI HPI PEG-tube change: Details: She had undergone peg tube placement last May, for dementia and dysphagia. She has here for a PEG tube change. The son says the the PEG tube is dirty now. The PEG tube appears to be working well otherwise. [facility] Medical History GERD (gastroesophageal reflux disease) Dyslipidemia Urinary incontinence PAF (paroxysmal atrial fibrillation) Atherosclerotic cardiovascular disease Depression with anxiety Anticoagulated Bleeding hemorrhoids Blurry vision Hemorrhoids Ischemic cardiomyopathy Osteoporosis Dementia History of stroke History of [place] (myocardial infarction) Hypovitaminosis D Asthma Anxiety High cholesterol Hypertension Surgical History (Updated 12/22/24 @ 11:18 by Mu Larkin MD) PEG (percutaneous endoscopic gastrostomy) status S/P percutaneous endoscopic gastrostomy (PEG) tube placement (~06/01/24) History of cardiac defibrillator placement History of hysterectomy Family History Father No problems noted. Mother Cerebrovascular accident Sister No problems noted. Sister No problems noted. Son No problems noted. Son No problems noted. Daughter No problems noted. Social History Housing: Apartment Alcohol intake: former Patient Tobacco Use Status: Former Tobacco user Tobacco use type: Cigarette e-Cigarette/Vaping Use: Never Used Second Hand Smoke Exposure: No Advance Directives Date on File: 12/18/20 service: No Current occupational status: retired Cognitive needs: No Hearing needs: No Vision needs: No Review of Systems Const Unobtainable due to mental status Physical Exam Vital Signs: BMI result Body Mass Index 19.6 Const General: comfortable and no acute distress Resp Effort & Inspection: normal respiratory effort Cardio Rate: regular rate GI Other: Peg tube in place, functioning well Palpation (GI): Soft to palpation Assessment & Plan Assessment & Plan (1) PEG (percutaneous endoscopic gastrostomy) status: Code(s): Z93.1 - Gastrostomy status Category: Surgical Plan: I removed the old PEG tube and replaced this. A Korean 20 shahid tube was inserted without difficulty. There is already well-formed tract The PEG tube has been functioning well. They can follow up in the office on a p.r.n. basis. Coding Level of Care Code Est Pt Level 3 (68423) Diagnoses PEG (percutaneous endoscopic gastrostomy) status Z93.1
--- OUTSIDE RECORDS SUMMARY | 2024-12-22 13:32 | XMS_ITS | Clinical Summary ---
Author Organization [employer] [facility] ity Address [address] [place] [address] Care Team Providers Care Patient Financial Services Specialist Name Role Phone Unavailable Primary Care Provider [...]
== END 2024-12-22 11:35 | disposition home or self-care (01) ==
PROVIDERS: PCP Internal Medicine; Visit Provider Surgery
DX: Z93.1 Gastrostomy status (principal)
CPT/HCPCS: 99213

== ENCOUNTER → 2024-12-22 11:14 | Outpatient (BNVA) | payer OTHER, SELFPAY | PROVIDERS: PCP Internal Medicine; Visit Provider Surgery | DX: Z45.89 Encounter for adjustment and management of other implanted devices (principal); Z93.1 Gastrostomy status | CPT/HCPCS: 99212 ==

== ENCOUNTER 2025-01-03 12:44 | Outpatient (AMB) | payer OTHER, SELFPAY ==
[2025-01-03 13:02] VITALS: BP 106/58; PULSE 70; BMI 19.6
--- NOTE | 2025-01-03 13:02 | MHC.OFFVIS ---
Vital Signs 01/03/25 13:02 Height 4 ft 11 in Weight 97 lb BMI 19.6 BP 106/58 L Blood Pressure Location Rt brachial Position Sitting Pulse 70 Pulse Source Pulse Oximeter Intake Visit Reasons: 6 mth w/ erika sci Production Zone Leader Required: Yes Production Zone Leader Name: JADEN [id number] Accompanied by: Son Allergies aspirin Allergy (Intermediate, Verified 12/22/24 11:17) rash, pruritus penicillin G Allergy (Intermediate, Verified 12/22/24 11:17) swelling Medication List - Last Reconciled 01/03/25 by Estevan Gonzales MD [abdominal pads As directed] acetaminophen (Children's Acetaminophen) 320 mg (10 mL) G-tube Q6H PRN 30 days apixaban (Eliquis) 5 mg PO BID 90 days atorvastatin 80 mg PO BEDTIME blood sugar diagnostic ([employer] Ultra Test strips) check once daily blood-glucose meter ([employer] Ultra2 Meter) check once daily carvedilol 6.25 mg PO BID cholecalciferol (vitamin D3) 50 mcg PO DAILY 90 days [cleansing wipes Use 1 wipe once a day] [colatrep As directed] commode As directed diaper,brief,adult,disposable (Select Disposable Briefs) As directed donepezil 10 mg PO BEDTIME 90 days enoxaparin (Lovenox) 40 mg (0.4 mL) subcut DAILY 30 days famotidine 20 mg (2.5 mL) PO BEDTIME PRN 30 days fluticasone propion-salmeterol 115-21 mcg/actuation (Advair HFA) 2 puffs PO Q12H 30 days fluticasone propionate 50 mcg/actuation 1 spray intranasal DAILY PRN food supplemt, lactose-reduced (Ensure oral liquid) 1 ea PO .three times a day 25 days furosemide 20 mg PO DAILY PRN 90 days gauze bandage (Band-Aid Gauze Pads) Use 1 gauze once a day gauze bandage (Band-Aid Gauze Pads) Use 1 gauze once a day humidifiers As directed ipratropium bromide 2.5 mL inhalation Q6H PRN 30 days [irrigation tray As directed] lancets ([address] [employer] UltraSoft 2 Lancet) check once per day latanoprost 0.005% 1 drp ophthalmic (eye) BEDTIME latex gloves (Latex Gloves, Large) As directed levalbuterol HCl (Xopenex) 0.63 mg inhalation Q8H levalbuterol tartrate 45 mcg/actuation 2 puffs inhalation Q4-6H PRN 30 days MDD Patient has h/o cardiac diseas lorazepam 1 mg PO BEDTIME PRN 30 days losartan 50 mg PO DAILY 90 days metformin 500 mg PO BID 90 days nebulizer accessories (Adult Aerosol Mask) As directed [id number]-[id number] 3.5mg-400 unit- 5,000 unit/gram (Neosporin (lbg-cab-lfeao)) 1 appl topical DAILY 30 days nitroglycerin 0.4 mg sublingual Q5M PRN nut.tx.gluc.intol,lac-free,soy (Glucerna oral liquid) 1 ea PO .three times a day 30 days [paper taoe 2 inch As directed] quetiapine 200 mg PO BEDTIME 90 days quetiapine 50 mg PO DAILY 30 days [regular gauze 4x4 As directed] Shower Chair As directed sodium chloride 7% 4 mL inhalation TID-QID PRN 30 days [sterile gauze 2x2 As directed] syringe, ENFit, non-sterile (Piston Syringe with ENFit) Use 1 syringe once a day tramadol 50 mg PO Q6H PRN [wheelchair As directed] [wipes As directed] HPI Comments Details: Alexx returns for follow-up. To recall, in 2007, she had a STEMI when she had witnessed cardiac arrest at home. Then resuscitated. Underwent catheterization and found to have single-vessel disease of LAD. She had a completely occluded mid LAD. Other arteries patent. LAD was then stented. Then spent several years in [place]. She had an ICD placed in [place]. Otherwise, she is on reasonable therapy for cardiomyopathy. She is also on Eliquis for atrial fibrillation. Son is the primary metal engineering process worker. It seems that she has dementia and memory issues. She also has poor oral intake and hence had a gastrostomy tube placed. From cardiac, no clear-cut concerns. [facility] Medical History GERD (gastroesophageal reflux disease) Dyslipidemia Urinary incontinence PAF (paroxysmal atrial fibrillation) Atherosclerotic cardiovascular disease Depression with anxiety Anticoagulated Bleeding hemorrhoids Blurry vision Hemorrhoids Ischemic cardiomyopathy Osteoporosis Dementia History of stroke History of [place] (myocardial infarction) Hypovitaminosis D Asthma Anxiety High cholesterol Hypertension Surgical History PEG (percutaneous endoscopic gastrostomy) status S/P percutaneous endoscopic gastrostomy (PEG) tube placement (~06/01/24) History of cardiac defibrillator placement History of hysterectomy Family History Father No problems noted. Mother Cerebrovascular accident Sister No problems noted. Sister No problems noted. Son No problems noted. Son No problems noted. Daughter No problems noted. Social History Housing: Apartment Alcohol intake: former Patient Tobacco Use Status: Former Tobacco user Tobacco use type: Cigarette e-Cigarette/Vaping Use: Never Used Second Hand Smoke Exposure: No Advance Directives Date on File: 12/18/20 service: No Current occupational status: retired Cognitive needs: No Hearing needs: No Vision needs: No Review of Systems Const Denies weakness ENT Denies dizziness Card Denies chest pain, Denies chest pain with activity, Denies syncope, Denies rapid heart rate, Denies pedal edema, Denies edema, Denies leg edema, Denies lightheadedness, Denies palpitations, Denies dyspnea, Denies dyspnea on exertion and Denies orthopnea Resp Denies cough, Denies dyspnea and Denies dyspnea on exertion GI Denies hematochezia and Denies change in stool character Musc Denies abnormal gait, Denies muscle cramps, Denies muscle weakness, Denies numbness, Denies radiating pain into limb and Denies tingling Neuro Denies abnormal gait, Denies dizziness, Denies syncope, Denies numbness, Denies tingling and Denies weakness Endo Denies palpitations Physical Exam Vital Signs: Last Vital Signs Pulse 70 01/03/25 13:02 BP 106/58 L 01/03/25 13:02 BMI result Body Mass Index 19.6 Const General: comfortable and no acute distress Orientation/consciousness: patient oriented x3 HEENT Other: Unremarkable Head: Yes normal to inspection Neck Neck: Yes normal visual inspection Chest Chest palpation & inspection: normal inspection of the chest Resp Auscultation: clear to auscultation bilaterally Cardio Palpation: normal PMI Heart sounds: S1 normal heart sound present, S2 normal heart sound present, no gallops, no murmurs and no rubs GI Palpation (GI): Soft to palpation Back/Spine/Pelvis Other: unremarkable Skin General skin exam: no rashes or lesions noted Neuro General: patient oriented x3 Extrem General: Yes normal to inspection Psych Mental Status: mental status grossly abnormal Office Procedures Cardiac Device Check Cardiac Device Check Details: ICD interrogated today. Dual-chamber device, programmed DDDR. Battery status 2 years. Normal lead parameters. Atrial pacing 18%. Ventricular pacing < 1%. Nonsustained V episodes likely supraventricular. Overall, normal device function. [id number] Cardiac Device Check, dual lead implantable defibrillator Procedure code (CPT) selection complete Assessment & Plan Assessment & Plan (1) Ischemic cardiomyopathy: Comment: follows with [facility] Code(s): I25.5 - Ischemic cardiomyopathy Category: Medical Plan: Echocardiogram in 2021 with LVEF of 35-40% with LAD territory infarction. No clinical heart failure symptoms or signs. On Coreg/losartan. (2) Atherosclerotic cardiovascular disease: Code(s): I25.10 - Atherosclerotic heart disease of [place] coronary artery without angina pectoris Category: Medical Plan: Based on last cardiac catheterization in 2007, she had single-vessel disease and LAD with completely occluded mid section; status post stenting. Continue medical therapy. (3) PAF (paroxysmal atrial fibrillation): Code(s): I48.0 - Paroxysmal atrial fibrillation Category: Medical Plan: On Eliquis (4) Dementia: Comment: She is very pleasant but forgetful. Is good that her son takes care of her and looks over the meds administration. Code(s): F03.90 - Unspecified dementia, unspecified severity, without behavioral disturbance, psychotic disturbance, mood disturbance, and anxiety Category: Medical Qualifiers: Dementia type: Alzheimer's Alzheimer's disease onset: early onset Dementia severity: severe Dementia behavioral or psychological symptom: with mood disturbance Qualified Code(s): G30.0 - Alzheimer's disease with early onset; F02.C3 - Dementia in other diseases classified elsewhere, severe, with mood disturbance Plan: Because of a dementia, cardiac care would be likely conservative. (5) G tube feedings: Code(s): Z93.1 - Gastrostomy status Category: Medical Plan: Per son, all medications are through the G-tube. Plan Discussed using assistant auditor. 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
--- OUTSIDE RECORDS SUMMARY | 2025-01-03 14:46 | XMS_ITS | Clinical Summary ---
Author Organization [facility] it[facility] Address [address] [place] [address] Care Team Providers Care Residential Advisor Name Role Phone Unavailable Primary Care Provider [...]
== END 2025-01-03 13:30 | disposition home or self-care (01) ==
LOC: HO.HCS 12:45
PROVIDERS: PCP Internal Medicine; Visit Provider Internal Medicine
DX: I25.5 Ischemic cardiomyopathy (principal); I25.10 Atherosclerotic heart disease of native coronary artery without angina pectoris; I48.0 Paroxysmal atrial fibrillation; G30.0 Alzheimer's disease with early onset; F02.C3 Dementia in other diseases classified elsewhere, severe, with mood disturbance; Z93.1 Gastrostomy status
CPT/HCPCS: 93283; 99214; G2211

== ENCOUNTER → 2025-01-03 12:44 | Outpatient (BNVA) | payer OTHER, SELFPAY | PROVIDERS: PCP Internal Medicine; Visit Provider Internal Medicine | DX: I25.2 Old myocardial infarction (principal); I25.5 Ischemic cardiomyopathy; I25.10 Atherosclerotic heart disease of native coronary artery without angina pectoris; I48.0 Paroxysmal atrial fibrillation; F03.90 Unspecified dementia, unspecified severity, without behavioral disturbance, psychotic disturbance, mood disturbance, and anxiety; Z45.018 Encounter for adjustment and management of other part of cardiac pacemaker; Z93.1 Gastrostomy status; Z87.891 Personal history of nicotine dependence; Z79.01 Long term (current) use of anticoagulants | CPT/HCPCS: 99212 ==

== ENCOUNTER 2025-01-04 17:11 | Emergency (ER) | payer OTHER, SELFPAY ==
--- NOTE | ~2025-01-04 | XR_ITS ---
CLINICAL HISTORY: pain 1 view abdomen Comparison: CR/SR - XR KUB - 06/21/24 05:08 EDT Findings: No pneumoperitoneum or pneumatosis. G-tube noted. No abnormal calcifications. No acute fractures. IMPRESSION: The bowel gas pattern is unremarkable. G-tube noted, similar positioned to prior. This document has been electronically signed by: Joey Sawant MD on 01/04/2025 18:34:15
[2025-01-04 17:18] VITALS: BP 121/71; PULSE 69; RESP 20; TEMP 36.7; O2SAT 97; BMI 19.9
[2025-01-04 17:38] LABS: MANUAL DIFF FLAG NO
[2025-01-04 17:47] LABS: Basophils Absolute Auto 0.1 X10*3/uL (0.0-0.2); Basophils Percent Auto 0.7 % (0-2); Eosinophils Absolute Auto 0.1 X10*3/uL (0.0-0.4); Eosinophils Percent Auto 1.3 % (0-4); Hematocrit 39.1 % (37.0-47.0); Hemoglobin 13.1 g/dl (12.0-16.0); Imm Gran Abs Auto 0.03 X10*3/uL (0.00-0.03); Imm Gran Pct Auto 0.4 % (0.0-0.4); Lymphocytes Absolute Auto 1.8 X10*3/uL (1.2-4.9); Lymphocytes Percent Auto 22.4 % (20-40); Mean Corpuscular HGB Conc 33.5 g/dl (31.0-35.0); Mean Corpuscular Hemoglobin 30.5 pg (27.0-33.0); Mean Corpuscular Volume 91.1 fL (80.0-98.0); Mean Platelet Volume 9.8 fL (9.4-12.3); Monocytes Absolute Auto 0.9 X10*3/uL (0.1-1.2); Monocytes Percent Auto 10.4 % (2-11); Neutrophils Absolute Auto 5.3 x10*3/uL (2.0-8.3); Neutrophils Percent Auto 64.8 % (45-73); Platelet Count 140 X10*3/uL (160-400); Red Blood Count 4.29 X10*6/uL (4.20-5.50); Red Cell Distribution Width 14.2 % (11.0-16.0); White Blood Count 8.2 X10*3/uL (4.8-10.8)
[2025-01-04 17:57] LABS: Alanine Aminotransferase 52 U/L (0-31); Albumin Level 3.8 g/dL (3.5-5.0); Alkaline Phosphatase 75 U/L (39-117); Anion Gap 11 (12-20); Aspartate Amino Transferase 44 U/L (5-31); Blood Urea Nitrogen 20 mg/dL (9-16); Calcium 9.9 mg/dL (8.4-10.2); Carbon Dioxide 24 mmol/L (22-29); Chloride 112 mmol/L (96-108); Creatinine Clr Calc Pharmacy 37.2; Estimated Glomerular Filt Rate > 60; Glucose Random 114 mg/dL (60-115); Magnesium 1.9 mg/dL (1.6-2.6); Sodium 143 mmol/L (135-145); Total Protein 6.7 g/dL (6.5-8.0)
[2025-01-04 21:32] VITALS: BP 148/74; PULSE 64; RESP 18; O2SAT 98
--- NOTE | 2025-01-04 21:34 | PC.NURSE ---
Addendum entered by Sharmila Luo RN 01/04/25 21:35: G-tube site picture taken by primary JAC Oneill Original Note:
--- NOTE | 2025-01-04 21:52 | ED_ITS ---
HPI - General Adult General Chief complaint: General Medical Stated complaint: ?Infected wound Time Seen by Provider: 01/04/25 21:37 Source: family Mode of arrival: ambulatory Limitations: other ( Dementia) History of Present Illness ED Provider: Dr. Kailey Lerma HPI narrative: Patient comes to the emergency room accompanied by her son who is her health project planner. the patient's son reports that the patient has been draining purulent and foul-smelling fluid from the ostomy site. Two weeks ago, they went to see General surgery for a change and G-tube. According to the son, the G-tube had been in place for over a year Related Data Home Medications ?Medication ?Instructions ?Recorded ?Confirmed levalbuterol HCl 0.63 mg/3 mL 0.63 mg inhalation Q8H 09/04/20 01/03/25 solution for nebulization (Xopenex) latanoprost 0.005 % eye drops 1 drp ophthalmic (eye) BEDTIME 07/26/21 01/03/25 Previous Rx's ?Medication ?Instructions ?Recorded nebulizer accessories (Adult #1 ea 10/26/21 Aerosol Mask) commode #1 ea 03/26/22 humidifiers #1 ea 03/26/22 Shower Chair #1 ea 09/02/22 levalbuterol tartrate 45 2 puff inhalation Q4-6H PRN 09/25/22 mcg/actuation aerosol inhaler shortness of breath 30 days #15 grams nitroglycerin 0.4 mg sublingual 0.4 mg sublingual Q5M PRN chest 06/25/23 tablet pain #30 tabs blood-glucose meter (OneTouch #1 ea 08/18/23 Ultra2 Meter) lancets 30 gauge (OneTouch #100 ea 08/18/23 UltraSoft 2 Lancet) wheelchair #1 ea 12/30/23 quetiapine 200 mg tablet 200 mg PO BEDTIME 90 days #90 tabs 01/26/24 cholecalciferol (vitamin D3) 50 50 mcg PO DAILY 90 days #90 caps 03/18/24 mcg (2,000 unit) capsule enoxaparin 40 mg/0.4 mL 40 mg (0.4 mL) subcut DAILY 30 04/01/24 subcutaneous syringe (Lovenox) days #12 mL nut.tx.gluc.intol,lac-free,soy 1 ea PO .three times a day 30 days 04/01/24 (Glucerna oral liquid) #237 mL latex gloves (Latex Gloves, Large) #200 ea 04/26/24 blood sugar diagnostic (OneTouch #100 ea 05/08/24 Ultra Test strips) tramadol 50 mg tablet 50 mg PO Q6H PRN pain #20 tabs 06/01/24 colatrep #4 ea 06/19/24 neomycin-bacitracn Zn-polymyx 3.5 1 appl topical DAILY 30 days #84.9 06/19/24 mg-400 unit-5,000 unit/gram top grams oint (Neosporin (hsi-psu-whamp)) abdominal pads #90 ea 06/22/24 paper taoe 2 inch #8 ea 06/22/24 fluticasone propionate 50 1 spray intranasal DAILY PRN for 06/28/24 mcg/actuation nasal allergies #48 mL spray,suspension losartan 50 mg tablet 50 mg PO DAILY 90 days #90 tabs 06/28/24 carvedilol 6.25 mg tablet 6.25 mg PO BID #180 tabs 07/14/24 irrigation tray #1 ea 08/16/24 regular gauze 4x4 #500 ea 08/16/24 sterile gauze 2x2 #12 ea 08/16/24 syringe, ENFit, non-sterile 60 mL #30 ea 08/16/24 (Piston Syringe with ENFit) wipes #400 ea 08/16/24 apixaban 5 mg tablet (Eliquis) 5 mg PO BID 90 days #180 tabs 09/15/24 cleansing wipes #30 ea 10/17/24 diaper,brief,adult,disposable #100 ea 10/17/24 (Select Disposable Briefs) gauze bandage 2 X 2 (Band-Aid #25 ea 10/17/24 Gauze Pads) gauze bandage 4 X 4 (Band-Aid #25 ea 10/17/24 Gauze Pads) donepezil 10 mg tablet 10 mg PO BEDTIME 90 days #90 tabs 10/22/24 food supplemt, lactose-reduced 1 ea PO .three times a day 25 days 11/04/24 (Ensure oral liquid) #5,688 mL quetiapine 50 mg tablet 50 mg PO DAILY 30 days #30 tabs 11/05/24 famotidine 40 mg/5 mL (8 mg/mL) 20 mg (2.5 mL) PO BEDTIME PRN 11/08/24 oral suspension heartburn 30 days #50 mL furosemide 20 mg tablet 20 mg PO DAILY PRN edema 90 days 11/08/24 #90 tabs metformin 500 mg tablet 500 mg PO BID 90 days #180 tabs 11/08/24 ipratropium bromide 0.02 % 2.5 ml inhalation Q6H PRN 11/16/24 solution for inhalation shortness of breath or wheezing 30 days #150 mL atorvastatin 80 mg tablet 80 mg PO BEDTIME #30 tabs 12/07/24 lorazepam 1 mg tablet 1 mg PO BEDTIME PRN agitation 30 12/13/24 days #30 tabs sodium chloride 7 % for 4 ml inhalation TID-QID PRN 12/16/24 nebulization bronchospasm 30 days #240 mL acetaminophen 160 mg/5 mL oral 320 mg (10 mL) G-tube Q6H PRN for 12/20/24 suspension (Children's pain 30 days #354 mL Acetaminophen) doxycycline monohydrate 100 mg 100 mg feeding tube BID #14 tabs 01/04/25 tablet fluticasone propionate 115 2 puff PO Q12H copd 30 days #12 01/04/25 mcg-salmeterol 21 mcg/actuation grams HFA inhaler (Advair HFA) Allergies Allergy/AdvReac Type Severity Reaction Status Date / Time aspirin Allergy Intermediate rash, Verified 01/04/25 17:24 pruritus penicillin G Allergy Intermediate swelling Verified 01/04/25 17:24 Review of Systems 2 Review of Systems: Constitutional : No Weight loss, No Fever, No Chills, No Night Sweats, No Fatigue, No Malaise ENT/Mouth : No Hearing loss, No Ear Pain, No Nasal Congestion, No Sinus Pain, No Hoarseness, No sore throat, No Rhinorrhea, No Swallowing Difficulty Eyes: No Eye Pain, No Swelling, No Redness, No Foreign Body, No Discharge, No Vision Changes Cardiovascular : No Chest Pain, No SOB, No Dyspnea on Exertion, No Orthopnea, No Edema, No Palpitations Respiratory : No Cough, No Sputum, No Wheezing, No Smoke Exposure, No Dyspnea Gastrointestinal : No Nausea, No Vomiting, No Diarrhea, No Constipation, No abdominal Pain, No Hematochezia, No Melena Genitourinary : no irregular bleeding, No Dysuria, No Urinary Frequency, No Hematuria, No Urinary Incontinence, No Urgency, No Flank Pain, No Urinary Flow Changes, No Hesitancy Musculoskeletal : No joint pain, No Myalgias, No Joint Swelling Skin : son complaining of purulent drainage and foul-smelling odor from the ostomy site Neuro : No Weakness, No Numbness, No Paresthesias, No Loss of Consciousness, No Dizziness, No Headache Psych : No Anxiety/Panic, No Depression, No SI/HI/AH/VH, No Social Issues, Heme/Lymph: No Bruising, No Bleeding,No Lymphadenopathy Endocrine : No Polyuria, No Polydipsia, No Temperature Intolerance [facility] Past Medical History Medical History GERD (gastroesophageal reflux disease) Dyslipidemia Urinary incontinence PAF (paroxysmal atrial fibrillation) Atherosclerotic cardiovascular disease Depression with anxiety Anticoagulated Bleeding hemorrhoids Blurry vision Hemorrhoids Ischemic cardiomyopathy Osteoporosis Dementia History of stroke History of FL (myocardial infarction) Hypovitaminosis D Asthma Anxiety High cholesterol Hypertension Surgical History PEG (percutaneous endoscopic gastrostomy) status S/P percutaneous endoscopic gastrostomy (PEG) tube placement (~06/01/24) History of cardiac defibrillator placement History of hysterectomy Family History Family History Father No problems noted. Mother Cerebrovascular accident Sister No problems noted. Sister No problems noted. Son No problems noted. Son No problems noted. Daughter No problems noted. Social History Social History Housing: Apartment Alcohol intake: former Patient Tobacco Use Status: Former Tobacco user Tobacco use type: Cigarette Smoked in Last 30 Days: No e-Cigarette/Vaping Use: Never Used Second Hand Smoke Exposure: No Use of substances other than those prescribed or required for medical reasons: No Advance Directives: Yes Advance Directives on File: Yes Advance Directives Date on File: 12/18/20 Do you have a plan to hurt others: No Plan service: No Current occupational status: retired Cognitive needs: No Hearing needs: No Vision needs: No Physical Exam ED Vital Signs: Vital Signs - 24 hr 01/04/25 17:18 01/04/25 21:32 Temperature 98.0 F Pulse Rate 69 64 Respiratory Rate 20 18 Blood Pressure 121/71 148/74 H Pulse Oximetry 97 98 Oxygen Delivery Method Room Air Room Air BMI result Body Mass Index 19.9 Const Other: Appearance: Alert. Oriented X3. No acute distress. Eyes: Pupils equal, round and reactive to light. ENT: Pharynx normal. Neck: Normal inspection. Neck supple. No lymph nodes noted. No crepitus CVS: Normal heart rate and rhythm. Pulses normal. Normal S1 and S2 Respiratory: No respiratory distress. Breath sounds normal. No Wheezing. No rales Abdomen: Soft and nontender. No rigidity. No distention. tube is in place. The skin under the plastic part of the G-tube is erythematous, mild cellulitis versus dermatitis. There is very scant drainage of gastric fluid around the ostomy site. There is no pus drainage, patient does not seem to be in pain With deep palpation Skin: Skin warm and dry. Normal skin color. Normal skin turgor. Extremities: No lower extremity edema. No Lacerations. No Rash Neuro: Oriented X 3. No motor deficit. No sensory deficit. Moving all extremities. No slurred speech. CN 2 through 12 grossly intact Psych: calm, cooperative, normal affect Medical Decision Making Medical Decision Making [facility] Narrative: my interpretation of labs: No significant abnormality in patient's hematology, chemistry. On physical exam, there is no pus drainage, no foul smelling odor, patient does not seem to be in pain at all to deep palpation. patient's ostomy site was cleaned, redressed. It is possible the patient may have very slight cellulitis versus contact dermatitis. Patient has severe allergy to penicillin causing anaphylaxis. patient was given the 1st dose of doxycycline in the ED. Lab Data [facility] Lab Attestation statement: I reviewed the patient's lab results. 01/04/25 17:34 01/04/25 17:34 Labs: Lab Results 01/04/25 Range/Units 17:34 WBC 8.2 (4.8-10.8) X10*3/uL RBC 4.29 (4.20-5.50) X10*6/uL Hgb 13.1 (12.0-16.0) g/dl Hct 39.1 (37.0-47.0) % MCV 91.1 (80.0-98.0) fL MCH 30.5 (27.0-33.0) pg MCHC 33.5 (31.0-35.0) g/dl RDW 14.2 (11.0-16.0) % Plt Count 140 L D (160-400) X10*3/uL MPV 9.8 (9.4-12.3) fL Immature Gran % (Auto) 0.4 (0.0-0.4) % Neut % (Auto) 64.8 (45-73) % Lymph % (Auto) 22.4 (20-40) % Foard % (Auto) 10.4 (2-11) % Eos % (Auto) 1.3 (0-4) % Baso % (Auto) 0.7 (0-2) % Lymph # (Auto) 1.8 (1.2-4.9) X10*3/uL Foard # (Auto) 0.9 (0.1-1.2) X10*3/uL Eos # (Auto) 0.1 (0.0-0.4) X10*3/uL Baso # (Auto) 0.1 (0.0-0.2) X10*3/uL Abs Immat Gran (auto) 0.03 (0.00-0.03) X10*3/uL Absolute Neuts (auto) 5.3 (2.0-8.3) x10*3/uL Absolute Nucleated RBC 0.000 (0.0-0.012) X10*3/uL Nucleated RBC % (auto) 0.0 (0.0-0.2) /100WBC Sodium 143 (135-145) mmol/L Potassium 4.0 (3.3-5.1) mmol/L Chloride 112 H (96-108) mmol/L Carbon Dioxide 24 (22-29) mmol/L Anion Gap 11 L (12-20) BUN 20 H (9-16) mg/dL Creatinine 0.89 (0.5-1.4) mg/dL Estim Creat Clear Calc 37.2 Estimated GFR > 60 Random Glucose 114 (60-115) mg/dL Calcium 9.9 (8.4-10.2) mg/dL Magnesium 1.9 (1.6-2.6) mg/dL Total Bilirubin 1.0 (0.0-1.0) mg/dL AST 44 H (5-31) U/L ALT 52 H (0-31) U/L Alkaline Phosphatase 75 (39-117) U/L Total Protein 6.7 (6.5-8.0) g/dL Albumin 3.8 (3.5-5.0) g/dL Discharge Plan Discharge Clinical Impression: Cellulitis Patient Disposition: Home, Self-Care Instructions: Cellulitis (ED) Additional Instructions: Please follow-up with your primary care physician tomorrow. If you have any worsening or new symptoms, please return to the emergency room or call 911 Prescriptions: New doxycycline monohydrate 100 mg tablet 100 mg feeding tube BID Qty: 14 0RF No Action (DME) Adult Aerosol Mask Misc See Rx Instructions .Route Qty: 1 0RF Rx Instructions: As directed (DME) humidifiers Misc See Rx Instructions .Route Qty: 1 0RF Rx Instructions: As directed (DME) commode Kit See Rx Instructions .Route Qty: 1 0RF Rx Instructions: As directed (DME) blood-glucose meter [OneTouch Ultra2 Meter] Misc See Rx Instructions .Route Qty: 1 0RF Rx Instructions: check once daily (DME) lancets [OneTouch UltraSoft 2 Lancet] 30 gauge misc See Rx Instructions .Route Qty: 100 4RF Rx Instructions: check once per day quetiapine 200 mg tablet 200 mg PO BEDTIME 90 Days Qty: 90 1RF cholecalciferol (vitamin D3) 50 mcg (2,000 unit) capsule 50 mcg PO DAILY 90 Days Qty: 90 3RF (DME) latex gloves [Latex Gloves, Large] Misc See Rx Instructions .Route Qty: 200 11RF Rx Instructions: As directed (DME) OneTouch Ultra Test Strip See Rx Instructions .Route Qty: 100 4RF Rx Instructions: check once daily (DME) colatrep See Rx Instructions .Route .MEDSUPPLY Qty: 4 0RF Rx Instructions: As directed Neosporin (zrh-ili-[id number]) 3.5mg-400 unit- 5,000 unit/gram ointment 1 appl topical DAILY 30 Days Qty: 84.9 11RF (DME) paper taoe 2 inch See Rx Instructions .Route .MEDSUPPLY Qty: 8 3RF Rx Instructions: As directed (DME) abdominal pads See Rx Instructions .Route .MEDSUPPLY Qty: 90 3RF Rx Instructions: As directed losartan 50 mg tablet 50 mg PO DAILY 90 Days Qty: 90 3RF fluticasone propionate 50 mcg/actuation spray,suspension 1 spray intranasal DAILY PRN (Reason: for allergies) Qty: 48 2RF carvedilol 6.25 mg tablet 6.25 mg PO BID Qty: 180 1RF (DME) wipes See Rx Instructions .Route .MEDSUPPLY Qty: 400 11RF Rx Instructions: As directed (DME) regular gauze 4x4 See Rx Instructions .Route .MEDSUPPLY Qty: 500 2RF Rx Instructions: As directed (DME) sterile gauze 2x2 See Rx Instructions .Route .MEDSUPPLY Qty: 12 2RF Rx Instructions: As directed (DME) irrigation tray See Rx Instructions .Route .MEDSUPPLY Qty: 1 0RF Rx Instructions: As directed (DME) Piston Syringe with ENFit 60 mL syringe See Rx Instructions .Route Qty: 30 11RF Rx Instructions: Use 1 syringe once a day Eliquis 5 mg tablet 5 mg PO BID 90 Days Qty: 180 1RF (DME) cleansing wipes See Rx Instructions .Route .MEDSUPPLY Qty: 30 11RF Rx Instructions: Use 1 wipe once a day (DME) Select Disposable Briefs Misc See Rx Instructions .ROUTE .MEDSUPPLY Qty: 100 11RF Rx Instructions: As directed (DME) gauze bandage [Band-Aid Gauze Pads] 2 X 2 bandage See Rx Instructions .Route Qty: 25 11RF Rx Instructions: Use 1 gauze once a day (DME) gauze bandage [Band-Aid Gauze Pads] 4 X 4 bandage See Rx Instructions .Route Qty: 25 11RF Rx Instructions: Use 1 gauze once a day donepezil 10 mg tablet 10 mg PO BEDTIME 90 Days Qty: 90 1RF Ensure Liquid 1 ea PO .three times a day 25 Days Qty: 5688 6RF quetiapine 50 mg tablet 50 mg PO DAILY 30 Days Qty: 30 1RF metformin 500 mg tablet 500 mg PO BID 90 Days Qty: 180 1RF furosemide 20 mg tablet 20 mg PO DAILY PRN (Reason: edema) 90 Days Qty: 90 0RF famotidine 40 mg/5 mL (8 mg/mL) suspension for reconstitution 20 mg PO BEDTIME PRN (Reason: heartburn) 30 Days Qty: 50 2RF ipratropium bromide 0.02 % solution 2.5 ml inhalation Q6H PRN (Reason: shortness of breath or wheezing) 30 Days Qty: 150 4RF atorvastatin 80 mg tablet 80 mg PO BEDTIME Qty: 30 5RF lorazepam 1 mg tablet 1 mg PO BEDTIME PRN (Reason: agitation) 30 Days Qty: 30 0RF acetaminophen [Children's Acetaminophen] 160 mg/5 mL suspension 320 mg G-tube Q6H PRN (Reason: for pain) 30 Days Qty: 354 4RF fluticasone propion-salmeterol [Advair HFA] 115-21 mcg/actuation HFA aerosol inhaler 2 puff PO Q12H 30 Days Qty: 12 4RF tramadol 50 mg tablet 50 mg PO Q6H PRN (Reason: pain) Qty: 20 0RF levalbuterol HCl [Xopenex] 0.63 mg/3 mL solution for nebulization 0.63 mg inhalation Q8H (DME) wheelchair See Rx Instructions .Route .MEDSUPPLY Qty: 1 0RF Rx Instructions: As directed (DME) Shower Chair Misc See Rx Instructions .Route Qty: 1 0RF Rx Instructions: As directed enoxaparin [Lovenox] 40 mg/0.4 mL syringe 40 mg subcut DAILY 30 Days Qty: 12 6RF Glucerna Liquid 1 ea PO .three times a day 30 Days Qty: 237 11RF latanoprost 0.005 % drops 1 drp ophthalmic (eye) BEDTIME levalbuterol tartrate 45 mcg/actuation HFA aerosol inhaler 2 puff inhalation Q4-6H MDD Patient has h/o cardiac diseas PRN (Reason: shortness of breath) 30 Days Qty: 15 2RF nitroglycerin 0.4 mg tablet, sublingual 0.4 mg sublingual Q5M PRN (Reason: chest pain) Qty: 30 5RF Rx Instructions: do not exceed 3 doses per episode sodium chloride 7 % solution for nebulization 4 ml inhalation TID-QID PRN (Reason: bronchospasm) 30 Days Qty: 240 6RF Print Language: Ukrainian
[2025-01-04] MEDS: Doxycycline Monohydrate 100 MG CAPSULE PO (22:18)
[2025-01-04 22:28] VITALS: BP 127/64; PULSE 61; RESP 18; TEMP 36.9; O2SAT 97
== END 2025-01-04 22:31 | disposition home or self-care (01) ==
PROVIDERS: Physician Assistant Medical; Emergency Provider Emergency Medicine; PCP Internal Medicine
DX: L03.311 Cellulitis of abdominal wall (principal); K94.22 Gastrostomy infection; I48.0 Paroxysmal atrial fibrillation; I10 Essential (primary) hypertension; Z79.899 Other long term (current) drug therapy
CPT/HCPCS: 36415; 74018; 80053; 83735; 85025; 99283; 99284

== ENCOUNTER → 2025-01-04 17:25 | Outpatient (BNV) | payer OTHER, SELFPAY | PROVIDERS: PCP Internal Medicine; Visit Provider Radiology Vascular & Interventional Radiology | DX: R10.9 Unspecified abdominal pain (principal) | CPT/HCPCS: 74018 ==

== ENCOUNTER 2025-01-10 16:56 | Outpatient (AMB) | payer OTHER, SELFPAY ==
--- NOTE | 2025-01-10 17:08 | MHC.PC.OV ---
Vital Signs 01/10/25 17:09 Height 4 ft 11 in Weight 100 lb 12.02 oz BMI 20.3 BP 110/68 Blood Pressure Location Lt brachial Position Sitting Intake Visit Reasons: 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 Surveillance Systems Engineer Language: Analytical Data Scientist Name: Ana Maria Sneed MD Information Interpreted: non-clinical & clinical Accompanied by: Son Allergies aspirin Allergy (Intermediate, Verified 01/10/25 17:21) rash, pruritus penicillin G Allergy (Intermediate, Verified 01/10/25 17:21) swelling Medication List - Last Reconciled 01/10/25 by Ana Maria Sneed MD [abdominal pads As directed] acetaminophen (Children's Acetaminophen) 320 mg (10 mL) G-tube Q6H PRN 30 days apixaban (Eliquis) 5 mg PO BID 90 days atorvastatin 80 mg PO BEDTIME blood sugar diagnostic (Hydrobolt Ultra Test strips) check once daily blood-glucose meter (Hydrobolt Ultra2 Meter) check once daily carvedilol 6.25 mg PO BID cholecalciferol (vitamin D3) 50 mcg PO DAILY 90 days [cleansing wipes Use 1 wipe once a day] [colatrep As directed] commode As directed diaper,brief,adult,disposable (Select Disposable Briefs) As directed donepezil 10 mg PO BEDTIME 90 days doxycycline monohydrate 100 mg feeding tube BID enoxaparin (Lovenox) 40 mg (0.4 mL) subcut DAILY 30 days famotidine 20 mg (2.5 mL) PO BEDTIME PRN 30 days fluticasone propion-salmeterol 115-21 mcg/actuation (Advair HFA) 2 puffs PO Q12H 30 days fluticasone propionate 50 mcg/actuation 1 spray intranasal DAILY PRN food supplemt, lactose-reduced (Ensure oral liquid) 1 ea PO .three times a day 25 days furosemide 20 mg PO DAILY PRN 90 days gauze bandage (Band-Aid Gauze Pads) Use 1 gauze once a day gauze bandage (Band-Aid Gauze Pads) Use 1 gauze once a day humidifiers As directed ipratropium bromide 2.5 mL inhalation Q6H PRN 30 days [irrigation tray As directed] lancets (OneTouch UltraSoft 2 Lancet) check once per day latanoprost 0.005% 1 drp ophthalmic (eye) BEDTIME latex gloves (Latex Gloves, Large) As directed levalbuterol HCl (Xopenex) 0.63 mg inhalation Q8H levalbuterol tartrate 45 mcg/actuation 2 puffs inhalation Q4-6H PRN 30 days MDD Patient has h/o cardiac diseas lorazepam 1 mg PO BEDTIME PRN 30 days losartan 50 mg PO DAILY 90 days metformin 500 mg PO BID 90 days nebulizer accessories (Adult Aerosol Mask) As directed dnwddfip-iigqvtkzfMx-pkhoyegjS 3.5mg-400 unit- 5,000 unit/gram (Neosporin (ora-cin-lfser)) 1 appl topical DAILY 30 days nitroglycerin 0.4 mg sublingual Q5M PRN nut.tx.gluc.intol,lac-free,soy (Glucerna oral liquid) 1 ea PO .three times a day 30 days [paper taoe 2 inch As directed] quetiapine 200 mg PO BEDTIME 90 days quetiapine 50 mg PO DAILY 30 days [regular gauze 4x4 As directed] Shower Chair As directed sodium chloride 7% 4 mL inhalation TID-QID PRN 30 days [sterile gauze 2x2 As directed] syringe, ENFit, non-sterile (Piston Syringe with ENFit) Use 1 syringe once a day tramadol 50 mg PO Q6H PRN [wheelchair As directed] [wipes As directed] Tobacco use date assessed: 01/10/25 Fall risk assessment: No Falls in past year Last assessed Fall Risk: 01/10/25 Dental Screening Dental Screen Date: 01/10/25 Did you have a dental visit in the last 12 months?: No Did you have a dental problem in the last 6 months where you did not have access to dental care?: No Was dental information given to patient?: Patient declined HPI HPI Comments History of Present Illness Details The patient is a 74-year-old female presenting for hospital discharge follow-up with discharge date 01/04/2025 due to cellulitis around G-tube. 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 Her dementia is notable for contributing to behavioral complications, including chewing on her fingers, which has led to potential injuries. She has experienced persistent GERD, impacting her dietary habits, including an aversion to pasta. In the past, the patient has required frequent interventions for constipation, though recent adjustments have reduced enema use due to changes in her eating routine. Urinary incontinence is another ongoing issue, resulting in frequent changes of her garments. Regarding her medication, her atorvastatin regimen is being reviewed due to concerns about cholesterol levels. Has paroxysmal atrial fibrillation on chronic anticoagulation follow by cardiology. [facility] Medical History (Updated 01/10/25 @ 20:43 by Ana Maria Sneed MD) GERD (gastroesophageal reflux disease) Dyslipidemia Urinary incontinence PAF (paroxysmal atrial fibrillation) Atherosclerotic cardiovascular disease Depression with anxiety Anticoagulated Bleeding hemorrhoids Blurry vision Hemorrhoids Ischemic cardiomyopathy Osteoporosis Dementia History of stroke History of NV (myocardial infarction) Hypovitaminosis D Asthma Anxiety High cholesterol Hypertension Surgical History PEG (percutaneous endoscopic gastrostomy) status S/P percutaneous endoscopic gastrostomy (PEG) tube placement (~06/01/24) History of cardiac defibrillator placement History of hysterectomy Family History Father No problems noted. Mother Cerebrovascular accident Sister No problems noted. Sister No problems noted. Son No problems noted. Son No problems noted. Daughter No problems noted. Social History Housing: Apartment Alcohol intake: former Patient Tobacco Use Status: Former Tobacco user Tobacco use type: Cigarette e-Cigarette/Vaping Use: Never Used Second Hand Smoke Exposure: No Advance Directives Date on File: 12/18/20 service: No Current occupational status: retired Cognitive needs: No Hearing needs: No Vision needs: No Questionnaire PHQ-9 Over the last 2 weeks, how often have you been bothered by any of the following problems? 1. Little interest or pleasure in doing things: not at all 2. Feeling down, depressed, or hopeless: not at all 3. Trouble falling or staying asleep, or sleeping too much: not at all 4. Feeling tired or having little energy: not at all 5. Poor appetite or overeating: not at all 6. Feeling bad about yourself - or that you are a failure or have let yourself or your family down: not at all 7. Trouble concentrating on things, such as reading the newspaper or watching television: not at all 8. Moving or speaking so slowly that other people could have noticed. Or the opposite - being so fidgety or restless that you have been moving around a lot more than usual: not at all 9. Thoughts that you would be better off or of hurting yourself in some way: not at all Total score: 0 Depression Screening Interpretation: Negative Depression Screening Done: Yes 95130 - PHQ-9 Billing: Yes Source: Developed by Drs. Anthony Davis, Megan Davis, Flakito Orlando and colleagues, with an educational chris from [employer]. Thrive Questionnaire Date Thrive assessed: 01/10/25 I am a: Parent/Caregiver What is your living situation today?: I have a steady place to live Within the past 12 months, did the food you bought not last and you didn't have the money to get more?: Never true Within the past 12 months, did you worry whether your food would run out before you got money to buy more?: Never true Do you have trouble paying for medicines?: No Do you have trouble getting transportation to medical appointments?: No Do you have trouble paying your heating and electricity bill?: No Do you have trouble taking care of your child, family member or friend?: No Do you have trouble with day-to-day activities such as bathing, preparing meals, shopping, managing finances, etc.?: No Are you currently unemployed and looking for a job?: No Are you interested in more education?: No Please select the resources that you would like help with: None Currently or been in a relationship where the following occur: No concerns reported THRIVE Score: 0 AUDIT C Alcohol Use Questionnaire (AUDIT-C) 1. How often do you have a drink containing alcohol?: Never Total Score: 0 Score Reviewed/Action Taken: No JUAN PABLO-7 AMB Questionnaire JUAN PABLO-7 Date JUAN PABLO - 7 assessed: 01/10/25 Feeling nervous, anxious, or on edge: 1 = Several days Not being able to stop or control worryin = Not at all Worrying too much about different things: 0 = Not at all Trouble relaxin = Several days Being so restless that it is hard to sit still: 0 = Not at all Becoming easily annoyed or irritable: 0 = Not at all Feeling afraid as if something awful might happen: 0 = Not at all Total JUAN PABLO-7 score (0-4 normal; 5-9 mild; 10-14 moderate; 15-21 severe): 2 Source: Developed by Drs. Anthony Davis, Megan Davis, Flakito Orlando and colleagues, with an educational chris from [employer]. JUAN PABLO-7 Assessment Billing JUAN PABLO-7 Assessment Tool: JUAN PABLO-7 Assessment 72248 Review of Systems Const All systems reviewed & are unremarkable except as noted in HPI and below Card Denies chest pain at rest, Denies chest pain with activity, Denies edema, Denies irregular heart rhythm, Denies claudication, Denies dyspnea, Denies dyspnea on exertion, Denies orthopnea, Denies paroxysmal nocturnal dyspnea and Denies slow heart rate Resp Denies cough, Denies dyspnea and Denies dyspnea on exertion GI Denies abdominal pain, Denies change in bowel habits, Denies excessive flatus, Denies nausea and Denies vomiting Denies urinary incontinence, Denies urinary hesitancy and Denies urinary urgency Musc Denies atrophy, Denies deformity and Denies limited range of motion Skin/Breast Denies bleeding lesions, Denies changing lesions and Denies rash Neuro Reports memory loss Psych Reports memory loss Physical exam (Primary Care) Vital Signs: Last Vital Signs BP 110/68 01/10/25 17:09 BMI result Body Mass Index 20.3 Tobacco/Smoking Status: Tobacco use Status Tobacco use date assessed 01/10/25 01/10/25 17:16 Patient Tobacco Use Status Former Tobacco user 01/10/25 17:09 Tobacco use type Cigarette 01/10/25 17:09 e-Cigarette/Vaping Use Never Used 01/10/25 17:09 PHQ-9: PHQ-9 Score PHQ-9: Total score 0 01/10/25 17:35 Depression Screening Interpretation: Negative Thrive Assessment: Date of Thrive Assessment Date Thrive assessed 01/10/25 01/10/25 17:16 Currently or been in a relationship where the following occur: No concerns reported Resp Effort & Inspection: normal respiratory effort Auscultation: clear to auscultation bilaterally Cardio Jugular venous distension: no JVD Rate: regular rate Rhythm: regular rhythm Heart sounds: S1 normal heart sound present and S2 normal heart sound present GI Inspection: Yes G-tube present Extrem General: Yes full ROM Results AMB Hemoglobin A1c AMB Hemoglobin A1c 5.0 % Last Edit by YASH Duff on 01/10/25 17:35 Results Reviewed Results Reviewed: Laboratory Last Values Hgb A1c (Clinic) 5.0 % (4.0-6.0) 01/10/25 17:27 Coding Level of Care Code Est Pt Level 4 (42683) Complex EM visit Add On G2211 Diagnoses 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 G30.0; F02.C3 Dementia type: Alzheimer's Alzheimer's disease onset: early onset Dementia severity: severe Dementia behavioral or psychological symptom: with mood disturbance PEG (percutaneous endoscopic gastrostomy) status Z93.1 Moderate protein-calorie malnutrition E44.0 Malnutrition type: protein-calorie malnutrition Protein-calorie malnutrition severity: moderate PAF (paroxysmal atrial fibrillation) I48.0 Hypertension, unspecified type I10 Hypertension type: unspecified Dyslipidemia E78.5 Additional Codes JUAN PABLO-7 Assessment Billing - JUAN PABLO-7 Assessment Tool: JUAN PABLO-7 Assessment 01748 ([id number]) PHQ-9 - 80624 - PHQ-9 Billing: Yes ([id number]) Time Spent (min) 24 Assessment & Plan Assessment & Plan (1) Dementia: Comment: She is very pleasant but forgetful. Is good that her son takes care of her and looks over the meds administration. Code(s): F03.90 - Unspecified dementia, unspecified severity, without behavioral disturbance, psychotic disturbance, mood disturbance, and anxiety Category: Medical Qualifiers: Dementia type: Alzheimer's Alzheimer's disease onset: early onset Dementia severity: severe Dementia behavioral or psychological symptom: with mood disturbance Qualified Code(s): G30.0 - Alzheimer's disease with early onset; F02.C3 - Dementia in other diseases classified elsewhere, severe, with mood disturbance (2) PEG (percutaneous endoscopic gastrostomy) status: Code(s): Z93.1 - Gastrostomy status Category: Surgical (3) Malnutrition: Code(s): E46 - Unspecified protein-calorie malnutrition Category: Medical Qualifiers: Malnutrition type: protein-calorie malnutrition Protein-calorie malnutrition severity: moderate Qualified Code(s): E44.0 - Moderate protein-calorie malnutrition (4) PAF (paroxysmal atrial fibrillation): Code(s): I48.0 - Paroxysmal atrial fibrillation Category: Medical (5) Hypertension: Code(s): I10 - Essential (primary) hypertension Category: Medical Qualifiers: Hypertension type: unspecified Qualified Code(s): I10 - Essential (primary) hypertension (6) Dyslipidemia: Code(s): E78.5 - Hyperlipidemia, unspecified Category: Medical Plan The visit focused on managing the patient's chronic conditions, with an emphasis on maintaining current atorvastatin treatment for cholesterol management. Dementia medications will continue as they appear effective in managing symptoms. Dietary recommendations aim to relieve GERD symptoms, with particular avoidance of certain foods like pasta. Constipation management involved reducing enema frequencies based on meal consumption patterns. Urinary incontinence continues to be managed with frequent garment changes. Observing possible fungal infection signs on her fingers is advised, potentially necessitating further assessment. Her behavioral issue with finger chewing will be monitored to prevent self-injury. Due to the history of cancer, ongoing monitoring and follow-up are necessary. Patient was informed and verbally consented to the use of an ambient scribe for clinic note documentation during this visit. During the discussion, I explained the management plan for the patient's chronic conditions in detail, highlighting the importance of maintaining current medication regimens for dementia and cardiovascular risk factors with atorvastatin. I discussed dietary suggestions to alleviate GERD symptoms and adjustments to constipation management based on the patient's intake. I emphasized the need for vigilance regarding urinary incontinence and potential fungal infection signs. Concerns about behavioral symptoms and how they contribute to finger injuries were addressed, recommending close observation. Recognizing the patient's history of cancer, I advised ongoing follow-ups and encouraged discussions with her caregivers to ensure consistent monitoring and adherence to all medical recommendations. Orders: Orders AMB Hemoglobin A1c Today E11.9 - Type 2 diabetes mellitus without complications Microalbumin, Random (w Creat) Today R80.9 - Proteinuria, unspecified Lipid Panel Today E78.5 - Hyperlipidemia, unspecified Medications: Changed From quetiapine 200 mg PO BEDTIME 90 days 90 tabs 1RF To quetiapine 100 mg (1/2 x 200 mg) PO BEDTIME 45 tabs 1RF 90 days Refilled cholecalciferol (vitamin D3) 50 mcg PO DAILY 90 caps 3RF 90 days Discontinued tramadol Discontinued Reason: Patient Completed Course 50 mg PO Q6H PRN 20 tabs 0RF pain enoxaparin (Lovenox) Discontinued Reason: Patient Completed Course 40 mg (0.4 mL) subcut DAILY 30 days 12 mL 6RF I48.0 - Paroxysmal atrial fibrillation metformin Discontinued Reason: Patient Completed Course 500 mg PO BID 90 days 180 tabs 1RF Patient Instructions: - Continue with the current atorvastatin dosage as prescribed. - Maintain dietary changes to manage GERD symptoms; avoid pasta. - Adjust enema frequency according to meal intake to manage constipation. - Monitor urinary incontinence and change garments as needed. - Keep an eye on possible fungal infection signs and report changes. - Watch for behavioral tendencies to chew fingers; seek help if worsening. - Regularly follow up as advised to monitor chronic conditions and any cancer-related health changes. - Involve caregivers in monitoring and daily medication adherence.
[2025-01-10 17:09] VITALS: BP 110/68; BMI 20.3
== END 2025-01-10 17:37 | disposition home or self-care (01) ==
LOC: HO.HMCH 16:56
PROVIDERS: PCP Internal Medicine; Visit Provider Internal Medicine
DX: G30.0 Alzheimer's disease with early onset (principal); F02.C3 Dementia in other diseases classified elsewhere, severe, with mood disturbance; Z93.1 Gastrostomy status; E44.0 Moderate protein-calorie malnutrition; I48.0 Paroxysmal atrial fibrillation; E11.9 Type 2 diabetes mellitus without complications; I10 Essential (primary) hypertension; E78.5 Hyperlipidemia, unspecified

== ENCOUNTER → 2025-01-10 16:56 | Outpatient (BNVA) | payer OTHER, SELFPAY | PROVIDERS: PCP Internal Medicine; Visit Provider Internal Medicine | DX: G30.0 Alzheimer's disease with early onset (principal); F02.C3 Dementia in other diseases classified elsewhere, severe, with mood disturbance; E44.0 Moderate protein-calorie malnutrition; Z93.1 Gastrostomy status; E78.5 Hyperlipidemia, unspecified; I10 Essential (primary) hypertension; I48.0 Paroxysmal atrial fibrillation; E11.9 Type 2 diabetes mellitus without complications | CPT/HCPCS: 83036; 96127; 99212 ==

== ENCOUNTER → 2025-02-21 23:59 | Outpatient (BNV) | payer OTHER, SELFPAY ==
--- NOTE | 2025-02-24 20:45 | A.OFFVIS_ITS ---
Intake Visit Reasons: Remote ICD check- [employer] Allergies aspirin Allergy (Intermediate, Verified 01/10/25 17:21) rash, pruritus penicillin G Allergy (Intermediate, Verified 01/10/25 17:21) swelling [facility] Medical History (Updated 01/10/25 @ 20:43 by Ana Maria Sneed MD) GERD (gastroesophageal reflux disease) Dyslipidemia Urinary incontinence PAF (paroxysmal atrial fibrillation) Atherosclerotic cardiovascular disease Depression with anxiety Anticoagulated Bleeding hemorrhoids Blurry vision Hemorrhoids Ischemic cardiomyopathy Osteoporosis Dementia History of stroke History of ND (myocardial infarction) Hypovitaminosis D Asthma Anxiety High cholesterol Hypertension Surgical History PEG (percutaneous endoscopic gastrostomy) status S/P percutaneous endoscopic gastrostomy (PEG) tube placement (~06/01/24) History of cardiac defibrillator placement History of hysterectomy Family History Father No problems noted. Mother Cerebrovascular accident Sister No problems noted. Sister No problems noted. Son No problems noted. Son No problems noted. Daughter No problems noted. Social History Housing: Apartment Alcohol intake: former Patient Tobacco Use Status: Former Tobacco user Tobacco use type: Cigarette e-Cigarette/Vaping Use: Never Used Second Hand Smoke Exposure: No Advance Directives Date on File: 12/18/20 service: No Current occupational status: retired Cognitive needs: No Hearing needs: No Vision needs: No Office Procedures Cardiac Device Check Cardiac Device Check Details: Date of service 02/21/2025; Battery life 2 years; normal lead parameters; no treated VT/VF; normal ICD function. [id number] Cardiac Interrogation, implant defibrillator w/interim Procedure code (CPT) selection complete Assessment & Plan Assessment & Plan (1) ICD (implantable cardioverter-defibrillator) in place: Code(s): Z95.810 - Presence of automatic (implantable) cardiac defibrillator Category: Medical (2) Ischemic cardiomyopathy: Comment: follows with [facility] Code(s): I25.5 - Ischemic cardiomyopathy Category: Medical Plan x Coding Level of Care Code Procedure Only Diagnoses ICD (implantable cardioverter-defibrillator) in place Z95.810 Ischemic cardiomyopathy I25.5 CPT Codes Cardiac Device Check - Cardiac Device 13: [id number] Cardiac Interrogation, implant defibrillator w/interim ([id number])
== END ==
PROVIDERS: PCP Internal Medicine; Visit Provider Internal Medicine
DX: I25.5 Ischemic cardiomyopathy (principal); Z95.810 Presence of automatic (implantable) cardiac defibrillator
CPT/HCPCS: 93295

== ENCOUNTER 2025-04-05 09:05 | Outpatient (AMB) | payer OTHER, SELFPAY ==
[2025-04-05 09:15] VITALS: BP 120/84; BMI 21.2
--- NOTE | 2025-04-05 09:15 | MHC.PC.OV ---
Vital Signs 04/05/25 09:15 Height 4 ft 11 in Weight 105 lb BMI 21.2 BP 120/84 Blood Pressure Location Lt brachial Position Sitting Intake Visit Reasons: discuss change to paperwork Clinical Exercise Specialist Required: No Accompanied by: Son Allergies aspirin Allergy (Intermediate, Verified 04/05/25 09:36) rash, pruritus penicillin G Allergy (Intermediate, Verified 04/05/25 09:36) swelling Medication List - Last Reconciled 04/05/25 by Ana Maria Sneed MD [abdominal pads As directed] acetaminophen (Children's Acetaminophen) 320 mg (10 mL) G-tube Q6H PRN 30 days apixaban (Eliquis) 5 mg PO BID 90 days atorvastatin 80 mg PO BEDTIME blood sugar diagnostic ([employer] Ultra Test strips) check once daily blood-glucose meter ([employer] Ultra2 Meter) check once daily carvedilol 6.25 mg PO BID cholecalciferol (vitamin D3) 50 mcg PO DAILY 90 days [cleansing wipes Use 1 wipe once a day] [colatrep As directed] commode As directed diaper,brief,adult,disposable (Select Disposable Briefs) As directed donepezil 10 mg PO BEDTIME 90 days doxycycline monohydrate 100 mg feeding tube BID famotidine 20 mg (2.5 mL) PO BEDTIME PRN 30 days fluticasone propion-salmeterol 113-14 mcg/actuation (AirDuo RespiClick) 1 inh inhalation BID 30 days fluticasone propion-salmeterol 113-14 mcg/actuation 1 inh inhalation BID 30 days fluticasone propionate 50 mcg/actuation 1 spray intranasal DAILY PRN food supplemt, lactose-reduced (Ensure oral liquid) 1 ea PO .three times a day 25 days furosemide 20 mg PO DAILY PRN 90 days gauze bandage (Band-Aid Gauze Pads) Use 1 gauze once a day gauze bandage (Band-Aid Gauze Pads) Use 1 gauze once a day humidifiers As directed ipratropium bromide 2.5 mL inhalation Q6H PRN 30 days [irrigation tray As directed] lancets ([employer] UltraSoft 2 Lancet) check once per day latanoprost 0.005% 1 drp ophthalmic (eye) BEDTIME latex gloves (Latex Gloves, Large) As directed levalbuterol HCl (Xopenex) 0.63 mg inhalation Q8H levalbuterol tartrate 45 mcg/actuation 2 puffs inhalation Q4-6H PRN 30 days MDD Patient has h/o cardiac diseas lorazepam 1 mg PO BEDTIME PRN 30 days losartan 50 mg PO DAILY 90 days nebulizer accessories (Adult Aerosol Mask) As directed ielyytaf-jupmhunstAn-mqstygsgH 3.5mg-400 unit- 5,000 unit/gram (Neosporin (xta-ixq-mskdi)) 1 appl topical DAILY 30 days nitroglycerin 0.4 mg sublingual Q5M PRN nut.tx.gluc.intol,lac-free,soy (Glucerna oral liquid) 1 ea PO .three times a day 30 days [paper taoe 2 inch As directed] quetiapine 50 mg PO DAILY 30 days quetiapine 100 mg (1/2 x 200 mg) PO BEDTIME 90 days [regular gauze 4x4 As directed] Shower Chair As directed sodium chloride 7% 4 mL inhalation TID-QID PRN 30 days [sterile gauze 2x2 As directed] syringe, ENFit, non-sterile (Piston Syringe with ENFit) Use 1 syringe once a day [wheelchair As directed] [wipes As directed] Tobacco use date assessed: 01/10/25 Dental Screening Dental Screen Date: 01/10/25 HPI HPI Comments History of Present Illness Details The patient is a 75-year-old female presenting with the management of chronic conditions including dementia and heart failure. The history of dementia includes a CT scan of the head performed in 2019, which showed changes of brain atrophy. The patient has been experiencing symptoms consistent with dementia, although specific symptoms were not detailed in the conversation. The patient has a history of heart failure and myocardial infarction. The last echocardiogram in 2021 showed a left ventricular ejection fraction of 35-40%. The patient is under the care of a soap drier tender for these conditions. The patient has gastroesophageal reflux disease and is prescribed atorvastatin 80 mg for management. She is also taking carvedilol, vitamin D, and donepezil. The patient has allergies to aspirin and penicillin. She has been prescribed Tylenol and Eliquis as part of her medication regimen. [facility] Medical History (Updated 04/05/25 @ 09:48 by Ana Maria Sneed MD) GERD (gastroesophageal reflux disease) Dyslipidemia Urinary incontinence PAF (paroxysmal atrial fibrillation) Atherosclerotic cardiovascular disease Depression with anxiety Anticoagulated Bleeding hemorrhoids Blurry vision Hemorrhoids Ischemic cardiomyopathy Osteoporosis Dementia History of stroke History of ND (myocardial infarction) Hypovitaminosis D Asthma Anxiety High cholesterol Hypertension Surgical History PEG (percutaneous endoscopic gastrostomy) status S/P percutaneous endoscopic gastrostomy (PEG) tube placement (~06/01/24) History of cardiac defibrillator placement History of hysterectomy Family History Father No problems noted. Mother Cerebrovascular accident Sister No problems noted. Sister No problems noted. Son No problems noted. Son No problems noted. Daughter No problems noted. Social History Housing: Apartment Alcohol intake: former Patient Tobacco Use Status: Former Tobacco user Tobacco use type: Cigarette e-Cigarette/Vaping Use: Never Used Second Hand Smoke Exposure: No Advance Directives Date on File: 12/18/20 service: No Current occupational status: retired Cognitive needs: No Hearing needs: No Vision needs: No Questionnaire PHQ-9 Over the last 2 weeks, how often have you been bothered by any of the following problems? 1. Little interest or pleasure in doing things: not at all 2. Feeling down, depressed, or hopeless: not at all 3. Trouble falling or staying asleep, or sleeping too much: not at all 4. Feeling tired or having little energy: not at all 5. Poor appetite or overeating: not at all 6. Feeling bad about yourself - or that you are a failure or have let yourself or your family down: not at all 7. Trouble concentrating on things, such as reading the newspaper or watching television: not at all 8. Moving or speaking so slowly that other people could have noticed. Or the opposite - being so fidgety or restless that you have been moving around a lot more than usual: not at all 9. Thoughts that you would be better off or of hurting yourself in some way: not at all Total score: 0 Depression Screening Interpretation: Negative Depression Screening Done: Yes 08890 - PHQ-9 Billing: Yes Source: Developed by Drs. Anthony Davis, Megan Davis, Flakito Orlando and colleagues, with an educational chris from [employer]. Thrive Questionnaire Date Thrive assessed: 01/10/25 I am a: Patient What is your living situation today?: I have a steady place to live Within the past 12 months, did the food you bought not last and you didn't have the money to get more?: Often true Within the past 12 months, did you worry whether your food would run out before you got money to buy more?: Often true Do you have trouble paying for medicines?: No Do you have trouble getting transportation to medical appointments?: No Do you have trouble paying your heating and electricity bill?: No Do you have trouble taking care of your child, family member or friend?: No Do you have trouble with day-to-day activities such as bathing, preparing meals, shopping, managing finances, etc.?: Yes Are you currently unemployed and looking for a job?: No Are you interested in more education?: I choose not to answer this question Please select the resources that you would like help with: Transportation Currently or been in a relationship where the following occur: I choose not to answer THRIVE Score: 2 AUDIT C Alcohol Use Questionnaire (AUDIT-C) 1. How often do you have a drink containing alcohol?: Never Total Score: 0 JUAN PABLO-7 AMB Questionnaire JUAN PABLO-7 Date JUAN PABLO - 7 assessed: 01/10/25 Feeling nervous, anxious, or on edge: 0 = Not at all Not being able to stop or control worryin = Not at all Worrying too much about different things: 0 = Not at all Trouble relaxin = Not at all Being so restless that it is hard to sit still: 0 = Not at all Becoming easily annoyed or irritable: 0 = Not at all Feeling afraid as if something awful might happen: 0 = Not at all Total JUAN PABLO-7 score (0-4 normal; 5-9 mild; 10-14 moderate; 15-21 severe): 0 Source: Developed by Megan Moreno Kurt Kroenke and colleagues, with an educational chris from [employer]. JUAN PABLO-7 Assessment Billing JUAN PABLO-7 Assessment Tool: JUAN PABLO-7 Assessment 59443 Review of Systems Const All systems reviewed & are unremarkable except as noted in HPI and below Card Denies chest pain at rest, Denies chest pain with activity, Denies edema, Denies irregular heart rhythm, Denies claudication, Denies dyspnea, Denies dyspnea on exertion, Denies orthopnea, Denies paroxysmal nocturnal dyspnea and Denies slow heart rate Resp Denies cough, Denies dyspnea and Denies dyspnea on exertion GI Denies abdominal pain, Denies change in bowel habits, Denies excessive flatus, Denies nausea and Denies vomiting Denies urinary incontinence, Denies urinary hesitancy and Denies urinary urgency Musc Denies atrophy, Denies deformity and Denies limited range of motion Skin/Breast Denies bleeding lesions, Denies changing lesions and Denies rash Neuro Reports confusion and Reports memory loss Psych Reports confusion and Reports memory loss Physical exam (Primary Care) Vital Signs: Last Vital Signs BP 120/84 04/05/25 09:15 BMI result Body Mass Index 21.2 Tobacco/Smoking Status: Tobacco use Status Tobacco use date assessed 01/10/25 04/05/25 09:18 Patient Tobacco Use Status Former Tobacco user 04/05/25 09:18 Tobacco use type Cigarette 04/05/25 09:18 e-Cigarette/Vaping Use Never Used 04/05/25 09:18 PHQ-9: PHQ-9 Score PHQ-9: Total score 0 04/05/25 09:39 Depression Screening Interpretation: Negative Thrive Assessment: Date of Thrive Assessment Date Thrive assessed 01/10/25 04/05/25 09:18 Currently or been in a relationship where the following occur: I choose not to answer Const General: confusion Orientation/consciousness: confusion Resp Effort & Inspection: normal respiratory effort Auscultation: clear to auscultation bilaterally Cardio Jugular venous distension: no JVD Rate: regular rate Rhythm: regular rhythm Heart sounds: S1 normal heart sound present and S2 normal heart sound present Neuro General: confusion Extrem General: Yes full ROM Coding Level of Care Code Est Pt Level 4 (48771) Complex EM visit Add On G2211 Diagnoses 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 G30.0; F02.C3 Dementia type: Alzheimer's Alzheimer's disease onset: early onset Dementia severity: severe Dementia behavioral or psychological symptom: with mood disturbance Chronic systolic (congestive) heart failure I50.22 G tube feedings Z93.1 PAF (paroxysmal atrial fibrillation) I48.0 Dyslipidemia E78.5 GERD (gastroesophageal reflux disease) K21.9 Additional Codes JUAN PABLO-7 Assessment Billing - JUAN PABLO-7 Assessment Tool: JUAN PABLO-7 Assessment 30228 ([id number]) PHQ-9 - 17738 - PHQ-9 Billing: Yes ([id number]) Time Spent (min) 23 Assessment & Plan Assessment & Plan (1) Dementia: Comment: She is very pleasant but forgetful. Is good that her son takes care of her and looks over the meds administration. Code(s): F03.90 - Unspecified dementia, unspecified severity, without behavioral disturbance, psychotic disturbance, mood disturbance, and anxiety Category: Medical Qualifiers: Dementia type: Alzheimer's Alzheimer's disease onset: early onset Dementia severity: severe Dementia behavioral or psychological symptom: with mood disturbance Qualified Code(s): G30.0 - Alzheimer's disease with early onset; F02.C3 - Dementia in other diseases classified elsewhere, severe, with mood disturbance (2) Chronic systolic (congestive) heart failure: Code(s): I50.22 - Chronic systolic (congestive) heart failure Category: Medical (3) G tube feedings: Code(s): Z93.1 - Gastrostomy status Category: Medical (4) PAF (paroxysmal atrial fibrillation): Code(s): I48.0 - Paroxysmal atrial fibrillation Category: Medical (5) Dyslipidemia: Code(s): E78.5 - Hyperlipidemia, unspecified Category: Medical (6) GERD (gastroesophageal reflux disease): Code(s): K21.9 - Gastro-esophageal reflux disease without esophagitis Category: Medical Plan The management plan for the patient includes continued monitoring and management of her chronic conditions, particularly dementia and heart failure. The patient is advised to continue her current medications, including atorvastatin, carvedilol, vitamin D, and donepezil, and to adhere to her prescribed regimen to manage her conditions effectively. Regular follow-ups with her soap drier tender are recommended to monitor her heart failure and myocardial infarction history, with particular attention to her left ventricular ejection fraction. The patient should also continue to monitor her intraocular pressure as part of her preventative care. Patient was informed and verbally consented to the use of an ambient scribe for clinic note documentation during this visit. Orders: Orders Complete Blood Count Auto Diff Today D64.9 - Anemia, unspecified IRON PROFILE Today D64.9 - Anemia, unspecified Vitamin D 25-OH Total Today E55.9 - Vitamin D deficiency, unspecified Vitamin B12 and Folate Today E53.8 - Deficiency of other specified B group vitamins Lipid Panel Today E78.5 - Hyperlipidemia, unspecified Comprehensive Met. Panel Today F02.C3 - Dementia in other diseases classified elsewhere, severe, with mood disturbance, G30.0 - Alzheimer's disease with early onset NT-proBNP Today I50.22 - Chronic systolic (congestive) heart failure
--- OUTSIDE RECORDS SUMMARY | 2025-04-05 09:43 | XMS_ITS | Clinical Summary ---
Author Organization [facility] ity Address [address] [place] [address] Care Team Providers Care De Icer Finisher Name Role Phone Unavailable Primary Care Provider [...] 1999 Zoster Vaccines (1 of 2) 1999 Depression Screening 09/22/2022 Falls Risk Assessment 09/22/2022 Hepatitis C Screening 09/22/2022 Osteoporosis Screening (Bone Density Screening) 09/22/2022 Social Influencers of Health Screening 09/22/2022 RSV Immunization Adult Patie nts (1 - 1-dose 75+ series) 02/20/2024 COVID-19 Vaccine ( - 2023-2 5 season) 2024 Influenza Vaccine (Season Ended) 2025 HIB Vaccines Aged Out No longer eligi [...] age to complete this topic Meningococcal B Vaccine Aged Out No l onger eligible based on patient's age to complete this topic RSV Immunization Patients Un marychuy 20 months Aged Out No longer eligible b ased on patient's age to complete this topic Varicella Vaccines Aged Out No longer eligible based on patient's age to complete this topic
== END 2025-04-05 09:50 | disposition home or self-care (01) ==
LOC: HO.HMCH 09:06
PROVIDERS: PCP Internal Medicine; Visit Provider Internal Medicine
DX: I48.0 Paroxysmal atrial fibrillation (principal); G30.0 Alzheimer's disease with early onset; F02.C3 Dementia in other diseases classified elsewhere, severe, with mood disturbance; I50.22 Chronic systolic (congestive) heart failure; Z93.1 Gastrostomy status; E78.5 Hyperlipidemia, unspecified; K21.9 Gastro-esophageal reflux disease without esophagitis

== ENCOUNTER → 2025-04-05 09:05 | Outpatient (BNVA) | payer OTHER, SELFPAY | PROVIDERS: PCP Internal Medicine; Visit Provider Internal Medicine | DX: I48.0 Paroxysmal atrial fibrillation (principal); I25.2 Old myocardial infarction; K21.9 Gastro-esophageal reflux disease without esophagitis; F02.C3 Dementia in other diseases classified elsewhere, severe, with mood disturbance; I50.22 Chronic systolic (congestive) heart failure; E78.5 Hyperlipidemia, unspecified; Z79.01 Long term (current) use of anticoagulants; Z79.82 Long term (current) use of aspirin; Z93.1 Gastrostomy status | CPT/HCPCS: 96127; 99212 ==

== ENCOUNTER 2025-05-17 12:28 | Outpatient (AMB) | payer OTHER, SELFPAY ==
--- NOTE | 2025-05-17 12:36 | A.OFFVIS_ITS ---
Vital Signs 05/17/25 12:45 Height 4 ft 11 in Weight 108 lb 3.951 oz BMI 21.9 BP 112/70 Blood Pressure Location Lt brachial Position Sitting Pulse 70 Pulse Source Pulse Oximeter Pulse Oximetry (%) 96 Oxygen Delivery Method Room Air Intake Visit Reasons: Osteoporosis Intake Note: Patient presents for Osteoporosis follow up. Film Loader Required: Yes Film Loader Language: Customs Brokerage Agent Services: Film Loader Offered & Declined Film Loader Name: Linda Smith Information Interpreted: non-clinical & clinical Conference Center Coordinator: Conference Center Coordinator Present (Linda Smith) Accompanied by: Daughter Allergies aspirin Allergy (Intermediate, Verified 05/17/25 12:45) rash, pruritus penicillin G Allergy (Intermediate, Verified 05/17/25 12:45) swelling Medication List - Last Reconciled 05/17/25 by Estelita Martini MD [abdominal pads As directed] acetaminophen (Children's Acetaminophen) 320 mg (10 mL) G-tube Q6H PRN 30 days apixaban (Eliquis) 5 mg PO BID 90 days atorvastatin 80 mg PO BEDTIME blood sugar diagnostic ([employer] Ultra Test strips) check once daily blood-glucose meter ([employer] Ultra2 Meter) check once daily carvedilol 6.25 mg PO BID cholecalciferol (vitamin D3) 50 mcg PO DAILY 90 days [cleansing wipes Use 1 wipe once a day] [colatrep As directed] commode As directed diaper,brief,adult,disposable (Select Disposable Briefs) As directed donepezil 10 mg PO BEDTIME 90 days doxycycline monohydrate 100 mg feeding tube BID famotidine 20 mg (2.5 mL) PO BEDTIME PRN 30 days fluticasone propion-salmeterol 113-14 mcg/actuation (AirDuo RespiClick) 1 inh inhalation BID 30 days fluticasone propion-salmeterol 113-14 mcg/actuation 1 inh inhalation BID 30 days fluticasone propionate 50 mcg/actuation 1 spray intranasal DAILY PRN food supplemt, lactose-reduced (Ensure oral liquid) 1 ea PO .three times a day 25 days furosemide 20 mg PO DAILY PRN 90 days gauze bandage (Band-Aid Gauze Pads) Use 1 gauze once a day gauze bandage (Band-Aid Gauze Pads) Use 1 gauze once a day humidifiers As directed ipratropium bromide 2.5 mL inhalation Q6H PRN 30 days [irrigation tray As directed] lancets (OneTouch UltraSoft 2 Lancet) check once per day latanoprost 0.005% 1 drp ophthalmic (eye) BEDTIME latex gloves (Latex Gloves, Large) As directed levalbuterol HCl (Xopenex) 0.63 mg inhalation Q8H levalbuterol tartrate 45 mcg/actuation 2 puffs inhalation Q4-6H PRN 30 days MDD Patient has h/o cardiac diseas lorazepam 1 mg PO BEDTIME PRN 30 days losartan 50 mg PO DAILY 90 days nebulizer accessories (Adult Aerosol Mask) As directed [id number] 3.5mg-400 unit- 5,000 unit/gram (Neosporin (jalil- josesito-polym)) 1 appl topical DAILY 30 days nitroglycerin 0.4 mg sublingual Q5M PRN nut.tx.gluc.intol,lac-free,soy (Glucerna oral liquid) 1 ea PO .three times a day 30 days [paper taoe 2 inch As directed] quetiapine 50 mg PO DAILY 30 days quetiapine 100 mg (1/2 x 200 mg) PO BEDTIME 90 days [regular gauze 4x4 As directed] Shower Chair As directed sodium chloride 7% 4 mL inhalation TID-QID PRN 30 days [sterile gauze 2x2 As directed] syringe, ENFit, non-sterile (Piston Syringe with ENFit) Use 1 syringe once a day [wheelchair As directed] [wipes As directed] HPI Comments Details: Patient is a 75 y.o. female with dementia, depression/anxiety, HLD c/b CAD and HFrEF s/p ICD placement, HTN c/b stroke, asthma, paroxysmal A fib, and osteoporosis here today for follow up Interval History: Patient last seen 08/10/[address] Martínez - followed up with son - doing well on the reclast infusion Today - No falls or fractures - Here with daughter today - No significant complaints Rheumatologic History: Osteoporosis 01/2024 - IV Reclast 01/2024 Initial history: This is a 73 year-old female who presents for evaluation of osteoporosis. She was diagnosed with osteoporosis last year and started on alendronate by her PCP, patient has significant dementia and does not take pills. Was not taking her alendronate. Her PCP referred her to be evaluated for a parenteral route for osteoporosis medication. Even her Eliquis was recently switched to enoxaparin. Her son accompanies her. Patient does not participate in the interview. He also states that patient does not eat well at all she has lost significant weight over the last 2 years. States that recently she has been having pain in her lower back then her legs. He does not recall any recent falls. States that she had multiple near falls but he is able to catch her. She was found to have old rib fractures on x-rays done in 2007. No other known fractures Current Rheumatology Medication(s): IV Reclast 5mg yearly Vit D PFSH Medical History GERD (gastroesophageal reflux disease) Dyslipidemia Urinary incontinence PAF (paroxysmal atrial fibrillation) Atherosclerotic cardiovascular disease Depression with anxiety Anticoagulated Bleeding hemorrhoids Blurry vision Hemorrhoids Ischemic cardiomyopathy Osteoporosis Dementia History of stroke History of [place] (myocardial infarction) Hypovitaminosis D Asthma Anxiety High cholesterol Hypertension Surgical History PEG (percutaneous endoscopic gastrostomy) status S/P percutaneous endoscopic gastrostomy (PEG) tube placement (~06/01/24) History of cardiac defibrillator placement History of hysterectomy Family History Father No problems noted. Mother Cerebrovascular accident Sister No problems noted. Sister No problems noted. Son No problems noted. Son No problems noted. Daughter No problems noted. Social History Housing: Apartment Alcohol intake: former Patient Tobacco Use Status: Former Tobacco user Tobacco use type: Cigarette e-Cigarette/Vaping Use: Never Used Second Hand Smoke Exposure: No Advance Directives Date on File: 12/18/20 service: No Current occupational status: retired Cognitive needs: No Hearing needs: No Vision needs: No Review of Systems Const Unobtainable due to mental status Physical Exam Exam Exam: Vital signs reviewed Physical Examination CONSTITUITIONAL Elderly and frail MSK Hands * Right Hand: Able to make a fist. No swelling or tenderness to palpation of these joints. * Left Hand: Able to make a fist. No swelling or tenderness to palpation of these joints. * Herbedens nodes noted bilaterally Wrists * Right Wrist: Full ROM. 70 degrees of wrist flexion, 80 degrees of wrist extension. No swelling or TTP * Left Wrist: Full ROM. 70 degrees of wrist flexion, 80 degrees of wrist extension. No swelling or TTP Elbows * Right Elbow: Full ROM. No swelling or TTP. No TTP of the medial and lateral epicondyles * Left Elbow: Full ROM. No swelling or TTP. No TTP of the medial and lateral epicondyles Shoulders * Right shoulder: Full ROM. No swelling noted. No TTP of the AC joint, subacromial bursa or posterior shoulder * Left shoulder: Full ROM. No swelling noted. No TTP of the AC joint, subacromial bursa or posterior shoulder Knees * Right knee: Full ROM. No swelling noted. No TTP of the knee joint lie or pes anserine bursa * Left knee: Full ROM. No swelling noted. No TTP of the knee joint lie or pes anserine bursa. * Crepitations felt bilaterally Ankles * Right ankle: Good ankle dorsiflexion and plantar flexion. No swelling. No TTP of the ankle joint * Left ankle: Good ankle dorsiflexion and plantar flexion. No swelling. No TTP of the ankle joint Feet * Right foot: Negative squeeze test * Left foot: Negative squeeze test Tender points? * No tenderness to palpation of the bilateral trapezius, supraspinatus, anterior costochondral junctions, bilateral suboccipital muscle insertions SKIN No rashes Vital Signs: Last Vital Signs Pulse 70 05/17/25 12:45 BP 112/70 05/17/25 12:45 Pulse Ox 96 05/17/25 12:45 Oxygen Delivery Method Room Air 05/17/25 12:45 BMI result Body Mass Index 21.9 Results Reviewed Results Reviewed: Laboratory Tests 04/27/24 01/04/25 10:47 17:34 WBC 8.2 RBC 4.29 Hgb 13.1 Hct 39.1 Plt Count 140 L D Sodium 143 Potassium 4.0 Chloride 112 H Carbon Dioxide 24 BUN 20 H Creatinine 0.89 AST 44 H ALT 52 H 25-OH Vitamin D Total 55.8 DEXA 09/2023 FINDINGS: LEFT FEMUR, NECK: BMD 0.767 g/cm2, Z-score 0.4, T-score -1.9, osteopenia. LEFT FEMUR, TOTAL: BMD 0.714 g/cm2, Z-score -0.2, T-score -2.3, osteopenia. AP SPINE L1-L3 (excluding L4): The data of L1-L4 has been changed to exclude the L4 vertebral body, because degenerative sclerosis at this level may cause overestimation of lumbar spine density. BMD 0.852 g/cm2, Z-score -0.3, T-score -2.6, osteoporosis. Assessment & Plan Assessment & Plan (1) Osteoporosis: Comment: DEXA 09/2023: AP spine -2.6, Left femur neck -1.9, Left femur total -2.3 IV Reclast 09/2023 Code(s): M81.0 - Age-related osteoporosis without current pathological fracture Category: Medical Qualifiers: Osteoporosis type: age-related Presence of current pathological fracture: without current pathological fracture Qualified Code(s): M81.0 - Age- related osteoporosis without current pathological fracture Plan: #Osteoporosis Patient is a 75-year-old female with osteoporosis here today for follow up. Receiving IV Reclast infusions. Due for same. No falls or fractures since last visit Plan - IV reclast - DEXA 09/2025 - RTC 6 months - Labs before visit: CMP and Vit D Plan I spent 20 minutes reviewing the record and labs, taking a history, examining the patient, discussing the treatment plan, ordering diagnostic work up and documenting in the medical record Orders: Orders Vitamin D 25-OH Total Today M81.0 - Age-related osteoporosis without current pathological fracture XR DEXA axial skeleton 09/29/25 M81.0 - Age-related osteoporosis without current pathological fracture Comprehensive Met. Panel Today M81.0 - Age-related osteoporosis without current pathological fracture Referrals Infusion Center Notification M81.0 - Age-related osteoporosis without current pathological fracture Coding Level of Care Code Est Pt Level 3 (46891) Diagnoses Age-related osteoporosis without current pathological fracture M81.0 Osteoporosis type: age-related Presence of current pathological fracture: without current pathological fracture
[2025-05-17 12:45] VITALS: BP 112/70; PULSE 70; O2SAT 96; BMI 21.9
== END 2025-05-17 13:11 | disposition home or self-care (01) ==
LOC: HO.RHE 12:28
PROVIDERS: PCP Internal Medicine; Visit Provider Student in an Organized Health Care Education/Training Program
DX: M81.0 Age-related osteoporosis without current pathological fracture (principal)
CPT/HCPCS: 99213

== ENCOUNTER → 2025-05-17 12:28 | Outpatient (BNVA) | payer OTHER, SELFPAY | PROVIDERS: PCP Internal Medicine; Visit Provider Student in an Organized Health Care Education/Training Program | DX: M81.0 Age-related osteoporosis without current pathological fracture (principal) | CPT/HCPCS: 99212 ==

== ENCOUNTER → 2025-05-23 23:59 | Outpatient (BNV) | payer OTHER, SELFPAY ==
--- NOTE | 2025-05-30 12:39 | MHC.OFFVIS ---
Intake Visit Reasons: Remote ICD check- [employer] Allergies aspirin Allergy (Intermediate, Verified 05/17/25 12:45) rash, pruritus penicillin G Allergy (Intermediate, Verified 05/17/25 12:45) swelling PFSH Medical History GERD (gastroesophageal reflux disease) Dyslipidemia Urinary incontinence PAF (paroxysmal atrial fibrillation) Atherosclerotic cardiovascular disease Depression with anxiety Anticoagulated Bleeding hemorrhoids Blurry vision Hemorrhoids Ischemic cardiomyopathy Osteoporosis Dementia History of stroke History of [place] (myocardial infarction) Hypovitaminosis D Asthma Anxiety High cholesterol Hypertension Surgical History PEG (percutaneous endoscopic gastrostomy) status S/P percutaneous endoscopic gastrostomy (PEG) tube placement (~06/01/24) History of cardiac defibrillator placement History of hysterectomy Family History Father No problems noted. Mother Cerebrovascular accident Sister No problems noted. Sister No problems noted. Son No problems noted. Son No problems noted. Daughter No problems noted. Social History Housing: Apartment Alcohol intake: former Patient Tobacco Use Status: Former Tobacco user Tobacco use type: Cigarette e-Cigarette/Vaping Use: Never Used Second Hand Smoke Exposure: No Advance Directives Date on File: 12/18/20 service: No Current occupational status: retired Cognitive needs: No Hearing needs: No Vision needs: No Office Procedures Cardiac Device Check Cardiac Device Check Details: Date of service 05/23/2025; Battery life 2 years; normal lead parameters; no treated VT/VF; normal ICD function. [id number] Cardiac Interrogation, implant defibrillator w/interim Procedure code (CPT) selection complete Assessment & Plan Assessment & Plan (1) ICD (implantable cardioverter-defibrillator) in place: Code(s): Z95.810 - Presence of automatic (implantable) cardiac defibrillator Category: Medical (2) Ischemic cardiomyopathy: Comment: follows with [facility] Code(s): I25.5 - Ischemic cardiomyopathy Category: Medical (3) PAF (paroxysmal atrial fibrillation): Code(s): I48.0 - Paroxysmal atrial fibrillation Category: Medical Plan x Coding Level of Care Code Procedure Only Diagnoses ICD (implantable cardioverter-defibrillator) in place Z95.810 Ischemic cardiomyopathy I25.5 PAF (paroxysmal atrial fibrillation) I48.0 CPT Codes Cardiac Device Check - Cardiac Device 13: [id number] Cardiac Interrogation, implant defibrillator w/interim ([id number])
== END ==
PROVIDERS: PCP Internal Medicine; Visit Provider Internal Medicine
DX: I25.5 Ischemic cardiomyopathy (principal); Z95.810 Presence of automatic (implantable) cardiac defibrillator; I48.0 Paroxysmal atrial fibrillation
CPT/HCPCS: 93295

== ENCOUNTER 2025-05-24 10:46 | Outpatient (REF) | payer OTHER, SELFPAY ==
[2025-05-24 11:12] LABS: MANUAL DIFF FLAG NO
[2025-05-24 11:17] LABS: Hematocrit 45.1 % (37.0-47.0); Hemoglobin 15.0 g/dl (12.0-16.0); Imm Gran Abs Auto 0.02 X10*3/uL (0.00-0.03); Imm Gran Pct Auto 0.3 % (0.0-0.4); Lymphocytes Absolute Auto 1.6 X10*3/uL (1.2-4.9); Mean Corpuscular HGB Conc 33.3 g/dl (31.0-35.0); Mean Corpuscular Hemoglobin 30.4 pg (27.0-33.0); Mean Corpuscular Volume 91.5 fL (80.0-98.0); NRBC Abs Auto 0.000 X10*3/uL (0.0-0.012); NRBC Pct Auto 0.0 /100WBC (0.0-0.2); Platelet Count 113 X10*3/uL (160-400); Red Blood Count 4.93 X10*6/uL (4.20-5.50); White Blood Count 7.8 X10*3/uL (4.8-10.8)
--- OUTSIDE RECORDS SUMMARY | 2025-05-24 11:30 | XMS_ITS | Clinical Summary ---
Author Organization [facility] [address] [place] [address] Care Team Providers Care Lace Weaver Name Role Phone Unavailable Primary Care Provider [...] 1999 Zoster Vaccines (1 of 2) 1999 Falls Risk Assessment 09/22/2022 Hepatitis C Screening 09/22/2022 Osteoporosis Screening (Bone Density Screening) 09/22/2022 Social Influencers of Health Screening 09/22/2022 RSV Immunization Adult Patie nts (1 - 1-dose 75+ series) 02/20/2024 COVID-19 Vaccine ( - 2023-2 5 season) 2024 Depression Screening 10/20/2024 Influenza Vaccine (#1) 2025 HIB Vaccines Aged Out No longer [...]
[2025-05-24 11:35] LABS: Alanine Aminotransferase 35 U/L (0-31); Albumin Level 4.1 g/dL (3.5-5.0); Alkaline Phosphatase 81 U/L (39-117); Anion Gap 9 (12-20); Aspartate Amino Transferase 43 U/L (5-31); Blood Urea Nitrogen 17 mg/dL (9-16); Calcium 9.5 mg/dL (8.4-10.2); Carbon Dioxide 27 mmol/L (22-29); Chloride 111 mmol/L (96-108); Cholesterol 154 mg/dL (<200); Estimated Glomerular Filt Rate 57; HDL Cholesterol 65 mg/dL (>40); Iron 68 mcg/dL (30-160); Percent Iron Saturation 29 % (15-50); Potassium 4.0 mmol/L (3.3-5.1); Sodium 143 mmol/L (135-145); Total Iron Binding Capacity 231 mcg/dL (228-428); Total Protein 6.8 g/dL (6.5-8.0); Triglycerides 84 mg/dL (<150); Unsaturated Iron Binding 163 ug/dL
[2025-05-24 12:02] LABS: Folate 17.1 ng/mL (> or = 4.0); Vitamin B12 1114 pg/mL (200-900)
[2025-05-24 12:47] LABS: Microalbum/Creatinine Ratio Ur 18.3 ug/mg cr (<30)
== END 2025-05-24 10:47 | disposition home or self-care (01) ==
LOC: HO.LAB 10:46
PROVIDERS: Absent Provider Student in an Organized Health Care Education/Training Program; PCP Internal Medicine; Visit Provider Internal Medicine
DX: M81.0 Age-related osteoporosis without current pathological fracture (principal); R80.9 Proteinuria, unspecified; D64.9 Anemia, unspecified; I50.22 Chronic systolic (congestive) heart failure; E78.5 Hyperlipidemia, unspecified; E53.8 Deficiency of other specified B group vitamins; E55.9 Vitamin D deficiency, unspecified; G30.0 Alzheimer's disease with early onset; F02.C3 Dementia in other diseases classified elsewhere, severe, with mood disturbance
CPT/HCPCS: 36415; 80053; 80061; 82043; 82306; 82570; 82607; 82746; 83540; 83880; 85025

== ENCOUNTER 2025-05-30 12:13 | Outpatient (RCR) | payer OTHER, SELFPAY ==
[2025-05-30 12:25] VITALS: BP 119/75; PULSE 68; RESP 16; TEMP 36.8; O2SAT 96
[2025-05-30] MEDS: 0.9 % Sodium Chloride Flush 10 ML SYRINGE 5 ML IVFLUSH (12:49)
== END 2025-05-30 13:14 | disposition home or self-care (01) ==
LOC: HO.INF 12:13
PROVIDERS: PCP Internal Medicine; Visit Provider Student in an Organized Health Care Education/Training Program
DX: M81.0 Age-related osteoporosis without current pathological fracture (principal)
CPT/HCPCS: 96374; J3489

== ENCOUNTER 2025-06-09 13:54 | Outpatient (AMB) | payer OTHER, SELFPAY ==
--- NOTE | 2025-06-09 14:01 | A.OFFVIS_ITS ---
Vital Signs 06/09/25 14:02 Height 4 ft 11 in Weight 109 lb 2.061 oz BMI 22.0 BP 102/60 Blood Pressure Location Lt brachial Position Sitting Pulse 79 Pulse Source Pulse Oximeter Pulse Oximetry (%) 98 Oxygen Delivery Method Room Air Intake Visit Reasons: Asthma Intake Note: pt is here for follow up and states she is using a nebulizer bid and her pump bid Allergies aspirin Allergy (Intermediate, Verified 06/09/25 14:26) rash, pruritus penicillin G Allergy (Intermediate, Verified 06/09/25 14:26) swelling Medication List - Last Reconciled 06/09/25 by Virgilio De Oliveira MD [abdominal pads As directed] acetaminophen (Children's Acetaminophen) 320 mg (10 mL) G-tube Q6H PRN 30 days apixaban (Eliquis) 5 mg PO BID 90 days atorvastatin 80 mg PO BEDTIME blood sugar diagnostic ([employer] Ultra Test strips) check once daily blood-glucose meter ([employer] Ultra2 Meter) check once daily carvedilol 6.25 mg PO BID cholecalciferol (vitamin D3) 50 mcg PO DAILY 90 days [cleansing wipes Use 1 wipe once a day] [colatrep As directed] commode As directed diaper,brief,adult,disposable (Select Disposable Briefs) As directed donepezil 10 mg PO BEDTIME 90 days famotidine 20 mg (2.5 mL) PO BEDTIME PRN 30 days fluticasone propion-salmeterol 113-14 mcg/actuation 1 inh inhalation BID 30 days fluticasone propionate 50 mcg/actuation 1 spray intranasal DAILY PRN food supplemt, lactose-reduced (Ensure oral liquid) 1 ea PO .three times a day 25 days furosemide 20 mg PO DAILY PRN 90 days gauze bandage (Band-Aid Gauze Pads) Use 1 gauze once a day gauze bandage (Band-Aid Gauze Pads) Use 1 gauze once a day humidifiers As directed ipratropium bromide 2.5 mL inhalation Q6H PRN 30 days [irrigation tray As directed] lancets ([employer] UltraSoft 2 Lancet) check once per day latanoprost 0.005% 1 drp ophthalmic (eye) BEDTIME latex gloves (Latex Gloves, Large) As directed levalbuterol HCl (Xopenex) 0.63 mg inhalation Q8H levalbuterol tartrate 45 mcg/actuation 2 puffs inhalation Q4-6H PRN 30 days MDD Patient has h/o cardiac diseas lorazepam 1 mg PO BEDTIME PRN 30 days losartan 50 mg PO DAILY 90 days nebulizer accessories (Adult Aerosol Mask) As directed [id number] 3.5mg-400 unit- 5,000 unit/gram (Neosporin (ubp-hxd-psbem)) 1 appl topical DAILY 30 days nitroglycerin 0.4 mg sublingual Q5M PRN nut.tx.gluc.intol,lac-free,soy (Glucerna oral liquid) 1 ea PO .three times a day 30 days [paper taoe 2 inch As directed] quetiapine 50 mg PO DAILY 30 days quetiapine 100 mg (1/2 x 200 mg) PO BEDTIME 90 days [regular gauze 4x4 As directed] Shower Chair As directed sodium chloride 7% 4 mL inhalation TID-QID PRN 30 days [sterile gauze 2x2 As directed] syringe, ENFit, non-sterile (Piston Syringe with ENFit) Use 1 syringe once a day [wheelchair As directed] [wipes As directed] Do you need a note to return to daycare/school/sports/work: No HPI HPI Asthma: Details: 75 YEARS OLD FEMALE WITH SIGNIFICANT COGNITIVE IMPAIRMENT, CHRONIC OBSTRUCTIVE PULMONARY DISEASE, CHRONIC CARDIAC DISEASE, DYSPHAGIA, REQUIRING PEG TUBE. COMES FOR FOLLOW-UP AFTER 6 MONTHS. HER SON WHO IS THE [employer] AGENT TAKES CARE OF HER, 24 HOURS A DAY. HE SAY IS THAT SHE IS ABLE TO EAT HER FOOD, BUT FOR MEDICATIONS HE STILL USES PEG TUBE. BREATHING HAS REMAINED VERY STABLE, WITH INTERMITTENT MILD COUGH, BUT NO RESPIRATORY DISTRESS. PFSH Medical History GERD (gastroesophageal reflux disease) Dyslipidemia Urinary incontinence PAF (paroxysmal atrial fibrillation) Atherosclerotic cardiovascular disease Depression with anxiety Anticoagulated Bleeding hemorrhoids Blurry vision Hemorrhoids Ischemic cardiomyopathy Osteoporosis Dementia History of stroke History of [place] (myocardial infarction) Hypovitaminosis D Asthma Anxiety High cholesterol Hypertension Surgical History PEG (percutaneous endoscopic gastrostomy) status S/P percutaneous endoscopic gastrostomy (PEG) tube placement (~06/01/24) History of cardiac defibrillator placement History of hysterectomy Family History Father No problems noted. Mother Cerebrovascular accident Sister No problems noted. Sister No problems noted. Son No problems noted. Son No problems noted. Daughter No problems noted. Social History Housing: Apartment Alcohol intake: former Patient Tobacco Use Status: Former Tobacco user Tobacco use type: Cigarette e-Cigarette/Vaping Use: Never Used Second Hand Smoke Exposure: No Advance Directives Date on File: 12/18/20 service: No Current occupational status: retired Cognitive needs: No Hearing needs: No Vision needs: No Review of Systems Const All systems reviewed & are unremarkable except as noted in HPI and below Eyes Reports no additional complaints ENT Reports no additional complaints Card Denies chest pain, Denies irregular heart rhythm and Denies leg edema Resp Reports as per HPI GI Reports no additional complaints Reports no additional complaints Musc Reports no additional complaints Skin/Breast Reports system reviewed and no additional complaints, except as documented Neuro Reports no additional complaints Psych Reports no additional complaints Endo Reports no additional complaints Physical Exam Vital Signs: Last Vital Signs Pulse 79 06/09/25 14:02 BP 102/60 06/09/25 14:02 Pulse Ox 98 06/09/25 14:02 Oxygen Delivery Method Room Air 06/09/25 14:02 BMI result Body Mass Index 22.0 Const General: comfortable, no acute distress, alert and awake Orientation/consciousness: patient oriented x3 HEENT Head: Yes normal to inspection General nose exam: No nasal polyps present and No nasal discharge present Face and sinus: Yes sinuses nontender Mouth: oropharynx normal Throat: Yes posterior oropharynx normal Eyes General: appearance normal, both eyes and all related structures Neck Neck: Yes normal visual inspection, Yes no lymphadenopathy, Yes trachea midline and Yes no JVD Thyroid: Thyroid normal Chest Chest palpation & inspection: normal inspection of the chest, normal palpation of entire chest wall and no tenderness Resp Other: Percussion note is resonant, breath sounds are distant on both sides with prolonged expiratory phase. NO WHEEZES RHONCHI OR CREPITATIONS ARE HEARD TODAY. Cardio Palpation: normal PMI and other (Pacemaker and defibrillator in place in left pectoral area) Rate: regular rate Rhythm: regular rhythm Heart sounds: no gallops and no murmurs GI Inspection: Yes other ( gastrostomy tube in place.) Palpation (GI): Soft to palpation, nontender, No hepatosplenomegaly present and no masses Auscultation: normal bowel sounds Back/Spine/Pelvis Thoracic/Lumbar Spine: thoracic and lumbar spine normal to inspection Skin General skin exam: no rashes or lesions noted Neuro General: patient oriented x3 and no focal motor deficits Cranial nerves: Yes CN's II-XII intact bilaterally Extrem General: Yes normal to inspection, Yes no clubbing, cyanosis or edema and Yes no calf tenderness Psych Appearance: grossly normal and well kempt Speech and movement: Normal speech and movement present Attitude: cooperative Assessment & Plan Assessment & Plan (1) Former smoker: Comment: Patient is a former smoker, about 1 pack a day, quit in 2007 after she had the heart attack. She may have some degree of COPD. On clinical basis she is being treated for chronic obstructive pulmonary disease * SHE WAS NOT ABLE TO PERFORM ADEQUATE MANEUVERS FOR PULMONARY FUNCTION TEST. Code(s): Z87.891 - Personal history of nicotine dependence Category: Social Hx Plan: Patient does not smoke anymore (2) Asthma: Comment: Patient does have history of mild intermittent bronchial asthma. She is doing better on her current medication, her son is able to supervise and make sure she can use Advair HFA with a spacing device properly. Also uses levalbuterol solution in the nebulizer for the updraft treatment b.i.d.. Code(s): J45.909 - Unspecified asthma, uncomplicated Category: Medical Qualifiers: Asthma severity: moderate Asthma persistence: persistent Asthma complication type: uncomplicated Qualified Code(s): J45.40 - Moderate persistent asthma, uncomplicated Plan: Instructed the son about administration of the inhaler and nebulizer. Use fluticasone-Salmterol 113-14( Airduo digihalor one inhalations b.i.d. (3) PEG (percutaneous endoscopic gastrostomy) status: Comment: She has had PEG tube placed for feeding and administration of medications. Currently according to the son she is able to eat soft diet. And PEG tube is being used mainly to administer the medications. Sometimes he feeds her with ensure 1 or 2 cans a day, if she does not eat much. Code(s): Z93.1 - Gastrostomy status Category: Surgical Plan: as above Coding Level of Care Code Est Pt Level 3 (38482) Diagnoses Former smoker Z87.891 Moderate persistent asthma without complication J45.40 Asthma severity: moderate Asthma persistence: persistent Asthma complication type: uncomplicated PEG (percutaneous endoscopic gastrostomy) status Z93.1
[2025-06-09 14:02] VITALS: BP 102/60; PULSE 79; O2SAT 98; BMI 22.0
--- OUTSIDE RECORDS SUMMARY | 2025-06-09 14:02 | XMS_ITS | Clinical Summary ---
Author Organization [facility] Address [address] [place] [address] Care Team Providers Care Industrial Psychology Teacher Name Role Phone Unavailable Primary Care Provider [...]
== END 2025-06-09 14:27 | disposition home or self-care (01) ==
LOC: HO.HPS 13:55
PROVIDERS: PCP Internal Medicine; Visit Provider Internal Medicine
DX: Z87.891 Personal history of nicotine dependence (principal); J45.40 Moderate persistent asthma, uncomplicated; Z93.1 Gastrostomy status
CPT/HCPCS: 99213

== ENCOUNTER → 2025-06-09 13:54 | Outpatient (BNVA) | payer OTHER, SELFPAY | PROVIDERS: PCP Internal Medicine; Visit Provider Internal Medicine | DX: J45.40 Moderate persistent asthma, uncomplicated (principal); Z93.1 Gastrostomy status; Z87.891 Personal history of nicotine dependence | CPT/HCPCS: 99212 ==

== ENCOUNTER 2025-06-16 14:32 | Outpatient (AMB) | payer OTHER, SELFPAY ==
--- NOTE | 2025-06-16 14:35 | MHC.OFFVIS ---
Intake Visit Reasons: 1y/PVR Intake Note: Patient is present for 1Y/PVR Urology Medication:NONE Antibiotic Allergy:PENICILLIN G Blood Thinner:APIXABAN Radiation Control Health Physicist Required: No Allergies aspirin Allergy (Intermediate, Verified 06/16/25 16:12) rash, pruritus penicillin G Allergy (Intermediate, Verified 06/16/25 16:12) swelling Medication List - Last Reconciled 06/16/25 by LUCIA Waddell acetaminophen (Children's Acetaminophen) 320 mg (10 mL) G-tube Q6H PRN 30 days apixaban (Eliquis) 5 mg PO BID 90 days atorvastatin 80 mg PO BEDTIME blood sugar diagnostic (Indus Insights Ultra Test strips) check once daily blood-glucose meter (LiveDatauch Ultra2 Meter) check once daily carvedilol 6.25 mg PO BID cholecalciferol (vitamin D3) 50 mcg PO DAILY 90 days [cleansing wipes Use 1 wipe once a day] [colatrep As directed] commode As directed diaper,brief,adult,disposable (Select Disposable Briefs) As directed donepezil 10 mg PO BEDTIME 90 days famotidine 20 mg (2.5 mL) PO BEDTIME PRN 30 days fluticasone propion-salmeterol 113-14 mcg/actuation 1 inh inhalation BID 30 days fluticasone propionate 50 mcg/actuation 1 spray intranasal DAILY PRN food supplemt, lactose-reduced (Ensure oral liquid) 1 ea PO .three times a day 25 days furosemide 20 mg PO DAILY PRN 90 days gauze bandage (Band-Aid Gauze Pads) Use 1 gauze once a day gauze bandage (Band-Aid Gauze Pads) Use 1 gauze once a day humidifiers As directed ipratropium bromide 2.5 mL inhalation Q6H PRN 30 days [irrigation tray As directed] lancets (DemandPointTouch UltraSoft 2 Lancet) check once per day latanoprost 0.005% 1 drp ophthalmic (eye) BEDTIME latex gloves (Latex Gloves, Large) As directed levalbuterol tartrate 45 mcg/actuation 2 puffs inhalation Q4-6H PRN 30 days MDD Patient has h/o cardiac diseas lorazepam 1 mg PO BEDTIME PRN 30 days losartan 50 mg PO DAILY 90 days nebulizer accessories (Adult Aerosol Mask) As directed nitroglycerin 0.4 mg sublingual Q5M PRN [paper taoe 2 inch As directed] quetiapine 50 mg PO DAILY 30 days quetiapine 100 mg (1/2 x 200 mg) PO BEDTIME 90 days [regular gauze 4x4 As directed] Shower Chair As directed sodium chloride 7% 4 mL inhalation TID-QID PRN 30 days [sterile gauze 2x2 As directed] syringe, ENFit, non-sterile (Piston Syringe with ENFit) Use 1 syringe once a day [wheelchair As directed] [wipes As directed] HPI Comments Details: Alexx is a pleasantly confused 75-year-old Sinhala-speaking female patient of Dr. Ayala who was accompanied by her son/caregiver (Dimitri) at today's office visit. She has a past medical history of advanced dementia, diabetes mellitus type 2, GERD, paroxysmal atrial fibrillation, myocardial infarction with an implanted defibrillator, CVA, osteoporosis, and cardiomyopathy. She presents to the office today for follow-up of her urinary incontinence. In discussion with patient's caregiver today as patient is a poor historian he reports baseline incontinence. He continues with scheduled toileting as recommended. He discusses how helpful G-tube placement has been as patient has been able to gain more weight and find this helpful with medication administration. He reports feeling scheduled/timed voiding has been helpful however she does at times continue with incontinent episodes. Previous workup has included a retroperitoneal ultrasound 09/11 noting bilateral kidneys with no calculi, lesions, and or hydronephrosis. The bladder was decompressed. In office urinalysis results reviewed with the patient and patient's son today. He denies patient to have hematuria, foul-smelling urine, chills, and or fever. He is enquiring canales or treatments for prevention of skin breakdown. We did review further treatment options. All questions were answered. He otherwise offers no other issues or concerns at this time. [facility] Medical History GERD (gastroesophageal reflux disease) Dyslipidemia Urinary incontinence PAF (paroxysmal atrial fibrillation) Atherosclerotic cardiovascular disease Depression with anxiety Anticoagulated Bleeding hemorrhoids Blurry vision Hemorrhoids Ischemic cardiomyopathy Osteoporosis Dementia History of stroke History of FL (myocardial infarction) Hypovitaminosis D Asthma Anxiety High cholesterol Hypertension Surgical History PEG (percutaneous endoscopic gastrostomy) status S/P percutaneous endoscopic gastrostomy (PEG) tube placement (~06/01/24) History of cardiac defibrillator placement History of hysterectomy Family History Father No problems noted. Mother Cerebrovascular accident Sister No problems noted. Sister No problems noted. Son No problems noted. Son No problems noted. Daughter No problems noted. Social History Housing: Apartment Alcohol intake: former Patient Tobacco Use Status: Former Tobacco user Tobacco use type: Cigarette e-Cigarette/Vaping Use: Never Used Second Hand Smoke Exposure: No Advance Directives Date on File: 12/18/20 service: No Current occupational status: retired Cognitive needs: No Hearing needs: No Vision needs: No Review of Systems Const Unobtainable due to mental condition Physical Exam Const General: cooperative, healthy appearing, comfortable, no acute distress, well developed, alert and awake Nutritional Appearance: thin Orientation/consciousness: oriented to person Limitations: altered mental status HEENT Head: Yes normal to inspection, Yes normocephalic and Yes atraumatic Ears: hearing grossly normal bilaterally Eyes General: appearance normal, both eyes and all related structures Neck Neck: Yes normal visual inspection and Yes trachea midline Chest Chest palpation & inspection: normal inspection of the chest Resp Effort & Inspection: normal respiratory effort and able to speak in complete sentences Cardio Rate: regular rate GI Other: Abdominal binder present Inspection: Yes normal to inspection General: Yes no CVA tenderness Back/Spine/Pelvis Back: no CVA tenderness Skin General skin exam: no rashes or lesions noted Neuro General: oriented to person Extrem General: Yes normal to inspection Psych Appearance: grossly normal and well kempt Mental Status: other (pleasantly confused) Speech and movement: Normal speech and movement present and Clear speech present Affect: normal affect Attitude: cooperative and Avoids eye contact (attititude/behavior) Thought process: Other thought process findings present (at times answers questions inappropriately ) Insight: Limited insight present (Psych) Judgement: Limited judgement present (Psych) Results AMB Urinalysis, Automated UA Leukoctes 0 William/uL Last Edit by JAMES Lovett on 06/16/25 15:21 UA Nitrite Negative Last Edit by Beatrice Aguirre, [facility] on 06/16/25 15:21 UA Urobilinogen 0.2 mg/dL Last Edit by Beatrice Aguirre [facility] [place] on 06/16/25 15:21 UA Protein 30 mg/dL Last Edit by Beatrice Aguirre [facility] [place] on 06/16/25 15:21 UA pH 6.0 Last Edit by Beatrice Aguirre, [facility] [place] on 06/16/25 15:21 UA Blood 0 Octaviano/uL Last Edit by Beatrice Aguirre, [facility] [place] on 06/16/25 15:21 UA Specific [place] 1.025 Last Edit by Beatrice Aguirre [facility] [place] on 06/16/25 15:21 UA Ketone Negative Last Edit by Beatrice Aguirre [facility] [place] on 06/16/25 15:21 UA Bilirubin 0 mg/dL Last Edit by Beatrice Aguirre [facility] [place] on 06/16/25 15:21 UA Glucose 0 mg/dL Last Edit by Beatrice Aguirre [facility] [place] on 06/16/25 15:21 Results Reviewed Results Reviewed: Laboratory Last Values Urine pH (Auto) 6.0 06/16/25 15:20 Specific [place] (Auto) 1.025 06/16/25 15:20 Urine Protein (Auto) 30 mg/dL 06/16/25 15:20 Glucose (UA)(Auto) 0 mg/dL 06/16/25 15:20 Urine Ketones (Auto) Negative 06/16/25 15:20 Urine Blood (Auto) 0 Octaviano/uL 06/16/25 15:20 Urine Nitrite (Auto) Negative 06/16/25 15:20 Urine Bilirubin (Auto) 0 mg/dL 06/16/25 15:20 Urine Urobilinogen (Auto) 0.2 mg/dL 06/16/25 15:20 Leukocyte Esterase (Auto) 0 William/uL 06/16/25 15:20 Assessment & Plan Assessment & Plan (1) Urinary incontinence: Code(s): R32 - Unspecified urinary incontinence Category: Medical (2) Urinary incontinence, mixed: Code(s): N39.46 - Mixed incontinence Category: Medical Plan In office urinalysis results reviewed with the patient and son today; as noted above Will continue with scheduled toileting. Continue with prompt voiding Discussed bladder triggers/irritants. Prescription provided for incontinent pads; will send to [facility] as requested. Information provided regarding barrier cream Follow-up in 1 year with [facility]; if not sooner with any issues, concerns, and or questions. Orders: Orders AMB Urinalysis Automated Today Z13.9 - Encounter for screening, unspecified Patient Instructions: The patient had an opportunity to ask questions regarding the treatment plan. All questions were answered. Physical exam, labs, and imaging were discussed and reviewed in detail. As well as risks, benefits, and discussion of treatment choices. No major barriers to understanding were identified. The patient expressed understanding and agreement with the above treatment plan. The patient was made aware they should contact our office by phone for worsening of their current condition, the appearance of new symptoms, or with any questions or concerns. Compliance is encouraged with any medications and follow up testing that is ordered. It is a privilege to be allowed the opportunity to participate in? your urological care.? Again, if you have any questions or concerns If you have any questions or concerns please do not hesitate to contact me. The office is [phone]. This note is constructed using voice recognition software. While every effort has been made to ensure accuracy fisher spear errors may have been included. Yours sincerely, LUCIA Waddell Coding Level of Care Code Est Pt Level 3 (81764) Complex EM visit Add On G2211 Diagnoses Urinary incontinence R32 Urinary incontinence, mixed N39.46
--- OUTSIDE RECORDS SUMMARY | 2025-06-16 15:11 | XMS_ITS | Clinical Summary ---
Author Organization [facility] ity Address [address] [place] [address] Care Team Providers Care Accounting Policy Consultant Name Role Phone Unavailable Primary Care Provider [...]
== END 2025-06-16 15:11 | disposition home or self-care (01) ==
LOC: HO.HUSH 14:33
PROVIDERS: PCP Internal Medicine; Visit Provider Nurse Practitioner Family
DX: N39.46 Mixed incontinence (principal); Z13.9 Encounter for screening, unspecified
CPT/HCPCS: 99213; G2211

== ENCOUNTER → 2025-06-16 14:32 | Outpatient (BNVA) | payer OTHER, SELFPAY | PROVIDERS: PCP Internal Medicine; Visit Provider Nurse Practitioner Family | DX: Z00.00 Encounter for general adult medical examination without abnormal findings (principal); F41.8 Other specified anxiety disorders; I11.0 Hypertensive heart disease with heart failure; I50.22 Chronic systolic (congestive) heart failure; I25.5 Ischemic cardiomyopathy; I48.0 Paroxysmal atrial fibrillation; E78.5 Hyperlipidemia, unspecified; R73.02 Impaired glucose tolerance (oral); M81.0 Age-related osteoporosis without current pathological fracture; K21.9 Gastro-esophageal reflux disease without esophagitis; G30.0 Alzheimer's disease with early onset; F02.C3 Dementia in other diseases classified elsewhere, severe, with mood disturbance; J45.40 Moderate persistent asthma, uncomplicated; L89.301 Pressure ulcer of unspecified buttock, stage 1; Z79.899 Other long term (current) drug therapy; Z13.31 Encounter for screening for depression; N39.46 Mixed incontinence | CPT/HCPCS: 81003; 96127; 99212; 99397 ==

== ENCOUNTER 2025-06-16 15:18 | Outpatient (AMB) | payer OTHER, SELFPAY ==
--- NOTE | 2025-06-16 15:28 | MHC.PC.OV ---
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 Drainer Required: Yes Mold Filler And Drainer Language: Lao Accompanied by: Son Allergies aspirin Allergy (Intermediate, Verified 06/16/25 16:12) rash, pruritus penicillin G Allergy (Intermediate, Verified 06/16/25 16:12) swelling Medication List - Last Reconciled 06/16/25 by Kaylynn Zacarias PA-C acetaminophen (Children's Acetaminophen) 320 mg (10 mL) G-tube Q6H PRN 30 days apixaban (Eliquis) 5 mg PO BID 90 days atorvastatin 80 mg PO BEDTIME blood sugar diagnostic ([employer] Ultra Test strips) check once daily blood-glucose meter ([employer] Ultra2 Meter) check once daily carvedilol 6.25 mg PO BID cholecalciferol (vitamin D3) 50 mcg PO DAILY 90 days [cleansing wipes Use 1 wipe once a day] [colatrep As directed] commode As directed diaper,brief,adult,disposable (Select Disposable Briefs) As directed donepezil 10 mg PO BEDTIME 90 days famotidine 20 mg (2.5 mL) PO BEDTIME PRN 30 days fluticasone propion-salmeterol 113-14 mcg/actuation 1 inh inhalation BID 30 days fluticasone propionate 50 mcg/actuation 1 spray intranasal DAILY PRN food supplemt, lactose-reduced (Ensure oral liquid) 1 ea PO .three times a day 25 days furosemide 20 mg PO DAILY PRN 90 days gauze bandage (Band-Aid Gauze Pads) Use 1 gauze once a day gauze bandage (Band-Aid Gauze Pads) Use 1 gauze once a day humidifiers As directed ipratropium bromide 2.5 mL inhalation Q6H PRN 30 days [irrigation tray As directed] lancets ([employer] UltraSoft 2 Lancet) check once per day latanoprost 0.005% 1 drp ophthalmic (eye) BEDTIME latex gloves (Latex Gloves, Large) As directed levalbuterol tartrate 45 mcg/actuation 2 puffs inhalation Q4-6H PRN 30 days MDD Patient has h/o cardiac diseas lorazepam 1 mg PO BEDTIME PRN 30 days losartan 50 mg PO DAILY 90 days nebulizer accessories (Adult Aerosol Mask) As directed nitroglycerin 0.4 mg sublingual Q5M PRN [paper taoe 2 inch As directed] quetiapine 50 mg PO DAILY 30 days quetiapine 100 mg (1/2 x 200 mg) PO BEDTIME 90 days [regular gauze 4x4 As directed] Shower Chair As directed sodium chloride 7% 4 mL inhalation TID-QID PRN 30 days [sterile gauze 2x2 As directed] syringe, ENFit, non-sterile (Piston Syringe with ENFit) Use 1 syringe once a day [wheelchair As directed] [wipes As directed] Tobacco use date assessed: 06/16/25 Fall risk assessment: No Falls in past year Last assessed Fall Risk: 06/16/25 Dental Screening Dental Screen Date: 06/16/25 Did you have a dental visit in the last 12 months?: No Did you have a dental problem in the last 6 months where you did not have access to dental care?: No Was dental information given to patient?: No HPI annual exam HPI Details 75-year-old female with past medical history of hypertension, hypercholesterolemia, anxiety, asthma, history of stroke and NC, ischemic cardiomyopathy, depression, anxiety, AFib, GERD, impaired glucose tolerance, dementia and heart failure last seen 03/[address] Ayala coming in for annual exam. In review of the notes, patient was seen by Urology today. She was seen by pulmonology 06/09/2025 continue with current inhalers. Seen by Cardiology 05/2025 for device check. 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 The patient was evaluated by a director loan recently and showed improvement, leading to a reduction in therapy frequency. The patient is scheduled for a gastrostomy change and manages occasional pain with routine care. The patient has been experiencing crying episodes, possibly linked to anxiety or depression, with medication prescribed for anxiety. She does also mentioned having a rash on the buttocks and was recommended by her urologist to have a barrier cream prescribed. Mammogram: 09/2024 DEXA: 09/2023 Colonoscopy: [facility] with [facility] Medical History GERD (gastroesophageal reflux disease) Dyslipidemia Urinary incontinence PAF (paroxysmal atrial fibrillation) Atherosclerotic cardiovascular disease Depression with anxiety Anticoagulated Bleeding hemorrhoids Blurry vision Hemorrhoids Ischemic cardiomyopathy Osteoporosis Dementia History of stroke History of NC (myocardial infarction) Hypovitaminosis D Asthma Anxiety High cholesterol Hypertension Surgical History H/O eye surgery PEG (percutaneous endoscopic gastrostomy) status S/P percutaneous endoscopic gastrostomy (PEG) tube placement (~06/01/24) History of cardiac defibrillator placement History of hysterectomy Family History Father No problems noted. Mother Cerebrovascular accident Sister No problems noted. Sister No problems noted. Son No problems noted. Son No problems noted. Daughter No problems noted. Social History Housing: Apartment Alcohol intake: former Patient Tobacco Use Status: Former Tobacco user Tobacco use type: Cigarette e-Cigarette/Vaping Use: Never Used Second Hand Smoke Exposure: No Advance Directives Date on File: 12/18/20 service: No Current occupational status: retired Cognitive needs: No Hearing needs: No Vision needs: No Questionnaire PHQ-9 Over the last 2 weeks, how often have you been bothered by any of the following problems? 1. Little interest or pleasure in doing things: not at all 2. Feeling down, depressed, or hopeless: not at all 3. Trouble falling or staying asleep, or sleeping too much: not at all 4. Feeling tired or having little energy: not at all 5. Poor appetite or overeating: not at all 6. Feeling bad about yourself - or that you are a failure or have let yourself or your family down: not at all 7. Trouble concentrating on things, such as reading the newspaper or watching television: not at all 8. Moving or speaking so slowly that other people could have noticed. Or the opposite - being so fidgety or restless that you have been moving around a lot more than usual: not at all 9. Thoughts that you would be better off or of hurting yourself in some way: not at all Total score: 0 Depression Screening Interpretation: Negative Depression Screening Done: Yes Source: Developed by Drs. Anthony Davis, Flakito Gonzalez and colleagues, with an educational chris from [employer]. Thrive Questionnaire Date Thrive assessed: 04/05/25 I am a: Patient What is your living situation today?: I have a steady place to live Within the past 12 months, did the food you bought not last and you didn't have the money to get more?: Often true Within the past 12 months, did you worry whether your food would run out before you got money to buy more?: Often true Do you have trouble paying for medicines?: No Do you have trouble getting transportation to medical appointments?: No Do you have trouble paying your heating and electricity bill?: No Do you have trouble taking care of your child, family member or friend?: No Do you have trouble with day-to-day activities such as bathing, preparing meals, shopping, managing finances, etc.?: Yes Are you currently unemployed and looking for a job?: No Are you interested in more education?: I choose not to answer this question Please select the resources that you would like help with: Transportation Currently or been in a relationship where the following occur: I choose not to answer THRIVE Score: 2 AUDIT C Alcohol Use Questionnaire (AUDIT-C) 1. How often do you have a drink containing alcohol?: Never Total Score: 0 JUAN PABLO-7 AMB Questionnaire JUAN PABLO-7 Date JUAN PABLO - 7 assessed: 01/10/25 Feeling nervous, anxious, or on edge: 0 = Not at all Not being able to stop or control worryin = Not at all Worrying too much about different things: 0 = Not at all Trouble relaxin = Not at all Being so restless that it is hard to sit still: 0 = Not at all Becoming easily annoyed or irritable: 0 = Not at all Feeling afraid as if something awful might happen: 0 = Not at all Total JUAN PABLO-7 score (0-4 normal; 5-9 mild; 10-14 moderate; 15-21 severe): 0 Source: Developed by Megan Moreno Kurt Kroenke and colleagues, with an educational chris from [employer]. Review of Systems Const Details: Primarily obtained by her son Denies body aches, Denies fever(s), Denies headache(s) and Denies poor appetite Eyes Reports no additional complaints ENT Denies dizziness and Denies headache(s) Card Denies chest pain, Denies edema and Denies dyspnea Resp Denies cough and Denies dyspnea GI Denies abdominal pain, Denies constipation, Denies diarrhea, Denies nausea and Denies vomiting Musc Reports no additional complaints Skin/Breast Reports system reviewed and no additional complaints, except as documented Neuro Denies dizziness and Denies headache(s) Psych Reports no additional complaints Physical exam (Primary Care) Vital Signs: Last Vital Signs Pulse 68 06/16/25 15:29 BP 116/82 06/16/25 15:29 Pulse Ox 96 06/16/25 15:29 Oxygen Delivery Method Room Air 06/16/25 15:29 BMI result Body Mass Index 20.4 Tobacco/Smoking Status: Tobacco use Status Tobacco use date assessed 06/16/25 06/16/25 15:40 Patient Tobacco Use Status Former Tobacco user 06/16/25 15:40 Tobacco use type Cigarette 06/16/25 15:40 e-Cigarette/Vaping Use Never Used 06/16/25 15:40 PHQ-9: PHQ-9 Score PHQ-9: Total score 0 06/16/25 16:09 Depression Screening Interpretation: Negative Thrive Assessment: Date of Thrive Assessment Date Thrive assessed 04/05/25 06/16/25 15:40 Currently or been in a relationship where the following occur: I choose not to answer Const Other: Some aspects of the physical exam were not performed due to the patient being uncooperative General: cooperative, healthy appearing, comfortable and no acute distress [facility] Head: Yes normocephalic Ears: hearing grossly normal bilaterally General nose exam: Normal external nose present Eyes General: appearance normal, both eyes and all related structures Conjunctivae: conjunctivae normal Resp Effort & Inspection: normal respiratory effort Auscultation: clear to auscultation bilaterally, no crackles, no rales, no rhonchi and no wheezes Cardio Rate: regular rate Rhythm: regular rhythm Skin Full body images:  1. localized area of non blanchable erythema with intact skin that is not warm or tender Neuro Gait exam (Neuro): Normal gait present Extrem General: Yes normal to inspection, Yes full ROM and No edema Psych Affect: normal affect Results AMB Urinalysis, Automated UA Leukoctes 0 William/uL Last Edit by JAMES Lovett on 06/16/25 15:21 UA Nitrite Negative Last Edit by JAMES Lovett on 06/16/25 15:21 UA Urobilinogen 0.2 mg/dL Last Edit by JAMES Lovett on 06/16/25 15:21 UA Protein 30 mg/dL Last Edit by Beat[facility]irre [facility] on 06/16/25 15:21 UA pH 6.0 Last Edit by Beatrice Aguirre [facility] on 06/16/25 15:21 UA Blood 0 Octaviano/uL Last Edit by JAMES Lovett on 06/16/25 15:21 UA Specific [place] 1.025 Last Edit by JAMES Lovett on 06/16/25 15:21 UA Ketone Negative Last Edit by JAMES Lovett on 06/16/25 15:21 UA Bilirubin 0 mg/dL Last Edit by Beatrice Aguirre [facility] on 06/16/25 15:21 UA Glucose 0 mg/dL Last Edit by Beatrice Aguirre [facility] on 06/16/25 15:21 Coding Level of Care Code Est Pt Prev Care >65y(75788) Diagnoses Physical exam Z00.00 Depression with anxiety F41.8 Hypertension, unspecified type I10 Hypertension type: unspecified Ischemic cardiomyopathy I25.5 Chronic systolic (congestive) heart failure I50.22 PAF (paroxysmal atrial fibrillation) I48.0 Dyslipidemia E78.5 Impaired glucose tolerance R73.02 Age-related osteoporosis without current pathological fracture M81.0 Osteoporosis type: age-related Presence of current pathological fracture: without current pathological fracture GERD (gastroesophageal reflux disease) K21.9 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 G30.0; F02.C3 Alzheimer's disease onset: early onset Dementia behavioral or psychological symptom: with mood disturbance Dementia severity: severe Dementia type: Alzheimer's Moderate persistent asthma without complication J45.40 Asthma complication type: uncomplicated Asthma persistence: persistent Asthma severity: moderate Stage I pressure ulcer of buttock L89.301 Assessment & Plan Assessment & Plan (1) Physical exam: Code(s): Z00.00 - Encounter for general adult medical examination without abnormal findings Category: Medical Plan: Patient will be due for mammogram and bone density in September and orders have been placed today. Otherwise she is up-to-date on all recommended routine screenings and vaccinations for her age. She will continue to follow up with her PCP and is scheduled to be seen in 3 months. (2) Depression with anxiety: Code(s): F41.8 - Other specified anxiety disorders Category: Medical Plan: Continue to follow with Neurology and on lorazepam as needed. (3) Hypertension: Code(s): I10 - Essential (primary) hypertension Category: Medical Qualifiers: Hypertension type: unspecified Qualified Code(s): I10 - Essential (primary) hypertension Plan: Continue on current blood pressure medication. Avoid salt intake and encourage healthy diet and regular exercise. (4) Ischemic cardiomyopathy: Comment: follows with [facility] Code(s): I25.5 - Ischemic cardiomyopathy Category: Medical Plan: Continue to follow with Cardiology at this time and currently asymptomatic. (5) Chronic systolic (congestive) heart failure: Code(s): I50.22 - Chronic systolic (congestive) heart failure Category: Medical Plan: Patient is clinically euvolemic on exam today she will continue on carvedilol b.i.d., furosemide 20 mg and losartan. Continue to monitor kidney function twice yearly while on the furosemide. Continue to follow with Cardiology (6) PAF (paroxysmal atrial fibrillation): Code(s): I48.0 - Paroxysmal atrial fibrillation Category: Medical Plan: Patient is currently on full oral anticoagulation with Eliquis 5 mg b.i.d. and rate controlled with carvedilol 6.25 b.i.d. She will continue to follow up with Cardiology and is currently asymptomatic at this time (7) Dyslipidemia: Code(s): E78.5 - Hyperlipidemia, unspecified Category: Medical Plan: Avoid foods that are high in cholesterol such as red meat, fried foods, eggs and baked goods. Triglyceride goal of less than 150 and LDL goal of less than 70. Continue on atorvastatin 80 (8) Impaired glucose tolerance: Code(s): R73.02 - Impaired glucose tolerance (oral) Category: Medical Plan: Decrease the amount of carbohydrates such as pasta, bread, rice, and potatoes and limit the amount of sweets. Although fruits are generally healthy they should be eaten in moderation as they are still high in sugar. (9) Osteoporosis: Comment: DEXA 09/2023: AP spine -2.6, Left femur neck -1.9, Left femur total -2.3 IV Reclast 09/2023 Code(s): M81.0 - Age-related osteoporosis without current pathological fracture Category: Medical Qualifiers: Osteoporosis type: age-related Presence of current pathological fracture: without current pathological fracture Qualified Code(s): M81.0 - Age-related osteoporosis without current pathological fracture Plan: Repeat bone density scan due for September an order has placed. (10) GERD (gastroesophageal reflux disease): Code(s): K21.9 - Gastro-esophageal reflux disease without esophagitis Category: Medical Plan: Avoid trigger foods such as citrus, tomato products, soda, caffeine, spicy foods and other foods that may be irritating to your stomach. Avoid laying flat 3-4 hours after eating and elevate the head of the bed 30 degrees to prevent acid from moving into the esophagus (11) Dementia: Comment: She is very pleasant but forgetful. Is good that her son takes care of her and looks over the meds administration. Code(s): F03.90 - Unspecified dementia, unspecified severity, without behavioral disturbance, psychotic disturbance, mood disturbance, and anxiety Category: Medical Qualifiers: Alzheimer's disease onset: early onset Dementia behavioral or psychological symptom: with mood disturbance Dementia severity: severe Dementia type: Alzheimer's Qualified Code(s): G30.0 - Alzheimer's disease with early onset; F02.C3 - Dementia in other diseases classified elsewhere, severe, with mood disturbance Plan: Patient is currently following with Neurology and per patient's son was recently started on a medication for anxiety. She will continue to follow up with Neurology at this time (12) Asthma: Comment: Patient does have history of mild intermittent bronchial asthma. She is doing better on her current medication, her son is able to supervise and make sure she can use Advair HFA with a spacing device properly. Also uses levalbuterol solution in the nebulizer for the updraft treatment b.i.d.. Code(s): J45.909 - Unspecified asthma, uncomplicated Category: Medical Qualifiers: Asthma complication type: uncomplicated Asthma persistence: persistent Asthma severity: moderate Qualified Code(s): J45.40 - Moderate persistent asthma, uncomplicated Plan: Asthma currently controlled on present medications. Continue on inhalers. Avoid triggers such as allergies. (13) Stage I pressure ulcer of buttock: Code(s): L89.301 - Pressure ulcer of unspecified buttock, stage 1 Category: Medical Plan: Patient having a stage I pressure ulcer of the buttock recommend barrier cream and frequent positional changes. I did also recommend the patient get up every hour to have a walk and positional changes in the meantime. Plan During the visit, we discussed the management of the patient's asthma, which is currently well-controlled with reduced therapy frequency. We also reviewed the upcoming cataract surgery for the left eye and the importance of routine preventative screenings, including a mammogram and bone density test scheduled for September. The patient was advised to continue with her current medications and to follow up with her neurologist regarding anxiety and depression management. Additionally, we addressed the need for regular movement to prevent pressure ulcers and the importance of maintaining gastrostomy care. This note was constructed using voice recognition software. While every effort has been made to ensure accuracy and grocery team member, still areas may have been included sometimes these areas may affect the content or meeting of the given symptoms. Total time spent caring for the patient today was 30 minutes. This includes time spent before the visit reviewing the chart, time spent during the visit, and time spent after the visit and documentation. Patient was informed and verbally consented to the use of an ambient scribe for clinic note documentation during this visit. Orders: Orders MM tomosynthesis screening BI Today Z12.31 - Encounter for screening mammogram for malignant neoplasm of breast XR DEXA axial skeleton Today Z78.0 - Asymptomatic menopausal state Medications: New [oral swab] As directed; to clean mouth 1 ea 1RF E44.0 - Moderate protein-calorie malnutrition, F02.C3 - Dementia in other diseases classified elsewhere, severe, with mood disturbance, G30.0 - Alzheimer's disease with early onset, Z93.1 - Gastrostomy status zinc oxide 12% ([place] Protect (zinc oxide)) 1 appl topical TID 57 grams 1RF Changed From food supplemt, lactose-reduced (Ensure oral liquid) 1 ea PO .three times a day 25 days 5,688 mL 6RF E44.0 - Moderate protein-calorie malnutrition, R63.4 - Abnormal weight loss To food supplemt, lactose-reduced (Ensure oral liquid) Lyons flavor 1 ea PO .three times a day 5,688 mL 6RF 25 days E44.0 - Moderate protein-calorie malnutrition, R63.4 - Abnormal weight loss Refilled nitroglycerin do not exceed 3 doses per episode 0.4 mg sublingual Q5M PRN 30 tabs 0RF chest pain R07.2 - Precordial pain multivitamin with minerals 10 mL PO DAILY 237 mL 1RF 30 days
[2025-06-16 15:29] VITALS: BP 116/82; PULSE 68; O2SAT 96; BMI 20.4
== END 2025-06-16 16:41 | disposition home or self-care (01) ==
LOC: HO.HMCH 15:20
PROVIDERS: PCP Internal Medicine
DX: Z00.00 Encounter for general adult medical examination without abnormal findings (principal); I11.0 Hypertensive heart disease with heart failure; I50.22 Chronic systolic (congestive) heart failure; I48.0 Paroxysmal atrial fibrillation; G30.0 Alzheimer's disease with early onset; F02.C3 Dementia in other diseases classified elsewhere, severe, with mood disturbance; F41.8 Other specified anxiety disorders; I25.5 Ischemic cardiomyopathy; E78.5 Hyperlipidemia, unspecified; R73.02 Impaired glucose tolerance (oral); M81.0 Age-related osteoporosis without current pathological fracture; K21.9 Gastro-esophageal reflux disease without esophagitis

== ENCOUNTER 2025-06-30 13:24 | Outpatient (AMB) | payer OTHER, SELFPAY ==
--- NOTE | 2025-06-30 13:24 | MHC.OFFVIS ---
Intake Visit Reasons: 6mo PEG-tube change Intake Note: Patient here for 6mo G-tube change. Patient c/o: Allergies aspirin Allergy (Intermediate, Verified 06/16/25 16:12) rash, pruritus penicillin G Allergy (Intermediate, Verified 06/16/25 16:12) swelling Medication List - Last Reconciled 06/30/25 by Mu Larkin MD acetaminophen (Children's Acetaminophen) 320 mg (10 mL) G-tube Q6H PRN 30 days apixaban (Eliquis) 5 mg PO BID 90 days atorvastatin 80 mg PO BEDTIME blood sugar diagnostic ([employer] Ultra Test strips) check once daily blood-glucose meter ([employer] Ultra2 Meter) check once daily carvedilol 6.25 mg PO BID cholecalciferol (vitamin D3) 50 mcg PO DAILY 90 days [cleansing wipes Use 1 wipe once a day] [colatrep As directed] commode As directed diaper,brief,adult,disposable (Select Disposable Briefs) As directed donepezil 10 mg PO BEDTIME 90 days famotidine 20 mg (2.5 mL) PO BEDTIME PRN 30 days fluticasone propion-salmeterol 113-14 mcg/actuation 1 inh inhalation BID 30 days fluticasone propionate 50 mcg/actuation 1 spray intranasal DAILY PRN food supplemt, lactose-reduced (Ensure oral liquid) 1 ea PO .three times a day 25 days furosemide 20 mg PO DAILY PRN 90 days gauze bandage (Band-Aid Gauze Pads) Use 1 gauze once a day gauze bandage (Band-Aid Gauze Pads) Use 1 gauze once a day humidifiers As directed ipratropium bromide 2.5 mL inhalation Q6H PRN 30 days [irrigation tray As directed] lancets ([employer]Touch UltraSoft 2 Lancet) check once per day latanoprost 0.005% 1 drp ophthalmic (eye) BEDTIME latex gloves (Latex Gloves, Large) As directed levalbuterol tartrate 45 mcg/actuation 2 puffs inhalation Q4-6H PRN 30 days MDD Patient has h/o cardiac diseas lorazepam 1 mg PO BEDTIME PRN 30 days losartan 50 mg PO DAILY 90 days multivitamin with minerals 10 mL PO DAILY 30 days nebulizer accessories (Adult Aerosol Mask) As directed nitroglycerin 0.4 mg sublingual Q5M PRN [oral swab As directed; to clean mouth ] [paper taoe 2 inch As directed] quetiapine 50 mg PO DAILY 30 days quetiapine 100 mg (1/2 x 200 mg) PO BEDTIME 90 days [regular gauze 4x4 As directed] Shower Chair As directed sodium chloride 7% 4 mL inhalation TID-QID PRN 30 days [sterile gauze 2x2 As directed] syringe, ENFit, non-sterile (Piston Syringe with ENFit) Use 1 syringe once a day [wheelchair As directed] [wipes As directed] zinc oxide 12% (Milton Protect (zinc oxide)) 1 appl topical TID HPI HPI 6mo PEG-tube change: Details: She had undergone peg tube placement last May, for dementia and dysphagia. She has here for a PEG tube change. The son says the the PEG tube is dirty now. He also says that the patient has gained almost 20 lb of weight now with the peg tube feeds. The PEG tube appears to be working well otherwise. [facility] Medical History GERD (gastroesophageal reflux disease) Dyslipidemia Urinary incontinence PAF (paroxysmal atrial fibrillation) Atherosclerotic cardiovascular disease Depression with anxiety Anticoagulated Bleeding hemorrhoids Blurry vision Hemorrhoids Ischemic cardiomyopathy Osteoporosis Dementia History of stroke History of [place] (myocardial infarction) Hypovitaminosis D Asthma Anxiety High cholesterol Hypertension Surgical History H/O eye surgery PEG (percutaneous endoscopic gastrostomy) status S/P percutaneous endoscopic gastrostomy (PEG) tube placement (~06/01/24) History of cardiac defibrillator placement History of hysterectomy Family History Father No problems noted. Mother Cerebrovascular accident Sister No problems noted. Sister No problems noted. Son No problems noted. Son No problems noted. Daughter No problems noted. Social History Housing: Apartment Alcohol intake: former Patient Tobacco Use Status: Former Tobacco user Tobacco use type: Cigarette e-Cigarette/Vaping Use: Never Used Second Hand Smoke Exposure: No Advance Directives Date on File: 12/18/20 service: No Current occupational status: retired Cognitive needs: No Hearing needs: No Vision needs: No Review of Systems Const Denies chills and Denies fever(s) Card Denies chest pain Resp Denies cough GI Denies vomiting Physical Exam Const Other: Ambulating with the assistance, not verbally communicative General: comfortable and no acute distress Resp Effort & Inspection: normal respiratory effort Cardio Rate: regular rate GI Other: Peg tube in place Palpation (GI): Soft to palpation, not firm and nontender Assessment & Plan Assessment & Plan (1) PEG (percutaneous endoscopic gastrostomy) status: Comment: She has had PEG tube placed for feeding and administration of medications. Currently according to the son she is able to eat soft diet. And PEG tube is being used mainly to administer the medications. Sometimes he feeds her with ensure 1 or 2 cans a day, if she does not eat much. Code(s): Z93.1 - Gastrostomy status Category: Surgical Plan: I changed the PEG tube another Czech 20 shahid replacement tube without difficulty. She tolerated procedure well I will see her again in the office down the line for PEG tube change. She is doing well overall. Coding Level of Care Code Est Pt Level 3 (77391) Diagnoses PEG (percutaneous endoscopic gastrostomy) status Z93.1
== END 2025-06-30 13:47 | disposition home or self-care (01) ==
LOC: HO.HGS 13:25
PROVIDERS: PCP Internal Medicine; Visit Provider Surgery
DX: Z93.1 Gastrostomy status (principal)
CPT/HCPCS: 99213

== ENCOUNTER → 2025-06-30 13:24 | Outpatient (BNVA) | payer OTHER, SELFPAY | PROVIDERS: PCP Internal Medicine; Visit Provider Surgery | DX: Z93.1 Gastrostomy status (principal) | CPT/HCPCS: 99212 ==

== ENCOUNTER → 2025-08-22 23:59 | Outpatient (BNV) | payer OTHER, SELFPAY ==
--- NOTE | 2025-08-24 11:17 | MHC.OFFVIS ---
Intake Visit Reasons: Remote ICD check- [employer] Allergies aspirin Allergy (Intermediate, Verified 06/16/25 16:12) rash, pruritus penicillin G Allergy (Intermediate, Verified 06/16/25 16:12) swelling PFSH Medical History GERD (gastroesophageal reflux disease) Dyslipidemia Urinary incontinence PAF (paroxysmal atrial fibrillation) Atherosclerotic cardiovascular disease Depression with anxiety Anticoagulated Bleeding hemorrhoids Blurry vision Hemorrhoids Ischemic cardiomyopathy Osteoporosis Dementia History of stroke History of [place] (myocardial infarction) Hypovitaminosis D Asthma Anxiety High cholesterol Hypertension Surgical History H/O eye surgery PEG (percutaneous endoscopic gastrostomy) status S/P percutaneous endoscopic gastrostomy (PEG) tube placement (~06/01/24) History of cardiac defibrillator placement History of hysterectomy Family History Father No problems noted. Mother Cerebrovascular accident Sister No problems noted. Sister No problems noted. Son No problems noted. Son No problems noted. Daughter No problems noted. Social History Housing: Apartment Alcohol intake: former Patient Tobacco Use Status: Former Tobacco user Tobacco use type: Cigarette e-Cigarette/Vaping Use: Never Used Second Hand Smoke Exposure: No Advance Directives Date on File: 12/18/20 service: No Current occupational status: retired Cognitive needs: No Hearing needs: No Vision needs: No Office Procedures Cardiac Device Check Cardiac Device Check Details: Date of service 08/22/2025; Battery life 1.5 years; normal lead parameters; no treated VT/VF; normal ICD function. [id number] Cardiac Interrogation, implant defibrillator w/interim Procedure code (CPT) selection complete Assessment & Plan Assessment & Plan (1) ICD (implantable cardioverter-defibrillator) in place: Code(s): Z95.810 - Presence of automatic (implantable) cardiac defibrillator Category: Medical (2) Ischemic cardiomyopathy: Comment: follows with [facility] Code(s): I25.5 - Ischemic cardiomyopathy Category: Medical Plan x Coding Level of Care Code Procedure Only Diagnoses ICD (implantable cardioverter-defibrillator) in place Z95.810 Ischemic cardiomyopathy I25.5 CPT Codes Cardiac Device Check - Cardiac Device 13: [id number] Cardiac Interrogation, implant defibrillator w/interim ([id number])
== END ==
PROVIDERS: PCP Internal Medicine; Visit Provider Internal Medicine
DX: I25.5 Ischemic cardiomyopathy (principal); Z95.810 Presence of automatic (implantable) cardiac defibrillator
CPT/HCPCS: 93295

== ENCOUNTER 2025-08-30 13:00 | Outpatient (AMB) | payer OTHER, SELFPAY ==
[2025-08-30 13:07] VITALS: BP 120/60; PULSE 86; RESP 18; O2SAT 96; BMI 22.5
--- NOTE | 2025-08-30 13:07 | A.OFFPC_ITS ---
Vital Signs 08/30/25 13:07 Height 4 ft 11 in Weight 111 lb 8.862 oz BMI 22.5 BP 120/60 Blood Pressure Location Lt brachial Position Sitting Respiration 18 Pulse 86 Pulse Source Pulse Oximeter Temp Source Temporal Artery Scan Pulse Oximetry (%) 96 Oxygen Delivery Method Room Air Intake Visit Reasons: Discuss form Manager Express Required: No Accompanied by: Self / Same As Patient Allergies aspirin Allergy (Intermediate, Verified 08/30/25 13:24) rash, pruritus penicillin G Allergy (Intermediate, Verified 08/30/25 13:24) swelling Medication List - Last Reconciled 08/30/25 by Ana Maria Sneed MD acetaminophen (Children's Acetaminophen) 320 mg (10 mL) G-tube Q6H PRN 30 days apixaban (Eliquis) 5 mg PO BID 90 days atorvastatin 80 mg PO BEDTIME blood sugar diagnostic ([employer] Ultra Test strips) check once daily blood-glucose meter ([employer] Ultra2 Meter) check once daily carvedilol 6.25 mg PO BID cholecalciferol (vitamin D3) 50 mcg PO DAILY 90 days [cleansing wipes Use 1 wipe once a day] [colatrep As directed] commode As directed diaper,brief,adult,disposable (Select Disposable Briefs) As directed donepezil 10 mg PO BEDTIME 90 days famotidine 20 mg (2.5 mL) PO BEDTIME PRN 30 days fluticasone propion-salmeterol 113-14 mcg/actuation 1 inh inhalation BID 30 days fluticasone propionate 50 mcg/actuation 1 spray intranasal DAILY PRN food supplemt, lactose-reduced (Ensure oral liquid) 1 ea PO .three times a day 25 days furosemide 20 mg PO DAILY PRN 90 days gauze bandage (Band-Aid Gauze Pads) Use 1 gauze once a day gauze bandage (Band-Aid Gauze Pads) Use 1 gauze once a day humidifiers As directed ipratropium bromide 2.5 mL inhalation Q6H PRN 30 days [irrigation tray As directed] lancets ([employer] UltraSoft 2 Lancet) check once per day latanoprost 0.005% 1 drp ophthalmic (eye) BEDTIME latex gloves (Latex Gloves, Large) As directed levalbuterol tartrate 45 mcg/actuation 2 puffs inhalation Q4-6H PRN 30 days MDD Patient has h/o cardiac diseas lorazepam 1 mg PO BEDTIME PRN 30 days losartan 50 mg PO DAILY 90 days multivitamin with minerals 10 mL PO DAILY 30 days nebulizer accessories (Adult Aerosol Mask) As directed nitroglycerin 0.4 mg sublingual Q5M PRN [oral swab As directed; to clean mouth ] [paper taoe 2 inch As directed] quetiapine 50 mg PO DAILY 30 days quetiapine 100 mg (1/2 x 200 mg) PO BEDTIME 90 days [regular gauze 4x4 As directed] Shower Chair As directed sodium chloride 7% 4 mL inhalation TID-QID PRN 30 days [sterile gauze 2x2 As directed] syringe, ENFit, non-sterile (Piston Syringe with ENFit) Use 1 syringe once a day [wheelchair As directed] [wipes As directed] zinc oxide 12% (Milton Protect (zinc oxide)) 1 appl topical TID Tobacco use date assessed: 08/30/25 Fall risk assessment: No Falls in past year Last assessed Fall Risk: 08/30/25 Dental Screening Dental Screen Date: 08/30/25 Did you have a dental visit in the last 12 months?: No Did you have a dental problem in the last 6 months where you did not have access to dental care?: No Was dental information given to patient?: No HPI HPI Comments History of Present Illness Details The patient is a 75-year-old female presenting for management of multiple chronic conditions. She has a history of severe advanced dementia, is not oriented to time, person, or place, and is dependent for all basic and instrumental activities of daily living. Her comorbidities include well-controlled hypertension on losartan, chronic kidney disease stage 3, and atrial fibrillation, for which she is on chronic anticoagulation with Eliquis. There is no report of active bleeding. She also has elevated cholesterol treated with atorvastatin. The patient's last bone densitometry was in 2022. She has known allergies to penicillin and aspirin. Current medications include Tylenol, Eliquis, atorvastatin, Carvedilol, vitamin D tablets, losartan 50 mg, and Seroquel at night. Insulin has been previously discontinued. Regarding nutrition, she has a gastric tube but also eats by mouth and maintains a good weight. [facility] Medical History GERD (gastroesophageal reflux disease) Dyslipidemia Urinary incontinence PAF (paroxysmal atrial fibrillation) Atherosclerotic cardiovascular disease Depression with anxiety Anticoagulated Bleeding hemorrhoids Blurry vision Hemorrhoids Ischemic cardiomyopathy Osteoporosis Dementia History of stroke History of [place] (myocardial infarction) Hypovitaminosis D Asthma Anxiety High cholesterol Hypertension Surgical History H/O eye surgery PEG (percutaneous endoscopic gastrostomy) status S/P percutaneous endoscopic gastrostomy (PEG) tube placement (~06/01/24) History of cardiac defibrillator placement History of hysterectomy Family History Father No problems noted. Mother Cerebrovascular accident Sister No problems noted. Sister No problems noted. Son No problems noted. Son No problems noted. Daughter No problems noted. Social History Housing: Apartment Alcohol intake: former Patient Tobacco Use Status: Former Tobacco user Tobacco use type: Cigarette e-Cigarette/Vaping Use: Never Used Second Hand Smoke Exposure: No Advance Directives Date on File: 12/18/20 service: No Current occupational status: retired Cognitive needs: No Hearing needs: No Vision needs: No Questionnaire Thrive Questionnaire Date Thrive assessed: 04/05/25 I am a: Patient What is your living situation today?: I have a steady place to live Within the past 12 months, did the food you bought not last and you didn't have the money to get more?: Often true Within the past 12 months, did you worry whether your food would run out before you got money to buy more?: Often true Do you have trouble paying for medicines?: No Do you have trouble getting transportation to medical appointments?: No Do you have trouble paying your heating and electricity bill?: No Do you have trouble taking care of your child, family member or friend?: No Do you have trouble with day-to-day activities such as bathing, preparing meals, shopping, managing finances, etc.?: Yes Are you currently unemployed and looking for a job?: No Are you interested in more education?: I choose not to answer this question Please select the resources that you would like help with: Transportation Currently or been in a relationship where the following occur: I choose not to answer THRIVE Score: 2 JUAN PABLO-7 AMB Questionnaire JUAN PABLO-7 Date JUAN PABLO - 7 assessed: 01/10/25 Source: Developed by Drs. Anthony Davis, Megan Davis, Flakito Orlando and colleagues, with an educational chris from [employer]. Review of Systems Const All systems reviewed & are unremarkable except as noted in HPI and below Card Denies chest pain at rest, Denies chest pain with activity, Denies edema, Denies irregular heart rhythm, Denies claudication, Denies dyspnea, Denies dyspnea on exertion, Denies orthopnea, Denies paroxysmal nocturnal dyspnea and Denies slow heart rate Resp Denies cough, Denies dyspnea and Denies dyspnea on exertion GI Denies abdominal pain, Denies change in bowel habits, Denies excessive flatus, Denies nausea and Denies vomiting Physical exam (Primary Care) Vital Signs: Last Vital Signs Resp 18 08/30/25 13:07 Oxygen Delivery Method Room Air 08/30/25 13:07 BMI result Body Mass Index 22.5 Tobacco/Smoking Status: Tobacco use Status Tobacco use date assessed 06/16/25 06/16/25 15:40 Patient Tobacco Use Status Former Tobacco user 06/16/25 15:40 Tobacco use type Cigarette 06/16/25 15:40 e-Cigarette/Vaping Use Never Used 06/16/25 15:40 Thrive Assessment: Date of Thrive Assessment Date Thrive assessed 04/05/25 06/16/25 15:40 Currently or been in a relationship where the following occur: I choose not to answer Resp Effort & Inspection: normal respiratory effort Auscultation: clear to auscultation bilaterally Cardio Jugular venous distension: no JVD Rate: regular rate Rhythm: regular rhythm Heart sounds: S1 normal heart sound present and S2 normal heart sound present Coding Level of Care Code Est Pt Level 4 (20322) Complex EM visit Add On G2211 Diagnoses Dyslipidemia E78.5 PAF (paroxysmal atrial fibrillation) I48.0 Hypertension, unspecified type I10 Hypertension type: unspecified 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 G30.0; F02.C3 Dementia type: Alzheimer's Alzheimer's disease onset: early onset Dementia severity: severe Dementia behavioral or psychological symptom: with mood disturbance Time Spent (min) 24 Assessment & Plan Assessment & Plan (1) Dyslipidemia: Code(s): E78.5 - Hyperlipidemia, unspecified Category: Medical (2) PAF (paroxysmal atrial fibrillation): Code(s): I48.0 - Paroxysmal atrial fibrillation Category: Medical (3) Hypertension: Code(s): I10 - Essential (primary) hypertension Category: Medical Qualifiers: Hypertension type: unspecified Qualified Code(s): I10 - Essential (primary) hypertension (4) Dementia: Comment: She is very pleasant but forgetful. Is good that her son takes care of her and looks over the meds administration. Code(s): F03.90 - Unspecified dementia, unspecified severity, without behavioral disturbance, psychotic disturbance, mood disturbance, and anxiety Category: Medical Qualifiers: Dementia type: Alzheimer's Alzheimer's disease onset: early onset Dementia severity: severe Dementia behavioral or psychological symptom: with mood disturbance Qualified Code(s): G30.0 - Alzheimer's disease with early onset; F02.C3 - Dementia in other diseases classified elsewhere, severe, with mood disturbance Plan Plan 1. Severe Advanced Dementia The patient has severe advanced dementia and is dependent for all activities of daily living. Continue Seroquel at night. 2. Hypertension The patient's hypertension is well-controlled. Continue losartan 50 mg. 3. Atrial Fibrillation The patient is on chronic anticoagulation for atrial fibrillation. Continue Eliquis and carvedilol. 4. Hyperlipidemia Continue atorvastatin for elevated cholesterol. 5. Chronic Kidney Disease, Stage 3 Continue to monitor chronic kidney disease. 6. Osteoporosis Screening An order for a bone densitometry will be provided. Medications: New cholecalciferol (vitamin D3) 10 mcg (0.25 mL) PO DAILY 7.5 mL 0RF 30 days
--- OUTSIDE RECORDS SUMMARY | 2025-08-30 14:44 | XMS_ITS | Clinical Summary ---
Author Organization [facility] ity Address [address] [place] [address] Care Team Providers Care Access Database Developer Name Role Phone Unavailable Primary Care Provider [...] nts (1 - 1-dose 75+ series) 02/20/2024 Depression Screening 10/20/2024 COVID-19 Vaccine ( - 2023-2 5 season) 2025 Influenza Vaccine (#1) 2025 HIB Vaccines Aged [...]
== END 2025-08-30 13:38 | disposition home or self-care (01) ==
LOC: HO.HMCH 13:01
PROVIDERS: PCP Internal Medicine; Visit Provider Internal Medicine
DX: E78.5 Hyperlipidemia, unspecified (principal); I48.0 Paroxysmal atrial fibrillation; I10 Essential (primary) hypertension; G30.0 Alzheimer's disease with early onset; F02.C3 Dementia in other diseases classified elsewhere, severe, with mood disturbance

== ENCOUNTER → 2025-08-30 13:00 | Outpatient (BNVA) | payer OTHER, SELFPAY | PROVIDERS: PCP Internal Medicine; Visit Provider Internal Medicine | DX: E78.5 Hyperlipidemia, unspecified (principal); I48.0 Paroxysmal atrial fibrillation; G30.0 Alzheimer's disease with early onset; F02.C3 Dementia in other diseases classified elsewhere, severe, with mood disturbance; I12.9 Hypertensive chronic kidney disease with stage 1 through stage 4 chronic kidney disease, or unspecified chronic kidney disease; N18.30 Chronic kidney disease, stage 3 unspecified; Z13.820 Encounter for screening for osteoporosis; Z79.01 Long term (current) use of anticoagulants | CPT/HCPCS: 99212 ==

== ENCOUNTER 2025-09-19 16:12 | Outpatient (AMB) | payer OTHER, SELFPAY ==
[2025-09-19 16:28] VITALS: BP 112/66; PULSE 60; RESP 18; O2SAT 99; BMI 22.5
--- NOTE | 2025-09-19 16:28 | A.OFFPC_ITS ---
Vital Signs 09/19/25 16:28 Height 4 ft 11 in Weight 111 lb 8.862 oz BMI 22.5 BP 112/66 Blood Pressure Location Lt brachial Position Sitting Respiration 18 Pulse 60 Pulse Source Pulse Oximeter Temp Source Temporal Artery Scan Pulse Oximetry (%) 99 Oxygen Delivery Method Room Air Intake Visit Reasons: 3 month f/u w/ Jamie Principal Technical Writer Required: No Accompanied by: Self / Same As Patient Allergies aspirin Allergy (Intermediate, Verified 09/19/25 16:59) rash, pruritus penicillin G Allergy (Intermediate, Verified 09/19/25 16:59) swelling Medication List - Last Reconciled 09/19/25 by Ana Maria Sneed MD acetaminophen (Children's Acetaminophen) 320 mg (10 mL) G-tube Q6H PRN 30 days apixaban (Eliquis) 5 mg PO BID 90 days atorvastatin 80 mg PO BEDTIME blood sugar diagnostic (Mad Mimi Ultra Test strips) check once daily blood-glucose meter (Mad Mimi Ultra2 Meter) check once daily carvedilol 6.25 mg PO BID cholecalciferol (vitamin D3) 50 mcg PO DAILY 90 days cholecalciferol (vitamin D3) 10 mcg (0.25 mL) PO DAILY 30 days [cleansing wipes Use 1 wipe once a day] [colatrep As directed] commode As directed diaper,brief,adult,disposable (Select Disposable Briefs) As directed donepezil 10 mg PO BEDTIME 90 days famotidine 20 mg (2.5 mL) PO BEDTIME PRN 30 days fluticasone propion-salmeterol 113-14 mcg/actuation 1 inh inhalation BID 30 days fluticasone propionate 50 mcg/actuation 1 spray intranasal DAILY PRN food supplemt, lactose-reduced (Ensure oral liquid) 1 ea PO .three times a day 25 days furosemide 20 mg PO DAILY PRN 90 days gauze bandage (Band-Aid Gauze Pads) Use 1 gauze once a day gauze bandage (Band-Aid Gauze Pads) Use 1 gauze once a day humidifiers As directed ipratropium bromide 2.5 mL inhalation Q6H PRN 30 days [irrigation tray As directed] lancets (CHNLTouch UltraSoft 2 Lancet) check once per day latanoprost 0.005% 1 drp ophthalmic (eye) BEDTIME latex gloves (Latex Gloves, Large) As directed levalbuterol tartrate 45 mcg/actuation 2 puffs inhalation Q4-6H PRN 30 days MDD Patient has h/o cardiac diseas lorazepam 1 mg PO BEDTIME PRN 30 days losartan 50 mg PO DAILY 90 days multivitamin with minerals 10 mL PO DAILY 30 days nebulizer accessories (Adult Aerosol Mask) As directed nitroglycerin 0.4 mg sublingual Q5M PRN [oral swab As directed; to clean mouth ] [paper taoe 2 inch As directed] quetiapine 50 mg PO DAILY 30 days quetiapine 100 mg (1/2 x 200 mg) PO BEDTIME 90 days [regular gauze 4x4 As directed] Shower Chair As directed sodium chloride 7% 4 mL inhalation TID-QID PRN 30 days [sterile gauze 2x2 As directed] syringe, ENFit, non-sterile (Piston Syringe with ENFit) Use 1 syringe once a day [wheelchair As directed] [wipes As directed] zinc oxide 12% (Milton Protect (zinc oxide)) 1 appl topical TID Tobacco use date assessed: 09/19/25 Fall risk assessment: No Falls in past year Last assessed Fall Risk: 09/19/25 Dental Screening Dental Screen Date: 09/19/25 Did you have a dental visit in the last 12 months?: No Did you have a dental problem in the last 6 months where you did not have access to dental care?: No Was dental information given to patient?: No HPI HPI Comments History of Present Illness Details The patient is a 75 year old individual presenting for follow-up for management of chronic conditions and evaluation of persistent stomach pain. Has dementia that has progressed. The patient has a history of dementia and is not oriented to person or place. Current medications for this include donepezil and Seroquel 50 mg in the morning and 100 mg at night. For atrial fibrillation, the patient takes Eliquis. The patient is also on atorvastatin 80 mg for hyperlipidemia. The patient's blood pressure is reported as well-controlled. The patient has been experiencing significant stomach pain at night, causing the patient to cry, despite taking famotidine. The last meal is typically at 7:00 PM, and medications are administered around 9:00 PM or 10:00 PM. The patient's weight has been stable. The patient uses a walker for mobility, which is reportedly in poor condition after four years of use. [facility] Medical History GERD (gastroesophageal reflux disease) Dyslipidemia Urinary incontinence PAF (paroxysmal atrial fibrillation) Atherosclerotic cardiovascular disease Depression with anxiety Anticoagulated Bleeding hemorrhoids Blurry vision Hemorrhoids Ischemic cardiomyopathy Osteoporosis Dementia History of stroke History of ID (myocardial infarction) Hypovitaminosis D Asthma Anxiety High cholesterol Hypertension Surgical History H/O eye surgery PEG (percutaneous endoscopic gastrostomy) status S/P percutaneous endoscopic gastrostomy (PEG) tube placement (~06/01/24) History of cardiac defibrillator placement History of hysterectomy Family History Father No problems noted. Mother Cerebrovascular accident Sister No problems noted. Sister No problems noted. Son No problems noted. Son No problems noted. Daughter No problems noted. Social History Housing: Apartment Alcohol intake: former Patient Tobacco Use Status: Former Tobacco user Tobacco use type: Cigarette e-Cigarette/Vaping Use: Never Used Second Hand Smoke Exposure: No Advance Directives Date on File: 12/18/20 service: No Current occupational status: retired Cognitive needs: No Hearing needs: No Vision needs: No Questionnaire Thrive Questionnaire Date Thrive assessed: 09/19/25 I am a: Patient What is your living situation today?: I have a steady place to live Within the past 12 months, did the food you bought not last and you didn't have the money to get more?: Often true Within the past 12 months, did you worry whether your food would run out before you got money to buy more?: Often true Do you have trouble paying for medicines?: No Do you have trouble getting transportation to medical appointments?: No Do you have trouble paying your heating and electricity bill?: No Do you have trouble taking care of your child, family member or friend?: No Do you have trouble with day-to-day activities such as bathing, preparing meals, shopping, managing finances, etc.?: Yes Are you currently unemployed and looking for a job?: No Are you interested in more education?: I choose not to answer this question Please select the resources that you would like help with: Transportation Currently or been in a relationship where the following occur: I choose not to answer THRIVE Score: 2 AUDIT C Alcohol Use Questionnaire (AUDIT-C) 1. How often do you have a drink containing alcohol?: Never Total Score: 0 Score Reviewed/Action Taken: No JUAN PABLO-7 AMB Questionnaire JUAN PABLO-7 Date JUAN PABLO - 7 assessed: 01/10/25 Feeling nervous, anxious, or on edge: 0 = Not at all Not being able to stop or control worryin = Not at all Worrying too much about different things: 0 = Not at all Trouble relaxin = Not at all Being so restless that it is hard to sit still: 0 = Not at all Becoming easily annoyed or irritable: 0 = Not at all Feeling afraid as if something awful might happen: 0 = Not at all Total JUAN PABLO-7 score (0-4 normal; 5-9 mild; 10-14 moderate; 15-21 severe): 0 Source: Developed by Drs. Anthony Davis, Megan Davis, Flakito Orlando and colleagues, with an educational chris from [employer]. JUAN PABLO-7 Assessment Billing JUAN PABLO-7 Assessment Tool: JUAN PABLO-7 Assessment 86765 Review of Systems Const All systems reviewed & are unremarkable except as noted in HPI and below Card Denies chest pain at rest, Denies chest pain with activity, Denies edema, Denies irregular heart rhythm, Denies claudication, Denies dyspnea, Denies dyspnea on exertion, Denies orthopnea, Denies paroxysmal nocturnal dyspnea and Denies slow heart rate Resp Denies cough, Denies dyspnea and Denies dyspnea on exertion Musc Denies atrophy, Denies deformity and Denies limited range of motion Skin/Breast Denies bleeding lesions, Denies changing lesions and Denies rash Physical exam (Primary Care) Vital Signs: Last Vital Signs Pulse 60 09/19/25 16:28 Resp 18 09/19/25 16:28 BP 112/66 09/19/25 16:28 Pulse Ox 99 09/19/25 16:28 Oxygen Delivery Method Room Air 09/19/25 16:28 BMI result Body Mass Index 22.5 Tobacco/Smoking Status: Tobacco use Status Tobacco use date assessed 09/19/25 09/19/25 16:38 Patient Tobacco Use Status Former Tobacco user 09/19/25 16:38 Tobacco use type Cigarette 09/19/25 16:38 e-Cigarette/Vaping Use Never Used 09/19/25 16:38 Thrive Assessment: Date of Thrive Assessment Date Thrive assessed 09/19/25 09/19/25 16:38 Currently or been in a relationship where the following occur: I choose not to answer Resp Effort & Inspection: normal respiratory effort Auscultation: clear to auscultation bilaterally Cardio Jugular venous distension: no JVD Rate: regular rate Rhythm: regular rhythm Heart sounds: S1 normal heart sound present and S2 normal heart sound present Extrem General: Yes full ROM Coding Level of Care Code Complex visit Add On G2211 Diagnoses GERD (gastroesophageal reflux disease) K21.9 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 G30.0; F02.C3 Dementia type: Alzheimer's Alzheimer's disease onset: early onset Dementia severity: severe Dementia behavioral or psychological symptom: with mood disturbance PAF (paroxysmal atrial fibrillation) I48.0 Dyslipidemia E78.5 Additional Codes JUAN PABLO-7 Assessment Billing - JUAN PABLO-7 Assessment Tool: JUAN PABLO-7 Assessment [id number] ([id number]) Time Spent (min) 23 Assessment & Plan Assessment & Plan (1) GERD (gastroesophageal reflux disease): Code(s): K21.9 - Gastro-esophageal reflux disease without esophagitis Category: Medical (2) Dementia: Comment: She is very pleasant but forgetful. Is good that her son takes care of her and looks over the meds administration. Code(s): F03.90 - Unspecified dementia, unspecified severity, without behavioral disturbance, psychotic disturbance, mood disturbance, and anxiety Category: Medical Qualifiers: Dementia type: Alzheimer's Alzheimer's disease onset: early onset Dementia severity: severe Dementia behavioral or psychological symptom: with mood disturbance Qualified Code(s): G30.0 - Alzheimer's disease with early onset; F02.C3 - Dementia in other diseases classified elsewhere, severe, with mood disturbance (3) PAF (paroxysmal atrial fibrillation): Code(s): I48.0 - Paroxysmal atrial fibrillation Category: Medical (4) Dyslipidemia: Code(s): E78.5 - Hyperlipidemia, unspecified Category: Medical Plan Plan 1. Dyspepsia The patient reports significant nocturnal stomach pain despite treatment with famotidine. The plan is to discontinue famotidine and switch to omeprazole, which is a stronger medication, to be administered in the morning. The caregiver was advised not to provide food within three hours of bedtime. 2. Atrial Fibrillation The patient's atrial fibrillation is stable. Continue Eliquis as prescribed. 3. Hyperlipidemia The patient's hyperlipidemia is managed on a high-dose statin. Continue atorvastatin 80 mg. 4. Dementia The patient has chronic dementia and is not oriented. The plan is to continue donepezil and Seroquel (50 mg in the morning, 100 mg at night). Medications: New omeprazole 20 mg PO DAILY 90 caps 3RF 90 days walker As directed 1 ea 0RF G89.29 - Other chronic pain, M54.50 - Low back pain, unspecified, M81.0 - Age-related osteoporosis without current pathological fracture
--- OUTSIDE RECORDS SUMMARY | 2025-09-19 18:41 | XMS_ITS | Clinical Summary ---
Author Organization [facility] ity Address [address] [place] [address] Care Team Providers Care Improvement Director Name Role Phone Unavailable Primary Care Provider [...] Depression Screening 10/20/2024 COVID-19 Vaccine ( - 2024-2 6 season) 2025 Influenza Vaccine (#1) 2025 HIB [...]
== END 2025-09-19 17:13 | disposition home or self-care (01) ==
LOC: HO.HMCH 16:12
PROVIDERS: PCP Internal Medicine; Visit Provider Internal Medicine
DX: G30.0 Alzheimer's disease with early onset (principal); F02.C3 Dementia in other diseases classified elsewhere, severe, with mood disturbance; I48.0 Paroxysmal atrial fibrillation; K21.9 Gastro-esophageal reflux disease without esophagitis; E78.5 Hyperlipidemia, unspecified

== ENCOUNTER → 2025-09-19 16:12 | Outpatient (BNVA) | payer OTHER, SELFPAY | PROVIDERS: PCP Internal Medicine; Visit Provider Internal Medicine | DX: K21.9 Gastro-esophageal reflux disease without esophagitis (principal); G30.0 Alzheimer's disease with early onset; F02.C3 Dementia in other diseases classified elsewhere, severe, with mood disturbance; I48.0 Paroxysmal atrial fibrillation; E78.5 Hyperlipidemia, unspecified; Z87.891 Personal history of nicotine dependence; Z13.39 Encounter for screening examination for other mental health and behavioral disorders | CPT/HCPCS: 96127; 99212 ==

== ENCOUNTER → 2025-09-20 09:23 | Outpatient (BNV) | payer OTHER, SELFPAY | PROVIDERS: PCP Internal Medicine; Visit Provider Internal Medicine | DX: I25.5 Ischemic cardiomyopathy (principal); Z95.810 Presence of automatic (implantable) cardiac defibrillator | CPT/HCPCS: 93295 ==